=== PATIENT | male | born 1940 | race Caucasian/White ===

== ENCOUNTER 2021-07-07 20:53 | Emergency (ER) | payer MEDICARE, OTHER, SELFPAY ==
[2021-07-07 20:55] VITALS: BP 175/93; TEMP 36.7; O2SAT 97; BMI 29.3
--- NOTE | 2021-07-07 22:12 | RAD_ITS ---
HISTORY: chest pain EXAMINATION/TECHNIQUE: XR Chest 1 View AP view COMPARISON: None FINDINGS: LINES/DEVICES: Sternotomy wires and prosthetic aortic valve. LUNGS: No overt pulmonary edema. Slightly hyperexpanded lungs. Obliquely oriented linear opacity within right midlung. No sizable pleural effusion. No pneumothorax detected. MEDIASTINUM AND CARDIOVASCULAR STRUCTURES: Slightly prominent heart shadow. Status post CABG and aortic valvuloplasty. Atherosclerotic calcifications along the aorta. BONES AND SOFT TISSUES: Skeletal degenerative changes. RAD/Chest 1 View (Portable) IMPRESSION: Mild COPD and mild cardiomegaly with right midlung linear scarring versus atelectasis. at 2342 Reported and signed by: Rafita Meadows MD Electronically Signed: Rafita Meadows MD at 23:41 EST Tel , Service support ,
--- NOTE | 2021-07-07 22:12 | RAD_ITS ---
HISTORY: atraumatic left hip pain EXAMINATION/TECHNIQUE: XR Hip Unilateral with Pelvis when performed; 2-3 Views: AP pelvis with AP and lateral views left hip COMPARISON: None FINDINGS: PELVIC BONES: No displaced fracture, destructive or sclerotic lesions. Note that overlapping bowel shadows may however obscure fine detail. Sacroiliac joints are unremarkable. No widening of the pubic symphisis. Degenerative changes involving imaged lumbar spine. HIPS: Symmetric and adequately aligned bilateral hips with no acute fracture or dislocation. Bilateral hip joint spaces are symmetric and preserved. SOFT TISSUES: Lower abdominal and pelvic hernia repair mesh clips present. Surgical clips within left lower pelvis and left thigh. Vascular calcifications noted. RAD/HIP, UNI W/ Pelvis 2-3 Views IMPRESSION: Pelvis and hips with no acute osseous abnormality. at 2345 Reported and signed by: Rafita Meadows MD Electronically Signed: Rafita Meadows MD at 23:44 EST Tel , Service support ,
--- NOTE | 2021-07-07 22:12 | EKG12_ITS ---
Test Reason : DYSRHYTHMIA Blood Pressure : / mmHG Vent. Rate : 063 BPM Atrial Rate : 034 BPM P-R Int : 000 ms QRS Dur : 094 ms QT Int : 434 ms P-R-T Axes : 000 063 -34 degrees QTc Int : 444 ms Atrial fibrillation Inferior infarct , age undetermined Abnormal ECG Confirmed by LASHAY NORRIS, TREVIN ([id number]), editor index SRAVANI JOHNSON ([id number]) on 07/09/2021 10:17:14 AM Referred By: MARK Confirmed By:TREVIN METZ MD
--- NOTE | 2021-07-07 22:13 | EDS_ITS ---
HPI History of Present Illness Chief Complaint: Lower Extremity Injury Detail of Chief Complaint: Atraumatic left hip pain for months. Bilateral lower extremity swelling fo Informant: patient and friend Occured/Mechanism Mechanism/Context: No injury Onset/Context/Timing Onset: Month(s) Context: Gradual Onset Timing: Continuous Quality of Pain: Sharp Current Severity: Mild Maximum Severity: Mild Associated Symptoms Associated Symptoms: Negative for Parasthesia, Weakness and Loss of Funtion Narrative Narrative: 72-year-old male lives at [facility]. Past medical history of CABG and CAD and diabetes. Denies any history of CHF or kidney disease. Patient has been dealing with hip pain for 6 months. He was seen by his primary care physician for that and no x-rays were ordered at that time. The pain is progressively worsened over the last several weeks. He is also developed bilateral lower extremity edema. Currently he is on Coumadin. They were going to get him into physical therapy but has not been scheduled or set up yet. He denies any falls or trauma. He denies chest pain or shortness of breath. Prior similar symptoms: No Recent Illness/Hospitalization: No PFSH PFSH Home Medications allopurinol 300 mg PO DAILY 07/07/21 [History Last Taken Unknown] furosemide [Lasix] 20 mg PO DAILY 07/07/21 [History Last Taken Unknown] lisinopril 40 mg PO DAILY 07/07/21 [History Last Taken Unknown] metoprolol succinate 25 mg PO DAILY 07/07/21 [History Last Taken Unknown] omega-3 fatty acids [Fish Oil] 1,000 mg PO DAILY 07/07/21 [History Last Taken Unknown] warfarin [Coumadin] 2.5 mg PO DAILY 07/07/21 [History Last Taken Unknown] hydrocodone-acetaminophen 1 tab PO Q6H PRN 5 Days #10 tab 07/08/21 [Rx Last Taken Unknown] Allergy/AdvReac Type Severity Reaction Status Date / Time No Known Allergies Allergy Verified 07/07/21 20:58 Social History Smoking Status: Never smoker ROS ROS ED ROS Narrative Left hip pain. Bilateral lower extremity swelling. Review of Systems ROS Unobtainable: Denies due to encephalopathy Constitutional Constitutional ED: Denies fever(s) Eyes Eyes: Denies change in vision ENT ENT ED: Denies ear pain Cardiovascular Cardiovascular: Denies chest pain or palpitations Respiratory/Chest Respiratory/Chest: Denies cough or dyspnea Gastrointestinal Gastrointestinal: Denies abdominal pain, diarrhea, nausea or vomiting Genitourinary Genitourinary ED: Denies dysuria Musculoskeletal Musculoskeletal: Denies myalgias Integumentary Denies rash Neurologic Neurologic: Denies headache(s) Psychiatric Psychiatric: Denies depression Endocrine Endocrinology: Denies polyuria Hematologic/Lymphatic Hematologic/Lymphatic: Denies easy bruising Allergic/Immunologic Allergic/Immunologic ED: Denies urticaria EXAM Physical Exam Narrative Exam Narrative: 80-year-old male no acute distress vital signs stable he is afebrile he does not look septic or toxic. His pulse ox is 97% on room air. H EENT exam unremarkable. Neck nontender no lymphadenopathy. Lungs clear to auscultation bilaterally. Heart rate about 60. No murmur. Sounds are regular.. No murmur appreciated. Abdomen soft, nontender, nondistended normal bowel sounds no peritoneal signs. He has tenderness to his left hip to palpation. There is no redness or warmth. There is no lumbar spine tenderness or SI tenderness. He is able to flex extend the left hip. Both lower extremities are 1-2+ pitting edema. Equal symmetrical. Calves are nontender. Dorsi plantarflexion intact. He is able to flex extend his hip and knee. Neurologically is awake and alert with no focal motor deficits. Const Vital Signs: 07/07/21 20:55 07/07/21 23:18 07/07/21 23:20 Temperature 98.1 F Temperature Source Temporal Pulse Rate 74 Respiratory Rate 16 Blood Pressure 175/93 H Blood Pressure Mean 120 Pulse Ox 97 95 95 Oxygen Delivery Method Room Air Room Air Room Air Positive well nourished and well developed; Negative for obese, cachectic, contractures or unkempt General Appearance ED: well developed and NAD; Negative for unkempt, cachectic or contractures Nutritional Appearance: Negative for cachectic or obese HEENT Reports moist mucous membranes normocephalic and atraumatic; Negative for trauma or tenderness Eyes PERRL Neck full ROM and supple Thyroid: Negative for tender Chest Wall inspection of chest normal and palpation of chest normal Resp normal respiratory effort, no retractions and clear to auscultation bilaterally Auscultation: Negative for rales, rhonchi or wheezes Cardio regular rate, S1 normal heart sound, S2 normal heart sound and no murmurs; Negative for regular rhythm Cardio Narrative: A. fib. GI non-tender, non-distended and no masses Auscultation: normoactive bowel sounds Palpation: soft; Negative for tender, guarding or rebound tenderness present Back/Spine no CVA tenderness Back/Spine Narrative: No SI tenderness. General Back: Negative for CVA tenderness Cervical Spine: Negative for cervical spine tenderness Thoracic Spine / Upper Back: Negative for thoracic spinal tenderness Lumbar Spine / Lower Back: Negative for lumbar spinal tenderness Extremity Negative for normal to inspection Extremity Narrative: Tenderness left hip. No redness. No deformity. No warmth. Bilateral lower extremity pitting edema equal symmetrical. Neuro oriented x3 and moves all extremities Sensorium / Orientation: alert, oriented to person, oriented to place and oriented to time; Negative for orientation impaired, confused, lethargic or stuporous Motor Exam: strength 5/5 throughout Psych mental status grossly normal Appearance: Negative for unkempt Mood & Affect: Negative for anxious Skin no wounds Lesions: no lesions Rashes: no rashes Trauma: Negative for abrasion, laceration or puncture MDM MDM MDM Narrative Medical decision making narrative: 72-year-old male assisted living with acute on chronic left hip pain and new lower extremity edema. He will undergo cardiac work-up with x-rays of the hip. He is on Coumadin we will check an INR. Repeat exam patient is doing well at 12:39 AM. I went over all test results with he and personnel from the extended care facility. He will be discharged to home and follow-up with his primary care physician. He will be written for [employer] [employer] for pain. Lab Data Attestation: I reviewed the patient's lab results. Lab results narrative: CBC shows a normal white count of 6.9. Hemoglobin 12.2. Platelet count of 117,000. Patient is on Coumadin his INR is 2.2. BNP is 374. Chemistries unremarkable gap of six BUN 21 creatinine 1.3. Glucose 200. Troponin normal at 18. Labs: Laboratory Results - last 24 hr 07/07/21 07/07/21 07/07/21 22:55 22:55 22:55 WBC 6.9 RBC 3.82 L Hgb 12.2 L Hct 36.9 L MCV 96.6 H MCH 31.9 MCHC 33.1 RDW Std Deviation 48.5 H RDW Coeff of Zaheer 13.6 Plt Count 117 L MPV 10.7 Immature Gran % (Auto) 0.300 Neut % (Auto) 62.9 Lymph % (Auto) 26.3 Bureau % (Auto) 7.8 Eos % (Auto) 2.0 Baso % (Auto) 0.7 Absolute Neuts (auto) 4.4 Absolute Lymphs (auto) 1.82 Nucleated RBC % 0 PT 23.5 H INR 2.2 Sodium 144 Potassium 3.8 Chloride 113 H Carbon Dioxide 25.0 Anion Gap 6 BUN 21 H Creatinine 1.39 H Estim Creat Clear Calc 50.92 Est GFR (MDRD) Af Amer 63 Est GFR (MDRD) Non-Af 52 L BUN/Creatinine Ratio 15.1 Glucose 200 H Calcium 8.5 Troponin I High Sens 18 B-Natriuretic Peptide 07/07/21 22:55 WBC RBC Hgb Hct MCV MCH MCHC RDW Std Deviation RDW Coeff of Zaheer Plt Count MPV Immature Gran % (Auto) Neut % (Auto) Lymph % (Auto) Bureau % (Auto) Eos % (Auto) Baso % (Auto) Absolute Neuts (auto) Absolute Lymphs (auto) Nucleated RBC % PT INR Sodium Potassium Chloride Carbon Dioxide Anion Gap BUN Creatinine Estim Creat Clear Calc Est GFR (MDRD) Af Amer Est GFR (MDRD) Non-Af BUN/Creatinine Ratio Glucose Calcium Troponin I High Sens B-Natriuretic Peptide 374.0 H Radiography Diagnostic Testing: Clinical Impression(s) from Imaging Studies Chest X-Ray 07/07/21 22:12 IMPRESSION: Mild COPD and mild cardiomegaly with right midlung linear scarring versus atelectasis. at 2345 Reported and signed by: Rafita Meadows MD Electronically Signed: Rafita Meadows MD at 23:41 EST Tel , Service support , Hip/Pelvis X-Ray 07/07/21 22:12 IMPRESSION: Pelvis and hips with no acute osseous abnormality. at 2345 Reported and signed by: Rafita Meadows MD Electronically Signed: Rafita Meadows MD at 23:44 EST Tel , Service support , Left hip x-ray and pelvis shows no acute abnormality. No fracture or dislocation no significant degenerative arthritis. Chronic changes no acute process. 3 views interpreted by myself. Portable chest x-ray interpreted both by myself and servicer coin machines showed chronic changes no acute process. Cardiomegaly. And possible chronic changes consistent with COPD. No acute infiltrate. No congestive heart failure nor any effusions. Rhythm Strip Rhythm Strip: A-fib Rate: 63 Ectopy: None EKG Initial EKG: Attestation: I personally reviewed and interpreted this EKG as follows: Interpretation: No Acute Injury Pattern, Atrial Fibrillation and Atrial Fl utter Comments: Atrial fib/flutter rate of 63 no acute signs of MT or ischemia. Prior EKG tracings: not available for review Discharge Plan Triage Chief Complaint: Lower Extremity Injury ED Provider: Moris Gross Dx/Rx/DC Orders Clinical Impression: Acute hip pain, Peripheral edema Instructions: ED Lymphedema Prescriptions: New hydrocodone-acetaminophen 5-325 mg tablet 1 tab PO Q6H PRN (Reason: pain) 5 Days Qty: 10 RF: 0 No Action warfarin [Coumadin] 2.5 mg Tablet 2.5 mg PO DAILY RF: 0 furosemide [Lasix] 20 mg Tablet 20 mg PO DAILY RF: 0 metoprolol succinate 25 mg Tablet Extended Release 24 Hr 25 mg PO DAILY RF: 0 allopurinol 300 mg Tablet 300 mg PO DAILY RF: 0 lisinopril 40 mg Tablet 40 mg PO DAILY RF: 0 Fish Oil Capsule 1,000 mg PO DAILY RF: 0 Primary Care Provider: Care Physician,No Primary Referrals: Care Physician,No Primary [Primary Care Provider] - Activity Restrictions/Additional Instructions: Your hip x-ray and labs look good. Follow-up with your doctor. Return if feeling worse. Limited [place] for hip pain. Make sure you are drinking plenty of fluids and taking plenty of fiber so it does not cause her constipation. Watch does not make you nauseated or fall. Elevate your legs to decrease swelling. Discussed with your primary care physician possible compression stocking or adjusting her medications Alvera to the swelling. Disposition Disposition: Home, Self Care
[2021-07-07 23:14] LABS: Absolute Lymphocyte Count 1.82 X10^3/uL (0.83-4.51); Absolute Neutrophil Count 4.4 X10^3/uL (2.0-7.7); Basophil# 0.05 X10^3/uL; Basophil% 0.7 % (0-1); Eosinophil# 0.14 X10^3/uL; Hematocrit 36.9 % (40-54); Hemoglobin 12.2 g/dL (13.0-16.5); Lymphocyte # 1.82 X10^3/ul (0.83-4.51); Lymphocyte % 26.3 % (19-41); Mean Corp Hgb Conc 33.1 g/dL (32-36); Mean Corpuscular Hgb 31.9 pg (27.0-32.0); Mean Corpuscular Volume 96.6 fL (80-94); Mean Platelet Vol. 10.7 fl (6.2-12.0); Monocyte# 0.54 X10^3/uL; Monocyte% 7.8 % (0-10); NRBC Flagged by Analyzer 0 % (0-5); Neutrophil # 4.35 X10^3/uL (2.7-7.7); Neutrophil % 62.9 % (47-70); Platelet Count 117 K/mm3 (150-450); RBC Distribution Width CV 13.6 % (11.6-14.6); RBC Distribution Width SD 48.5 fl (35.1-43.9); Red Blood Count 3.82 M/mm3 (4.6-6.2); White Blood Count 6.9 K/mm3 (4.4-11.0)
[2021-07-07 23:18] VITALS: O2SAT 95
[2021-07-07 23:20] VITALS: PULSE 74; RESP 16; O2SAT 95
[2021-07-07 23:26] LABS: International Normalized Ratio 2.2; Prothrombin Time (Protime)PT. 23.5 SECONDS (11.7-14.9)
[2021-07-08 00:21] LABS: Anion Gap 6 (5-15); BUN 21 mg/dL (7-18); BUN/Creat Ratio 15.1 RATIO (10-20); Calcium,Total 8.5 mg/dL (8.5-10.1); Chloride 113 mmol/L (98-107); Creatinine, Serum 1.39 mg/dL (0.70-1.30); EST Glomerular Filtration Rate 52 mL/min (>60); Est Glom Filt Rate - Afr Amer 63 mL/min (>60); Estimated Creatinine Clearance 50.92 ml/min; Glucose 200 mg/dL (74-106); Potassium 3.8 mmol/L (3.5-5.1); Sodium Level 144 mmol/L (136-145); Troponin-I HS 18 pg/mL (3.0-78.0)
[2021-07-08 00:47] VITALS: BP 150/84; PULSE 75; RESP 23; O2SAT 95
--- NOTE | 2021-07-08 00:51 | NURSING ---
called [place] to let know 0145 [facility] for ambulance to bring patient back. Left voicemail with eta 0145.
== END 2021-07-08 01:38 | disposition home or self-care (01) ==
PROVIDERS: Emergency Provider Emergency Medicine
DX: M25.552 Pain in left hip (principal); R60.0 Localized edema; I25.10 Atherosclerotic heart disease of native coronary artery without angina pectoris; Z79.01 Long term (current) use of anticoagulants; Z79.899 Other long term (current) drug therapy; Z95.1 Presence of aortocoronary bypass graft
CPT/HCPCS: 71045; 73502; 80048; 83880; 84484; 85025; 85610; 93005; 99285

== ENCOUNTER 2021-08-10 09:45 | Outpatient (CLI) | payer MEDICARE, OTHER, SELFPAY ==
--- NOTE | 2021-08-10 10:00 | ART_ITS ---
Reason For Study: Claudication Procedure A bilateral lower extremity continuous wave Doppler with analog waveform analysis,segmental pressures,and ankle brachial indexes with exercise. Left Segmental Pressures Left brachial= 163mmHg. Left posterior tibial artery = 200mmHg. Left dorsalis pedis artery = 196mmHg. Left digit = 140 mmHg. The left dorsalis pedis waveforms are triphasic. The left posterior tibial artery waveforms are triphasic. Right Segmental Pressures Right brachial= 162mmHg. Right posterior tibial artery = >254mmHg. Right dorsalis pedis artery = 227mmHg. Right digit = 168 mmHg. The right dorsalis pedis waveforms are triphasic. The right posterior tibial artery waveforms are triphasic. Indices The right ankle brachial index by the dorsalis pedis is 1.39. The right ankle brachial index by the posterior tibial artery is NC. The right digital-brachial index is 1.03. The right post exercise ankle brachial index is NC. The left ankle brachial index by the dorsalis pedis is 1.20. The left ankle brachial index by the posterior tibial artery is 1.23. The left digital-brachial index is 0.86. The left post exercise ankle brachial index is NC. VL/Lower Ext Art Exam w/ Exercise Interpretation Summary Triphasic Doppler waveforms are noted at ankle level bilaterally. Pulse-volume recordings appear satisfactory at all levels bilaterally. Resting ankle-brachial indices are norm al bilaterally. Digital-brachial indices are normal bilaterally. The patient was ambulated at a consistent pace as tolerated for 3 minutes, following which ankle pressures augmented bilaterally, a normal physiological response. There is no evidence of significant arterial occlusive disease in the lower ext remities bilaterally. Ordering Physician: Justen Sarabia Referring Physician: Justen Sarabia Performed By: Clotilde Van RVT
== END 2021-08-10 23:59 | disposition short-term general hospital (02) ==
LOC: CVS 09:49
PROVIDERS: PCP Family Medicine; Referring Provider Family Medicine; Visit Provider Family Medicine
DX: I73.9 Peripheral vascular disease, unspecified (principal)
CPT/HCPCS: 93924

== ENCOUNTER 2022-01-24 12:16 | Emergency (ER) | payer MEDICARE, OTHER, SELFPAY ==
[2022-01-24 12:19] VITALS: BP 172/93; PULSE 91; RESP 13; TEMP 36.4; O2SAT 96; BMI 28.0
--- NOTE | 2022-01-24 12:41 | EKG12_ITS ---
Test Reason : DIZZINESS Blood Pressure : / mmHG Vent. Rate : 085 BPM Atrial Rate : 241 BPM P-R Int : 000 ms QRS Dur : 106 ms QT Int : 390 ms P-R-T Axes : 000 042 -50 degrees QTc Int : 464 ms Atrial fibrillation with premature ventricular or aberrantly conducted complexes Inferior infarct , age undetermined, cannot be excluded Abnormal ECG Confirmed by MEAGAN NORRIS, SANDRINE ([id number]), editor managing director SRAVANI JOHNSON ([id number]) on 01/25/2022 11:21:23 AM Referred By: JANETTE Confirmed By:SANDRINE RHODES MD
--- NOTE | 2022-01-24 12:41 | RAD_ITS ---
STUDY: X-RAY CHEST REASON FOR EXAM: Male, 81 years old. near syncope TECHNIQUE: 1 view COMPARISON: None. FINDINGS: Cardiomediastinal silhouette is unremarkable. Aortic valve prosthesis is in place. Costophrenic angles are sharp. Lungs are clear. The trachea is midline. There is no pneumothorax. There has been prior median sternotomy and CABG. RAD/Chest 1 View (Portable) IMPRESSION: No acute cardiopulmonary process. Electronically Signed: Karlos Mobley MD at 13:53 EDT ,
--- NOTE | 2022-01-24 12:42 | EDS_ITS ---
HPI HPI - Fall History of Present Illness Chief Complaint: Dizziness Narrative Narrative: 81-year-old male presenting for evaluation of lightheadedness. He had an episode while he was on his way to an appointment today. He states he was by the elevator and started to feel lightheaded. He felt as if he was going to fall down and he braced himself. He states he did fall into some furniture but did not hit his head or lose consciousness. He states that he was initially evaluated on the scene and his blood sugar was in the 239 range. Patient is on prednisone currently and believes he is on this for his hip. He states that his doctor did not want to put him on this but did anyway. He had concerns for his blood sugar going up because he is a diabetic. Patient is on Coumadin for history of atrial fibrillation. He denies any black or bloody stools. He denies any chest pain, palpitations, shortness of breath. He denies visual complaints. No vertiginous dizziness. PFSH PFSH Home Medications allopurinol 300 mg tablet 300 mg PO DAILY 07/07/21 [History Last Taken Unknown] furosemide 20 mg tablet (Lasix) 20 mg PO DAILY 07/07/21 [History Last Taken Unknown] lisinopril 40 mg tablet 40 mg PO DAILY 07/07/21 [History Last Taken Unknown] metoprolol succinate 25 mg tablet,extended release 24 hr 25 mg PO DAILY 07/07/21 [History Last Taken Unknown] omega-3 fatty acids 1,000 mg PO DAILY 07/07/21 [History Last Taken Unknown] warfarin 2.5 mg tablet 2.5 mg PO DAILY 07/07/21 [History Last Taken Unknown] hydrocodone-acetaminophen 5-325mg 5mg-325mg 1 tab PO Q6H PRN pain 5 days #10 tabs 07/08/21 [Rx Last Taken Unknown] Allergy/AdvReac Type Severity Reaction Status Date / Time No Known Allergies Allergy Verified 01/24/22 12:22 Social History Smoking Status: Never smoker ROS ROS ED Constitutional Constitutional ED: Denies chills or fever(s) Eyes Eyes: Denies change in vision or diplopia ENT ENT ED: Denies rhinorrhea or sore throat Cardiovascular Cardiovascular: Denies chest pain, palpitations or racing heartbeat Respiratory/Chest Respiratory/Chest: Denies cough, dyspnea or dyspnea on exertion Gastrointestinal Gastrointestinal: Denies abdominal pain or constipation Genitourinary Genitourinary ED: Denies dysuria or hematuria Musculoskeletal Musculoskeletal: Denies arthralgias or back pain Integumentary Denies abscess Neurologic Neurologic: Denies headache(s) or paresthesias Psychiatric Psychiatric: Denies anxiety or depression EXAM Physical Exam Const Vital Signs: 01/24/22 12:19 01/24/22 12:24 01/24/22 13:10 Temperature 97.5 F L Temperature Source Temporal Pulse Rate 91 Pulse Rate [Lying] 89 Pulse Rate [Sitting (for 1 minute prior to obtaining)] 91 Pulse Rate [Standing (for 1 minute prior to obtaining)] 109 H Respiratory Rate 13 Respiratory Effort Normal Respiratory Pattern Normal Blood Pressure 172/93 H Blood Pressure [Lying] 143/82 H Blood Pressure [Sitting (for 1 minute prior to obtaining)] 174/84 H Blood Pressure [Standing (for 1 minute prior to obtaining)] 145/92 H Blood Pressure Mean 119 Blood Pressure Mean [Lying] 102 Blood Pressure Mean [Sitting (for 1 minute prior to obtaining)] 114 Blood Pressure Mean [Standing (for 1 minute prior to obtaining)] 109 Pulse Ox 96 Oxygen Delivery Method Room Air 01/24/22 14:00 01/24/22 15:26 Temperature Temperature Source Pulse Rate 72 65 Pulse Rate [Lying] Pulse Rate [Sitting (for 1 minute prior to obtaining)] Pulse Rate [Standing (for 1 minute prior to obtaining)] Respiratory Rate 15 Respiratory Effort Respiratory Pattern Blood Pressure 166/81 H 166/81 H Blood Pressure [Lying] Blood Pressure [Sitting (for 1 minute prior to obtaining)] Blood Pressure [Standing (for 1 minute prior to obtaining)] Blood Pressure Mean 109 Blood Pressure Mean [Lying] Blood Pressure Mean [Sitting (for 1 minute prior to obtaining)] Blood Pressure Mean [Standing (for 1 minute prior to obtaining)] Pulse Ox 98 Oxygen Delivery Method Room Air Positive well nourished General Appearance ED: NAD HEENT Reports normocephalic atraumatic Eyes PERRL and EOMs intact bilaterally General Eye ED: Negative for pale conjunctiva or scleral icterus Chest Wall inspection of chest normal Resp normal respiratory effort, no retractions and clear to auscultation bilaterally Auscultation: Negative for rales, rhonchi or wheezes Cardio regular rate Rhythm: abnormal rhythm irregularly irregular GI non-tender Neuro oriented x3, CN's II-XII intact bilaterally, moves all extremities, no focal motor deficits and no sensory deficits noted Psych mental status grossly normal and thought process normal MDM MDM MDM Narrative Medical decision making narrative: Patient presenting with lightheadedness which is now resolved. He states he had a mechanical fall but did not hit his head or lose consciousness. Orthostatic vitals are negative. Negative Henderson-Hallpike on exam. CBC and BMP are at baseline. LFTs normal. High-sensitivity prone is 24. EKG is A. fib with a ventricular rate of 85 bpm without sign of ischemic change. Urinalysis is negative. Chest x-ray on my interpretation shows no acute cardiopulmonary process and the radiologist agree. Patient ambulated in the [place] and feels well. Scar[facility] Noland follow-up regarding patient and is able to arrange transport if he feels well enough to go back to independent living and he does. Transport was provided by the facility. Patient discharged stable condition. Impression: 1. Lightheadedness 2. Near syncope Lab Data Attestation: I reviewed the patient's lab results. Labs: Laboratory Results - last 24 hr 01/24/22 01/24/22 01/24/22 12:24 12:24 12:24 WBC 8.8 RBC 4.21 L Hgb 13.4 Hct 40.1 MCV 95.2 H MCH 31.8 MCHC 33.4 RDW Std Deviation 46.9 H RDW Coeff of Zaheer 13.7 Plt Count 123 L MPV 10.9 Immature Gran % (Auto) 0.600 Neut % (Auto) 60.7 Lymph % (Auto) 30.5 [place] % (Auto) 7.4 Eos % (Auto) 0.3 Baso % (Auto) 0.5 Absolute Neuts (auto) 5.4 Absolute Lymphs (auto) 2.70 Nucleated RBC % 0 PT 25.7 H INR 2.4 Sodium 140 Potassium 3.7 Chloride 107 Carbon Dioxide 25.0 Anion Gap 8 BUN 23 H Creatinine 1.52 H Estim Creat Clear Calc 45.82 Est GFR (MDRD) Af Amer 57 L Est GFR (MDRD) Non-Af 47 L BUN/Creatinine Ratio 15.1 Glucose 264 H Calcium 8.9 Total Bilirubin 0.70 AST 11 L ALT 15 L Alkaline Phosphatase 217 H Troponin I High Sens 24 Total Protein 6.8 Albumin 3.2 Globulin 3.6 Albumin/Globulin Ratio 0.9 Urine Color Urine Clarity Urine pH Ur Specific [place] Urine Protein Urine Glucose (UA) Urine Ketones Urine Occult Blood Urine Nitrite Urine Bilirubin Urine Urobilinogen Ur Leukocyte Esterase Urine RBC Urine WBC Ur Squamous Epith Cells Urine Bacteria Urine Mucus 01/24/22 13:10 WBC RBC Hgb Hct MCV MCH MCHC RDW Std Deviation RDW Coeff of Zaheer Plt Count MPV Immature Gran % (Auto) Neut % (Auto) Lymph % (Auto) [place] % (Auto) Eos % (Auto) Baso % (Auto) Absolute Neuts (auto) Absolute Lymphs (auto) Nucleated RBC % PT INR Sodium Potassium Chloride Carbon Dioxide Anion Gap BUN Creatinine Estim Creat Clear Calc Est GFR (MDRD) Af Amer Est GFR (MDRD) Non-Af BUN/Creatinine Ratio Glucose Calcium Total Bilirubin AST ALT Alkaline Phosphatase Troponin I High Sens Total Protein Albumin Globulin Albumin/Globulin Ratio Urine Color Yellow Urine Clarity Clear Urine pH 6.0 Ur Specific [place] 1.015 Urine Protein 15 H Urine Glucose (UA) 1000 H Urine Ketones Negative Urine Occult Blood 150 H Urine Nitrite Negative Urine Bilirubin Negative Urine Urobilinogen Normal Ur Leukocyte Esterase 100 H Urine RBC 5-10 SEEN Urine WBC 0-5 SEEN Ur Squamous Epith Cells 0-5 SEEN Urine Bacteria 0 SEEN Urine Mucus 0 SEEN Radiography Diagnostic Testing: Clinical Impression(s) from Imaging Studies Chest X-Ray 01/24/22 12:41 IMPRESSION: No acute cardiopulmonary process. Electronically Signed: Karlos Mobley MD at 13:53 EDT , Discharge Plan Triage Chief Complaint: Dizziness Other Complaint: Fall ED Provider: Valente Lopez Dx/Rx/DC Orders Instructions: ED Dizziness, Uncertain Cause Prescriptions: No Action warfarin [Coumadin] 2.5 mg Tablet 2.5 mg PO DAILY Rx Instructions: 2.5 M, W, F and 5 Flynn, T, TR, Sa furosemide [Lasix] 20 mg Tablet 20 mg PO DAILY metoprolol succinate 25 mg Tablet Extended Release 24 Hr 25 mg PO DAILY allopurinol 300 mg Tablet 300 mg PO DAILY lisinopril 40 mg Tablet 40 mg PO DAILY Fish Oil Capsule 1,000 mg PO DAILY hydrocodone-acetaminophen 5-325 mg tablet 1 tab PO Q6H PRN (Reason: pain) 5 Days Qty: 10 0RF Primary Care Provider: Justen Sarabia Referrals: Justen Sarabia MD [Primary Care Provider] - Disposition Disposition: Home, Self Care Discharge Date/Time: 01/24/22 15:45
[2022-01-24 12:53] LABS: Absolute Neutrophil Count 5.4 X10^3/uL (2.0-7.7); Basophil# 0.04 X10^3/uL; Basophil% 0.5 % (0-1); Eosinophil# 0.03 X10^3/uL; Eosinophils% 0.3 % (0-5); Hematocrit 40.1 % (40-54); Hemoglobin 13.4 g/dL (13.0-16.5); Lymphocyte % 30.5 % (19-41); Mean Corp Hgb Conc 33.4 g/dL (32-36); Mean Corpuscular Hgb 31.8 pg (27.0-32.0); Mean Corpuscular Volume 95.2 fL (80-94); Mean Platelet Vol. 10.9 fl (6.2-12.0); Monocyte# 0.65 X10^3/uL; Monocyte% 7.4 % (0-10); NRBC Flagged by Analyzer 0 % (0-5); Neutrophil # 5.37 X10^3/uL (2.7-7.7); Neutrophil % 60.7 % (47-70); Platelet Count 123 K/mm3 (150-450); RBC Distribution Width CV 13.7 % (11.6-14.6); RBC Distribution Width SD 46.9 fl (35.1-43.9); Red Blood Count 4.21 M/mm3 (4.6-6.2); White Blood Count 8.8 K/mm3 (4.4-11.0)
[2022-01-24 13:07] LABS: ALB/GLOB Ratio 0.9 RATIO (0.9-2.4); AST(SGOT) 11 U/L (15-37); Alanine Aminotransfer ALT/SGPT 15 U/L (16-61); Albumin, Serum 3.2 g/dL (3.2-5.0); Alkaline Phosphatase 217 U/L (45-117); Anion Gap 8 (5-15); BUN 23 mg/dL (7-18); BUN/Creat Ratio 15.1 RATIO (10-20); Calcium,Total 8.9 mg/dL (8.5-10.1); Chloride 107 mmol/L (98-107); Creatinine, Serum 1.52 mg/dL (0.70-1.30); EST Glomerular Filtration Rate 47 mL/min (>60); Est Glom Filt Rate - Afr Amer 57 mL/min (>60); Estimated Creatinine Clearance 45.82 ml/min; Globulin 3.6 g/dL (2.2-4.2); Glucose 264 mg/dL (74-106); Potassium 3.7 mmol/L (3.5-5.1); Protein, Total 6.8 g/dL (6.4-8.2); Sodium Level 140 mmol/L (136-145); Troponin-I HS 24 pg/mL (3.0-78.0)
[2022-01-24 13:10] VITALS: BP 143/82; BP 145/92; BP 174/84; PULSE 109; PULSE 89; PULSE 91
[2022-01-24 13:18] LABS: Bacteria 0 SEEN /hpf (None Seen); Mucous, Urine 0 SEEN /hpf (<or=2+)
[2022-01-24 13:19] LABS: Color, Urine Yellow (Yellow); Glucose, Dipstick 1000 mg/dl (Normal); Ketone-Dipstick Negative (Negative); Leukocyte Esterase-Dipstick 100 /ul (Negative); Nitrite-Dipstick Negative (Negative); Occult Blood-Urine 150 /ul (Negative); Protein-Dipstick 15 mg/dl (Negative); Specific Gravity, Urine 1.015 (1.002-1.030); Urine Bilirubin Dipstick Negative (Negative); Urine Clarity Clear (Clear); Urine Urobilinogen Normal (Normal)
[2022-01-24 13:23] LABS: International Normalized Ratio 2.4; Prothrombin Time (Protime)PT. 25.7 SECONDS (11.7-14.9)
[2022-01-24 13:28] LABS: Red Blood Cells-Urine 5-10 SEEN /hpf (0-5)
[2022-01-24 13:29] LABS: Squamous Epithelial Cells - UA 0-5 SEEN /hpf (0-5); White Blood Cells 0-5 SEEN /hpf (0-5)
[2022-01-24 14:00] VITALS: BP 166/81; PULSE 72; RESP 15; O2SAT 98
[2022-01-24 15:26] VITALS: BP 166/81; PULSE 65
== END 2022-01-24 15:45 | disposition home or self-care (01) ==
PROVIDERS: Emergency Provider Student in an Organized Health Care Education/Training Program; PCP Family Medicine; Visit Provider Student in an Organized Health Care Education/Training Program
DX: R42 Dizziness and giddiness (principal); E11.65 Type 2 diabetes mellitus with hyperglycemia; I48.91 Unspecified atrial fibrillation; R55 Syncope and collapse; Z79.01 Long term (current) use of anticoagulants; Z79.899 Other long term (current) drug therapy
CPT/HCPCS: 71045; 80053; 81001; 84484; 85025; 85610; 93005; 99285

== ENCOUNTER → 2022-03-15 | Outpatient (CLI) | payer MEDICARE, OTHER, SELFPAY ==
--- NOTE | 2022-03-15 14:35 | RAD_ITS ---
HISTORY: M96.1. TECHNIQUE: XR Spine Lumbar 2 or 3 Views. COMPARISON: None. FINDINGS: VERTEBRAE: Generalized osteopenia. Bridging osteophytes noted. No acute fracture identified. Decompressive laminectomies of L4 and L5. ALIGNMENT: No significant anterior or posterior subluxation. INTERVERTEBRAL DISCS: Advanced degenerative changes with intervertebral disc space narrowing and endplate change at multiple levels. SOFT TISSUES: Left upper quadrant consultation, possible renal calculus. Postoperative changes of the right upper quadrant and pelvis. RAD/Lumbar Spine 2 or 3 Views IMPRESSION: No acute fracture or dislocation identified in the lumbar spine. Multilevel degenerative change. Electronically Signed: Anisa Henry MD at 16:32 EDT ,
--- NOTE | 2022-03-15 14:35 | RAD_ITS ---
HISTORY: Bilateral hip pain. TECHNIQUE: XR Hips Bilateral with Pelvis when performed; Min 5 Views. COMPARISON: 07/07/2021. FINDINGS: OSSEOUS STRUCTURES: No acute displaced fracture identified. Note that overlapping bowel shadows may obscure osseous detail. Slight osteopenia. JOINT SPACES: No dislocation. Mild degenerative changes of both hips. SOFT TISSUES: Postoperative change with mesh and surgical clips. RAD/Hips B/L min 2 views w/ Pelvis IMPRESSION: No acute displaced fracture or dislocation identified in the bilateral hips. Electronically Signed: Anisa Henry MD at 16:35 EDT ,
== END | disposition home or self-care (01) ==
LOC: RAD 14:30
PROVIDERS: PCP Family Medicine; Referring Provider Anesthesiology Pain Medicine; Visit Provider Anesthesiology Pain Medicine
DX: M25.551 Pain in right hip (principal); M25.552 Pain in left hip
CPT/HCPCS: 72100; 73521

== ENCOUNTER 2022-07-13 11:36 | Emergency (ER) | payer MEDICARE, OTHER, SELFPAY ==
[2022-07-13 11:36] VITALS: BP 196/101; PULSE 118; RESP 16; TEMP 36.5; O2SAT 98; BMI 25.7
--- NOTE | 2022-07-13 12:17 | EDS_ITS ---
HPI History of Present Illness Chief Complaint: Back Detail of Chief Complaint: Back pain for over 1 year Informant: patient Narrative Narrative: Patient presents the emergency department complaint of back pain that has had for over a year. Patient states he was diagnosed with sciatica. He has had x- rays of his lumbar spine and also of his left hip which showed degenerative changes but otherwise nothing significant. Patient has intermittent exacerbations of his pain but states has had the pain continuously for over a year. He is not had recent fall or injury. Patient states that the pain in his left low back radiates to the left hip and currently down to the knee on the left. He denies weakness in the extremity. He denies loss of bowel or bladder function other than sometimes he can have a hard time getting out of bed which delays his transit to the bathroom and sometimes he will soil himself. Patient denies fever or recent illness. Normally he ambulates on his own around his apartment as he is at half-way however for longer walks he uses a walker. Patient is scheduled to have an MRI of his back July 19 which is in 6 days. Patient has taken Tylenol for his pain which does seem to help somewhat. Jayda stephenson has been on prednisone in the past for this pain and hydrocodone. Prior similar symptoms: [facility] Medical History (Updated 07/13/22 @ 12:22 by Shandra Workman) Sciatica Home Medications allopurinol 300 mg tablet 300 mg PO DAILY 07/07/21 [History Last Taken Unknown] furosemide 20 mg tablet (Lasix) 20 mg PO DAILY 07/07/21 [History Last Taken Unknown] lisinopril 40 mg tablet 40 mg PO DAILY 07/07/21 [History Last Taken Unknown] metoprolol succinate 25 mg tablet,extended release 24 hr 25 mg PO DAILY 07/07/21 [History Last Taken Unknown] omega-3 fatty acids 1,000 mg PO DAILY 07/07/21 [History Last Taken Unknown] warfarin 2.5 mg tablet 2.5 mg PO DAILY 07/07/21 [History Last Taken Unknown] hydrocodone-acetaminophen 5-325mg 5mg-325mg 1 tab PO Q6H PRN pain 5 days #10 tabs 07/08/21 [Rx Last Taken Unknown] hydrocodone-acetaminophen 5-325mg 5mg-325mg 1 tab PO Q4H PRN PRN Pain 2 days #15 TABLETS 07/13/22 [Rx Last Taken Unknown] methylprednisolone 4 mg tablets in a dose pack (Methylpred DP) 4 mg PO DAILY #21 tabs 07/13/22 [Rx Last Taken Unknown] Allergy/AdvReac Type Severity Reaction Status Date / Time No Known Allergies Allergy Verified 07/13/22 11:38 Social History Smoking Status: Never smoker ROS ROS ED Review of Systems ROS Unobtainable: other Constitutional Constitutional ED: Reports lethargy; Denies chills, fever(s), sweats or weight loss Eyes Eyes: Denies blurry vision, change in vision or diplopia ENT ENT ED: Denies rhinorrhea or sore throat Cardiovascular Cardiovascular: Denies chest pain, orthopnea or racing heartbeat Respiratory/Chest Respiratory/Chest: Denies cough, dyspnea, dyspnea on exertion, orthopnea or sputum Gastrointestinal Gastrointestinal: Denies abdominal pain, diarrhea, nausea or vomiting Genitourinary Genitourinary ED: Denies dysuria, hematuria or urinary frequency Musculoskeletal Musculoskeletal: Reports back pain; Denies arthralgias, myalgias or neck pain Integumentary Denies abscess, Abrasions or rash Neurologic Neurologic: Denies headache(s) or weakness Psychiatric Psychiatric: Denies anxiety, depression or suicidal thoughts Endocrine Endocrinology: Denies polydipsia, polyphagia or polyuria Hematologic/Lymphatic Hematologic/Lymphatic: Denies easy bleeding, easy bruising or lymphadenopathy Allergic/Immunologic Allergic/Immunologic ED: Denies mouth swelling, tongue swelling or urticaria EXAM Physical Exam Const Vital Signs: 07/13/22 11:36 Temperature 97.7 F L Temperature Source Temporal Pulse Rate 118 H Respiratory Rate 16 Blood Pressure 196/101 H Blood Pressure Mean 132 Pulse Ox 98 Oxygen Delivery Method Room Air Positive well nourished and well developed General Appearance ED: well developed and NAD HEENT Reports TM's clear and moist mucous membranes normocephalic and atraumatic; Negative for trauma or tenderness Tympanic Membrane ED: Yes TM's clear Eyes PERRL and EOMs intact bilaterally General Eye ED: Negative for pale conjunctiva or scleral icterus Neck no lymphadenopathy, supple and no JVD General: Negative for tenderness Chest Wall inspection of chest normal and palpation of chest normal Chest: Negative for tenderness Resp normal respiratory effort and clear to auscultation bilaterally Effort and Inspection: Negative for respiratory distress or pain with movement Auscultation: Negative for rhonchi, wheezes or diminished lung sounds Cardio regular rate, regular rhythm, S1 normal heart sound, S2 normal heart sound and no murmurs Peripheral Pulses: pulses 2+ throughout GI normal to inspection, nondistended, normoactive bowel sounds, soft to palpation, non-tender, non-distended and no masses Back/Spine no thoracic nor lumbar tenderness Back/Spine Narrative: Patient has diffuse tenderness over lumbar spine and lumbar paraspinals on the left. He has negative straight leg raises. Deep tendon reflexes are plus 2 out of 4 bilaterally at the patella and Achilles. Patient has normal L5 extension bilaterally. Patient has normal sensation to light touch. Extremity normal to inspection General Extremety ED: Negative for edema General Extremity: Negative for edema Neuro oriented x3, CN's II-XII intact bilaterally, no sensory deficits noted and gait normal Sensorium / Orientation: awake, alert, oriented to person, oriented to place and oriented to time Motor Exam: strength 5/5 throughout and strength abnormal Psych mental status grossly normal Skin no rashes or lesions noted and no wounds MDM MDM MDM Narrative Medical decision making narrative: Patient presents with chronic back pain for over a year. There are no red flag symptoms of cauda equina. He is scheduled to have an MRI and advised to keep th at appointment. He is given a prescription for Medrol Dosepak and hydrocodone for pain. Patient advised to follow-up with his primary care physician within next 5 to 7 days. Patient to return if worsening pain, weakness in extremities, change in bowel or bladder function, or condition should worsen anyway. Discharge Plan Triage Chief Complaint: Back ED Provider: Fredy Rice Dx/Rx/DC Orders Clinical Impression: Back pain, Sciatica Instructions: ED Back Pain (Acute or Chronic), ED Sciatica Prescriptions: New hydrocodone-acetaminophen [hydrocodone-acetaminophen] 5-325 mg tablet 1 tab PO Q4H PRN PRN (Reason: Pain) 2 Days Qty: 15 0RF methylprednisolone [Methylpred DP] 4 mg tablets,dose pack 4 mg PO DAILY Qty: 21 0RF No Action warfarin [Coumadin] 2.5 mg Tablet 2.5 mg PO DAILY Rx Instructions: 2.5 M, W, F and 5 Flynn, T, TR, Sa furosemide [Lasix] 20 mg Tablet 20 mg PO DAILY metoprolol succinate 25 mg Tablet Extended Release 24 Hr 25 mg PO DAILY allopurinol 300 mg Tablet 300 mg PO DAILY lisinopril 40 mg Tablet 40 mg PO DAILY Fish Oil Capsule 1,000 mg PO DAILY hydrocodone-acetaminophen 5-325 mg tablet 1 tab PO Q6H PRN (Reason: pain) 5 Days Qty: 10 0RF Primary Care Provider: Justen Sarabia Referrals: Justen Sarabia MD [Primary Care Provider] - 5-7 Days Disposition Disposition: Home, Self Care
[2022-07-13] MEDS: HYDROcodone Bitartrate/Apap 5/325 Tablet PO (12:23)
== END 2022-07-13 13:31 | disposition home or self-care (01) ==
PROVIDERS: Emergency Provider Emergency Medicine; PCP Family Medicine; Visit Provider Emergency Medicine
DX: M54.42 Lumbago with sciatica, left side (principal); G89.29 Other chronic pain; Z79.01 Long term (current) use of anticoagulants; Z79.899 Other long term (current) drug therapy
CPT/HCPCS: 99283

== ENCOUNTER → 2022-07-19 | Outpatient (CLI) | payer MEDICARE, OTHER, SELFPAY ==
--- NOTE | 2022-07-19 12:18 | MRI_ITS ---
STUDY: MRI LUMBAR SPINE WITH AND WITHOUT CONTRAST REASON FOR EXAM: Male, 81 years old. SPINAL STENOSIS, LEFT RADICULOPATHY TECHNIQUE: Standardized fat and water weighted pulse sequences were obtained in the sagittal and axial planes. IV YES 19ml Clariscan was administered for the contrast portion of the examination. COMPARISON: Lumbar spine radiographs 03/15/2022. FINDINGS: T11-T12: (Sagittal only). Normal endplates. Normal disc height, hydration and morphology. Normal central canal and bilateral intervertebral neural foramina. T12-L1: Broad Schmorl''s node in the central T12 inferior endplate with mild reactive edema of the underlying marrow. Normal L1 superior endplate. Increased central disc space height. Normal facet joints. Normal central canal and bilateral lateral recesses. Normal bilateral intervertebral neural foramina. Normal lumbar lordosis. There is no substantial scoliosis. Normal conus medullaris that terminates at the lower L1 vertebral body level. L1-2: Mild Modic type II degenerative vertebral marrow fat infiltration underneath the vertebral endplates. Moderate right-sided disc space height narrowing. Mild left degenerative facet arthropathy. Normal right facet joint. Normal central canal and bilateral lateral recesses. Normal bilateral intervertebral neural foramina. L2-3: Modic type II degenerative vertebral marrow fat infiltration is underneath the right intervertebral endplates. Moderate disc space height narrowing. Mild degenerative retrolisthesis of L2 on L3. Mild to moderate left degenerative facet arthropathy. Mild right degenerative facet arthropathy. Mild central canal stenosis with an AP canal diameter of 9 mm. Normal bilateral lateral recesses. Mild stenosis of the bilateral intervertebral neural foramina. L3-4: Modic type II degenerative vertebral marrow fat infiltration underneath the left half of the vertebral endplates. Pronounced left-sided disc space height narrowing with partial ankylosis on the left side of the vertebral bodies. Minimal degenerative retrolisthesis of L3 on L4. Mild bilateral degenerative facet arthropathy. Normal central canal and bilateral lateral recesses. Mild stenosis of the bilateral intervertebral neural foramina. L4-5: Modic type II degenerative vertebral marrow fat infiltration underneath the vertebral endplates. Pronounced disc space height narrowing. Minimal degenerative retrolisthesis of L4 on L5. Mild asymmetric degenerative facet arthropathy. Normal central canal and bilateral lateral recesses. Mild stenosis of the bilateral intervertebral neural foramina. L5-S1: Moderate type II degenerative vertebral marrow fat infiltration underneath the vertebral endplates. Pronounced disc space height narrowing. Partial ankylosis of the vertebral bodies. Mild bilateral degenerative facet arthropathy. Normal central canal and bilateral lateral recesses. Mild stenosis of the bilateral intervertebral neural foramina. Normal visualized sacral ala. Normal visualized paraspinous soft tissue structures. Following IV contrast administration, there is mild contrast enhancement of the central Schmorl''s node of the T12 inferior endplate. There is minimal contrast enhancement of the vertebral endplates at L2-L3 disc space level. There is minimal contrast enhancement of the L4 inferior endplate. There is minimal contrast enhancement of the behind the laminectomy site at the L4-L5 disc space level due to postoperative fibrosis. MRI/Spine Lumbar W/WO Contrast IMPRESSION: 1. No MRI evidence of lumbar extruded disc fragment. 2. Mild central canal stenosis at L2-L3 disc space level with an AP canal diameter of 9 mm and minimal degenerative retrolisthesis of L2 on L3. 3. 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 4. Mild stenosis of the bilateral intervertebral neural foramina at L2-L3, L3-L4, L4-L5 and L5-S1 disc space levels. Electronically Signed: Jeremiah Maki MD at 14:28 EST ,
[2022-07-19 13:10] LABS: CREATININE FINGERSTICK < 0.9 mg/dL (0.70-1.30); EGFR FINGERSTICK > 60.0000 mL/min (>60)
== END | disposition home or self-care (01) ==
LOC: MRI 12:16
PROVIDERS: PCP Family Medicine; Referring Provider Family Medicine; Visit Provider Family Medicine
DX: M48.062 Spinal stenosis, lumbar region with neurogenic claudication (principal); M54.16 Radiculopathy, lumbar region
CPT/HCPCS: 72158; A9575

== ENCOUNTER 2023-05-23 07:30 | Emergency (ER) | payer MEDICARE, OTHER, SELFPAY ==
[2023-05-23 07:31] VITALS: BP 181/99; PULSE 99; RESP 18; TEMP 36.6; O2SAT 95; BMI 24.0
[2023-05-23] MEDS: HYDROcodone Bitartrate/Apap 5/325 Tablet PO (07:43)
--- NOTE | 2023-05-23 08:06 | EDS_ITS ---
HPI History of Present Illness Chief Complaint: Back Detail of Chief Complaint: Right lower back pain Informant: patient Onset/Context/Timing Onset: - (Approximately 2 decades) Context: Gradual Onset Timing: Continuous and Waxes and wanes Quality: Dull Location: Lumbar (Right lower back paralumbar region) Current Severity: Mild Maximum Severity: Moderate Worsened by: improves with Movement and Bending Relieved by: Nothing (States he has been living with pain for 20 years.) Associated Symptoms Associated Symptoms: - (Denies saddle paresthesia or anesthesia. He denies foot drop. He denies buckling of his knees going up or down steps.); Negative for Numbness, Tingling, Radiation to Right Leg, Radiation to Left Leg, Fever, Abdominal Pain, Dysuria, Unable to Ambulate, Unable to Transfer, Urinary Retention, Urinary Incontinence, Constipation or Fecal Incontinence Narrative Narrative: An elderly gentleman with history of spinal stenosis. Patient does not believe he had imaging recently. Review of prior records indicates he did have an MRI of his lumbar region on July 19, 2022. The MRI revealed no evidence of lumbar disc fragment protrusion. There was mild central canal stenosis at L2-L3 with a AP canal diameter of 9 mm and minimal degenerative retrolisthesis of L2 on L3. There was a partial ankylosis of L3-L4 vertebrae bodies and L5-S1 vertebrae bodies. There also was noted to be mild stenosis of right and left intervertebral neural foramen at L2-L3, L3-L4, L4-L5 and L5-S1 disc space. Patient denies fever, chills night sweats. Patient denies dysuria, frequency, urgency or hematuria. Patient denies radicular pain. Further detail under assess did some times Prior similar symptoms: Yes Recent Illness/Hospitalization: Yes [facility] Medical History (Updated 05/23/23 @ 10:[address] Eliezer Beck MD) Sciatica Home Medications allopurinol 300 mg tablet 300 mg PO DAILY 07/07/21 [History Last Taken Unknown] furosemide 20 mg tablet (Lasix) 20 mg PO DAILY 07/07/21 [History Last Taken Unknown] lisinopril 40 mg tablet 40 mg PO DAILY 07/07/21 [History Last Taken Unknown] metoprolol succinate 25 mg tablet,extended release 24 hr 25 mg PO DAILY 07/07/21 [History Last Taken Unknown] omega-3 fatty acids 1,000 mg PO DAILY 07/07/21 [History Last Taken Unknown] warfarin 2.5 mg tablet 2.5 mg PO DAILY 07/07/21 [History Last Taken Unknown] hydrocodone-acetaminophen 5-325mg 5mg-325mg 1 tab PO Q6H PRN pain 5 days #10 tabs 07/08/21 [Rx Last Taken Unknown] hydrocodone-acetaminophen 5-325mg 5mg-325mg 1 tab PO Q4H PRN PRN Pain 2 days #15 TABLETS 07/13/22 [Rx Last Taken Unknown] methylprednisolone 4 mg tablets in a dose pack (Methylpred DP) 4 mg PO DAILY #21 tabs 07/13/22 [Rx Last Taken Unknown] hydrocodone-acetaminophen 5-325mg 5mg-325mg 1 tab PO Q6H PRN PRN Pain 4 days #15 TABLETS 05/23/23 [Rx Last Taken Unknown] Allergy/AdvReac Type Severity Reaction Status Date / Time No Known Allergies Allergy Verified 05/23/23 07:34 Social History (Updated 05/23/23 @ 08:[address] Eliezer Beck MD) household members: none housing: other details: Dependent Smoking Status: Never smoker ROS ROS ED Constitutional Constitutional ED: Denies chills, fever(s), subjective, sweats or weight loss Eyes Eyes: Denies blurry vision, change in vision or diplopia Cardiovascular Cardiovascular: Denies chest pain or palpitations Respiratory/Chest Respiratory/Chest: Denies dyspnea or dyspnea on exertion Gastrointestinal Gastrointestinal: Denies abdominal pain or constipation Genitourinary Genitourinary ED: Denies dysuria, hematuria or urinary frequency Musculoskeletal Musculoskeletal: Reports back pain; Denies arthralgias or myalgias Integumentary Denies rash Neurologic Neurologic: Denies paresthesias or weakness Psychiatric Psychiatric: Denies anxiety or depression Hematologic/Lymphatic Hematologic/Lymphatic: Denies easy bleeding or easy bruising EXAM Physical Exam Const Vital Signs: 05/23/23 07:31 Temperature 97.9 F Temperature Source Temporal Pulse Rate 99 Respiratory Rate 18 Blood Pressure 181/99 H Blood Pressure Mean 126 Pulse Ox 95 Oxygen Delivery Method Room Air Positive well nourished and well developed General Appearance ED: well developed, NAD and pallor HEENT Reports moist mucous membranes HEENT Narrative: Dentition is poor. Ears normal. Nares patent. Posterior pharynx is normal. Eyes PERRL and EOMs intact bilaterally General Eye ED: Negative for pale conjunctiva or scleral icterus Neck no lymphadenopathy, supple and no JVD Resp normal respiratory effort and clear to auscultation bilaterally Cardio regular rate, regular rhythm, S1 normal heart sound, S2 normal heart sound and no murmurs Back/Spine normal to inspection Back/Spine Narrative: Minimal pain right lower back. No midline tenderness. Patella and ankle reflex are 2+. EHL is intact. 5 5 strength plantar and dorsiflexion of the foot. PT pulse palpable bilateral 1+. Patient has triphasic flow DP bilateral. There is stigmata of peripheral arterial disease with lack of hair on his toes and thickened toenails. Femoral pulses 2+. He has normal sensation over L3, L4, L5 and S1 dermatome. Lumbar Spine / Lower Back: ROM limited and straight leg raise negative bilaterally Extremity no clubbing, cyanosis or edema Extremity Narrative: Stigmata of PAD lower extremities Neuro oriented x3 and no sensory deficits noted Sensorium / Orientation: alert Deep Tendon Reflexes: Rt Patellar (L4): 2+, Lt Patellar (L4): 2+, Rt Ankle (S1): 2+ and Lt Ankle (S1): 2+ Deep Tendon Reflexes Back: Rt Patellar (L4): 2+, Lt Patellar (L4): 2+, Rt Ankle (S1): 2+ and Lt Ankle (S1): 2+ Plantar Reflex: Downgoing: bilateral (No clonus at the ankles) Psych mental status grossly normal Skin no rashes or lesions noted and no wounds General Skin Exam: pallor; Negative for jaundice MDM MDM MDM Narrative Medical decision making narrative: He is presently rating his pain a 2 which is markedly less than what he told the nurse, 7. Patient is not in obvious discomfort. He was treated with oral opiate analgesics which has been prescribed in the past. Blood work was obtained assess for white count and shift. ESR is inflammatory. Centimeters to assess calcium, alkaline phosphatase and renal function to determine if meds need to be adjusted. History & Record Review Additional record(s) reviewed:: Prior outpatient record and Prior labs Lab Data Attestation: I reviewed the patient's lab results. Lab results narrative: Patient has macrocytic anemia noted. ESR is normal at 10. Comprehensive metabolic panel is marked for chloride of 111. BUN and creatinine are 21 and 1.46 with a ratio of 14 and 1. Estimated GFR is 9. Albumin was normal. Calcium was normal. Labs: Laboratory Results - last 24 hr 05/23/23 07:50 WBC 6.9 RBC 3.43 L Hgb 11.2 L Hct 34.5 L MCV 100.6 H MCH 32.7 H MCHC 32.5 RDW Std Deviation 51.6 H RDW Coeff of Zaheer 14.0 Plt Count 141 L MPV 10.8 Immature Gran % (Auto) 0.300 Neut % (Auto) 65.8 Lymph % (Auto) 23.2 Hendry % (Auto) 6.5 Eos % (Auto) 3.5 Baso % (Auto) 0.7 Absolute Neuts (auto) 4.6 Absolute Lymphs (auto) 1.61 Nucleated RBC % 0 ESR 10 Sodium 142 Potassium 4.2 Chloride 111 H Carbon Dioxide 28.0 Anion Gap 3 L BUN 21 H Creatinine 1.46 H Estim Creat Clear Calc 46.92 Est GFR (MDRD) Af Amer 60 Est GFR (MDRD) Non-Af 49 L BUN/Creatinine Ratio 14.4 Glucose 148 H Calcium 8.9 Total Bilirubin 0.50 AST 17 ALT 16 Alkaline Phosphatase 217 H Total Protein 6.8 Albumin 3.4 Globulin 3.4 Albumin/Globulin Ratio 1.0 Treatment and Re-Evaluation Narrative: Patient was reassessed at 0955. Patient's pain is manageable. Plan is to discharge to home on open analgesic. NSAIDs are contraindicated since he is on Coumadin and has chronic kidney disease. Discharge Plan Triage Chief Complaint: Back ED Provider: Eliezer Beck Dx/Rx/DC Orders Clinical Impression: Spinal stenosis of lumbar region at multiple levels, Chronic kidney disease (CKD) stage G3a/A1, moderately decreased glomerular filtration rate (GFR) between 45-59 mL/min/1.73 square meter and albuminuria creatinine ratio less than 30 mg/g, Anticoagulant long-term use Instructions: ED Back Pain (Acute or Chronic) Prescriptions: New hydrocodone-acetaminophen [hydrocodone-acetaminophen] 5-325 mg tablet 1 tab PO Q6H PRN PRN (Reason: Pain) 4 Days Qty: 15 0RF No Action warfarin [Coumadin] 2.5 mg Tablet 2.5 mg PO DAILY Rx Instructions: 2.5 M, W, F and 5 Flynn, T, TR, Sa furosemide [Lasix] 20 mg Tablet 20 mg PO DAILY metoprolol succinate 25 mg Tablet Extended Release 24 Hr 25 mg PO DAILY allopurinol 300 mg Tablet 300 mg PO DAILY lisinopril 40 mg Tablet 40 mg PO DAILY Fish Oil Capsule 1,000 mg PO DAILY hydrocodone-acetaminophen 5-325 mg tablet 1 tab PO Q6H PRN (Reason: pain) 5 Days Qty: 10 0RF hydrocodone-acetaminophen [hydrocodone-acetaminophen] 5-325 mg tablet 1 tab PO Q4H PRN PRN (Reason: Pain) 2 Days Qty: 15 0RF methylprednisolone [Methylpred DP] 4 mg tablets,dose pack 4 mg PO DAILY Qty: 21 0RF Primary Care Provider: Justen Sarabia Referrals: Justen Sarabia MD [Primary Care Provider] - 3-5 Days if not improving Disposition Disposition: Home, Self Care
[2023-05-23 08:14] LABS: AST(SGOT) 17 U/L (15-37); Alanine Aminotransfer ALT/SGPT 16 U/L (16-61); Albumin, Serum 3.4 g/dL (3.2-5.0); Alkaline Phosphatase 217 U/L (45-117); Anion Gap 3 (5-15); BUN 21 mg/dL (7-18); BUN/Creat Ratio 14.4 RATIO (10-20); Calcium,Total 8.9 mg/dL (8.5-10.1); Chloride 111 mmol/L (98-107); Creatinine, Serum 1.46 mg/dL (0.70-1.30); EST Glomerular Filtration Rate 49 mL/min (>60); Est Glom Filt Rate - Afr Amer 60 mL/min (>60); Estimated Creatinine Clearance 46.92 ml/min; Globulin 3.4 g/dL (2.2-4.2); Glucose 148 mg/dL (74-106); Potassium 4.2 mmol/L (3.5-5.1); Protein, Total 6.8 g/dL (6.4-8.2); Sodium Level 142 mmol/L (136-145)
[2023-05-23 08:20] LABS: Erythrocyte Sedimentation Rate 10 mm/hr (0-20)
[2023-05-23 08:22] LABS: Absolute Lymphocyte Count 1.61 X10^3/uL (0.83-4.51); Absolute Neutrophil Count 4.6 X10^3/uL (2.0-7.7); Basophil# 0.05 X10^3/uL; Basophil% 0.7 % (0-1); Eosinophil# 0.24 X10^3/uL; Eosinophils% 3.5 % (0-5); Hematocrit 34.5 % (40-54); Hemoglobin 11.2 g/dL (13.0-16.5); Lymphocyte # 1.61 X10^3/ul (0.83-4.51); Lymphocyte % 23.2 % (19-41); Mean Corp Hgb Conc 32.5 g/dL (32-36); Mean Corpuscular Hgb 32.7 pg (27.0-32.0); Mean Corpuscular Volume 100.6 fL (80-94); Mean Platelet Vol. 10.8 fl (6.2-12.0); Monocyte# 0.45 X10^3/uL; Monocyte% 6.5 % (0-10); NRBC Flagged by Analyzer 0 % (0-5); Neutrophil # 4.56 X10^3/uL (2.7-7.7); Neutrophil % 65.8 % (47-70); Platelet Count 141 K/mm3 (150-450); RBC Distribution Width SD 51.6 fl (35.1-43.9); Red Blood Count 3.43 M/mm3 (4.6-6.2); White Blood Count 6.9 K/mm3 (4.4-11.0)
== END 2023-05-23 11:13 | disposition home or self-care (01) ==
PROVIDERS: Emergency Provider Emergency Medicine; PCP Family Medicine; Visit Provider Emergency Medicine
DX: M48.061 Spinal stenosis, lumbar region without neurogenic claudication (principal); N18.31 Chronic kidney disease, stage 3a; Z79.01 Long term (current) use of anticoagulants
CPT/HCPCS: 80053; 85025; 85652; 99284; A4216

== ENCOUNTER → 2023-09-16 | Outpatient (CLI) | payer MEDICARE, OTHER, SELFPAY ==
--- NOTE | 2023-09-16 14:43 | CT_ITS ---
STUDY: CT BRAIN WITHOUT CONTRAST REASON FOR EXAM: Male, 82 years old. Cognitive impairment. RADIATION DOSAGE (If Supplied By Facility): CTDIvol = ( 47.06 ) mGy, DLP = ( 907.97 ) mGycm TECHNIQUE: Transaxial CT imaging of the brain was performed without administration of intravenous contrast material. Individualized dose optimization techniques were used for this CT. COMPARISON: No relevant priors. FINDINGS: Normal soft tissue structures. Normal calvarium. There is moderate cerebral atrophy with widening of the extra-axial spaces and ventricular dilatation. There are areas of decreased attenuation within the white matter tracts of the supratentorial brain, consistent with microvascular disease changes. Normal basal ganglia and thalami. Normal brainstem. Normal cerebellum. There is no intracranial hemorrhage. There are no findings of an acute ischemic infarction. Atherosclerotic calcification of the vertebral arteries and cavernous portions of the internal carotid arteries bilaterally. Mucosal thickening along the inferior aspect of the right maxillary sinus. CT/Brain/Head without Contrast IMPRESSION: Chronic involutional changes of the brain. Electronically Signed: Davin Felix MD at 15:27 EST ,
== END | disposition home or self-care (01) ==
PROVIDERS: PCP Family Medicine; Referring Provider Family Medicine; Visit Provider Family Medicine
DX: G31.84 Mild cognitive impairment of uncertain or unknown etiology (principal); I48.91 Unspecified atrial fibrillation
CPT/HCPCS: 70450

== ENCOUNTER 2023-11-10 21:23 | Inpatient (IN) | payer MEDICARE, OTHER, SELFPAY ==
[2023-11-10 21:24] VITALS: BP 157/101; PULSE 60; RESP 18; TEMP 36.6; O2SAT 96; BMI 25.4
--- NOTE | 2023-11-10 22:05 | EKG12_ITS ---
Test Reason : FALL Blood Pressure : / mmHG Vent. Rate : 076 BPM Atrial Rate : 000 BPM P-R Int : 000 ms QRS Dur : 102 ms QT Int : 406 ms P-R-T Axes : 000 051 -50 degrees QTc Int : 456 ms Atrial fibrillation with premature ventricular or aberrantly conducted complexes Abnormal ECG Confirmed by Benny Beckwith ([id number]), scientific publications editor SRAVANI JOHNSON ([id number]) on 11/12/2023 5:45:52 AM Referred By: Confirmed By:Benny Beckwith
--- NOTE | 2023-11-10 22:05 | CT_ITS ---
INDICATION: head injury, status post fall, on blood thinners EXAMINATION: CT Head or Brain W/O Contrast Injection TECHNIQUE: Multiple axial images were obtained of the head without intravenous contrast. A radiation dose optimization technique was used for this scan. IV Contrast dosage and agent: None. COMPARISON: Head CT from 09/16/2023 FINDINGS: BRAIN PARENCHYMA: No intra- or extra-axial hemorrhage. Small infarct within posterior, inferior right occipital lobe now evident. No intracranial mass effect or midline shift. Chronic bilateral cerebral white matter lucencies again noted. Chronic cerebral involutional changes. CSF SPACES: Prominent cerebral sulci and extraaxial spaces secondary to involutional changes. No hydrocephalus. Basal cisterns are patent. Intracranial atherosclerotic calcifications. CALVARIUM, SKULL BASE, PARANASAL SINUSES AND MASTOID AIR CELLS: Calvarium is intact. No acute findings within paranasal sinuses. Mastoid air cells are well-pneumatized. ORBITS: Postop cataract surgery bilaterally. CT/Brain/Head without Contrast IMPRESSION: 1. No intracranial injury. 2. 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 Correlate clinically and consider evaluation with MRI. 3. Brain atrophy and chronic small vessel ischemic changes. Electronically Signed: Rafita Meadows MD at 23:31 EDT ,
--- NOTE | 2023-11-10 22:05 | CT_ITS ---
INDICATION: neck injury EXAMINATION: CT Spine Cervical W/O Contrast Injection TECHNIQUE: Helically acquired images were obtained of the cervical spine. 2D reformatted images were reviewed. A radiation dose optimization technique was used for this scan. IV Contrast dosage and agent: None. COMPARISON: None. FINDINGS: VERTEBRAE: No fracture or traumatic subluxation. Preserved vertebral body heights. Adequate alignment. DISCS and SPINAL CANAL: Multilevel degenerative disc space narrowing, endplate spurring and facet arthropathy. There is secondary multilevel mild to moderate spinal canal stenosis with bilateral neural foraminal stenosis of varying severity. NECK SOFT TISSUES: No prevertebral soft tissue swelling. Scattered atherosclerotic calcifications with small amount of intravenous gas likely secondary recent venous cannulation. LUNG APICES: No acute findings. CT/Spine Cervical without Contras IMPRESSION: Degenerative changes but no evidence of acute cervical spinal injury. Electronically Signed: Rafita Meadows MD at 23:34 EDT ,
--- NOTE | 2023-11-10 22:07 | CT_ITS ---
INDICATION: Status post fall, on blood thinners EXAMINATION: CT CHEST, ABDOMEN AND PELVIS WITHOUT CONTRAST TECHNIQUE: Helically acquired images were obtained of the chest, abdomen, and pelvis without IV contrast. 2-D reconstructions reviewed. A radiation dose optimization technique was used for this scan. IV Contrast dosage and agent: None Oral contrast: None. COMPARISON: No relevant comparison CT imaging received. FINDINGS: ----Chest: LUNGS, PLEURA AND LARGE AIRWAYS: No pulmonary edema, mass, consolidation or suspicious opacity. No significant pleural effusion or thickening. No pneumothorax. THYROID: Unremarkable as visualized. HEART AND PERICARDIUM: Heart size within normal limits. No significant pericardial effusion. Status post CABG and aortic valvuloplasty. VESSELS: Atherosclerotic calcifications with no thoracic aortic aneurysm. MEDIASTINUM AND EZE: No mediastinal or hilar adenopathy. Esophagus is unremarkable. BONES: Skeletal degenerative changes with previous sternotomy. No acute fracture demonstrated. ----Abdomen/Pelvis: LIVER: Lobulated liver contour compatible with cirrhosis. No discrete mass. GALLBLADDER AND BILIARY TREE: Status post cholecystectomy. No significant biliary ductal dilation. PANCREAS: Somewhat atrophic with no discrete lesion. SPLEEN: Normal size with no discrete mass. ADRENAL GLANDS: Unremarkable. KIDNEYS AND URETERS: Kidneys are symmetric size. Mildly dilated left extrarenal pelvis containing dependent calcified stone measuring 9 mm diameter. No ureteral dilatation PERITONEUM: No significant free fluid. No free peritoneal air detected. BOWEL: No evidence of acute appendicitis. No bowel obstruction or significant bowel thickening. No focal inflammatory change. Noninflamed periampullary duodenal diverticulum measures 1.8 cm diameter. LYMPH NODES: No enlarged mesenteric or retroperitoneal lymph nodes. VESSELS: Atherosclerosis with no abdominal aortic aneurysm. URINARY BLADDER: Large 5.4 cm diameter diverticulum projecting from left urinary bladder dome containing multiple small wall calcifications and small intraluminal calcified stones. REPRODUCTIVE ORGANS: No pelvic masses. ABDOMINAL WALL: Anterior pelvic wall hernia repair mesh in place. Small right inguinal fat hernia noted. Very small umbilical hernia contains protruding loop of small bowel. Surgical clips at left groin. BONES: Multilevel degenerative changes along spine with previous lumbar laminectomies. Nondisplaced fracture at L5 with adjacent mild presacral soft tissue swelling. CT/CT Chest, Abd, Pelvis WO Cont IMPRESSION: 1. Nondisplaced fracture inferior sacrum with mild presacral soft tissue swelling. 2. 9 mm stone within mildly dilated left renal pelvis. 3. Large left-sided urinary bladder diverticulum with urolithiasis. 4. No acute intrathoracic abnormality. 5. Cirrhotic liver morphology suggested, correlate clinically. 6. Minimal protrusion of small bowel into small umbilical hernia with no signs of secondary bowel strangulation or obstruction. 7. Other nonurgent findings within body of report. Electronically Signed: Rafita Meadows MD at 0:04 EDT ,
[2023-11-10] MEDS: 0.9% Normal Saline (1000mL) 1,000 ML 999 ML IV (22:45)
[2023-11-10 22:56] LABS: Absolute Lymphocyte Count 1.74 X10^3/uL (0.83-4.51); Absolute Neutrophil Count 6.4 X10^3/uL (2.0-7.7); Basophil# 0.03 X10^3/uL; Basophil% 0.3 % (0-1); Eosinophil# 0.05 X10^3/uL; Eosinophils% 0.6 % (0-5); Hematocrit 31.5 % (40-54); Hemoglobin 10.5 g/dL (13.0-16.5); Lymphocyte # 1.74 X10^3/ul (0.83-4.51); Lymphocyte % 19.9 % (19-41); Mean Corp Hgb Conc 33.3 g/dL (32-36); Mean Corpuscular Hgb 32.1 pg (27.0-32.0); Mean Corpuscular Volume 96.3 fL (80-94); Monocyte% 5.7 % (0-10); NRBC Flagged by Analyzer 0 % (0-5); Neutrophil # 6.39 X10^3/uL (2.7-7.7); Neutrophil % 72.9 % (47-70); Platelet Count 122 K/mm3 (150-450); RBC Distribution Width CV 13.8 % (11.6-14.6); RBC Distribution Width SD 49.1 fl (35.1-43.9); Red Blood Count 3.27 M/mm3 (4.6-6.2); White Blood Count 8.8 K/mm3 (4.4-11.0)
[2023-11-10 23:05] LABS: International Normalized Ratio 1.9; Prothrombin Time (Protime)PT. 21.4 SECONDS (11.7-14.9)
--- NOTE | 2023-11-10 23:09 | ED.VIS.FALL ---
HPI HPI - Fall History of Present Illness Chief Complaint: Fall Narrative Narrative: 83-year-old male with history of atrial fibrillation, on Coumadin presenting after a fall which occurred at his independent living facility. Patient states he went down around the time of the Eclipse today which was about 3:00. Patient states that he fell backwards hitting his head and was unable to get up. He states he rolled around to bed and was able to crawl a little. He sustained an abrasion to his right hand. He complains of some neck pain which is mostly left-sided. Does not have severe headache. He is alert and awake and near baseline per his son. Patient states initially had some lower hip pain but not anymore. He is able to lift his legs up off the bed. Patient denies any black or bloody stools. Son states has been otherwise well recently. Apparently his life alert button was not working and after he tried to call him several times he had them checked on and this is when they found him. [facility] Medical History Anemia Atrial fibrillation CAD (coronary artery disease) Chronic back pain CRF (chronic renal failure) DJD (degenerative joint disease) Gout Hyperlipemia Hypoglycemia Mild aortic insufficiency Mild mitral regurgitation Mild vascular dementia Sciatica Thrombocytopenia Home Medications allopurinol 300 mg tablet 300 mg PO DAILY 07/07/21 [History Last Taken Unknown] furosemide 20 mg tablet (Lasix) 20 mg PO DAILY 07/07/21 [History Last Taken Unknown] lisinopril 40 mg tablet 40 mg PO DAILY 07/07/21 [History Last Taken Unknown] omega-3 fatty acids 1,000 mg PO DAILY 07/07/21 [History Last Taken Unknown] warfarin 2.5 mg tablet 2.5 mg PO DAILY 07/07/21 [History Last Taken Unknown] hydrocodone-acetaminophen 5-325mg 5mg-325mg 1 tab PO Q6H PRN PRN Pain 4 days #15 TABLETS 05/23/23 [Rx Last Taken Unknown] acetaminophen 500 mg capsule 500 mg PO Q6H PRN 05/28/23 [History Last Taken Unknown] betamethasone dipropionate 0.05 % topical ointment 1 applic topical DAILY 05/28/23 [History Last Taken Unknown] blood sugar diagnostic (Contour Next Test Strips) 05/28/23 [History Last Taken Unknown] cholecalciferol (vitamin D3) 50 mcg (2,000 unit) capsule 50 mcg PO DAILY 05/28/23 [History Last Taken Unknown] glucosamine HCl 750 mg tablet 750 mg PO DAILY 05/28/23 [History Last Taken Unknown] metformin 500 mg tablet 500 mg PO BID 05/28/23 [History Last Taken Unknown] metoprolol succinate 25 mg tablet,extended release 24 hr 50 mg PO DAILY 05/28/23 [History Last Taken Unknown] sodium chloride 0.65 % nasal spray aerosol (Saline Mist) 1 spray intranasal ONCE 05/28/23 [History Last Taken Unknown] terazosin 5 mg capsule 5 mg PO QHS 05/28/23 [History Last Taken Unknown] Allergy/AdvReac Type Severity Reaction Status Date / Time No Known Allergies Allergy Verified 11/10/23 21:24 Family History Mother No problems noted. Father Heart disease Myocardial infarction CVA (cerebral vascular accident) Surgical History H/O bilateral cataract extraction Heart valve replaced History of back surgery History of hernia repair History of quadruple bypass History of tonsillectomy History of total left knee replacement Social History household members: none housing: other details: Dependent Smoking Status: Never smoker alcohol intake: never substance use type: does not use what type of physical activity do you participate in: walking ROS ROS ED Constitutional Constitutional ED: Denies chills, fever(s) or sweats Eyes Eyes: Denies blurry vision or change in vision ENT ENT ED: Denies ear pain or sore throat Cardiovascular Cardiovascular: Denies chest pain, palpitations or racing heartbeat Respiratory/Chest Respiratory/Chest: Denies cough, dyspnea or sputum Gastrointestinal Gastrointestinal: Denies abdominal pain, constipation, diarrhea, nausea or vomiting Genitourinary Genitourinary ED: Denies dysuria, hematuria or urinary frequency Musculoskeletal Musculoskeletal: Reports back pain, neck pain and other Details: Bilateral hip pain ; Denies arthralgias or myalgias Integumentary Denies abscess, Abrasions or rash Neurologic Neurologic: Denies headache(s), paresthesias or weakness Psychiatric Psychiatric: Denies anxiety, depression, suicidal ideation or suicidal thoughts Endocrine Endocrinology: Denies polydipsia or polyuria EXAM Physical Exam Const Vital Signs: 11/10/23 21:24 11/10/23 21:24 11/10/23 23:19 Temperature 98 F Temperature Source Oral Pulse Rate 60 75 Respiratory Rate 18 16 Respiratory Effort Normal Non-Labored Respiratory Depth Normal Respiratory Pattern Normal Blood Pressure 157/101 H 169/66 H Blood Pressure Mean 119 100 Pulse Ox 96 96 Oxygen Delivery Method Room Air Room Air 11/11/23 00:25 Temperature 98.5 F Temperature Source Pulse Rate 76 Respiratory Rate 14 Respiratory Effort Respiratory Depth Respiratory Pattern Blood Pressure 170/76 H Blood Pressure Mean 107 Pulse Ox 96 Oxygen Delivery Method Positive well nourished HEENT Reports TM's normal bilaterally HEENT Narrative: Dry mucous membrane atraumatic Eyes PERRL and EOMs intact bilaterally Resp normal respiratory effort and no retractions Auscultation: Negative for rales, rhonchi or wheezes Cardio regular rate and regular rhythm GI non-tender and non-distended Neuro CN's II-XII intact bilaterally, moves all extremities, no focal motor deficits and no sensory deficits noted [place] Coma Scale: document GCS findings Spontaneous Obeys Commands Oriented 15 Sensorium / Orientation: alert Motor Exam: general weakness Psych mental status grossly normal MDM MDM MDM Narrative Medical decision making narrative: 83-year-old male with history of A-fib after mechanical fall. He hit his head and has some neck pain. He also complains of hip pain and back pain which is improved. Otherwise healthy prior to the event. Differential includes dehydration, anemia, electrolyte normalities, closed injury, concussion, intracranial hemorrhage, C-spine fracture, thoracic spinal injury, lumbar spine injury, anemia, GI bleed, ACS, dysrhythmia, Coumadin coagulopathy, rhabdomyolysis. CBC was obtained to assess white blood cell count, hemoglobin, platelets. BMP to assess renal function, lactate, glucose, anion gap. INR to assess for coagulopathy. High-sensitivity troponin EKG to assess for ischemia/dysrhythmia. EKG obtained shows A-fib with normal ventricular response at 76 bpm without sign of ischemic change or ectopy. Patient has superficial abrasion to the right hand which does not require sutures or imaging. CPK is pending for evaluation of rhabdomyolysis. Patient was given a liter of IV fluids. CT brain and cervical spine will be obtained as well as chest abdomen pelvis due to patient's history of back pain and traumatic fall. CBC shows normal white blood cell count 8.8. Hemoglobin 10.5. Platelets low at 122. INR slightly subtherapeutic at 1.9. Creatinine elevated today at 2.25 with baseline he was given IV fluids. GFR down to 30. Glucose 153. High-sensitivity troponin 21. CPK 119. CT of the brain without contrast shows right occipital infarct age-indeterminate new since prior exam. Patient's son states he has had a difficulty ambulating due to his rollator at baseline. CT of the chest abdomen pelvis without contrast shows a nondisplaced fracture of the inferior sacrum, as well as 9 mm stone in the left renal pelvis of undetermined significance as the patient does not complain of any flank pain. There is also a hernia noted without strangulation or incarceration. CT of the cervical spine is negative. Discussed the case at length with the son and Patel admit him for hydration. After speaking with the hospitalist will also get an MRI of the brain for his angina permanent infarct. This does not sound acute. There is no evidence of bleeding on CT. He does not have any focal neurologic deficits. Impression: 1. Fall 2. Closed head injury 3. 9 mm left renal calculi 4. Acute kidney injury 5. Right hand abrasion 6. Sacral fracture 7. Age-indeterminate occipital infarct Lab Data Attestation: I reviewed the patient's lab results. Labs: Laboratory Results - last 24 hr 11/10/23 22:39 WBC 8.8 RBC 3.27 L Hgb 10.5 L Hct 31.5 L MCV 96.3 H MCH 32.1 H MCHC 33.3 RDW Std Deviation 49.1 H RDW Coeff of Zaheer 13.8 Plt Count 122 L MPV 10.0 Immature Gran % (Auto) 0.600 Neut % (Auto) 72.9 H Lymph % (Auto) 19.9 [place] % (Auto) 5.7 Eos % (Auto) 0.6 Baso % (Auto) 0.3 Absolute Neuts (auto) 6.4 Absolute Lymphs (auto) 1.74 Nucleated RBC % 0 PT 21.4 H INR 1.9 Sodium 138 Potassium 4.6 Chloride 108 H Carbon Dioxide 22.0 Anion Gap 8 BUN 40 H Creatinine 2.25 H Estim Creat Clear Calc 29.94 Est GFR (MDRD) Af Amer 36 L Est GFR (MDRD) Non-Af 30 L BUN/Creatinine Ratio 17.8 Glucose 153 H Calcium 9.2 Total Creatine Kinase 119 Troponin I High Sens 21 Radiography Diagnostic Testing: Clinical Impression(s) from Imaging Studies Brain CT 11/10/23 22:05 IMPRESSION: 1. No intracranial injury. 2. 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 Correlate clinically and consider evaluation with MRI. 3. Brain atrophy and chronic small vessel ischemic changes. Electronically Signed: Rafita Meadows MD at 23:31 EDT , Cervical Spine CT 11/10/23 22:05 IMPRESSION: Degenerative changes but no evidence of acute cervical spinal injury. Electronically Signed: Rafita Meadows MD at 23:34 EDT , Chest/Abdomen/Pelvis CT 11/10/23 22:07 IMPRESSION: 1. Nondisplaced fracture inferior sacrum with mild presacral soft tissue swelling. 2. 9 mm stone within mildly dilated left renal pelvis. 3. Large left-sided urinary bladder diverticulum with urolithiasis. 4. No acute intrathoracic abnormality. 5. Cirrhotic liver morphology suggested, correlate clinically. 6. Minimal protrusion of small bowel into small umbilical hernia with no signs of secondary bowel strangulation or obstruction. 7. Other nonurgent findings within body of report. Electronically Signed: Rafita Meadows MD at 0:04 EDT , Discharge Plan Triage Chief Complaint: Fall ED Provider: Valente Lopez Dx/Rx/DC Orders Prescriptions: No Action acetaminophen 500 mg capsule 500 mg PO Q6H PRN betamethasone dipropionate 0.05 % ointment 1 applic topical DAILY (DME) Contour Next Test Strips Strip See Rx Instructions .Route Rx Instructions: As directed glucosamine HCl 750 mg tablet 750 mg PO DAILY Rx Instructions: administer with a meal metformin 500 mg tablet 500 mg PO BID Saline Mist 0.65 % aerosol,spray 1 spray intranasal ONCE terazosin 5 mg capsule 5 mg PO QHS cholecalciferol (vitamin D3) 50 mcg (2,000 unit) capsule 50 mcg PO DAILY warfarin [Coumadin] 2.5 mg Tablet 2.5 mg PO DAILY Rx Instructions: 2.5 M, W, F and 5 Flynn, T, TR, Sa furosemide [Lasix] 20 mg Tablet 20 mg PO DAILY allopurinol 300 mg Tablet 300 mg PO DAILY lisinopril 40 mg Tablet 40 mg PO DAILY Fish Oil Capsule 1,000 mg PO DAILY metoprolol succinate 25 mg tablet extended release 24 hr 50 mg PO DAILY hydrocodone-acetaminophen [hydrocodone-acetaminophen] 5-325 mg tablet 1 tab PO Q6H PRN PRN (Reason: Pain) 4 Days Qty: 15 0RF Primary Care Provider: Justen Sarabia Referrals: Justen Sarabia MD [Primary Care Provider] -
[2023-11-10 23:17] LABS: Anion Gap 8 (5-15); BUN 40 mg/dL (7-18); BUN/Creat Ratio 17.8 RATIO (10-20); CPK Total, Creatine Kinase 119 U/L (39-308); Calcium,Total 9.2 mg/dL (8.5-10.1); Chloride 108 mmol/L (98-107); Creatinine, Serum 2.25 mg/dL (0.70-1.30); EST Glomerular Filtration Rate 30 mL/min (>60); Est Glom Filt Rate - Afr Amer 36 mL/min (>60); Estimated Creatinine Clearance 29.94 ml/min; Glucose 153 mg/dL (74-106); Potassium 4.6 mmol/L (3.5-5.1); Sodium Level 138 mmol/L (136-145); Troponin-I HS 21 pg/mL (3.0-78.0)
[2023-11-10 23:19] VITALS: BP 169/66; PULSE 75; RESP 16; O2SAT 96
[2023-11-11] VITALS (9 sets, daily range): BP systolic 147–171; BP diastolic 70–84; PULSE 71–87; RESP 12–18; TEMP 36.6–37.1; O2SAT 94–97; BMI 23.0
--- NOTE | 2023-11-11 00:12 | PCM.HP.STD ---
[facility] - General General Date of Admission: 11/11/23 Date of Service: 11/11/23 Chief Complaint: Fall with back pain. HPI Narrative ADAL MANCERA, is a 83 M with a past medical history of essential hypertension, diabetes mellitus type 2; of unknown control on metformin, coronary artery disease; status post CABG x 4, chronic atrial fibrillation; on Coumadin, history of CVA; with mild vascular dementia, history of TAVR, history of mitral regurgitation, chronic thrombocytopenia, chronic kidney disease; stage III, chronic anemia, BPH, gout and osteoarthritis; with sciatica, chronic back pain and previous back surgery who presents to [facility] ER complaining of fall with back pain. Mr. Mancera reports his symptoms began approximately 3 PM yesterday during the eclipse when he fell at his independent living facility. He further explained that he fell backward hitting his head and then being unable to get up with an of abrasion to his right hand and subsequent left-sided neck pain. The patient is concerned that no one was able to find him more quickly because his 'Life Alert' button was not working and due to the fact that he called out several times with no one immediately coming to check on him. The patient was accompanied to the ER by his son who stated he was alert and awake and near his baseline level of mental function. He denies associated fever, chills, nausea, vomiting, diarrhea or constipation. In the ER he was noted to have CT evidence of a nondisplaced fracture of the inferior sacrum with mild presacral soft tissue swelling along with an incidentally noted 9 mm stone within the mildly dilated Left renal pelvis in addition to cirrhotic liver morphology complicated by laboratory evidence of suspected OPLY with elevated serum creatinine of 2.25 mg/dL present on admission (up from baseline of 1.46 mg/dL on last admission) compounded by CT head positive for right occipital lobe CVA that is likely old - but with MRI recommended and he was then admitted to the general medical floor with telemetric monitoring for stay that is expected to be greater than 48 hours. [facility] Medical History Anemia Atrial fibrillation CAD (coronary artery disease) Chronic back pain Chronic pain CRF (chronic renal failure) DJD (degenerative joint disease) Gout Hyperlipemia Hypertension Hypoglycemia Mild aortic insufficiency Mild mitral regurgitation Mild vascular dementia Sciatica Stroke/cerebrovascular accident Thrombocytopenia Home Medications allopurinol 300 mg tablet 300 mg PO DAILY 07/07/21 [History Last Taken Unknown] furosemide 20 mg tablet (Lasix) 20 mg PO DAILY 07/07/21 [History Last Taken Unknown] lisinopril 40 mg tablet 40 mg PO DAILY 07/07/21 [History Last Taken Unknown] omega-3 fatty acids 1,000 mg PO DAILY 07/07/21 [History Last Taken Unknown] warfarin 2.5 mg tablet 2.5 mg PO DAILY 07/07/21 [History Last Taken Unknown] hydrocodone-acetaminophen 5-325mg 5mg-325mg 1 tab PO Q6H PRN PRN Pain 4 days #15 TABLETS 05/23/23 [Rx Last Taken Unknown] acetaminophen 500 mg capsule 500 mg PO Q6H PRN 05/28/23 [History Last Taken Unknown] betamethasone dipropionate 0.05 % topical ointment 1 applic topical DAILY 05/28/23 [History Last Taken Unknown] blood sugar diagnostic (Contour Next Test Strips) 05/28/23 [History Last Taken Unknown] cholecalciferol (vitamin D3) 50 mcg (2,000 unit) capsule 50 mcg PO DAILY 05/28/23 [History Last Taken Unknown] glucosamine HCl 750 mg tablet 750 mg PO DAILY 05/28/23 [History Last Taken Unknown] metformin 500 mg tablet 500 mg PO BID 05/28/23 [History Last Taken Unknown] metoprolol succinate 25 mg tablet,extended release 24 hr 50 mg PO DAILY 05/28/23 [History Last Taken Unknown] sodium chloride 0.65 % nasal spray aerosol (Saline Mist) 1 spray intranasal ONCE 05/28/23 [History Last Taken Unknown] terazosin 5 mg capsule 5 mg PO QHS 05/28/23 [History Last Taken Unknown] Allergy/AdvReac Type Severity Reaction Status Date / Time No Known Allergies Allergy Verified 11/10/23 21:24 Family History Mother No problems noted. Father Heart disease Myocardial infarction CVA (cerebral vascular accident) Surgical History H/O bilateral cataract extraction Heart valve replaced History of back surgery History of hernia repair History of quadruple bypass History of tonsillectomy History of total left knee replacement Social History household members: none housing: other details: Dependent Smoking Status: Never smoker alcohol intake: never substance use type: does not use what type of physical activity do you participate in: walking ROS ROS Narrative Review of systems: General: Patient denies fevers or chills. HENT: Denies headache, denies stuffy nose, denies sore throat EYES: Denies changes in vision or discharge from eyes. Resp: Denies cough, denies shortness of breath Cardiac: Denies chest pain or palpitations. GI: Denies abdominal pain, denies changes in bowel, denies nausea or vomiting. : Denies changes in urination Extremity: Denies swelling Musculoskeletal: Patient admits to back pain, left-sided neck pain and transient bilateral hip pain as per HPI. Neuro: Patient denies headache, paresthesias or focal neurologic deficits. Heme: Denies any bleeding or bruising Skin: Denies rashes Psychiatric: No complaints voiced related to uncontrolled depression or anxiety. Endocrine: No polyuria, polydipsia or polyphagia. The rest of the 14 point ROS was negative except for positives in HPI. Vital Signs Vital Signs Vital Signs: 11/10/23 21:24 11/10/23 21:24 11/10/23 23:19 Temperature 98 F Temperature Source Oral Pulse Rate 60 75 Respiratory Rate 18 16 Respiratory Effort Normal Non-Labored Respiratory Depth Normal Respiratory Pattern Normal Blood Pressure 157/101 H 169/66 H Blood Pressure Mean 119 100 Pulse Ox 96 96 Oxygen Delivery Method Room Air Room Air Weight Weight: 198 lb 6.656 oz Body Mass Index (BMI) 25.4 Physical Exam Const alert, oriented x3, no apparent distress and average body habitus General Appearance: cooperative HEENT normocephalic, head/scalp atraumatic and hearing grossly normal bilaterally HEENT Narrative: Mucous membranes dry. Eyes PERRL and EOMs intact bilaterally Neck no lymphadenopathy and supple Resp normal respiratory effort, no retractions, no use of accessory muscles and clear to auscultation bilaterally Cardio regular rate and regular rhythm GI normal to inspection, nondistended, normoactive bowel sounds, soft to palpation, non-tender and non-distended Extremity normal to inspection Skin Skin Narrative: Patient has no evidence of rash or jaundice. Neuro oriented x3, CN's II-XII intact bilaterally, moves all extremities and no focal motor deficits Sensorium / Orientation: awake, alert, oriented to person, oriented to place and oriented to time Speech: speech normal Psych affect normal Results Medical Records Data Attestation: I reviewed the patient's medical records Lab / Micro Data Attestation: I reviewed the patient's lab results. 11/10/23 22:39 11/10/23 22:39 Labs: Laboratory Results - last 24 hr 11/10/23 22:39: WBC 8.8, RBC 3.27 L, Hgb 10.5 L, Hct 31.5 L, MCV 96.3 H, MCH 32.1 H, MCHC 33.3, RDW Std Deviation 49.1 H, RDW Coeff of Zaheer 13.8, Plt Count 122 L, MPV 10.0, Immature Gran % (Auto) 0.600, Neut % (Auto) 72.9 H, Lymph % (Auto) 19.9, [place] % (Auto) 5.7, Eos % (Auto) 0.6, Baso % (Auto) 0.3, Absolute Neuts (auto) 6.4, Absolute Lymphs (auto) 1.74, Nucleated RBC % 0, PT 21.4 H, INR 1.9, Sodium 138, Potassium 4.6, Chloride 108 H, Carbon Dioxide 22.0, Anion Gap 8, BUN 40 H, Creatinine 2.25 H, Estim Creat Clear Calc 29.94, Est GFR (MDRD) Af Amer 36 L, Est GFR (MDRD) Non-Af 30 L, BUN/Creatinine Ratio 17.8, Glucose 153 H, Calcium 9.2, Total Creatine Kinase 119, Troponin I High Sens 21 Imaging Radiology Impression Brain CT 11/10/23 22:05 IMPRESSION: 1. No intracranial injury. 2. 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 Correlate clinically and consider evaluation with MRI. 3. Brain atrophy and chronic small vessel ischemic changes. Electronically Signed: Rafita Meadows MD at 23:31 EDT , Cervical Spine CT 11/10/23 22:05 IMPRESSION: Degenerative changes but no evidence of acute cervical spinal injury. Electronically Signed: Rafita Meadows MD at 23:34 EDT , Chest/Abdomen/Pelvis CT 11/10/23 22:07 IMPRESSION: 1. Nondisplaced fracture inferior sacrum with mild presacral soft tissue swelling. 2. 9 mm stone within mildly dilated left renal pelvis. 3. Large left-sided urinary bladder diverticulum with urolithiasis. 4. No acute intrathoracic abnormality. 5. Cirrhotic liver morphology suggested, correlate clinically. 6. Minimal protrusion of small bowel into small umbilical hernia with no signs of secondary bowel strangulation or obstruction. 7. Other nonurgent findings within body of report. Electronically Signed: Rafita Meadows MD at 0:04 EDT , Assessment & Plan Assessment/Plan (1) Sacral fracture: QUALIFIERS: Encounter type: initial encounter Zone of sacrum fracture: unspecified portion of sacrum Fracture type: closed Qualified Code(s): S32.10XA - Unspecified fracture of sacrum, initial encounter for closed fracture (2) POLY (acute kidney injury): (3) Renal calculus, left: (4) Adverse drug reaction: QUALIFIERS: Encounter type: initial encounter Qualified Code(s): T50.905A - Adverse effect of unspecified drugs, medicaments and biological substances, initial encounter (5) Abnormal CT of the head: PLAN: Plan 1. Nondisplaced fracture of the inferior sacrum with mild presacral soft tissue swelling after mechanical fall and subsequent prolonged downtime in the setting of known osteoarthritis; with sciatica, chronic back pain and previous back surgery - Admit to general medical floor telemetric monitoring. Give Tylenol as needed mild to moderate (level 1-5/10) pain or fever. Continue Hydrocodone as needed for severe (level 6-10 out of 10) pain. Check CK level to evaluate for possible rhabdomyolysis. Finally, we will consult PT/OT and case management to see this patient on rounds in the a.m. for further recommendations with help appreciated in advance. 2. Suspected POLY; in the setting of stage III chronic kidney disease with elevated serum creatinine of 2.25 mg/dL present on admission and a BUN of 40 mg/dL present on admission (up from baseline of 1.46 mg/dL and BUN of 21 mg/dL on last admission) with an incidentally noted ~9 mm stone within the mildly dilated Left renal pelvis complicating #1 - Give normal saline IV fluid and recheck BMP in the a.m. to ensure improvement. Avoid potentially nephrotoxic agents. Finally, we will consult urologist on-call to see this patient on rounds in the a.m. for further recommendations with help appreciated in advance. 3. Adverse Drug Reaction to Lasix and Lisinopril likely causing #2 - Hold AYESHA, loop diuretic and other potentially nephrotoxic agents. 4. CT head positive for Right occipital lobe CVA that is likely old in the setting of known previous CVA; with mild vascular dementia - Check MRI of the brain as per radiologist's recommendations. Doubt acute CVA or other acute pathologic issue. 5. Cirrhotic liver morphology incidentally noted on CT - Noted. 6. Essential hypertension - Hold scheduled antihypertensives in light of #2. 7. Diabetes mellitus type 2; of unknown control on metformin - ADA diet. FSBS q. AC/HS plus sliding scale insulin. Check hemoglobin A1c to objectively evaluate quality of diabetic control. 8. Coronary artery disease; status post CABG x 4 - Noted. 9. Chronic atrial fibrillation; on Coumadin - Stable with INR 1.9 present on admission. Continue Coumadin and check PT/INR daily. 10. History of TAVR - Noted. 11. History of mitral regurgitation - Noted. 12. Chronic thrombocytopenia - Stable platelet count 122 present on admission. 13. BPH - Stable. 14. Gout - Noted. 15. DVT prophylaxis - SCD's only with chronic thrombocytopenia of 122 present on admission. Total time: Approximately 55 minutes. Charges/Coding Visit Charges Inpatient E&M: 33149 Init Hosp L2
--- NOTE | 2023-11-11 01:07 | MRI_ITS ---
We are attempting to reach an attending provider to discuss findings. An addendum with communication details will be sent when the communication is complete. EXAM: MR HEAD WITHOUT INTRAVENOUS CONTRAST CLINICAL INDICATION: CT positive for CVA. Evaluate for possible CVA. TECHNIQUE: Multiplanar and multisequence MR images of the brain were obtained without intravenous contrast. COMPARISON: CT brain 11/10/2023 FINDINGS: BRAIN AND EXTRA-AXIAL SPACES: Restricted diffusion within the right occipital lobe indicative of acute ischemic change. Increased T2 signal intensity within the cerebral white matter suggestive of chronic microvascular change. Prominence of the cortical sulci and ventricles related to volume loss change. No intra- or extra-axial hemorrhage. No intracranial mass or mass effect. Posterior fossa structures are unremarkable. Basal cisterns are patent. SELLA: Normal. Normal sella turcica, pituitary gland, infundibular stalk, optic chiasm and hypothalamus. AUDITORY SYSTEM: Normal. The internal auditory canals are patent. BONES/JOINTS: Intact calvarium. SINUSES: Unremarkable as visualized. Clear. MASTOID AIR CELLS: Unremarkable as visualized. Clear. ORBITS: Unremarkable as visualized. Both globes, extraocular muscles, optic nerves and retrobulbar fat appear unremarkable. VASCULATURE: Unremarkable as visualized. Normal flow voids in the major intracranial circulation. MRI/Brain without Contrast IMPRESSION: Acute ischemic changes of the right occipital lobe. Electronically Signed: Dinesh Manriquez MD at 10:12 EDT ,
[2023-11-11] MEDS: HYDROcodone Bitartrate/Apap 5/325 Tablet PO ×2 (02:50→16:04)
[2023-11-11] MEDS: 0.9% Normal Saline (1000mL) 1,000 ML 70 ML IV ×2 (02:54→12:30)
--- NOTE | 2023-11-11 03:37 | NURSING ---
Son-in-law to bring in med list.
[2023-11-11 06:54] LABS: Bedside Glucose 136 mg/dL (74-106)
[2023-11-11 07:12] LABS: Bacteria 0 SEEN /hpf (None Seen); Mucous, Urine 0 SEEN /hpf (<or=2+)
[2023-11-11 07:14] LABS: Absolute Lymphocyte Count 1.57 X10^3/uL (0.83-4.51); Absolute Neutrophil Count 4.6 X10^3/uL (2.0-7.7); Basophil# 0.03 X10^3/uL; Basophil% 0.4 % (0-1); Eosinophil# 0.08 X10^3/uL; Eosinophils% 1.2 % (0-5); Hemoglobin 9.2 g/dL (13.0-16.5); Lymphocyte # 1.57 X10^3/ul (0.83-4.51); Lymphocyte % 22.7 % (19-41); Mean Corp Hgb Conc 34.1 g/dL (32-36); Mean Corpuscular Volume 96.8 fL (80-94); Mean Platelet Vol. 10.2 fl (6.2-12.0); Monocyte# 0.64 X10^3/uL; Monocyte% 9.2 % (0-10); NRBC Flagged by Analyzer 0 % (0-5); Neutrophil # 4.57 X10^3/uL (2.7-7.7); Neutrophil % 66.1 % (47-70); Platelet Count 103 K/mm3 (150-450); RBC Distribution Width CV 13.7 % (11.6-14.6); Red Blood Count 2.79 M/mm3 (4.6-6.2); White Blood Count 6.9 K/mm3 (4.4-11.0)
--- NOTE | 2023-11-11 07:16 | PCM.CONS.U ---
Assessment & Plan Assessment/Plan (1) Renal calculus, left: PLAN: elderly male who is in assisted the facility or detention presented to the hospital after suffering a fall on workup an incidental finding of a left renal calculus was found. No immediate intervention is necessary this, the stone is not cause any obstruction he can follow-up as an outpatient or we could continue which is observation of his nonobstructive stone HPI Consult Data Date of Consult: 11/11/23 HPI Narrative Reason for Consultation: left kidney stone nonobstructive HPI Narrative: ADAL STOKES, is a 83 M who presents tto the hospital he suffered a fall [facility] assisted living facility and during workup with CT scan was done at demonstrated a nonobstructive stone in the left renal pelvis. Currently the stone is not cause any blockage or obstruction in the left kidney so I'm to recommend outpatiient follow-up no immediate intervention is necessary for the stones is not causing obstruction or blockage. Call with questions [facility] Medical History Anemia Atrial fibrillation CAD (coronary artery disease) Chronic back pain Chronic pain CRF (chronic renal failure) DJD (degenerative joint disease) Gout Hyperlipemia Hypertension Hypoglycemia Mild aortic insufficiency Mild mitral regurgitation Mild vascular dementia Sciatica Stroke/cerebrovascular accident Thrombocytopenia Home Medications allopurinol 300 mg tablet 300 mg PO DAILY 07/07/21 [History Last Taken Unknown] furosemide 20 mg tablet (Lasix) 20 mg PO DAILY 07/07/21 [History Last Taken Unknown] lisinopril 40 mg tablet 40 mg PO DAILY 07/07/21 [History Last Taken Unknown] omega-3 fatty acids 1,000 mg PO DAILY 07/07/21 [History Last Taken Unknown] warfarin 2.5 mg tablet 2.5 mg PO DAILY 07/07/21 [History Last Taken Unknown] hydrocodone-acetaminophen 5-325mg 5mg-325mg 1 tab PO Q6H PRN PRN Pain 4 days #15 TABLETS 05/23/23 [Rx Last Taken Unknown] acetaminophen 500 mg capsule 500 mg PO Q6H PRN 05/28/23 [History Last Taken Unknown] betamethasone dipropionate 0.05 % topical ointment 1 applic topical DAILY 05/28/23 [History Last Taken Unknown] blood sugar diagnostic (Contour Next Test Strips) 05/28/23 [History Last Taken Unknown] cholecalciferol (vitamin D3) 50 mcg (2,000 unit) capsule 50 mcg PO DAILY 05/28/23 [History Last Taken Unknown] glucosamine HCl 750 mg tablet 750 mg PO DAILY 05/28/23 [History Last Taken Unknown] metformin 500 mg tablet 500 mg PO BID 05/28/23 [History Last Taken Unknown] metoprolol succinate 25 mg tablet,extended release 24 hr 50 mg PO DAILY 05/28/23 [History Last Taken Unknown] sodium chloride 0.65 % nasal spray aerosol (Saline Mist) 1 spray intranasal ONCE 05/28/23 [History Last Taken Unknown] terazosin 5 mg capsule 5 mg PO QHS 05/28/23 [History Last Taken Unknown] Allergy/AdvReac Type Severity Reaction Status Date / Time No Known Allergies Allergy Verified 11/10/23 21:24 Family History Mother No problems noted. Father Heart disease Myocardial infarction CVA (cerebral vascular accident) Surgical History H/O bilateral cataract extraction Heart valve replaced History of back surgery History of hernia repair History of quadruple bypass History of tonsillectomy History of total left knee replacement Social History household members: none housing: other details: Dependent Smoking Status: Never smoker alcohol intake: never substance use type: does not use what type of physical activity do you participate in: walking ROS ROS Narrative unable to obtain Physical Exam Const Orientation / Consciousness: confused HEENT normocephalic and head/scalp atraumatic Eyes PERRL and EOMs intact bilaterally Neck supple, no JVD and no carotid bruits Resp normal respiratory effort, normal air movement and clear to auscultation bilaterally Cardio regular rate and no murmurs GI normal to inspection, nondistended, normoactive bowel sounds and soft to palpation Extremity normal capillary refill General Extremity: no tenderness to palpation of joints or extremities; Negative for edema Skin no rashes or lesions noted and no wounds General Skin Exam: no breakdown Neuro CN's II-XII intact bilaterally Psych affect normal Appearance: appropriate Lab / Micro Data 11/11/23 06:15 04/08/24 22:39 Labs: Laboratory Results - last 24 hr 11/10/23 22:39: WBC 8.8, RBC 3.27 L, Hgb 10.5 L, Hct 31.5 L, MCV 96.3 H, MCH 32.1 H, MCHC 33.3, RDW Std Deviation 49.1 H, RDW Coeff of Zaheer 13.8, Plt Count 122 L, MPV 10.0, Immature Gran % (Auto) 0.600, Neut % (Auto) 72.9 H, Lymph % (Auto) 19.9, [place] % (Auto) 5.7, Eos % (Auto) 0.6, Baso % (Auto) 0.3, Absolute Neuts (auto) 6.4, Absolute Lymphs (auto) 1.74, Nucleated RBC % 0, PT 21.4 H, INR 1.9, Sodium 138, Potassium 4.6, Chloride 108 H, Carbon Dioxide 22.0, Anion Gap 8, BUN 40 H, Creatinine 2.25 H, Estim Creat Clear Calc 29.94, Est GFR (MDRD) Af Amer 36 L, Est GFR (MDRD) Non-Af 30 L, BUN/Creatinine Ratio 17.8, Glucose 153 H, Calcium 9.2, Total Creatine Kinase 119, Troponin I High Sens 21 11/11/23 06:15: WBC 6.9, RBC 2.79 L, Hgb 9.2 L, Hct 27.0 L, MCV 96.8 H, MCH 33.0 H, MCHC 34.1, RDW Std Deviation 49.0 H, RDW Coeff of Zaheer 13.7, Plt Count 103 L, MPV 10.2, Immature Gran % (Auto) 0.400, Neut % (Auto) 66.1, Lymph % (Auto) 22.7, [place] % (Auto) 9.2, Eos % (Auto) 1.2, Baso % (Auto) 0.4, Absolute Neuts (auto) 4.6, Absolute Lymphs (auto) 1.57, Nucleated RBC % 0 11/11/23 06:24: POC Glucose 136 H Imaging Radiology Impression Brain CT 11/10/23 22:05 IMPRESSION: 1. No intracranial injury. 2. 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 Correlate clinically and consider evaluation with MRI. 3. Brain atrophy and chronic small vessel ischemic changes. Electronically Signed: Rafita Meadows MD at 23:31 EDT , Cervical Spine CT 11/10/23 22:05 IMPRESSION: Degenerative changes but no evidence of acute cervical spinal injury. Electronically Signed: Rafita Meadows MD at 23:34 EDT , Chest/Abdomen/Pelvis CT 11/10/23 22:07 IMPRESSION: 1. Nondisplaced fracture inferior sacrum with mild presacral soft tissue swelling. 2. 9 mm stone within mildly dilated left renal pelvis. 3. Large left-sided urinary bladder diverticulum with urolithiasis. 4. No acute intrathoracic abnormality. 5. Cirrhotic liver morphology suggested, correlate clinically. 6. Minimal protrusion of small bowel into small umbilical hernia with no signs of secondary bowel strangulation or obstruction. 7. Other nonurgent findings within body of report. Electronically Signed: Rafita Meadows MD at 0:04 EDT ,
[2023-11-11 07:17] LABS: Color, Urine Yellow (Yellow); Glucose, Dipstick Normal (Normal); Ketone-Dipstick Negative (Negative); Leukocyte Esterase-Dipstick 25 /ul (Negative); Nitrite-Dipstick Negative (Negative); Occult Blood-Urine 10 /ul (Negative); Protein-Dipstick 30 mg/dl (Negative); Urine Bilirubin Dipstick Negative (Negative); Urine Clarity Clear (Clear); Urine Urobilinogen Normal (Normal)
[2023-11-11 07:27] LABS: Red Blood Cells-Urine 0-5 SEEN /hpf (0-5); Squamous Epithelial Cells - UA 0-5 SEEN /hpf (0-5); White Blood Cells 0-5 SEEN /hpf (0-5)
[2023-11-11 07:29] LABS: Prothrombin Time (Protime)PT. 22.6 SECONDS (11.7-14.9)
--- NOTE | 2023-11-11 10:41 | ECHOD_ITS ---
Reason For Study: TIA/CVA Procedure This was a 2D Doppler, Color Flow transthoracic echocardiogram. Exam performed portable in patient room. Left Ventricle Normal LV size. The estimated ejection fraction is 70 %. Unable to assess diastolic dysfunction. No regional wall motion abnormalities noted. Right Ventricle Normal RV size. Normal systolic function. Atria The left atrium is moderately enlarged. The right atrium is moderately enlarged. No doppler evidence for ASD. Bubble contrast study negative for right to left interatrial shunt. Mitral Valve There is severe mitral annular calcification. There is no mitral valve stenosis. Trivial mitral valve insufficiency. Tricuspid Valve There is no tricuspid stenosis. Trivial eccentric tricuspid valve insufficiency. Unable to estimate RV systolic pressure due to insufficient tricuspid regurgitant envelope. Aortic Valve There is no aortic stenosis. Mild (1+) aortic valve insufficiency. Bioprosthetic aortic valve functioning normally. Pulmonic Valve There is no pulmonic valvular stenosis. Trivial pulmonic valve insufficiency. Great Vessels Mildly dilated aortic root. Pericardium/Pleural No pericardial effusion. Medication Performed a rapid injection of agitated mix of 9 cc saline and 1cc air to assess for atrial septal defect. MMode/2D Measurements & Calculations LVIDd: 4.9 cm IVSd: 1.4 cm LVOT diam: 2.0 cm LVIDs: 3.0 cm LVPWd: 1.2 cm RVDd: 4.7 cm FS: 38.7 % LVOT area: 3.2 cm2 Ao root diam: 4.1 cm LAV(MOD-bp): 132.8 ml LVAd ap4: 30.3 cm2 LAV(MOD-bp) Indexed: 64.0 ml/m2 LVLd ap4: 8.3 cm LAV(MOD-sp2): 155.9 ml EDV(MOD-sp4): 96.3 ml LAV(MOD-sp4): 99.8 ml EDV(sp4-el): 94.3 ml LVAs ap4: 14.8 cm2 LVLs ap4: 6.9 cm ESV(MOD-sp4): 28.7 ml ESV(sp4-el): 27.2 ml EF(MOD-sp4): 70.2 % EF(sp4-el): 71.2 % LVAd ap2: 32.3 cm2 SV(MOD-sp4): 67.6 ml SV(MOD-sp2): 78.8 ml LVLd ap2: 8.2 cm EDV(MOD-sp2): 108.3 ml EDV(sp2-el): 107.6 ml LVAs ap2: 15.0 cm2 LVLs ap2: 6.8 cm ESV(MOD-sp2): 29.6 ml ESV(sp2-el): 28.0 ml EF(MOD-sp2): 72.7 % SV(sp4-el): 67.1 ml LA dimension(2D): 5.1 cm LA A4 area: 29.0 cm2 RA A4 area: 20.6 cm2 TAPSE: 1.0 cm Time Measurements MV dec time: 0.16 sec Doppler Measurements & Calculations MV E max chris: 136.6 cm/sec Lat Peak E' Chris: 11.8 cm/sec Med Peak E' Chris: 7.5 cm/sec E/E' lat: 11.6 E/E' med: 18.2 Ao V2 max: 221.3 cm/sec AI max chris: 428.7 cm/sec LV V1 max: 121.7 cm/sec Ao max P.6 mmHg AI max P.5 mmHg LV V1 max P.0 mmHg Ao V2 mean: 153.6 cm/sec LV V1 mean P.6 mmHg Ao mean P.8 mmHg AI dec slope: 198.7 cm/sec2 LV V1 mean: 89.5 cm/sec Ao V2 VTI: 41.7 cm AI P1/2t: 631.8 msec LV V1 VTI: 24.3 cm AV (velocity ratio): 0.58 JEB(I,D): 1.9 cm2 JEB(V,D): 1.8 cm2 SV(LVOT): 77.5 ml PA V2 max: 99.3 cm/sec PA max PG (full): 0.76 mmHg ECHO/Echo Complete Interpretation Summary The estimated ejection fraction is 70 %. Unable to assess diastolic dysfunction. The left atrium is moderately enlarged. The right atrium is moderately enlarged. Trivial mitral valve insufficiency. Mild (1+) aortic valve insufficiency. Mildly dilated aortic root. Ordering Physician: Rafita Garcia Performed By: Elena Pedersen RDCS and Student
[2023-11-11] MEDS: Cholecalciferol (VIT D3) 25 MCG TABLET (1,000 UNITS) 50 MCG PO (10:47)
[2023-11-11] MEDS: Allopurinol 300 MG Tablet PO (10:47)
[2023-11-11] MEDS: Metoprolol(XL)Succ 25 MG Tablet PO (10:47)
[2023-11-11] MEDS: Triamcinolone 0.5% Cream 1 APPLIC TOPICAL (10:50)
--- NOTE | 2023-11-11 11:56 | CASEMGMT ---
TEJINDER PATEL Assessment Face to Face with patient for initial transition planning/care coordination assessment. TEJINDER PATEL introduced self and role at [facility], pt voices understanding. Pt is A&Ox4 and is resting comfortably in bed and is calm. Pt DALTON at bedside. Care providers, pharmacy, and demographics verified. Admitting dx: Sacral Fx after Fall PCP: Justen Hamlin Specialists: [facility] in [place], [place]. Pt states that he sees an eye doctor but cannot recall the name Preferred Pharmacy: [facility] Insurance: [facility] A/B, AARP Prescription Benefit: Yes LNOK: Carmella Stoddard (Daughter who is a nurse), Alfonzo Mancera (Son) Living Arrangements: Pt lives alone at the independent aspect of [facility]. Pt lives on the second floor and uses an elevator to get to his room. ADLs/IADLs: Normally ind Transportation: Self, son, Daughter DME: Working [employer] with enough supplies. Walk in shower with GB and seat. Raised toilet seat. Rollator. HHC/SNF: Denies ever being to the skilled side of a NH. States [facility] HHC history Plan: TBD. Pt had a stroke alert called and the MRI report states Acute ischemic changes of the right occipital lobe. Pt transferred to PCU from [facility]. Therapy evals are pending. Pt states that he will eventually need to go to the skilled side of [facility] but is unsure when he will need to do that. This TEJINDER PATEL reassured the pt that we will see how the pt progresses in the hospital and follow therapy recommendations to see what the pt will qualify for. Pt states agreeance to this plan. AMANDA and LUPE to follow for Safe DC from [facility]. Dajuan Choudhury RN, CM
[2023-11-11 12:53] LABS: Bedside Glucose 110 mg/dL (74-106)
[2023-11-11 13:36] LABS: AST(SGOT) 16 U/L (15-37); Alanine Aminotransfer ALT/SGPT 15 U/L (16-61); Alkaline Phosphatase 150 U/L (45-117); Anion Gap 7 (5-15); BUN 36 mg/dL (7-18); BUN/Creat Ratio 18.7 RATIO (10-20); Calcium,Total 8.4 mg/dL (8.5-10.1); Chloride 112 mmol/L (98-107); Creatinine, Serum 1.93 mg/dL (0.70-1.30); EST Glomerular Filtration Rate 36 mL/min (>60); Est Glom Filt Rate - Afr Amer 43 mL/min (>60); Estimated Creatinine Clearance 34.56 ml/min; Globulin 2.9 g/dL (2.2-4.2); Glucose 145 mg/dL (74-106); Magnesium 1.8 mg/dL (1.6-2.6); Phosphorus 2.8 mg/dL (2.5-4.9); Potassium 4.4 mmol/L (3.5-5.1); Protein, Total 5.9 g/dL (6.4-8.2); Sodium Level 139 mmol/L (136-145); Thyroid Stim Hormone (TSH) 1.57 uIU/mL (0.358-3.74)
--- NOTE | 2023-11-11 16:01 | CON.PCM.NE_ITS ---
Assessment and Plan: Neuro Assessment/Plan ADAL STOKES is a 83 M with a past medical history of HTN, DM, AFIb on Coumadin presented after a fall, CT head showed right occipital Hypodensity and MRI showed acute ischemic stroke, Diagnosis: acute right occipital stroke Plan: Permissive HTN SBP<220 DBP<120 Vessels images MRA head and neck or CTA head and neck TTE Stroke etiology likely cardioembolic in the setting sub therapeutic INR, could consider switching to Eliquis. high intensity statin PT/OT Speech therapy follow up with neurology clinic HPI Consult Data Date of Consult: 11/11/23 HPI Narrative HPI Narrative: ADAL STOKES, is a 83 M with a past medical history of essential hypertension, diabetes mellitus type 2; , coronary artery disease; status post CABG x 4, chronic atrial fibrillation; on Coumadin, history of CVA; with mild vascular dementia, history of TAVR, chronic kidney disease; stage III, who presents to [facility] ER after a fall. as per family he was walking in his assisted living when he fell backward. he had no LOC. images showed sacrum Fx and right occipital Stroke. [facility] Medical History Anemia Atrial fibrillation CAD (coronary artery disease) Chronic back pain Chronic pain CRF (chronic renal failure) DJD (degenerative joint disease) Gout Hyperlipemia Hypertension Hypoglycemia Mild aortic insufficiency Mild mitral regurgitation Mild vascular dementia Sciatica Stroke/cerebrovascular accident Thrombocytopenia Home Medications allopurinol 300 mg tablet 300 mg PO DAILY gout 07/07/21 [History Last Taken 11/10/23] furosemide 20 mg tablet (Lasix) 20 mg PO DAILY diuretic 07/07/21 [History Last Taken 11/10/23] lisinopril 40 mg tablet 40 mg PO DAILY BP 07/07/21 [History Last Taken 11/09/23] omega-3 fatty acids 1,000 mg PO DAILY 07/07/21 [History Last Taken Unknown] warfarin 2.5 mg tablet 2.5 mg PO DAILY blood thinner 07/07/21 [History Last Taken Unknown] hydrocodone-acetaminophen 5-325mg 5mg-325mg 1 tab PO Q6H PRN PRN Pain 4 days #15 TABLETS 05/23/23 [Rx Last Taken Unknown] acetaminophen 500 mg capsule 500 mg PO Q6H PRN pain 05/28/23 [History Last Taken Unknown] betamethasone dipropionate 0.05 % topical ointment 1 applic topical DAILY [History Last Taken Unknown] blood sugar diagnostic (Contour Next Test Strips) 05/28/23 [History Last Taken Unknown] cholecalciferol (vitamin D3) 50 mcg (2,000 unit) capsule 50 mcg PO DAILY supple ment 05/28/23 [History Last Taken 11/10/23] glucosamine HCl 750 mg tablet 750 mg PO BID joints 05/28/23 [History Last Taken Unknown] metformin 500 mg tablet 500 mg PO BID Diabetes 05/28/23 [History Last Taken Unknown] metoprolol succinate 25 mg tablet,extended release 24 hr 100 mg PO DAILY HR 05/28/23 [History Last Taken 11/10/23] sodium chloride 0.65 % nasal spray aerosol (Saline Mist) 1 spray intranasal ONCE 05/28/23 [History Last Taken Unknown] terazosin 5 mg capsule 5 mg PO QHS BPH 05/28/23 [History Last Taken 11/09/23] eplerenone 50 mg tablet 50 mg PO DAILY HTN 11/11/23 [History Last Taken Unknown] Allergy/AdvReac Type Severity Reaction Status Date / Time No Known Allergies Allergy Verified 11/10/23 21:24 Family History Mother No problems noted. Father Heart disease Myocardial infarction CVA (cerebral vascular accident) Surgical History H/O bilateral cataract extraction Heart valve replaced History of back surgery History of hernia repair History of quadruple bypass History of tonsillectomy History of total left knee replacement Social History household members: none housing: other details: Dependent Smoking Status: Never smoker alcohol intake: never substance use type: does not use what type of physical activity do you participate in: walking Vital Signs Vital Signs Vital Signs: 11/10/23 21:24 11/10/23 21:24 11/10/23 23:19 Temperature 98 F Temperature Source Oral Pulse Rate 60 75 Respiratory Rate 18 16 Respiratory Effort Normal Non-Labored Respiratory Depth Normal Respiratory Pattern Normal Blood Pressure 157/101 H 169/66 H Blood Pressure Mean 119 100 Blood Pressure Source Blood Pressure Position Blood Pressure Location Pulse Ox 96 96 Oxygen Delivery Method Room Air Room Air 11/11/23 00:25 11/11/23 01:57 11/11/23 01:56 Temperature 98.5 F 98.2 F Temperature Source Temporal Pulse Rate 76 71 Respiratory Rate 14 18 16 Respiratory Effort Respiratory Depth Respiratory Pattern Blood Pressure 170/76 H 158/70 H Blood Pressure Mean 107 99 Blood Pressure Source Monitor Blood Pressure Position Semi-Fowlers Blood Pressure Location Left Arm Pulse Ox 96 95 Oxygen Delivery Method Room Air Room Air 11/11/23 01:57 11/11/23 07:31 11/11/23 10:47 Temperature 98.7 F Temperature Source Temporal Pulse Rate 82 82 Respiratory Rate 16 Respiratory Effort Respiratory Depth Respiratory Pattern Blood Pressure 147/77 H 147/77 H Blood Pressure Mean 100 Blood Pressure Source Monitor Blood Pressure Position Semi-Fowlers Blood Pressure Location Left Arm Pulse Ox 95 95 Oxygen Delivery Method Room Air 11/11/23 06:55 11/11/23 11:35 11/11/23 12:15 Temperature 98.1 F Temperature Source Oral Pulse Rate 71 Respiratory Rate 16 Respiratory Effort Normal Non-Labored Respiratory Depth Normal Respiratory Pattern Normal Blood Pressure 150/84 H Blood Pressure Mean 106 Blood Pressure Source Monitor Blood Pressure Position Semi-Fowlers Blood Pressure Location Right Arm Pulse Ox 94 Oxygen Delivery Method Room Air Room Air Room Air 11/11/23 15:08 11/11/23 15:35 Temperature 98.1 F Temperature Source Oral Pulse Rate 87 Respiratory Rate 16 Respiratory Effort Normal Non-Labored Respiratory Depth Normal Respiratory Pattern Normal Blood Pressure 170/83 H Blood Pressure Mean 112 Blood Pressure Source Monitor Blood Pressure Position Semi-Fowlers Blood Pressure Location Right Arm Pulse Ox 97 Oxygen Delivery Method Room Air Room Air Weight Weight: 81.4 kg Body Mass Index (BMI) 23.0 EEG Results Procedure Details EEG Procedure Details: ADAL STOKES is a 83 year old M with a past medical history of , who presents for evaluation of Electroencephalogram on DATE at TIME NIHSS NIHSS Nursing Documentation NIHSS Nursing Documentation: NIHSS: Ischemic Stroke/TIA Start: 11/11/23 11:34 Text: For PCU Patients: NIH and Neuro Check every 4 Status: Active hours, PRN and with change in RN caregiver. Freq: [id number] Protocol: Activity Type Activity Date Activity User E-sign Co-sign Detail Recorded Client Recorded Date Recorded By Document 11/11/23 15:35 SS Desktop 11/11/23 15:51 SS 11/11/23 15:35 NIH Stroke Scale [NIHSS] A score of 0 is normal or asymptomatic . Total possible score is 42. Inpatient: RN or Physician to activate a stroke alert for onset of new stroke symptoms or with NIHSS increase >/= 3 points. Following change in neurological status, NIHSS will be performed per physician order or more frequently PRN. -1a. Level of Consciousness Alert; keenly responsive -1b. LOC Questions Answers BOTH questions correctly. -1c. LOC Commands Performs both tasks correctly . -2. Best Gaze Normal -3. Visual Partial hemianopia -4. Facial Palsy Normal symmetrical movements -5a. Left Arm No drift; arm holds 90 (or 45 ) degrees for full 10 seconds -5b. Right Arm No drift; arm holds 90 (or 45 ) degrees for full 10 seconds -6a. Left Leg No drift; leg holds 30-degree position for full 5 seconds -6b. Right Leg No drift; leg holds 30-degree position for full 5 seconds -7. Limb Ataxia Absent -8. Sensory Normal; no sensory loss -9. Best Language No aphasia; normal -10. Dysarthria Mild-to- moderate dysarthria; -Total 2 Query Text:A score of 0 is normal or asymptomatic. Total possible score is 42 . ED: Notify Physician for NIHSS increase by > / = 3 points. Inpatient: RN or Physician to activate a stroke alert for NIHSS increase of > / = 3 points. Coma Scale [Assess] -Eye Opening Spontaneous -Motor Obeys Commands -Verbal Oriented [Total] -Coma Scale Total 15 Physical Exam Neuro Neuro Narrative: awake alert in bed does not seem to be in acute distress slurred speech, able to name repeat and follow commands face symmetric left filed cut move upper ext antigravity pain limited exam in the lower ext Lab / Micro Data 11/11/23 06:15 11/11/23 06:15 Labs: Laboratory Results - last 24 hr 11/10/23 22:39: WBC 8.8, RBC 3.27 L, Hgb 10.5 L, Hct 31.5 L, MCV 96.3 H, MCH 32.1 H, MCHC 33.3, RDW Std Deviation 49.1 H, RDW Coeff of Zaheer 13.8, Plt Count 122 L, MPV 10.0, Immature Gran % (Auto) 0.600, Neut % (Auto) 72.9 H, Lymph % (Auto) 19.9, Catron % (Auto) 5.7, Eos % (Auto) 0.6, Baso % (Auto) 0.3, Absolute Neuts (auto) 6.4, Absolute Lymphs (auto) 1.74, Nucleated RBC % 0, PT 21.4 H, INR 1.9, Sodium 138, Potassium 4.6, Chloride 108 H, Carbon Dioxide 22.0, Anion Gap 8, BUN 40 H, Creatinine 2.25 H, Estim Creat Clear Calc 29.94, Est GFR (MDRD) Af Amer 36 L, Est GFR (MDRD) Non-Af 30 L, BUN/Creatinine Ratio 17.8, Glucose 153 H, Calcium 9.2, Total Creatine Kinase 119, Troponin I High Sens 11/11/23 06:15: WBC 6.9, RBC 2.79 L, Hgb 9.2 L, Hct 27.0 L, MCV 96.8 H, MCH 33.0 H, MCHC 34.1, RDW Std Deviation 49.0 H, RDW Coeff of Zaheer 13.7, Plt Count 103 L, MPV 10.2, Immature Gran % (Auto) 0.400, Neut % (Auto) 66.1, Lymph % (Auto) 22.7, Catron % (Auto) 9.2, Eos % (Auto) 1.2, Baso % (Auto) 0.4, Absolute Neuts (auto) 4.6, Absolute Lymphs (auto) 1.57, Nucleated RBC % 0, PT 22.6 H, INR 2.0, Sodium 139, Potassium 4.4, Chloride 112 H, Carbon Dioxide 20.0 L, Anion Gap 7, BUN 36 H , Creatinine 1.93 H, Estim Creat Clear Calc 34.56, Est GFR (MDRD) Af Amer 43 L, Est GFR (MDRD) Non-Af 36 L, BUN/Creatinine Ratio 18.7, Glucose 145 H, Calcium 8.4 L, Phosphorus 2.8, Magnesium 1.8, Total Bilirubin 0.70, AST 16, ALT 15 L, Alkaline Phosphatase 150 H, Total Protein 5.9 L, Albumin 3.0 L, Globulin 2.9, Albumin/Globulin Ratio 1.0, TSH 1.57 11/11/23 06:24: POC Glucose 136 H 11/11/23 06:35: Urine Color Yellow, Urine Clarity Clear, Urine pH 5.0, Ur Specific [place] 1.020, Urine Protein 30 H, Urine Glucose (UA) Normal, Urine Ketones Negative, Urine Occult Blood 10 H, Urine Nitrite Negative, Urine Bilirubin Negative, Urine Urobilinogen Normal, Ur Leukocyte Esterase 25 H, Urine RBC 0-5 SEEN, Urine WBC 0-5 SEEN, Ur Squamous Epith Cells 0-5 SEEN, Urine Bacteria 0 SEEN, Urine Mucus 0 SEEN 11/11/23 12:24: POC Glucose 110 H Imaging Radiology Impression Brain CT 11/10/23 22:05 IMPRESSION: 1. No intracranial injury. 2. 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 Correlate clinically and consider evaluation with MRI. 3. Brain atrophy and chronic small vessel ischemic changes. Electronically Signed: Rafita Meadows MD at 23:31 EDT , Cervical Spine CT 11/10/23 22:05 IMPRESSION: Degenerative changes but no evidence of acute cervical spinal injury. Electronically Signed: Rafita Meadows MD at 23:34 EDT , Chest/Abdomen/Pelvis CT 11/10/23 22:07 IMPRESSION: 1. Nondisplaced fracture inferior sacrum with mild presacral soft tissue swelling. 2. 9 mm stone within mildly dilated left renal pelvis. 3. Large left-sided urinary bladder diverticulum with urolithiasis. 4. No acute intrathoracic abnormality. 5. Cirrhotic liver morphology suggested, correlate clinically. 6. Minimal protrusion of small bowel into small umbilical hernia with no signs of secondary bowel strangulation or obstruction. 7. Other nonurgent findings within body of report. Electronically Signed: Rafita Meadows MD at 0:04 EDT , Brain MRI 11/11/23 01:07 IMPRESSION: Acute ischemic changes of the right occipital lobe. Electronically Signed: Dinesh Manriquez MD at 10:12 EDT , ADDENDUM: 11/11/23 1028 IMPRESSION: Acute ischemic changes of the right occipital lobe. N.B. : The above Results were Read Back by Dinesh Manriquez MD to Jenelle Taylor RN, and understanding confirmed on 11/11/2023 10:21:28 (ET). Electronically Signed: Dinesh Manriquez MD at 10:12 EDT , ADDENDUM: 11/11/23 1033 IMPRESSION: Acute ischemic changes of the right occipital lobe. N.B. : The above Results were Read Back by Dinesh Manriquez MD to Jenelle Taylor RN, and understanding confirmed on 11/11/2023 10:27:01 (ET). Electronically Signed: Dinesh Manriquez MD at 10:12 EDT , Active Medications Active Medications Active Medications: Current Medications Generic Name Dose Route Start Last Admin Trade Name Freq PRN Reason Stop Dose Admin Acetaminophen 500 mg 11/11/23 01:55 Acetaminophen 500 Mg Tablet PO Q6H PRN PRN Pain 1-5/10 or Fever Hydrocodone Bitart/Acetaminophen 1 tablet 11/11/23 01:55 11/11/23 02:50 Hydrocodone Bitartrate/Apap 5/325 Tablet PO 1 tablet Q6H PRN PRN Administration Pain Score 6-10 Albuterol Sulfate 2.5 mg 11/11/23 01:55 Albuterol 2.5 Mg/3 Ml Vial.Neb. INHALATION Q2H PRN PRN SOB &/OR WHEEZING Allopurinol 300 mg 11/11/23 10:00 11/11/23 10:47 Allopurinol 300 Mg Tablet PO 300 mg DAILY LAMBERT Administration Aspirin 81 mg 11/12/23 08:00 Aspirin 81 Mg Tab.Chew PO BREAKFAST [facility] Atorvastatin Calcium 80 mg 11/11/23 22:00 Atorvastatin Calcium 80 Mg Tablet PO QHS LAMBERT Cholecalciferol 50 mcg 11/11/23 10:00 11/11/23 10:47 Cholecalciferol (Vit D3) 25 Mcg Tablet (1,000 Units) PO 50 mcg DAILY LAMBERT Administration Dextrose 0 gm 11/11/23 01:55 Dextrose 50%-Water 25 Gm/50 Ml Disp.Syrin IV X1 PRN HYPOGLYCEMIA Protocol Doxazosin Mesylate 4 mg 11/11/23 22:00 Doxazosin 4 Mg Tablet PO QHS LAMBERT Glucagon 1 mg 11/11/23 01:55 Glucagon 1 Mg/Ml Syringe IM X1 PRN HYPOGLYCEMIA Sodium Chloride 1,000 mls @ 70 mls/hr 11/11/23 01:55 11/11/23 12:30 IV 70 mls/hr .[id number] LAMBERT Administration Sodium Chloride 250 mls @ 15 mls/hr 11/11/23 01:57 IV .[id number] PRN Additional IVPB Infusion Insulin Human Lispro 0 unit 11/11/23 07:00 11/11/23 12:29 Insulin Lispro 100 Unit/Ml Insuln.Pen SC Not Given ACHS [facility] Protocol Melatonin 3 mg 11/11/23 01:55 Melatonin 3 Mg Tablet PO QHS PRN PRN INSOMNIA Metoprolol Succinate 25 mg 11/11/23 10:00 11/11/23 10:47 Metoprolol(Xl)Succ 25 Mg Tablet PO 25 mg DAILY LAMBERT Administration Protocol Ondansetron HCl 4 mg 11/11/23 01:55 Ondansetron 4 Mg/2 Ml Vial IV Q8H PRN PRN NAUSEA/VOMITING Sodium Chloride 10 - 40 ml 11/11/23 01:57 0.9% Saline Lock 10 Ml Syringe IV UD PRN SALINE FLUSH Triamcinolone Acetonide 1 applic 11/11/23 10:00 11/11/23 10:50 Triamcinolone 0.5% Cream TOPICAL 1 applic DAILY LAMBERT Administration Warfarin Sodium 2.5 mg 11/12/23 17:00 Warfarin 2.5 Mg Tablet PO [email or web address] [facility] Warfarin Sodium 5 mg 11/11/23 17:00 Warfarin 5 Mg Tablet PO [email or web address] [facility]
--- NOTE | 2023-11-11 16:08 | PCM.HOSP.N ---
Hospitalist Note Patient was seen and examined today, I had an extensive conversation with his son-in-law who was in the room at the time of my examination. Patient's MRI today showed acute ischemic changes of the right occipital lobe, patient was transferred from the third floor down to PCU for ongoing care. I have written for an neurology to consult on the patient, PT, OT, and speech therapy will see the patient. Patient will remain on aspirin 81 mg daily as well as Lipitor 80 mg daily. Echocardiogram will be obtained.
[2023-11-11 16:45] LABS: Bedside Glucose 273 mg/dL (74-106)
[2023-11-11 17:38] LABS: Hemoglobin A1c 6.2 % (3.8-5.6)
[2023-11-11] MEDS: Atorvastatin Calcium 80 MG Tablet PO (21:55)
[2023-11-11] MEDS: Doxazosin 4 MG Tablet PO (22:03)
[2023-11-11] MEDS: 0.9% Saline Lock 10 ML Syringe IV (22:04)
[2023-11-11 23:08] LABS: Bedside Glucose 119 mg/dL (74-106)
[2023-11-12] VITALS (9 sets, daily range): BP systolic 139–185; BP diastolic 76–89; PULSE 71–89; RESP 16–18; TEMP 36.5–36.9; O2SAT 95–98; BMI 23.0; BMI 23.1
[2023-11-12] MEDS: 0.9% Normal Saline (1000mL) 1,000 ML 70 ML IV (03:05)
[2023-11-12 06:28] LABS: Bedside Glucose 115 mg/dL (74-106)
[2023-11-12 06:49] LABS: Bedside Glucose 124 mg/dL (74-106)
[2023-11-12 08:01] LABS: Cholesterol 101 mg/dL (200); High Density Lipoprotein 57 mg/dL; Triglycerides 67 mg/dL; Very Low Density Lipoprotein 13 mg/dL (5-40)
[2023-11-12] MEDS: Aspirin 81 MG TAB.CHEW PO (10:34)
[2023-11-12] MEDS: Metoprolol(XL)Succ 25 MG Tablet PO (10:34)
--- NOTE | 2023-11-12 11:07 | CASEMGMT ---
SW spoke with patient and his son. Introduced self and role at [facility]. SW asked patient about his discharge plan. Patient said he thinks he will be fine for home. SW told patient we can see how he does with therapy today and see what they recommend. Patient and son were agreeable. Janae QUEVEDO
[2023-11-12] MEDS: Cholecalciferol (VIT D3) 25 MCG TABLET (1,000 UNITS) 50 MCG PO (11:15)
[2023-11-12] MEDS: Allopurinol 300 MG Tablet PO (11:15)
[2023-11-12 11:52] LABS: Bedside Glucose 216 mg/dL (74-106)
--- NOTE | 2023-11-12 13:20 | CASEMGMT ---
SW completed a PHQ 9 with patient as he had s Stroke. Patient scored a 0 which indicates no depression. Patient declined any need for counseling resources. Janae QUEVEDO
--- NOTE | 2023-11-12 13:22 | CM.UR ---
SW spoke with patient about discharge plan as he had therapy today. Patient is agreeable to going to [facility] for short term rehab. SW offered to give patient a list of local nursing homes, however patient declined stating he lives at [facility] so that is where he would like to go. LUPE asked [facility]PE [facility] to send a referral to [facility]. Janea Wang MSW EMY
--- NOTE | 2023-11-12 13:44 | CASEMGMT ---
Addendum entered by Shahnaz Alvarez 11/12/23 15:08: [facility] replied and stated they are working on opening a bed for pt. Shahnaz GUERRERO Original Note: Social Work SW sent referral to [facility] through [facility] and inquired if they would be able to accept at [place] with tent date 11/14/23. Pt lived in [place] previously. Shahnaz GUERRERO
--- NOTE | 2023-11-12 15:16 | PN.HOSP_ITS ---
Reason for Visit Reason for Visit: Diagnoses Acute kidney failure, unspecified (11/11/23) Calculus of kidney (11/11/23) Abnormal findings on diagnostic imaging of skull and head, not elsewhere classified (11/11/23) Unspecified fracture of sacrum, initial encounter for closed fracture (11/11/23) Adverse effect of unspecified drugs, medicaments and biological substances, initial encounter (11/11/23) Subjective Subjective Patient was seen and examined today, he has no complaints of any chest pain. I talked briefly with teleneurology about his care, they recommended changing him from warfarin to Eliquis in 1 week, patient has been off warfarin for now due to the stroke. Patient's echocardiogram showed a normal EF without evidence of ASD. Objective Data Objective Data Vital Signs: Vital Signs Temp Pulse Resp BP Pulse Ox O2 Del Method 97.9 F 89 16 143/81 H 97 Room Air 11/12/23 10:00 11/12/23 10:34 11/12/23 10:00 11/12/23 10:34 11/12/23 11:31 11/12/23 10:20 Oxygen Delivery Method Room Air Weight: 81.6 kg Body Mass Index (BMI) 23.1 Intake & Output: Intake and Output for Last 24 Hours 11/10/23 11/11/23 11/12/23 23:59 23:59 23:59 Intake Total 1000 / 1000 1158.67 / 1158.67 1000 / 1000 Output Total 275 / 575 600 / 600 Balance 1000 / 1000 883.67 / 583.67 400 / 400 Lab / Micro Data 11/11/23 06:15 11/11/23 06:15 Labs: Laboratory Results - last 24 hr 11/11/23 06:15: Hemoglobin A1c 6.2 H 11/11/23 10:54: Hemoglobin A1c 6.0 H 11/11/23 16:00: POC Glucose 273 H 11/11/23 21:54: POC Glucose 119 H 11/12/23 02:35: POC Glucose 115 H 11/12/23 06:24: POC Glucose 124 H 11/12/23 06:40: Triglycerides 67, Cholesterol 101, LDL Cholesterol 31, VLDL Cholesterol 13, HDL Cholesterol 57 11/12/23 11:14: POC Glucose 216 H Radiography Diagnostic Testing: Radiology Impression Echocardiogram 11/11/23 10:41 Interpretation Summary The estimated ejection fraction is 70 %. Unable to assess diastolic dysfunction. The left atrium is moderately enlarged. The right atrium is moderately enlarged. Trivial mitral valve insufficiency. Mild (1+) aortic valve insufficiency. Mildly dilated aortic root. Ordering Physician: Rafita Garcia Performed By: Elena Pedersen RDCS and Student Physical Exam Const alert, oriented x3, no apparent distress, average body habitus and healthy appearing General Appearance: cooperative, well kempt and well developed Orientation / Consciousness: awake, oriented to person, oriented to place and oriented to time HEENT normocephalic, head/scalp atraumatic and moist oral mucous membranes Eyes PERRL, EOMs intact bilaterally and conjunctivae normal Neck supple, no JVD, thyroid normal and no carotid bruits General: trachea midline Resp normal respiratory effort, no retractions, no use of accessory muscles and clear to auscultation bilaterally Auscultation: Negative for rales, rhonchi or wheezes Cardio S1 normal heart sound, S2 normal heart sound, no murmurs, no rub and no gallops Cardio Narrative: Heart rate and rhythm is irregular GI normal to inspection, nondistended, normoactive bowel sounds, soft to palpation, non-tender and non-distended Extremity no clubbing, cyanosis or edema Skin no rashes or lesions noted General Skin Exam: no breakdown Neuro oriented x3, CN's II-XII intact bilaterally, moves all extremities, no focal motor deficits and no sensory deficits noted Sensorium / Orientation: awake, alert, oriented to person, oriented to place and oriented to time Speech: speech normal Psych affect normal Assessment & Plan Assessment/Plan (1) Sacral fracture: QUALIFIERS: Encounter type: initial encounter Zone of sacrum fracture: unspecified portion of sacrum Fracture type: closed Qualified Code(s): S32.10XA - Unspecified fracture of sacrum, initial encounter for closed fracture PLAN: Plan 1. Acute ischemic stroke right occipital lobe, probably embolic in nature- patient will continue to see PT OT, plans are for the patient to go to an extended care facility for short-term rehab services. Patient is okay with this, I discussed this with the patient's son-in-law who was in the room at the time my exam, patient will remain on a statin and aspirin, teleneurology requested a CT of the head before the patient goes to an extended care facility to make sure there is no evidence of hemorrhage. #2 sacral fracture-supportive care, analgesics as needed #3 chronic atrial fibrillation-patient's warfarin has been stopped for now due to his stroke, he will start Eliquis 2.5 mg twice daily starting in 1 week, I checked the mart of this medication and its around $42 at his pharmacy. #4 type 2 diabetes-patient's blood sugars will be monitored, sliding scale insulin will be given as indicated #5 coronary artery disease-this is stable at this time, patient will remain on his present medications #6 chronic kidney disease stage IIIb-complicates care, management, recovery, and prognosis, I will recheck his BMP tomorrow Total clinical time spent by myself addressing the patient's medical issues, reviewing all of his data, and collaborating with patient's care team: 35 min utes Charges/Coding Visit Charges Inpatient E&M: 28089 Subs Hosp L2
--- NOTE | 2023-11-12 15:31 | MRI_ITS ---
ACR Level 3 findings have been noted. An addendum which confirms receipt of the report will follow. EXAM: MR ANGIOGRAPHY HEAD WITHOUT INTRAVENOUS CONTRAST CLINICAL INDICATION: Occipital stroke TECHNIQUE: Routine hughes of [place]/brain 3D time of flight MR angiogram protocol was performed without intravenous contrast. COMPARISON: MRI brain, 11/11/2023 FINDINGS: RIGHT INTERNAL CAROTID ARTERY: No significant findings. No significant stenosis at the intracranial/visualized segments. No aneurysm. RIGHT ANTERIOR CEREBRAL ARTERY: Nondominant patent A1 segment of the right anterior cerebral artery. No occlusion or significant stenosis. Anterior communicating artery is present. No aneurysm. RIGHT MIDDLE CEREBRAL ARTERY: No significant abnormality. No occlusion or significant stenosis. No aneurysm. RIGHT POSTERIOR CEREBRAL ARTERY: Focal near occlusion of the right posterior cerebral artery, P2 segment. No aneurysm. RIGHT VERTEBRAL ARTERY: Incompletely visualized nondominant right vertebral artery. No significant stenosis at the intradural/visualized segments. No aneurysm. LEFT INTERNAL CAROTID ARTERY: No significant findings. No significant stenosis at the intracranial/visualized segments. No aneurysm. LEFT ANTERIOR CEREBRAL ARTERY: No significant abnormality. No occlusion or significant stenosis. Anterior communicating artery is present. No aneurysm. LEFT MIDDLE CEREBRAL ARTERY: No significant abnormality. No occlusion or significant stenosis. No aneurysm. LEFT POSTERIOR CEREBRAL ARTERY: Mild to moderate multifocal stenoses of the P2 and P3 segments of the left posterior cerebral artery. No occlusion or significant stenosis. No aneurysm. LEFT VERTEBRAL ARTERY: Normal as visualized. No significant stenosis at the intradural/visualized segments. No aneurysm. BASILAR ARTERY: No significant abnormality. No significant stenosis. No aneurysm. OTHER VASCULATURE: No vascular malformation. MRI/MRA Head ONLY without Contrast IMPRESSION: 1. Focal near occlusion of the right posterior cerebral artery, P2 segment. This correlates with the right posterior cerebral artery distribution infarct. 2. Mild to moderate multifocal stenoses of the P2 and P3 segments of the left posterior cerebral artery. 3. No significant arterial pathology in the anterior circulation. Electronically Signed: Manuel Rees DO at 21:35 EDT ,
--- NOTE | 2023-11-12 15:31 | MRI_ITS ---
EXAM: MR ANGIOGRAPHY NECK WITHOUT AND WITH INTRAVENOUS CONTRAST CLINICAL INDICATION: occipital stroke TECHNIQUE: Routine carotid MR angiogram protocol was performed without and with intravenous contrast. 3D reconstructions were reviewed. NASCET criteria using the distal ICAs for comparison were used for evaluation of stenoses. CONTRAST: CLARISCAN 17ML IV COMPARISON: MRA head on the same date and MRI brain, 11/11/2023 FINDINGS: RIGHT COMMON CAROTID ARTERY: No significant abnormality. No occlusion or significant stenosis. No dissection. RIGHT INTERNAL CAROTID ARTERY: No significant abnormality. Extracranial segment is patent with no occlusion or significant stenosis. No dissection. RIGHT EXTERNAL CAROTID ARTERY: No significant abnormality. No occlusion. RIGHT VERTEBRAL ARTERY: The nondominant patent right vertebral artery appears to terminate at the right posterior inferior cerebellar artery, a normal variant. No occlusion or significant stenosis. No dissection. LEFT COMMON CAROTID ARTERY: No significant abnormality. No occlusion or significant stenosis. No dissection. LEFT INTERNAL CAROTID ARTERY: No significant abnormality. Extracranial segment is patent with no occlusion or significant stenosis. No dissection. LEFT EXTERNAL CAROTID ARTERY: No significant abnormality. No occlusion. LEFT VERTEBRAL ARTERY: No significant abnormality. No occlusion or significant stenosis. No dissection. CAROTID STENOSIS REFERENCE USING NASCET CRITERIA: % ICA stenosis = (1 - narrowest ICA diameter/diameter of distal cervical ICA) x 100. Mild - <50% stenosis. Moderate - 50-69% stenosis. Severe - 70-94% stenosis. Near occlusion - 95-99% stenosis. Occluded - 100% stenosis. MRI/MRA Neck WITH and W/O Contrast IMPRESSION: No acute findings in the arteries of the neck. Electronically Signed: Manuel Rees DO at 21:45 EDT ,
--- NOTE | 2023-11-12 16:50 | EKG12_ITS ---
Test Reason : Blood Pressure : / mmHG Vent. Rate : 071 BPM Atrial Rate : 000 BPM P-R Int : 000 ms QRS Dur : 104 ms QT Int : 410 ms P-R-T Axes : 000 058 -42 degrees QTc Int : 445 ms Atrial fibrillation with premature ventricular or aberrantly conducted complexes Cannot rule out Inferior infarct (cited on or before 12-NOV-2023) Abnormal ECG Confirmed by Benny Beckwith ([id number]), video effects editor MAURILIO YOO ([id number]) on 11/13/2023 8:29:54 AM Referred By: Confirmed By:Benny Beckwith
[2023-11-12 16:55] LABS: Bedside Glucose 207 mg/dL (74-106)
[2023-11-12] MEDS: 0.9% Saline Lock 10 ML Syringe IV (21:45)
[2023-11-12] MEDS: Acetaminophen 500 MG Tablet PO (21:46)
[2023-11-12] MEDS: Doxazosin 4 MG Tablet PO (21:47)
[2023-11-12] MEDS: Atorvastatin Calcium 80 MG Tablet PO (21:47)
[2023-11-12 22:11] LABS: Bedside Glucose 141 mg/dL (74-106)
[2023-11-13] VITALS (8 sets, daily range): BP systolic 149–155; BP diastolic 55–89; PULSE 64–81; RESP 16; TEMP 36.4–36.7; O2SAT 93–98; BMI 22.8
[2023-11-13] MEDS: Acetaminophen 500 MG Tablet PO ×2 (06:15→15:17)
[2023-11-13 06:53] LABS: Bedside Glucose 111 mg/dL (74-106)
[2023-11-13 07:55] LABS: International Normalized Ratio 1.6; Prothrombin Time (Protime)PT. 18.5 SECONDS (11.7-14.9)
[2023-11-13 08:19] LABS: Anion Gap 5 (5-15); BUN 30 mg/dL (7-18); BUN/Creat Ratio 22.9 RATIO (10-20); Calcium,Total 8.7 mg/dL (8.5-10.1); Chloride 112 mmol/L (98-107); Creatinine, Serum 1.31 mg/dL (0.70-1.30); EST Glomerular Filtration Rate 56 mL/min (>60); Est Glom Filt Rate - Afr Amer 68 mL/min (>60); Estimated Creatinine Clearance 50.67 ml/min; Glucose 112 mg/dL (74-106); Potassium 4.1 mmol/L (3.5-5.1); Sodium Level 139 mmol/L (136-145)
[2023-11-13] MEDS: Metoprolol(XL)Succ 25 MG Tablet PO (08:47)
[2023-11-13] MEDS: Aspirin 81 MG TAB.CHEW PO (08:47)
[2023-11-13] MEDS: Cholecalciferol (VIT D3) 25 MCG TABLET (1,000 UNITS) 50 MCG PO (08:48)
[2023-11-13] MEDS: Allopurinol 300 MG Tablet PO (08:48)
--- NOTE | 2023-11-13 10:21 | CASEMGMT ---
LUPE spoke with patient's daughter Carmella per her request. LUPE answered Carmella's questions about [facility] half-way. Carmella thanked LUPE for talking with her. Plan: d/c to [facility] under skilled level of care. Janae QUEVEDO
[2023-11-13 12:03] LABS: Bedside Glucose 266 mg/dL (74-106)
[2023-11-13 17:14] LABS: Bedside Glucose 181 mg/dL (74-106)
--- NOTE | 2023-11-13 18:15 | PN.HOSP_ITS ---
Reason for Visit Reason for Visit: Diagnoses Acute kidney failure, unspecified (11/11/23) Calculus of kidney (11/11/23) Abnormal findings on diagnostic imaging of skull and head, not elsewhere classified (11/11/23) Unspecified fracture of sacrum, initial encounter for closed fracture (11/11/23) Adverse effect of unspecified drugs, medicaments and biological substances, initial encounter (11/11/23) Subjective Subjective Patient was seen and examined today, he had some episodes of wide-complex rhythm that appeared to be a right bundle branch block pattern, patient was asymptomatic Objective Data Objective Data Vital Signs: Vital Signs Temp Pulse Resp BP Pulse Ox O2 Del Method 98.0 F 81 16 149/66 H 98 Room Air 11/13/23 15:21 11/13/23 15:21 11/13/23 15:21 11/13/23 15:21 11/13/23 15:26 11/13/23 15:26 Oxygen Delivery Method Room Air Weight: 81 kg Body Mass Index (BMI) 22.8 Intake & Output: Intake and Output for Last 24 Hours 11/11/23 11/12/23 11/13/23 23:59 23:59 23:59 Intake Total 1158.67 / 1158.67 2983.67 / 2983.67 480 / 480 Output Total 275 / 575 950 / 950 Balance 883.67 / 583.67 2033.67 / 2033.67 480 / 480 Lab / Micro Data 11/11/23 06:15 11/13/23 06:30 Labs: Laboratory Results - last 24 hr 11/12/23 21:49: POC Glucose 141 H 11/13/23 06:14: POC Glucose 111 H 11/13/23 06:30: PT 18.5 H, INR 1.6, Sodium 139, Potassium 4.1, Chloride 112 H, Carbon Dioxide 22.0, Anion Gap 5, BUN 30 H, Creatinine 1.31 H, Estim Creat Clear Calc 50.67, Est GFR (MDRD) Af Amer 68, Est GFR (MDRD) Non-Af 56 L, BUN/Creatinine Ratio 22.9 H, Glucose 112 H, Calcium 8.7 11/13/23 11:45: POC Glucose 266 H 11/13/23 16:49: POC Glucose 181 H Radiography Diagnostic Testing: Radiology Impression Head MRA 11/12/23 15:31 IMPRESSION: 1. Focal near occlusion of the right posterior cerebral artery, P2 segment. This correlates with the right posterior cerebral artery distribution infarct. 2. Mild to moderate multifocal stenoses of the P2 and P3 segments of the left posterior cerebral artery. 3. No significant arterial pathology in the anterior circulation. Electronically Signed: Manuel Rees at 21:35 EDT , ADDENDUM: 11/12/232201 IMPRESSION: 1. Focal near occlusion of the right posterior cerebral artery, P2 segment. This correlates with the right posterior cerebral artery distribution infarct. 2. Mild to moderate multifocal stenoses of the P2 and P3 segments of the left posterior cerebral artery. 3. No significant arterial pathology in the anterior circulation. N.B. : Sophie NINA RN, confirmed on 11/12/2023 21:55:51 (ET) that the healthcare facility has received the radiology report. Electronically Signed: Manuel WoodsonDO charles at 21:35 EDT , Neck MRA 11/12/23 15:31 IMPRESSION: No acute findings in the arteries of the neck. Electronically Signed: Manuel RobbinsDO jb at 21:45 EDT , Physical Exam Narrative alert, oriented x3, no apparent distress, average body habitus and healthy appearing General Appearance: cooperative, well kempt and well developed Orientation / Consciousness: awake, oriented to person, oriented to place and oriented to time HEENT normocephalic, head/scalp atraumatic and moist oral mucous membranes Eyes PERRL, EOMs intact bilaterally and conjunctivae normal Neck supple, no JVD, thyroid normal and no carotid bruits General: trachea midline Resp normal respiratory effort, no retractions, no use of accessory muscles and clear to auscultation bilaterally Auscultation: Negative for rales, rhonchi or wheezes Cardio S1 normal heart sound, S2 normal heart sound, no murmurs, no rub and no gallops Cardio Narrative: Heart rate and rhythm is irregular GI normal to inspection, nondistended, normoactive bowel sounds, soft to palpation, non-tender and non-distended Extremity no clubbing, cyanosis or edema Skin no rashes or lesions noted General Skin Exam: no breakdown Neuro oriented x3, CN's II-XII intact bilaterally, moves all extremities, no focal motor deficits and no sensory deficits noted Sensorium / Orientation: awake, alert, oriented to person, oriented to place and oriented to time Speech: speech normal Psych affect normal Assessment & Plan Assessment/Plan (1) Sacral fracture: QUALIFIERS: Encounter type: initial encounter Zone of sacrum fracture: unspecified portion of sacrum Fracture type: closed Qualified Code(s): S32.10XA - Unspecified fracture of sacrum, initial encounter for closed fracture PLAN: Plan 1. Acute ischemic stroke right occipital lobe, probably embolic in nature- patient will continue to see PT OT, plans are for the patient to go to an extended care facility for short-term rehab services. Patient is okay with this, I discussed this with the patient's son-in-law who was in the room at the time my exam, patient will remain on a statin and aspirin, teleneurology requested a CT of the head before the patient goes to an extended care facility to make sure there is no evidence of hemorrhage. An MRA of the head and neck was performed, there was an occlusion or a narrowed cerebral artery on the MRI, patient's neck arteries did not show significant occlusion. I talked briefly with teleneurology about this and they stated there was no real treatment for this, they also stated they did not feel the patient needed to be on a baby aspirin in addition to full anticoagulation. For now I will keep him on baby aspirin, when the full anticoagulation is started it will be dropped off. #2 sacral fracture-supportive care, analgesics as needed #3 chronic atrial fibrillation-patient's warfarin has been stopped for now due to his stroke, he will start Eliquis 2.5 mg twice daily starting in 1 week, I checked the mart of this medication and its around $42 at his pharmacy. #4 type 2 diabetes-patient's blood sugars will be monitored, sliding scale insulin will be given as indicated #5 coronary artery disease-this is stable at this time, patient will remain on his present medications #6 chronic kidney disease stage IIIb-complicates care, management, recovery, and prognosis, I will recheck his BMP tomorrow Total clinical time spent by myself addressing the patient's medical issues, reviewing all of his data, and collaborating with patient's care team: 35 minutes Charges/Coding Visit Charges Inpatient E&M: 86398 Subs Hosp L2
[2023-11-13] MEDS: 0.9% Saline Lock 10 ML Syringe IV (21:52)
[2023-11-13] MEDS: Doxazosin 4 MG Tablet PO (21:55)
[2023-11-13] MEDS: Atorvastatin Calcium 80 MG Tablet PO (21:55)
[2023-11-13 22:16] LABS: Bedside Glucose 144 mg/dL (74-106)
[2023-11-14] VITALS (7 sets, daily range): BP systolic 153–186; BP diastolic 66–85; PULSE 76–79; RESP 16–18; TEMP 36.3–36.7; O2SAT 97–98; BMI 23.3
[2023-11-14] MEDS: Acetaminophen 500 MG Tablet PO ×3 (00:05→16:04)
[2023-11-14 06:30] LABS: Bedside Glucose 140 mg/dL (74-106)
[2023-11-14] MEDS: Metoprolol(XL)Succ 25 MG Tablet PO (07:57)
[2023-11-14] MEDS: Cholecalciferol (VIT D3) 25 MCG TABLET (1,000 UNITS) 50 MCG PO (07:57)
[2023-11-14] MEDS: Allopurinol 300 MG Tablet PO (07:57)
[2023-11-14] MEDS: Aspirin 81 MG TAB.CHEW PO (07:57)
[2023-11-14] MEDS: 0.9% Saline Lock 10 ML Syringe IV (07:58)
--- NOTE | 2023-11-14 09:46 | CT_ITS ---
STUDY: CT BRAIN WITHOUT CONTRAST REASON FOR EXAM: Male, 83 years old. Stroke. History of fall. RADIATION DOSAGE (If Supplied By Facility): CTDIvol = ( 44.99 ) mGy, DLP = ( 829.85 ) mGycm TECHNIQUE: Transaxial CT imaging of the brain was performed without administration of intravenous contrast material. Individualized dose optimization techniques were used for this CT. COMPARISON: Comparison is made with prior study dated November 10, 2023. FINDINGS: Normal soft tissue structures. Normal calvarium. There is moderate cerebral atrophy with widening of the extra-axial spaces and ventricular dilatation. There is evidence of a ischemic change in the posterior inferior aspect of the right occipital lobe. There are areas of decreased attenuation within the white matter tracts of the supratentorial brain, consistent with microvascular disease changes. There are small punctate calcifications of the basal ganglia which are seen in the aging brain as a normal variant. Normal brainstem. There is mild cerebellar atrophy. There is no intracranial hemorrhage. There are no findings of an acute ischemic infarction. Atherosclerotic calcification of the cavernous portions of the internal carotid arteries bilaterally. Normal visualized paranasal sinuses. CT/Brain/Head without Contrast IMPRESSION: Chronic involutional changes of the brain. Focal area of decreased attenuation in the right posterior occipital lobe. Stable examination. Electronically Signed: Davin Felix MD at 10:21 EDT ,
[2023-11-14 11:30] LABS: Bedside Glucose 135 mg/dL (74-106)
--- NOTE | 2023-11-14 15:15 | PCM.TXEXTCAR ---
Diet Diet Order/Speech Therapy: 11/11/23 12:14 Diet: Consistent Carb - Calorie Controlled Dietary Modifications:: Cardiac / Heart Healthy Is pt able to select menu?: Yes Diet Comments: Prior to Dysphagia screen and or at midnight prior to lipid panel lab draw How many daily calories?: 2000 calorie Routine Orders/Code Status Routine Lab Work: CBC (in 4 days), BMP (in 4 days) and - (Fingerstick blood sugars AC nightly, Humalog subcu per sliding scale: 200-250: 5 units, 251-300: 8 units, 301-350: 12 units) Code Status: Full Code Wound(s) RIGHT HAND: Wound Type: Skin Tear RIGHT FA: Wound Type: Skin Tear Therapies Weight Bearing: Full weight bearing Physical Therapy: Eval and Treat Occupational Therapy: Eval and Treat Problem/Diagnosis (1) Sacral fracture: Status: Acute Code(s): S32.10XA - Unspecified fracture of sacrum, initial encounter for closed fracture Plan 1. Acute ischemic stroke right occipital lobe, probably embolic in nature-patient will continue to see PT OT, plans are for the patient to go to an extended care facility for short-term rehab services. Patient is okay with this, I discussed this with the patient's son-in-law who was in the room at the time my exam, patient will remain on a statin and aspirin, teleneurology requested a CT of the head before the patient goes to an extended care facility to make sure there is no evidence of hemorrhage. An MRA of the head and neck was performed, there was an occlusion or a narrowed cerebral artery on the MRI, patient's neck arteries did not show significant occlusion. I talked briefly with teleneurology about this and they stated there was no real treatment for this, they also stated they did not feel the patient needed to be on a baby aspirin in addition to full anticoagulation. For now I will keep him on baby aspirin, when the full anticoagulation is started it will be dropped off. #2 sacral fracture-supportive care, analgesics as needed #3 chronic atrial fibrillation-patient's warfarin has been stopped for now due to his stroke, he will start Eliquis 2.5 mg twice daily starting in 1 week, I checked the mart of this medication and its around $42 at his pharmacy. #4 type 2 diabetes-patient's blood sugars will be monitored, sliding scale insulin will be given as indicated #5 coronary artery disease-this is stable at this time, patient will remain on his present medications #6 chronic kidney disease stage IIIb-complicates care, management, recovery, and prognosis, I will recheck his BMP tomorrow Total clinical time spent by myself addressing the patient's medical issues, reviewing all of his data, and collaborating with patient's care team: 35 minutes Allergies/Procedures Done in Hospital Allergies No Known Allergies Allergy (Verified 11/10/23 21:24) Procedures: 2-D Echocardiogram Type of Care/Length of Stay Estimated LOS: Convalescent Care Less Than 30 days Type of Care Needed: Skilled Rehab Potential: Good Prognosis: Good Additional Orders/Day of Discharge H&P will serve as current which was dated: 11/11/23 Day of Discharge: 11/14/23 Dietary and Speech Recommendations Dietitian Recommendations/Changes: Continue 2000CCD, Cardiac diet to manage medical conditions. Discharge Plan Admission Admit Date/Time: 11/11/23 00:56 Primary Reason for Your Visit: Sacral fracture, acute stroke Attending Provider: Rafita Garcia Primary Care Provider: Justen Sarabia Consulting Providers: Jer Contreras; Octavio Montes De Oca; Stacey De La Torre; Madeleine Cabrales; Chantal Christensen; Marsha Ames; Logan Kwon; Martha Brizuela; Jacob Mei; Saleem Myers; Erika Nguyen; Tim Randhawa; Ann-Marie Johnson; Cyndi Perea; Elizabeth Norris; Aidan Collazo; Case Rios; Dominik Miller; Kiersten Higgins; Myrtle Paredes; Rudy Soares Instructions Additional Instructions / Restrictions: On 11/17/2023, stop the patient's 81 mg aspirin tablet, on that date, start Eliquis 5 mg twice daily and continue it thereafter Discharge Orders/Prescriptions Prescriptions: New hydrocodone-acetaminophen 5-325 mg Tablet 1 tab PO Q6H PRN PRN (Reason: Pain Score 6-10) 3 Days Qty: 10 0RF aspirin 81 mg Tablet,Chewable 81 mg PO BREAKFAST Qty: 0 0RF metoprolol succinate 25 mg Tablet Extended Release 24 Hr 25 mg PO DAILY Qty: 1 0RF atorvastatin 80 mg Tablet 80 mg PO QHS Qty: 0 0RF lisinopril 20 mg tablet 20 mg PO DAILY Qty: 1 0RF Continued acetaminophen 500 mg capsule 500 mg PO Q6H PRN (Reason: pain) betamethasone dipropionate 0.05 % ointment 1 applic topical DAILY glucosamine HCl 750 mg tablet 750 mg PO BID Rx Instructions: administer with a meal metformin 500 mg tablet 500 mg PO BID terazosin 5 mg capsule 5 mg PO QHS cholecalciferol (vitamin D3) 50 mcg (2,000 unit) capsule 50 mcg PO DAILY furosemide [Lasix] 20 mg Tablet 20 mg PO DAILY allopurinol 300 mg Tablet 300 mg PO DAILY eplerenone 50 mg tablet 50 mg PO DAILY Discontinued (DME) Contour Next Test Strips Strip See Rx Instructions .Route Rx Instructions: As directed Saline Mist 0.65 % aerosol,spray 1 spray intranasal ONCE warfarin [Coumadin] 2.5 mg Tablet 2.5 mg PO DAILY Rx Instructions: 2.5 SULLIVAN, M, W, F, Sat and 5 T, TR lisinopril 40 mg Tablet 40 mg PO DAILY Fish Oil Capsule 1,000 mg PO DAILY metoprolol succinate 25 mg tablet extended release 24 hr 100 mg PO DAILY No Action hydrocodone-acetaminophen [hydrocodone-acetaminophen] 5-325 mg tablet 1 tab PO Q6H PRN PRN (Reason: Pain) 4 Days Qty: 15 0RF Referrals / Follow Up: Justen Sarabia MD [Primary Care Provider] - Disposition Disposition (needs filled in before D/C Order can be placed): [facility] Facility (1) Sacral fracture Qualifiers: Encounter type: initial encounter Zone of sacrum fracture: unspecified portion of sacrum Fracture type: closed Qualified Code(s): S32.10XA - Unspecified fracture of sacrum, initial encounter for closed fracture
--- NOTE | 2023-11-14 15:28 | DS.PCM_ITS ---
Providers Date of Admission: 11/11/23 Date of Discharge: 11/14/23 Primary Care Physician: Dr. Justen Sarabia MD Consultations 11/11/23 01:27 Consult: Urology Routine Consulting Provider: Rudy Soares Reason for Consult: ~9mm Left renal stone EMERGENT Consult: No MD Notified: Yes Date Notified: 11/11/23 Time Notified: 07:00 Method of Notification: phone 11/11/23 11:34 Consult: Tele-Neurology Routine Consulting Provider: [facility] Reason for Consult: Acute Ischemic Stroke/TIA EMERGENT Consult: No Notified: Yes Date Notified: 11/11/23 Time Notified: 10:37 Method of Notification: [facility] Service Nursing Unit Staff Notify [facility] of Tele-Neurology Consult: Yes Reason For Visit: SACRAL FRACTURE AFTER FALL WITH PROLONGED Diagnosis Discharge Diagnosis (1) Sacral fracture: Status: Acute Code(s): S32.10XA - Unspecified fracture of sacrum, initial encounter for closed fracture Qualifiers: Encounter type: initial encounter Fracture type: closed Zone of sacrum fracture: unspecified portion of sacrum Qualified Code(s): S32.10XA - Unspecified fracture of sacrum, initial encounter for closed fracture Plan 1. Acute ischemic stroke right occipital lobe, probably embolic in nature- patient will continue to see PT OT, plans are for the patient to go to an extended care facility for short-term rehab services. Patient is okay with this, I discussed this with the patient's son-in-law who was in the room at the time my exam, patient will remain on a statin and aspirin, teleneurology requested a CT of the head before the patient goes to an extended care facility to make sure there is no evidence of hemorrhage. An MRA of the head and neck was performed, there was an occlusion or a narrowed cerebral artery on the MRI, patient's neck arteries did not show significant occlusion. I talked briefly with teleneurology about this and they stated there was no real treatment for this, they also stated they did not feel the patient needed to be on a baby aspirin in addition to full anticoagulation. For now I will keep him on baby aspirin, when the full anticoagulation is started it will be dropped off. #2 sacral fracture-supportive care, analgesics as needed #3 chronic atrial fibrillation-patient's warfarin has been stopped for now due to his stroke, he will start Eliquis 2.5 mg twice daily starting in 1 week, I checked the mart of this medication and its around $42 at his pharmacy. #4 type 2 diabetes-patient's blood sugars will be monitored, sliding scale insulin will be given as indicated #5 coronary artery disease-this is stable at this time, patient will remain on his present medications #6 Acute kidney injury on a backdrop of chronic kidney disease stage IIIb- complicates care, management, recovery, and prognosis, I will recheck his BMP tomorrow Total clinical time spent by myself addressing the patient's medical issues, reviewing all of his data, and collaborating with patient's care team: 35 minutes Medications at Discharge Home Medications allopurinol 300 mg tablet 300 mg PO DAILY gout 07/07/21 furosemide 20 mg tablet (Lasix) 20 mg PO DAILY diuretic 07/07/21 hydrocodone-acetaminophen 5-325mg 5mg-325mg 1 tab PO Q6H PRN PRN Pain 4 days #15 TABLETS 05/23/23 acetaminophen 500 mg capsule 500 mg PO Q6H PRN pain 05/28/23 betamethasone dipropionate 0.05 % topical ointment 1 applic topical DAILY 05/28/23 cholecalciferol (vitamin D3) 50 mcg (2,000 unit) capsule 50 mcg PO DAILY supplement 05/28/23 glucosamine HCl 750 mg tablet 750 mg PO BID joints 05/28/23 metformin 500 mg tablet 500 mg PO BID Diabetes 05/28/23 terazosin 5 mg capsule 5 mg PO QHS BPH 05/28/23 eplerenone 50 mg tablet 50 mg PO DAILY HTN 11/11/23 aspirin 81 mg chewable tablet 81 mg PO BREAKFAST #0 tabs 11/14/23 atorvastatin 80 mg tablet 80 mg PO QHS #0 tabs 11/14/23 hydrocodone-acetaminophen 5-325mg 5mg-325mg 1 tab PO Q6H PRN PRN Pain Score 6-10 3 days #10 tabs 11/14/23 lisinopril 20 mg tablet 20 mg PO DAILY #1 TAB 11/14/23 metoprolol succinate 25 mg tablet,extended release 24 hr 25 mg PO DAILY #1 TAB 11/14/23 Hospital Course Operations None Procedures 2-D Echocardiogram Summary of Care Provided Minutes Spent on Discharge: 31 Hospital Course: This 83-year-old white male was seen in the emergency room at [facility] after sustaining a fall at home at his independent living facility. Patient stated he fell backwards hitting his head and was unable to get up. Workup in the emergency room included imaging studies which showed a sacral fracture, CT of the brain was obtained which showed a right occipital infarct age-indeterminate, creatinine was elevated at 2.25. Patient was admitted to [facility] initially and an MRI was obtained of the brain which showed an acute right occipital infarct, patient was transferred to PCU, he was seen by PT, OT, he had an echocardiogram performed and he was seen in consultation by teleneurology who recommended that the patient be placed on anticoagulants 7 days after his stroke. Patient was felt to benefit from short-term placement in a half-way facility for inpatient rehab services, patient agreed to this. On 11/14/2023, patient was seen and examined:alert, oriented x3, no apparent distress, average body habitus and healthy appearing General Appearance: cooperative, well kempt and well developed Orientation / Consciousness: awake, oriented to person, oriented to place and oriented to time HEENT normocephalic, head/scalp atraumatic and moist oral mucous membranes Eyes PERRL, EOMs intact bilaterally and conjunctivae normal Neck supple, no JVD, thyroid normal and no carotid bruits General: trachea midline Resp normal respiratory effort, no retractions, no use of accessory muscles and clear to auscultation bilaterally Auscultation: Negative for rales, rhonchi or wheezes Cardio S1 normal heart sound, S2 normal heart sound, no murmurs, no rub and no gallops Cardio Narrative: Heart rate and rhythm is irregular GI normal to inspection, nondistended, normoactive bowel sounds, soft to palpation, non-tender and non-distended Extremity no clubbing, cyanosis or edema Skin no rashes or lesions noted General Skin Exam: no breakdown Neuro oriented x3, CN's II-XII intact bilaterally, moves all extremities, no focal motor deficits and no sensory deficits noted Sensorium / Orientation: awake, alert, oriented to person, oriented to place and oriented to time Speech: speech normal Psych affect normal Patient was transferred to half-way facility on 11/14/2023 in stable condition Weight / BMI Weight Weight: 82.7 kg Body Mass Index (BMI) 23.3 ABG / Lab / Microbiology Data 11/11/23 06:15 11/13/23 06:30 Laboratory: Laboratory Results - last 24 hr 11/13/23 16:49: POC Glucose 181 H 11/13/23 21:54: POC Glucose 144 H 11/14/23 06:05: POC Glucose 140 H 11/14/23 11:09: POC Glucose 135 H Radiography Diagnostic Testing: Radiology Impression Brain CT 11/14/23 09:46 IMPRESSION: Chronic involutional changes of the brain. Focal area of decreased attenuation in the right posterior occipital lobe. Stable examination. Electronically Signed: Davin Felix MD at 10:21 EDT , Meaningful Use Info Meaningful Use Diagnoses (Choose all that apply): Ischemic CVA CVA Therapy Assessed for PT,OT and/or ST?: Yes Ischemic Stroke Antithrombotic order at d/c?: Yes Dx of Atrial fib/flutter?: Yes Anticoagulant at discharge?: No Reason anticoagulant not ordered: Medical Contraindication Statins at discharge?: Yes Primary Dx Acute Ischemic CVA?: Yes IV thrombolytic ordered during stay?: No Reason IV thrombolytic not ordered: Medical Contraindication Discharge Plan Admission Admit Date/Time: 11/11/23 00:56 Primary Reason for Your Visit: Sacral fracture, acute stroke Attending Provider: Rafita Garcia Primary Care Provider: Justen Sarabia Consulting Providers: Jer Contreras; Octavio Montes De Oca; Stacey De La Torre; Madeleine Cabrales; Chantal Christensen; Marsha Ames; Logan Kwon; Martha Brizuela; Jacob Balderrama; Saleem Myers; Erika Nguyen; Tim Randhawa; Ann-Marie Johnson; Cyndi Perea; Elizabeth Norris; Aidan Collazo; aCse Rios; Dominik Miller; Kiersten Higgins; Lena,Myrtle; Rudy Soares Instructions Additional Instructions / Restrictions: On 11/17/2023, stop the patient's 81 mg aspirin tablet, on that date, start Eliquis 5 mg twice daily and continue it thereafter Discharge Orders/Prescriptions Prescriptions: New hydrocodone-acetaminophen 5-325 mg Tablet 1 tab PO Q6H PRN PRN (Reason: Pain Score 6-10) 3 Days Qty: 10 0RF aspirin 81 mg Tablet,Chewable 81 mg PO BREAKFAST Qty: 0 0RF metoprolol succinate 25 mg Tablet Extended Release 24 Hr 25 mg PO DAILY Qty: 1 0RF atorvastatin 80 mg Tablet 80 mg PO QHS Qty: 0 0RF lisinopril 20 mg tablet 20 mg PO DAILY Qty: 1 0RF Continued acetaminophen 500 mg capsule 500 mg PO Q6H PRN (Reason: pain) betamethasone dipropionate 0.05 % ointment 1 applic topical DAILY glucosamine HCl 750 mg tablet 750 mg PO BID Rx Instructions: administer with a meal metformin 500 mg tablet 500 mg PO BID terazosin 5 mg capsule 5 mg PO QHS cholecalciferol (vitamin D3) 50 mcg (2,000 unit) capsule 50 mcg PO DAILY furosemide [Lasix] 20 mg Tablet 20 mg PO DAILY allopurinol 300 mg Tablet 300 mg PO DAILY eplerenone 50 mg tablet 50 mg PO DAILY Discontinued (DME) Contour Next Test Strips Strip See Rx Instructions .Route Rx Instructions: As directed Saline Mist 0.65 % aerosol,spray 1 spray intranasal ONCE warfarin [Coumadin] 2.5 mg Tablet 2.5 mg PO DAILY Rx Instructions: 2.5 SULLIVAN, M, W, F, Sat and 5 T, TR lisinopril 40 mg Tablet 40 mg PO DAILY Fish Oil Capsule 1,000 mg PO DAILY metoprolol succinate 25 mg tablet extended release 24 hr 100 mg PO DAILY No Action hydrocodone-acetaminophen [hydrocodone-acetaminophen] 5-325 mg tablet 1 tab PO Q6H PRN PRN (Reason: Pain) 4 Days Qty: 15 0RF Referrals / Follow Up: Justen Sarabia MD [Primary Care Provider] - Disposition Disposition (needs filled in before D/C Order can be placed): Longterm Facility Charges/Coding Visit Charges Inpatient E&M: 46589 Disch Hosp >30min
--- NOTE | 2023-11-14 16:11 | CASEMGMT ---
Patient is ready for discharge to [facility]. [facility] completed a 7000 in [facility]. [facility] sent orders, 7000, and med list to [facility] via [employer]. [facility] also let [facility] know patient's son in law will be bringing patient. Plan: d/c to [facility] under skilled level of care on a convalescent stay. Patient's family transported patient. 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
--- NOTE | 2023-11-14 16:26 | NURSING ---
Report called to [facility] nurse Shaista.
== END 2023-11-14 17:41 | disposition skilled nursing facility (03) | DRG 65 ==
LOC: ED 11-11 00:12 → MS3 11-11 01:10 → PCU 11-14 11:10
PROVIDERS: Admitting Provider Internal Medicine; Emergency Provider Student in an Organized Health Care Education/Training Program; PCP Family Medicine; Visit Provider Internal Medicine
DX: I63.89 Other cerebral infarction (principal); S32.10XA Unspecified fracture of sacrum, initial encounter for closed fracture; I48.20 Chronic atrial fibrillation, unspecified; N17.9 Acute kidney failure, unspecified; E11.22 Type 2 diabetes mellitus with diabetic chronic kidney disease; K74.60 Unspecified cirrhosis of liver; F01.50 Vascular dementia, unspecified severity, without behavioral disturbance, psychotic disturbance, mood disturbance, and anxiety; N18.32 Chronic kidney disease, stage 3b; I12.9 Hypertensive chronic kidney disease with stage 1 through stage 4 chronic kidney disease, or unspecified chronic kidney disease; M10.9 Gout, unspecified; I25.10 Atherosclerotic heart disease of native coronary artery without angina pectoris; W19.XXXA Unspecified fall, initial encounter; T50.1X5A Adverse effect of loop [high-ceiling] diuretics, initial encounter; T46.4X5A Adverse effect of angiotensin-converting-enzyme inhibitors, initial encounter; N20.0 Calculus of kidney; N40.0 Benign prostatic hyperplasia without lower urinary tract symptoms; Z79.84 Long term (current) use of oral hypoglycemic drugs; Z79.899 Other long term (current) drug therapy; Z95.1 Presence of aortocoronary bypass graft; Z86.73 Personal history of transient ischemic attack (TIA), and cerebral infarction without residual deficits
CPT/HCPCS: 36415; 70450; 70544; 70549; 70551; 71250; 72125; 74176; 80048; 80053; 80061; 81001; 82550; 82962; 83036; 83735; 84100; 84443; 84484; 85025; 85610; 92526; 92610; 93005; 93306; 94668; 94762; 97162; 97166; 97530; 97535; 99285; A9575; J7030; A4216

== ENCOUNTER 2024-05-20 00:48 | Inpatient (IN) | payer MEDICARE, OTHER, SELFPAY ==
[2024-05-20] VITALS (10 sets, daily range): BP systolic 138–174; BP diastolic 65–98; PULSE 81–114; RESP 15–18; TEMP 36.4–37; O2SAT 91–99; BMI 25.2; BMI 24.7
--- NOTE | 2024-05-20 01:05 | CT_ITS ---
ACR Level 3 findings have been noted. An addendum which confirms receipt of the report will follow. EXAM: CT ABDOMEN AND PELVIS WITH INTRAVENOUS CONTRAST CLINICAL INDICATION: ?SBO TECHNIQUE: Helically acquired images were obtained of the abdomen and pelvis with intravenous contrast. CTDIvol = ( 16.17 ) mGy, DLP = ( 1039.15 ) mGycm This CT exam was performed using one or more of the following dose reduction techniques: automated exposure control, adjustment of the mA and/or kV according to patient size, and/or use of iterative reconstruction technique. CONTRAST: IV 100mL [id number] COMPARISON: No relevant prior studies available. FINDINGS: LOWER THORAX: Unremarkable. Lung bases are clear. No cardiomegaly. No significant pericardial effusion. ABDOMEN: LIVER: Cirrhotic liver morphology. Main portal veins. GALLBLADDER AND BILE DUCTS: Prior cholecystectomy. No intra- or extrahepatic biliary ductal dilation. PANCREAS: Unremarkable. No focal cystic or solid mass. SPLEEN: Unremarkable. Normal size without focal cystic or solid mass. ADRENALS: Unremarkable. No nodules. KIDNEYS AND URETERS: Left extrarenal pelvis is identified with renal pelvis containing a nonobstructing 1 cm calculus. Normal renal size and position. STOMACH AND BOWEL: Small hiatal hernia suggested. [id number]-[id number] dilatation of multiple small bowel loops involving the right and central abdomen. This is compatible with moderate height. Bowel obstruction potentially related to long segment ileitis in the right lower quadrant manifested as circumferential wall thickening with adjacent stranding. PELVIS: APPENDIX: No evidence of acute appendicitis. BLADDER: Unremarkable. REPRODUCTIVE: Unremarkable as visualized. No mass. ABDOMEN and PELVIS: INTRAPERITONEAL SPACE: Abdomen moderate volume ascites. No free air. BONES/JOINTS: Unremarkable. No suspicious lytic or blastic abnormality. SOFT TISSUES: Evidence of prior right lower quadrant anterior abdominal wall hernia Peripherally calcified low-density circumscribed round process is located at the left pelvis adjacent to the bladder. No discrete abdominal or pelvic wall hernia. VASCULATURE: Unremarkable. Abdominal aorta is non-dilated. LYMPH NODES: Unremarkable. No enlarged lymph nodes. CT/Abdomen/Pelvis W IV Cont ONLY IMPRESSION: 1. Moderate to high-grade small bowel obstruction with transition point in the right lower quadrant where there is evidence of ileitis. No perforation or other complication. 2. Nonobstructing 1 cm calcified left renal pelvis. Electronically Signed: Royce Yates MD at 2:49 EDT ,
[2024-05-20 01:33] LABS: Absolute Lymphocyte Count 1.05 X10^3/uL (0.83-4.51); Absolute Neutrophil Count 9.6 X10^3/uL (2.0-7.7); Basophil# 0.02 X10^3/uL; Basophil% 0.2 % (0-1); Hematocrit 31.8 % (40-54); Hemoglobin 10.6 g/dL (13.0-16.5); Lymphocyte # 1.05 X10^3/ul (0.83-4.51); Lymphocyte % 9.3 % (19-41); Mean Corp Hgb Conc 33.3 g/dL (32-36); Mean Corpuscular Hgb 32.6 pg (27.0-32.0); Mean Corpuscular Volume 97.8 fL (80-94); Mean Platelet Vol. 9.8 fl (6.2-12.0); Monocyte# 0.65 X10^3/uL; Monocyte% 5.7 % (0-10); NRBC Flagged by Analyzer 0 % (0-5); Neutrophil # 9.56 X10^3/uL (2.7-7.7); Neutrophil % 84.3 % (47-70); Platelet Count 120 K/mm3 (150-450); RBC Distribution Width CV 14.3 % (11.6-14.6); RBC Distribution Width SD 50.8 fl (35.1-43.9); Red Blood Count 3.25 M/mm3 (4.6-6.2); White Blood Count 11.3 K/mm3 (4.4-11.0)
[2024-05-20] MEDS: 0.9% Normal Saline (500mL Bag) 500 ML 999 ML IV (01:47)
[2024-05-20 01:51] LABS: AST(SGOT) 22 U/L (15-37); Alanine Aminotransfer ALT/SGPT 29 U/L (16-61); Albumin, Serum 3.5 g/dL (3.2-5.0); Alkaline Phosphatase 247 U/L (45-117); Anion Gap 10 (5-15); BUN 32 mg/dL (7-18); Bilirubin, Direct 0.34 mg/dL (0.00-0.30); Calcium,Total 9.2 mg/dL (8.5-10.1); Chloride 109 mmol/L (98-107); Creatinine, Serum 1.68 mg/dL (0.70-1.30); EST Glomerular Filtration Rate 42 mL/min (>60); Est Glom Filt Rate - Afr Amer 51 mL/min (>60); Estimated Creatinine Clearance 40.09 ml/min; Globulin 3.3 g/dL (2.2-4.2); Glucose 216 mg/dL (74-106); Lipase < 10 U/L (13-75); Potassium 4.5 mmol/L (3.5-5.1); Protein, Total 6.8 g/dL (6.4-8.2); Sodium Level 140 mmol/L (136-145)
--- OUTSIDE RECORDS SUMMARY | 2024-05-20 01:58 | XMS RPT_ITS | CCD ---
Author Organization [facility] Care Team Providers Care Commercial Lines Underwriter Name Role Phone RAMONITA CHRISTENSEN Unavailable Unavailable No, Jody Unavailable Unavailable No, Jody Unavailable Unavailable RAMONITA CHRISTENSEN Unavailable Unavailable No, Jody Unavailable Unavailable NoJody santos Unavailable Unavailable Jody Sarabia Primary Care Provider Jody Sarabia MD Primary Care Provider Jody Sarabia Unavailable Unavailable Unavailable Jody Sarabia MD Primary Care Provider Dr. Jody Sarabia Primary Care Christoph Lozano Attending Unavailab Christoph Chairez Referring Unavailab Dr. Jody Cid Primary Care Christoph Lozano Attending Unavailab Christoph Chairez Referring Unavailab le Unavailable Unavailable Jody Sarabia Primary Care Provider Jody Sarabia MD Primary Care Provider Jody Sarabia MD Primary Care Provider ROSENDA GONZALEZ Attending Unavailable NOJODY SANTOS Primary Care Unavailable ROSENDA GONZALEZ Attending Unavailable JODY SARABIA Primary Care Unavailable NOJODY Referring Unavailable JODY SARABIA Primary Care Unavailable FE QUACH Attending Unavailable Jody Sarabia MD Primary Care Provider [phone] DENNIS RAMIREZ Referring Unavailable DENNIS RAMIREZ Attending Unavailable JODY SARABIA Primary Care Unavailable DENNIS RAMIREZ Attending Unavailable RIGO, DENNIS Referring Unavailable JODY SARABIA Primary Care Unavailable RIGO, DENNIS Attending Unavailable RIGO, DENNIS Referring Unavailable JODY SARABIA Primary Care Unavailable DENNIS RAMIREZ Attending Unavailable RIGO, DENNIS Referring Unavailable JODY SARABIA Primary Care Unavailable DENNIS RAMIREZ Referring Unavailable RIGO, DENNIS Attending Unavailable JODY SARABIA Primary Care Unavailable Allergies Allergy Classification Reported Allergen(s) [facility] Type Date of Onset Reaction(s) Facility amLODIPine (1 source) amLODIPine Drug Allergy Swelling [facility] hydroCHLOROthiazide (1 source) hydroCHLOROthiazide Drug Allergy Other (See Comments) [facility] (13 sources) amLODIPine; Translations: [AMLODIPINE] Drug Allergy Swelling [facility] (7 sources) hydroCHLOROthiazide; Translations: [HYDROCHLOROTHIAZIDE] Drug Allergy Unknown [facility] (6 sources) hydroCHLOROthiazide Drug Allergy [facility] Medications Current Medications Medication Drug Class(es) Dates Sig (Normalized) Sig (Original) acetaminophen 500 mg oral capsule (6 sources) take 3 capsules by mouth every twenty-four hours as needed Acetaminophen 500 MG capsule Take 1,500 mg by mouth Daily as needed. 0 Active Acetaminophen 50 0 MG capsule Take 325 mg by mouth. 0 Active allopurinol 300 mg oral tablet (20 sources) Xanthine Oxidase Inhibitor Start: 01-25-2015 allopurinol (ZYLOPRIM) 300 mg tablet 1 tablet once daily. 0 01/29/2016 Active Comment on above: 1 tablet once daily. once daily. apixaban 2.5 mg oral tablet (2 sources) Factor Xa Inhibitor Start: 01-16-2024 take 1 tablet by mouth twice daily ELIQUIS 2.5 mg tab(s) Take 2.5 mg by mouth two times a day. 0 01/16/2024 Active take 1 tablet by mouth twice misa ly apixaban (Eliquis) 5 MG tablet Take 5 mg by mouth 2 times daily. 0 Active atorvastatin 80 mg oral tablet (1 source) HMG-CoA Reductase Inhibitor Start: 01-19-2024 take 1 tablet by mouth once daily atorvastatin (LIPITOR) 80 mg tablet 1 tablet Orally Once a day for 90 days 0 01/19/2024 Active benoxinate hydrochloride 4 mg/ml / fluorescein sodium 3 mg/ml ophthalmic solution (4 sources) Diagnostic Dye Start: 12-18-2023 End: 12-18-2023 fluorescein-benoxi jamil 0.3-0.4 % 1 Drop (FLURESS) Start: 04-10-2023 End: 04-10-2023 fluorescein-benoxinate 0.25- 0.4 % 1 Drop (FLURESS) Start: 12-05-2022 End: 12-06-2022 fluorescein-benoxinate 0.25- 0.4 % 1 Drop (FLURESS) cholecalciferol 0.05 mg oral capsule (6 sources) Vitamin D Start: 05-29-2022 Cholecalcifero l (Vitamin D) 50 MCG (2000 UT) capsule Every 24 hours. 0 05/29/2022 Active diclofenac sodium 0.01 mg/mg topical gel (6 sources) Nonsteroidal Anti-inflammatory Drug Start: 04-18-2022 Diclofenac Sodium (Voltaren) 1 % gel as needed. 0 04/18/2022 Active Start: 04-18-2022 Diclofenac Sod ium (Voltaren) 1 % gel APPLY 2 GRAMS TO EFFECTED AREA EVERY DAY 0 04/18/2022 Active DOCOSAHEXANOIC ACID/EPA (FISH OIL ORAL) (7 sources) take 1 tablet by mouth once daily DOCOSAHEXANOIC ACID/EPA (FISH OIL ORAL) Take 1 tablet by mouth once daily. 0 Active Comment on above: Take 1 tablet by svetlana th once daily. doxycycline hyclate 100 mg oral tablet (1 source) Tetracycline-class Drug Start: 07-14-20 End: 07-28-20 take 1 tablet by mouth twice daily doxycycline hyclate (VIBRA-TABS) 100 MG tablet Indications: Testicle pain , Varicocele Take 1 tablet by mouth 2 times daily for 14 days 28 tablet 0 07/14/2019 07/28/2019 Active eplerenone 50 mg oral tablet (4 sources) Aldosterone Antagonist Start: 10-24-19 24 End: 10-24-19 25 take 1 tablet by mouth once daily eplerenone (Inspra) 50 MG tablet Take 1 tablet (50 mg) by mouth daily. 30 tablet 3 2023 10/23/2024 Active erythromycin 0.005 mg/mg ophthalmic ointment (4 sources) Macrolide, Macrolide Antimicrobial Start: 05-01-20 18 erythromycin (ROMYCIN) 5 MG/GM ophthalmic ointment INSTILL INTO LEFT EYE 3 TIMES DAILY 0 05/01/2018 Active furosemide 20 mg oral tablet (12 sources) Loop Diuretic Start: 01-31-20 22 furosemide (LASIX) 20 mg tablet Start: 10-20-2020 furosemide (LA SIX) 20 MG tablet 20 mg daily 0 10/20/2020 Active GLUCOSAMINE/CHONDROITIN SULF A (GLUCOSAMINE-CHONDROITIN ORAL) (7 sources) take 1 tablet by mouth once daily GLUCOSAMINE/CHONDROITIN SULF A (GLUCOSAMINE-CHONDROITIN ORAL) Take 1 tablet by mouth once daily. 0 Active Comment on above: Take 1 tablet by svetlana th once daily. ibuprofen 800 mg oral tablet (4 sources) Nonsteroidal Anti-inflammator y Drug Star t: 03-23 20 take 1 tablet by mouth twice daily ibuprofen (ADVIL;MOTRIN) 800 MG tablet Indications: Testicle pain , Varicocele Take 1 tablet by mouth 2 times daily for 10 days 20 tablet 0 08/11/2019 Active Start: 07-14-2019 take 1 tablet by svetlana th every eight hours as needed for pain ibuprofen (ADVIL;MOTRIN) 800 MG tablet Indications: Testicle pain , Varicocele Take 1 tablet by mouth every 8 hours as needed for Pain 15 tablet 0 07/14/2019 Active metFORMIN hydrochloride 500 mg oral tablet (13 sources) Biguanide Start: 03-14-2022 metFORMIN (GLU COPHAGE) 500 mg tablet Start: 03-14-2022 metFORMIN HCl - 500 MG Oral Tablet Quantity: 180 Refills: 0 Ordered: 14-Mar-2022 DO Start : 14-Mar-2022 Active methylPREDNISolone 4 mg oral tablet (1 source) Corticosteroid Start: 02-27-2020 End: 03-04-2020 methylPREDNISolone (MEDROL, AJ,) 4 MG tablet Take by mouth. 1 kit 0 02/27/2020 03/04/2020 Active 24 hr metoprolol succinate 100 mg extended release oral tablet (20 sources) beta-Adrenergic Joe Start: 10-09-2023 take 1 tablet by mouth once daily metoprolol succinate XL (Toprol-XL) 100 MG 24 hr tablet Take 100 mg by mouth daily. 0 10/09/2023 Active Start: 06-17-2018 End: 2023 take 1 tablet by mouth every twenty-four hours Metoprolol Succinate ER 50 MG Oral Tablet Extended Release 24 Hour Quantity: 90 Refills: 0 Ordered: 17-Jun-2018 DO Start : 17-Jun-2018 Active Start: 01-01-2018 take 1 tablet by mouth once da carla metoprolol succinate ER (TOPROL XL) 50 mg 24 hr tablet Take 50 mg by mouth once daily. 0 01/01/2018 Active Comment on above: Take 50 mg by mouth once daily. Extend to 15 weeks STI, get formal visual field 24-2 Full exam Nov I have confirmed and edited as necessary the relevant ophthalmic history, ROS, and the neuro exam findings as obtained by others. I have seen and examined this patient. I have discussed the case and the management of this patient's care with the Resident/Fellow, if applicable. I also have reviewed and agree with the assessment and plan as stated above and agree with all of its relevant components. Dennis Ramirez MD [facility] 12-18-2023 History of Present illness Narrative Referred by Dr. Collado for Branch retinal vein occlusion Here for inj Branch retinal vein occlusion left eye -patient started noticing change in vision for 2 years now (since 2020) -decent response to avastin 2. 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 Posterior chamber intraocular lens (PCIOL) both eyes -stable/observe 4. 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 I have seen and examined this patient. I have discussed the case and the management of this patient's care with the Resident/Fellow, if applicable. I also have reviewed and agree with the assessment and plan as stated above and agree with all of its relevant components. Dennis Ramirez MD documented in this encounter [facility] 12-04-2023 History of Present illness Narrative Images from the original note were not included. [facility] [address] [place] [address] Dept: [phone] Dept Loc: [phone] Visit type: [facility] Family Summary Conference Reason for Visit: Dementia Visit Date: 12/04/2023 Assessment and Plan 1. Small vessel disease, cerebrovascular 2. Mild vascular dementia without behavioral disturbance, psychotic disturbance, mood disturbance, or anxiety (HCC) We reviewed the diagnosis of mild stage Vascular Dementia, course, prognosis and treatment. Discussed possibility of an Alzheimer's Disease component as well (but I don't think this is the prominent issue) Since he just had a stroke, we will see him back in three months for retesting as opposed to six months Do not recommend any dementia at this time due to risk of orthostatic hypotension and risk increased issues with incontinence. Family in agreement Reviewed management of the following behavioral symptoms: not applicable at this time Discussed safety management: increased supervision with medications Reviewed the importance of caregiver stress and support through following means: Alzheimer's Association support and Adult Day Program Reviewed advanced care plan. Code/resuscitation status/DNR. Patient/family recently opted for DNR-CCA while at rehab. Reviewed this again today. DNR-CCA form signed and given to family Educational information and handouts on the above was provided to the caregiver. Follow up in about 3 months (around 03/05/2024). Subjective Claudio Mancera is a 83 y.o. 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 Chart Review: -Intermittent memory issues. Family not sure how much is due to his hearing loss. Speech can be very circular. - in 2018. He seemed lost after her passing as she took care of most of the ADLs. [place] and [place]. -There was a previous vascular dementia diagnosis on the chart. -Suspected that most of cognitive issues related to vascuar dementia. Certainly has slower processing time, increased need for cueing, and decreased problem solving ability. Short term memory less dramatically impacted on test than would be expected for Alzheimer's Disease. He does have several vascular risk factors including diabetes, hypertension, hyperlipidemia. Moderate atrophy on the CT head. -Cannot rule out a developing mild Alzheimer's Disease component as well given the progressive nature of the cognitive issues. Ultimately, treatment is the same -He does have positive orthostatic vital signs and describes some mild orthostatic symptoms. Donepezil may do more harm than good as it could increase risk of orthostasis, incontinence issues, etc -Encouraged hearing aid evaluation Patient update: Here with daughter Carmella and son in law Fe -He had a fall on November 09. He was on the floor for several hours before the family found him. He was hospitalized at [facility] week. He had an occipital stroke. Broke his tailbone. Now in Rehab. He is going to go to an assisted living for three weeks for respite while family on vacation. Then they are going to move patient in with them -He is no longer driving. Plan is to not drive anymore. -needing even more cueing since the stroke. Allergies Allergen Reactions Amlodipine Swelling Other reaction(s): swelling Hydrochlorothiazide Other reaction(s): lightheaded, Other (See Comments) dizziness Current Outpatient Medications Medication Sig Dispense Refill Acetaminophen 500 MG capsule Take 1,500 mg by mouth Daily as needed. allopurinol (Zyloprim) 300 MG tablet Take by mouth daily. apixaban (Eliquis) 5 MG tablet Take 5 mg by mouth 2 times daily. Cholecalciferol (Vitamin D) 50 MCG (1999 UT) capsule Every 24 hours. Diclofenac Sodium (Voltaren) 1 % gel as needed. eplerenone (Inspra) 50 MG tablet Take 1 tablet (50 mg) by mouth daily. 30 tablet 3 furosemide (Lasix) 20 MG tablet Take 20 mg by mouth daily. lisinopril 40 MG tablet Take 40 mg by mouth daily. metFORMIN (Glucophage) 500 MG tablet Take 500 mg by mouth in the morning and 500 mg in the evening. metoprolol succinate XL (Toprol-XL) 100 MG 24 hr tablet Take 100 mg by mouth daily. Misc Natural Products (GLUCOSAMINE CHOND CMP ADVANCED PO) Take 1 tablet by mouth in the morning. NASAL SPRAY SALINE NA omega-3 (Fish Oil) 1000 MG capsule Every 24 hours. terazosin (Hytrin) 5 MG capsule Take 5 mg by mouth Nightly. No current facility-administered medications for this visit. Past Medical History: Diagnosis Date Anticoagulant long-term use Aortic stenosis, severe Arthritis Atrial fibrillation (HCC) Back pain Basal cell carcinoma CAD (coronary artery disease) Diabetes mellitus (HCC) [address] [place] Dizziness DJD (degenerative joint disease) Left Knee Epididymal cyst 09/22/2019 ETD (eustachian tube dysfunction) Gout 2009 Hypertension Incomplete bladder emptying Left inguinal hernia Mild mitral regurgitation Severe aortic insufficiency Sinusitis 2014 Thrombocytopenia (HCC) Vascular dementia (HCC) Social History Tobacco Use Smoking status: Never Smokeless tobacco: Never Substance Use Topics Alcohol use: No Past Surgical History: Procedure Laterality Date AORTIC VALVE REPLACEMENT TAVR ARTERIAL BYPASS SURGERY Quadruple Bypass 2004 BACK SURGERY 2008 CARDIAC CATHETERIZATION 03/08/2016 right and left heart cath CATARACT EXTRACTION 10/2011 HERNIA REPAIR 2013 SKIN CANCER EXCISION 01/2012 TONSILLECTOMY (HISTORICAL) Child TOTAL KNEE ARTHROPLASTY 02/2010 Family History Problem Relation Name Age of Onset Heart disease Father Diabetes Father Stroke Father Family Status Relation Name Status Father Mother Objective Wt Readings from Last 3 Encounters: 12/04/23 178 lb 12.8 oz (81.1 kg) 10/30/23 189 lb (85.7 kg) 10/24/23 189 lb 9.6 oz (86 kg) No physical exam performed Discussion only Data Reviewed and Summarized Problems and recommendations from initial assessment reviewed, Medications reviewed, Recent laboratory tests reviewed, and Recent diagnostic imaging reviewed Labs: Lab Results Component Value Date WBC 5.9 12/08/2020 HGB 12.0 (L) 12/08/2020 MCV 97.0 12/08/2020 Lab Results Component Value Date NA 140 12/08/2020 K 3.7 12/08/2020 CL 110 (H) 12/08/2020 CO2 23 2023 BUN 28 (H) 2023 CREATININE 1.58 (H) 2023 GLUCOSE 118 2023 CALCIUM 9.2 2023 No results found for: TSH No results found for: FOLATE No results found for: [id number] No results found for: RPR Imaging: head CT reviewed Testing: I reviewed the James CognitiveAssessment from the initial assessment with the patient and family. Total score was 18 out of 30. I spent total time of 50 minutes face to face with the patient and/or family discussing the diagnosis and importance of compliance with the treatment plan as well as documenting on the day of the visit. In addition, that total time includes the following: -Reviewing previous notes, -Reviewing labs, -Reviewing previous cognitive tests, -Communicating results to the patient/family/caregiver, -Counseling/educating the patient/family/caregiver, -Documenting clinical information in the patients electronic record, and -Coordination of care for the patient Interval history since last appointment: Any visits to primary care provider? No Any visits to the emergency department/hospital? Yes Any medication changes? Yes- discontinued Warfarin and started Eliquis Any falls? No Family present: patient, daughter Carmella, son in law Quesada Educational Materials reviewed/provided at visit: Memory/Cognitive Ability Alzheimer's Association info/hotline 10 Tips to Keeping Independent Memory Tips (mild) 5Ms Dealing with Dementia 10 Ways to Love Your Brain Vascular Dementia Exercise/Activities Dementia exercise tips Communication/Behaviors Communication - All Stages Communication Tips Redirecting Apathy Home Care/Facility Options Adult Day Center list Diet Healthy Nutrition for Older Adults - [facility] Injury Prevention/Home Safety [facility] Home Safety Checklist Hearing/Vision Hearing Loss and Older Adults Dining Room Helper List Medications Medication Safety/Dispensers Sleep Getting a Good Night's Sleep ([facility]) Personal Care Personal Care Tips documented in this encounter [facility] [employer] 10-30-2023 History of Present illness Narrative Images from the original note were not included. [facility] [address] [facility] [place] [address] Dept: [phone] Dept Loc: [phone] Visit type: [facility] Initial Assessment Visit Date: 10/30/2023 Reason for Visit: Memory Loss Assessment and Plan 1. Cognitive impairment 2. Bilateral hearing loss, unspecified hearing loss type 3. Small vessel disease, cerebrovascular - Mental status change with cognitive deficits in the following areas: short term memory, executive functions, language, and attention which have been slowly progressive over time with subsequent impairment in function. History and exam are concerning for Mild stage Vascular Dementia. Will review results at the Family Summary Conference. -Suspect most of his cognitive issues are related to vascular dementia. Certainly has slower processing time, increased need for cueing, and decreased problem solving ability. Short term memory less dramatically impacted on test than would be expected for Alzheimer's Disease. He does have several vascular risk factors including diabetes, hypertension, hyperlipidemia. Moderate atrophy on the CT head. -Cannot rule out a developing mild Alzheimer's Disease component as well given the progressive nature of the cognitive issues. Ultimately, treatment is the same -He does have positive orthostatic vital signs and describes some mild orthostatic symptoms. Donepezil may do more harm than good as it could increase risk of orthostasis, incontinence issues, etc -Can offer Occupational Therapy driving evaluation at next visit -Strongly encouraged evaluation for hearing aids Follow up in about 5 weeks (around 12/04/2023). Subjective HPI: Claudio Mancera is a 83 y.o. 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 The patient is new to me. Reviewed available PCP records: Cognitive decline over the past 2-3 years. MOCA was 17/30 on most recent assessment (09/05/23). CT negative for bleed, stroke, or mass. It did show atrophy. -Currently living in an [facility]. -He does still drive -Does his own laundry -has some fecal urgency and occasional incontinence when he cannot make it to restroom. Does have urinary incontinence when he stays in bed too long. -previous vascular dementia diagnosis on chart. CT brain: 09-16-23 Normal soft tissue structures. Normal calvarium. There is moderate cerebral atrophy with widening of the extra-axial spaces and ventricular dilatation. There are areas of decreased attenuation within the white matter tracts of the supratentorial brain, consistent with microvascular disease changes. Normal basal ganglia and thalami. Normal brainstem. Normal cerebellum. There is no intracranial hemorrhage. There are no findings of an acute ischemic infarction. Atherosclerotic calcification of the vertebral arteries and cavernous portions of the internal carotid arteries bilaterally. Mucosal thickening along the inferior aspect of the right maxillary sinus. TSH within normal limits in June 2023 Vitamin b12 323 in June 2023 History obtained from caregiver(s): Carmella (daughter), Fe (son in Law) -He can likely do more than he wants to do. When his was alive, she took care of most of the IADLs until she got Alzheimer's Disease and moved into a facility. When she in 2018, he seemed lost and not sure what to do with himself. [place] and is doing better there -His mobility has been decreasing. He has low back issues and this is impacting his gait. Recently switched from a front wheeled walker to a rollator. That is helping out. -memory issues are intermittent. Difficult to know what is due to his hearing loss vs what he truly doesn't remember. -short term memory: sometimes good. Other times will be forgetful. For example, he forgot about a conversation they had about his car insurance. -It speech can be very circular. For example, it may take five minutes to get an answer from him -Daughter took over finances about a year ago. Patient asked her to take care of the finances. -May have some word finding issues. -detention memory is generally OK. Will forget some things from the distant past -Mood: Good. Typically the same -Appetite: Good. No weight loss -Sleep: Seems OK. Sometimes his pain wakes him up. Can nap during the day too. Short term memory loss: Severity (as seen by the provider based on caregiver history): mild, Duration- symptoms started mid-, Timing- slowly progressive, , no difference whether morning or night, , Context- (give details of any yes answers) history of stroke- no, history of head trauma- no, history of seizures- no, history of toxin exposures- no, history of hospitalization or surgery that made memory worse- no History of COVID-19- not sure If yes, were there symptoms of brain fog ? no History of cancer? - Skin cancer (not melanoma) Hearing Loss? - Yes Hearing Aids? - no but he should Associated signs and symptoms- delusions or hallucinations- no delusions, No hallucinations paranoia- no Trouble sleeping? no Symptoms of REM-related sleep disorder- Does he/she appear to act out their dreams while sleeping (punch or flail arms, shout or scream? No History obtained from patient: - I'm doing better . He lives in [place]. -He was having an [place] Son helped him figure out. Daughter now will bring him his newspaper. He was anxious about that whole process. He tried to fix it himself but he just kept getting automated messages when he tried to call the newspaper company -Mood: Was anxious about the newspaper. In a much better mood now that the issue is fixed -Memory: It used to be pretty good . Normally did not have issues with math. Had trouble on the math section of the cognitive test. -His went through dementia. She ended up dying from a stroke -Appetite: Good -Sleep: Pretty good. Goes to bed early. Will wake up in middle of night to use the restroom. Can be hard to fall back asleep sometimes -No hallucinations. -Vision: Has been dealing with eye sight issues for awhile. Goes to eye doctor. Gets injections in his eyes. -blood pressure medication sometimes makes him feel like his head is not right -He knows he has hypertension and afib -Tried hearing aides when his was alive. Picked up too much extra noise. Ended up returning them. Hearing Screen: HHIE-S: Reviewed progress notes completed by [facility])and social work. Allergies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 with the assessment and plan as stated above and agree with all of its relevant components. Dennis Ramirez MD documented in this encounter [facility] 06-19-2023 Note HNO ID: [id number] Author: Dennis Ramirez MD, PhD Service: ? Author Type: Physician Type: Progress Notes Filed: 06/19/2023 12:35 PM Note Text: Referred by Dr. Collado for Branch retinal vein occlusion Here for inj Branch retinal vein occlusion left eye -patient started noticing change in vision for 2 years now (since 2020) -decent response to avastin 2. 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 Posterior chamber intraocular lens (PCIOL) both eyes -stable/observe Plan: S/p avastin 10 weeks ago left eye with no fluid Use speculum next time, big eyelid squeeze Rec avastin left eye Extend to 12 wks for full exam I have confirmed and edited as necessary the relevant ophthalmic history, ROS, and the neuro exam findings as obtained by others. I have seen and examined this patient. I have discussed the case and the management of this patient's care with the Resident/Fellow, if applicable. I also have reviewed and agree with the assessment and plan as stated above and agree with all of its relevant components. Dennis Ramirez MD [facility] 04-10-2023 Instructions Dennis Ramirez MD, PhD - 04/10/2023 11:01 AM EDT Post Injection Patient Information You had eye injection(s) today. These are your after injection instructions. Today: Preservative free artificial tears 1 drop every hour while awake as needed Tomorrow: Preservative free artificial tears 1 drop every 2 hours while awake as needed Care instructions after eye injections: Do not rub or touch your eye other than dabbing lightly with a tissue An yknt-crr-lqbrmad pain reliever (i.e. Tylenol) can be used for mild soreness Use artificial tears/lubricating drops once an hour as needed for comfort (chill the tears in the refrigerator for more comfort). If you are using the tears more than 4 times a day they need to be the preservative free kind Warm or cool compresses are okay It is okay to shower and wash your face. No swimming pools or saunas for 24 hours COMMON symptoms after successful eye injections: Mild to moderate pain or irritation beginning the day of the injection. This should begin to improve the following day. Eyelash in the eye or steven/gritty sensation Tearing Mild floaters or bubbles in your vision - usually resolves after 1-2 days Bloody tears for 1-2 days after treatment Eye Redness Also known as subconjunctival hemorrhage This bruise can cover the entire white part of the eye and may last a few weeks CONCERNING symptoms after eye injections: Severe, constant pain Worsening pain after the first day Decreased vision Severe, constant floaters Curtain or veil in your vision New eye redness that was not there after the injection and covers the whole eye Please call the office immediately for any of the above listed concerning symptoms or with any other questions. 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 Author Type: Physician Type: Progress Notes Filed: 04/10/2023 11:01 AM Note Text: Referred by Dr. Collado for Branch retinal vein occlusion Here for inj Branch retinal vein occlusion left eye -patient started noticing change in vision for 2 years now (since 2020) -decent response to avastin 2. 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 Posterior chamber intraocular lens (PCIOL) both eyes -stable/observe Plan: S/p avastin 9 wks ago with IRF Use speculum next time, big eyelid squeeze Rec avastin left eye Return in 9-10 wks sti Full exam in october I have confirmed and edited as necessary the relevant ophthalmic history, ROS, and the neuro exam findings as obtained by others. I have seen and examined this patient. I have discussed the case and the management of this patient's care with the Resident/Fellow, if applicable. I also have reviewed and agree with the assessment and plan as stated above and agree with all of its relevant components. Dennis Ramirez MD [facility] 04-10-2023 History of Present illness Narrative Referred by Dr. Collado for Branch retinal vein occlusion Here for inj Branch retinal vein occlusion left eye -patient started noticing change in vision for 2 years now (since 2020) -decent response to avastin 2. 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 Posterior chamber intraocular lens (PCIOL) both eyes -stable/observe Plan: S/p avastin 9 wks ago with IRF Use speculum next time, big eyelid squeeze Rec avastin left eye Return in 9-10 wks sti Full exam in october I have confirmed and edited as necessary the relevant ophthalmic history, ROS, and the neuro exam findings as obtained by others. I have seen and examined this patient. I have discussed the case and the management of this patient's care with the Resident/Fellow, if applicable. I also have reviewed and agree with the assessment and plan as stated above and agree with all of its relevant components. Dennis Ramirez MD documented in this encounter [facility] 12-05-2022 Instructions Dennis Ramirez MD, PhD - 12/05/2022 3:55 PM EDT Post Injection Patient Information You had eye injection(s) today. These are your after injection instructions. Today: Preservative free artificial tears 1 drop every hour while awake as needed Tomorrow: Preservative free artificial tears 1 drop every 2 hours while awake as needed Care instructions after eye injections: Do not rub or touch your eye other than dabbing lightly with a tissue An tpeh-vjm-hcyymgd pain reliever (i.e. Tylenol) can be used for mild soreness Use artificial tears/lubricating drops once an hour as needed for comfort (chill the tears in the refrigerator for more comfort). If you are using the tears more than 4 times a day they need to be the preservative free kind Warm or cool compresses are okay It is okay to shower and wash your face. No swimming pools or saunas for 24 hours COMMON symptoms after successful eye injections: Mild to moderate pain or irritation beginning the day of the injection. This should begin to improve the following day. Eyelash in the eye or steven/gritty sensation Tearing Mild floaters or bubbles in your vision - usually resolves after 1-2 days Bloody tears for 1-2 days after treatment Eye Redness Also known as subconjunctival hemorrhage This bruise can cover the entire white part of the eye and may last a few weeks CONCERNING symptoms after eye injections: Severe, constant pain Worsening pain after the first day Decreased vision Severe, constant floaters Curtain or veil in your vision New eye redness that was not there after the injection and covers the whole eye Please call the office immediately for any of the above listed concerning symptoms or with any other questions. 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 Posterior chamber intraocular lens (PCIOL) both eyes -stable/observe Plan: S/p avastin 9 wks ago with less edema Use speculum next time, big eyelid squeeze Rec avastin left eye Return in 9-10 wks STI Full exam Sept I have confirmed and edited as necessary the relevant ophthalmic history, ROS, and the neuro exam findings as obtained by others. I have seen and examined this patient. I have discussed the case and the management of this patient's care with the Resident/Fellow, if applicable. I also have reviewed and agree with the assessment and plan as stated above and agree with all of its relevant components. Dennis Ramirez MD documented in this encounter [facility] 10-03-2022 Instructions Dennis Ramirez MD, PhD - 10/03/2022 2:43 PM EST Post Injection Patient Information You had eye injection(s) today. These are your after injection instructions. Today: Preservative free artificial tears 1 drop every hour while awake as needed Tomorrow: Preservative free artificial tears 1 drop every 2 hours while awake as needed Care instructions after eye injections: Do not rub or touch your eye other than dabbing lightly with a tissue An ftby-klt-cvjejme pain reliever (i.e. Tylenol) can be used for mild soreness Use artificial tears/lubricating drops once an hour as needed for comfort (chill the tears in the refrigerator for more comfort). If you are using the tears more than 4 times a day they need to be the preservative free kind Warm or cool compresses are okay It is okay to shower and wash your face. No swimming pools or saunas for 24 hours COMMON symptoms after successful eye injections: Mild to moderate pain or irritation beginning the day of the injection. This should begin to improve the following day. Eyelash in the eye or steven/gritty sensation Tearing Mild floaters or bubbles in your vision - usually resolves after 1-2 days Bloody tears for 1-2 days after treatment Eye Redness Also known as subconjunctival hemorrhage This bruise can cover the entire white part of the eye and may last a few weeks CONCERNING symptoms after eye injections: Severe, constant pain Worsening pain after the first day Decreased vision Severe, constant floaters Curtain or veil in your vision New eye redness that was not there after the injection and covers the whole eye Please call the office immediately for any of the above listed concerning symptoms or with any other questions. 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 Posterior chamber intraocular lens (PCIOL) both eyes -stable/observe Plan: Rec avastin left eye Return in 7wks STI Full exam Sept I have confirmed and edited as necessary the relevant ophthalmic history, ROS, and the neuro exam findings as obtained by others. I have seen and examined this patient. I have discussed the case and the management of this patient's care with the Resident/Fellow, if applicable. I also have reviewed and agree with the assessment and plan as stated above and agree with all of its relevant components. Dennis Ramirez MD documented in this encounter [facility] 09-27-2022 History of Present illness Narrative 1. Tributary (branch) retinal vein occlusion, left eye, with macular edema Superior/temporal 1/4 of retina, directly off optic nerve and +macula involving with sub-retinal and intraretinal fluid Refer to retina for further evaluation/treatment of CME 2. Type 2 diabetes mellitus with right eye affected by mild nonproliferative retinopathy without macular edema, without long-term current use of insulin (HCC) Risk of diabetic changes and vision loss can be minimized by tight control of blood sugar, blood pressure, and cholesterol levels. Educated patient to continue care with primary care doctor and/or director zone to maintain optimum levels as they are important to avoid ocular complications. 3. Pseudophakia of both eyes 4. PCO (posterior capsular opacification), bilateral Minimal visual involvement-monitor 5. Dry eye syndrome of bilateral lacrimal glands Monitor 6. PVD (posterior vitreous detachment), bilateral Monitor 7. Meibomian gland dysfunction (MGD), bilateral, both upper and lower lids Monitor Follow-up with Dr. Ramirez next available for further evaluation Naomi Collado, OD September 27, 2022 4:13 PM documented in this encounter [facility] 12-08-2020 Hospital Discharge instructions Nikita Lugo, RAFAEL - INVENTORY ASSOCIATE AND DRIVER - 12/08/2020 Use tylenol for pain, follow up with Dr. Sarabia next week, you may need to get an MRI of you Lumbar spine The following attachments cannot be sent through Care Everywhere.Hypertension: General Info (Turkmen)Low Back Pain: Exercises (Turkmen)Back Pain (Turkmen)documented in this encounter [facility] Work Phone: 02-26-2016 History of Past i llness Narrative Problem Noted Date Resolved Date PCO (posterior capsular opacification) 6 04/19/2020 PVD (posterior vitreous detachment) 02/26/2016 04/19/2020 documented as of this encounter (statuses as of 09/27/2022) [facility] History of Past illness Narrative* Problem Noted Date Resolved Date PCO (posterior capsular opacification) 6 04/19/2020 PVD (posterior vitreous detachment) 02/26/2016 04/19/2020 documented as of this encounter (statuses as of 10/03/2022) [facility] History of Past illness Narrative* Problem Noted Date Resolved Date PCO (posterior capsular opacification) 6 04/19/2020 PVD (posterior vitreous detachment) 02/26/2016 04/19/2020 documented as of this encounter (statuses as of 12/06/2022) [facility] History of Past illness Narrative* Problem Noted Date Diagnosed Date Resolved Date PCO (posterior capsular opacification) 02/26/2016 04/19/2020 PVD (posterior vitreous detachment) 02/26/2016 04/19/2020 documented as of this encounter (statuses as of 04/10/2023) [facility] History of Past illness Narrative* Problem Noted Date Diagnosed Date Resolved Date PCO (posterior capsular opacification) 02/26/2016 04/19/2020 PVD (posterior vitreous detachment) 02/26/2016 04/19/2020 documented as of this encounter (statuses as of 09/18/2023) [facility] Acute left-sided low back pain with left-sided sciatica- Primary Lumbar radiculopathy Thoracic or lumbosacral neuritis or radiculitis, unspecified Essential hypertension Unspecified essential hypertension documented in this encounter [facility] Work Phone: Evaluation note* Diagnosis Testicle pain Unspecified disorder of male genital organs Varicocele Scrotal varices documented in this encounter [facility] Work Phone: Evaluation note* Diagnosis Tributary (branch) retinal vein occlusion, left eye, with macular edema- Primary Type 2 diabetes mellitus with right eye affected by mild nonproliferative retinopathy without macular edema, without long-term current use of insulin (HCC) Pseudophakia of both eyes Lens replaced by other means PCO (posterior capsular opacification), bilateral After-cataract, unspecified Dry eye syndrome of bilateral lacrimal glands Tear film insufficiency, unspecified PVD (posterior vitreous detachment), bilateral Meibomian gland dysfunction (MGD), bilateral, both upper and lower lids documented in this encounter [facility] note* Diagnosis Tributary (branch) retinal vein occlusion, left eye, with macular edema- Primary documented in this encounter [facility] note* Diagnosis Tributary (branch) retinal vein occlusion, left eye, with macular edema documented in this encounter [facility] note* Diagnosis Tributary (branch) retinal vein occlusion, left eye, with macular edema documented in this encounter [facility] note* Diagnosis Tributary (branch) retinal vein occlusion, left eye, with macular edema documented in this encounter [facility] note* Diagnosis 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- Primary Essential hypertension Unspecified essential hypertension documented in this encounter [facility] note* Diagnosis Cognitive impairment- Primary Unspecified persistent mental disorders due to conditions classified elsewhere Small vessel disease, cerebrovascular Bilateral hearing loss, unspecified hearing loss type documented in this encounter [facility] note* Diagnosis Cerebral vascular disease- Primary Unspecified cerebrovascular disease Mild vascular dementia without behavioral disturbance, psychotic disturbance, mood disturbance, or anxiety ([facility]) documented in this encounter [facility] note* Diagnosis Type 2 diabetes mellitus with both eyes affected by mild nonproliferative retinopathy and macular edema, without long-term current use of insulin (HCC)- Primary Tributary (branch) retinal vein occlusion, left eye, with macular edema Pseudophakia of both eyes Lens replaced by other means History of CVA (cerebrovascular accident) Transient ischemic attack (TIA), and cerebral infarction without residual deficits documented in this encounter [facility] note* Diagnosis Tributary (branch) retinal vein occlusion, left eye, with macular edema Type 2 diabetes mellitus with both eyes affected by mild nonproliferative retinopathy and macular edema, without long-term current use of insulin (HCC) History of CVA (cerebrovascular accident) Transient ischemic attack (TIA), and cerebral infarction without residual deficits Pseudophakia of both eyes Lens replaced by other means [facility] illness NarrativeThirafiq 80-year-old male is being seen today for recheck of his ears. He over the past number of yearshas had difficulties with excessive cerumen buildup further compromising his hearing. He does have an underlying sensorineural hearing loss which would be helpful amplification if he is motivated to pursue it. He has had no subjective changes to report in that function. He denies vertigo issues although does have some other gait instability issues that are nonvertiginous in nature. He now lives in an assisted living center close to his daughter's home. He denies difficulties with ear drainage or pain. There is been no problems with vertigo. He seems to be doing well with his swallowing and has had no acute voice issues. He has chosen at this point not to amplify his hearing.[id number] Work Phone: History of Present illness NarrativeColleen 81-year-old gentleman is being seen today for 6-month recheck of his ear secondary to a tendency for heavy cerumen buildup at times to further obstruct his hearing. He does have an underlying moderate to severe sensorineural hearing loss in both ears which she has chosen not to amplify up to this point. He is now in an assisted living situation. He has no complaints in regards to interactionwith others in his environment. He does use a cane and/or a walker for support of his balance due to instability issues nonvertiginous. There is been no signs of otorrhea which he did have issues with in the past. No excessive respiratory symptoms have been noted. Swallowing and voice have been stable for him. [id number] Work Phone: History of Present illness NarrativeThis 82-year-old gentleman is being seen today for 6-month recheck of his ear secondary to a tendency for heavy cerumen buildup at times to further obstruct his hearing. He does have an underlying moderate to severe sensorineural hearing loss in both ears which she has chosen not to amplify up to this point. He is now in an assisted living situation. He has no complaints in regards to interactionwith others in his environment. He does use a cane and/or a walker for support of his balance due to instability issues nonvertiginous. There is been no signs of otorrhea which he did have issues with in the past. No excessive respiratory symptoms have been noted. Swallowing and voice have been stable for him. [id number] Work Phone: Summary Purpose Family History No Family History Records FoundUnknown Family Member Name Dates Details Family history of cerebrovas cular accident: Father(V17.1, Z82.3) Status:Active Family history of malignant neoplasm: Sibling(V16.9, Z80.9) Status:Active Family history of diabetes m ellitus: Sibling(V18.0, Z83.3) Status:Active Unknown Family Member Name Dates Details Family history of cerebrovas cular accident: Father(V17.1, Z82.3) Status:Active Family history of malignant neoplasm: Sibling(V16.9, Z80.9) Status:Active Family history of diabetes m ellitus: Sibling(V18.0, Z83.3) Status:Active Unknown Family Member Name Dates Details Family history of cerebrovas cular accident: Father(V17.1, Z82.3) Status:Active Family history of malignant neoplasm: Sibling(V16.9, Z80.9) Status:Active Family history of diabetes m ellitus: Sibling(V18.0, Z83.3) Status:Active Advance Directives No Advanced Directives Records FoundDocuments on File Type Date Recorded 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 Expl 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 Advance Directives and Livin g Will Advance Directives and Livin g Will 11/25/2016 1:08 PM Power of National Sales Director Documents on File Type Date Recorded 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 * Back Pain (Turkmen) * Cervical: Exercises (Turkmen) * Poison Gracie - [place] - and [place] (Turkmen) documented in this encounter Assessments Diagnosis Acute exacerbation of chronic low back pain Neck pain Cervicalgia Rhus dermatitis Contact dermatitis and other eczema due to plants (except food) Diagnosis Atherosclerotic heart disease of nulato coronary artery without angina pectoris Coronary atherosclerosis of nulato coronary artery Chief Complaint 6 month follow up on ears, CIfollow up6 month follow up. Reason for Referral Status Reason Specialty Diagnoses / Procedures Referre d By Contact Referred To Contact Open Radiology Diagnoses Testicle pain Varicocele Procedures US SCROTUM AND TESTICLES Janae Bond PA-C [address] [facility] [address] [place] [address] Medications Administered Section Active Administered Medications - up to 3 most recent administrations Medication Order MAR Action Action Date Dose Rate Site PHENYLephrine 2.5 % 1 Drop (AK-DILATE, JAMES-SYNEPHRINE) 1 Drop, BOTH EYES, DIRECTED, Starting on Fri09/27/22 at 1430, Until 09/28/22 at 0229, Administer for dilation PROTECT FROM LIGHT Given 09/27/2022 2:30 PM EST 1 Drop proparacaine 0.5 % 1 Drop (ALCAINE) 1 Drop, BOTH EYES, DIRECTED, Starting on Fri09/27/22 at 1430, Until 09/28/22 at 0229, Administer for pneumo tonometry, tonopen tonometry, or pachymetry. In the event of a proparacaine shortage, administer tetracaine 0.5% ophthalmic drops 1 drop in the left eye as directed for pneumo tonometry, tonopen tonometry, or pachymetry Given 09/27/2022 2:30 PM EST 1 Drop tropicamide 1 % 1 Drop (MYDRIACYL) 1 Drop, BOTH EYES, DIRECTED, Starting on Fri09/27/22 at 1430, Until 09/28/22 at 0229, Administer for dilation Given 09/27/2022 2:30 PM EST 1 Drop Inactive Administered Medications - up to 3 most recent administrations Medication Order MAR Action Action Date Dose Rate Site bevacizumab intravitreal syringe 2.5 mg/0.1 mL 1.25 mg, ONE TIME INJECTION, 1 dose, Starting on Serena 10/03/22 at 1446, Until Serena 10/03/22 at 1446 Given 10/03/2022 2:46 PM EST 1.25 mg Left Inactive Administered Medications - up to 3 most recent administrations Medication Order MAR Action Action Date Dose Rate Site bevacizumab intravitreal syringe 2.5 mg/0.1 mL 1.25 mg, ONE TIME INJECTION, 1 dose, Starting on Serena 12/05/22 at 1555, Until Serena 12/05/22 at 1555 Given 12/05/2022 3:55 PM EDT 1.25 mg Left Inactive Administered Medications - up to 3 most recent administrations Medication Order MAR Action Action Date Dose Rate Site bevacizumab intravitreal syringe 2.5 mg/0.1 mL 1.25 mg, ONE TIME INJECTION, 1 dose, Starting on Serena 04/10/23 at 1101, Until Serena 04/10/23 at 1101 Given 04/10/2023 11:01 AM EDT 1.25 mg Left Additional Source Comments (unrecognized sect ion and content) No Status Records FoundNo Status Records FoundNo Status Records FoundNo Status Records FoundNo Status Records FoundNo Status Records FoundNo Status Records FoundNo Status Records Found INFORMATION SOURCE (unrecogn ized section and content) DATE CREATED AUTHOR 01/21/2018 [facility] DATE CREATED AUTHOR AUTHOR'S ORGANIZ ATION 01/29/2018 [facility] DATE CREATED AUTHOR AUTHOR'S ORGANIZ ATION 07/18/2021 [facility] DATE CREATED AUTHOR AUTHOR'S ORGANIZ ATION 05/13/2022 [facility] DATE CREATED AUTHOR AUTHOR'S ORGANIZ ATION 05/13/2022 [employer] DATE CREATED AUTHOR AUTHOR'S ORGANIZ ATION 11/12/2023 [facility] DATE CREATED AUTHOR AUTHOR'S ORGANIZ ATION 12/10/2023 [facility] [employer] [facility] DATE CREATED AUTHOR AUTHOR'S ORGANIZ ATION 03/19/2024 [facility] Reason for Visit (unrecogniz ed section and content) Reason Comments Back Pain Rash Reason Comments Hip Pain Back Pain Reason Comments Diabetes Blood sugar: around 120 Blurred Vision Both Eyes Cloudy Vision Both Eyes Left eye worse t pierce right eye Redness/discharge of eye Around both eye s slightly Eye Itching Both Eyes Slightly Reason Comments 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 Diabetes Reason Comments Branch Retinal Vein Occlusion Follow Up Left Eye Reason Comments Branch Retinal Vein Occlusion Follow Up Reason Onset Date Comments Appointment Request 09/22/2023 Reason Onset Date Comments Hypertension 10/03/2023 Reason Comments 1 Year Follow-up Reason Comments Memory Loss Specialty Diagnoses / Procedures Referred By Contac t Referred To Contact Geriatric Medicine Diagnoses Mild cognitive impairment of uncertain or unknown etiology Procedures geriatric assessment Jody Sarabia MD [address] [place] [address] [facility] [address] [facility] [address] [place] [address] Referral ID Status Reason Start Date Expiration Date Visits Re quested Visits Authorized [id number] Closed 09/23/2023 03/21/2024 1 1 Reason Comments Dementia Reason Comments Stroke On day of eclipse Blurred Vision Left Eye 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 Reason Comments 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 Diabetes Source Comments (unrecognize d section and content) In the event this informatio n is protected by the Federal Confidentiality of Alcohol and Drug Abuse Patient Records regulations: The Federal rules restrict any use of the information to criminally investigate or prosecute any alcohol or drug abuse patient.[facility] Center[facility] the event this information is protected by the Federal Confidentiality of Alcohol and Drug Abuse Patient Records regulations: The Federal rules restrict any use of the information to criminally investigate or prosecute any alcohol or drug abuse patient.[facility] Center[facility] the event this information is protected by the Federal Confidentiality of Alcohol and Drug Abuse Patient Records regulations: The Federal rules restrict any use of the information to criminally investigate or prosecute any alcohol or drug abuse patient.[facility] Center[facility] the event this information is protected by the Federal Confidentiality of Alcohol and Drug Abuse Patient Records regulations: The Federal rules restrict any use of the information to criminally investigate or prosecute any alcohol or drug abuse patient.[facility] CenterIn the event this information is protected by the Federal Confidentiality of Alcohol and Drug Abuse Patient Records regulations: The Federal rules restrict any use of the information to criminally investigate or prosecute any alcohol or drug abuse patient.[facility] CenterIn the event this information is protected by the Federal Confidentiality of Alcohol and Drug Abuse Patient Records regulations: The Federal rules restrict any use of the information to criminally investigate or prosecute any alcohol or drug abuse patient.[facility] CenterIn the event this information is protected by the Federal Confidentiality of Alcohol and Drug Abuse Patient Records regulations: The Federal rules restrict any use of the information to criminally investigate or prosecute any alcohol or drug abuse patient.[facility] Care Teams (unrecognized sec tion and content) Commercial Lines Underwriter Relationship Specialty Start Date End Date Jody Sarabia [address] [place] [address] PCP - General Family Medicine 02/23/16 Commercial Lines Underwriter Relationship Specialty Start Date End Date Jody Sarabia [address] [place] [address] PCP - General Family Medicine 02/23/16 Commercial Lines Underwriter Relationship Specialty Start Date End Date Jody Sarabia [address] [place] [address] PCP - General Family Medicine 02/23/16 Commercial Lines Underwriter Relationship Specialty Start Date End Date Jody Sarabia MD [address] [place] [address] PCP - General Family Medicine 02/23/16 Commercial Lines Underwriter Relationship Specialty Start Date End Date Jody Sarabia MD [address] [place] [address] PCP - General Family Medicine 02/23/16 Commercial [employer] Underwriter Relationship Specialty Start Date End Date Jody Sarabia MD [address] [place] [address] PCP - General 01/02/19 Commercial [employer] Underwriter Relationship Specialty Start Date End Date Jody Sarabia MD [address] [place] [address] PCP - General 01/02/19 Commercial [employer] Underwriter Relationship Specialty Start Date End Date Jody Sarabia MD [address] [place] [phone] PCP - General 01/02/19 Commercial Lines Underwriter Relationship Specialty Start Date End Date Jody Sarabia MD [address] [place] [phone] PCP - General 01/02/19 Commercial [employer] Underwriter Relationship Specialty Start Date End Date Jody Sarabia MD [address] [place] [phone] PCP - General 01/02/19 Commercial [employer] Underwriter Relationship Specialty Start Date End Date Jody Sarabia MD [address] [place] [address] PCP - General Family Medicine 02/23/16 Commercial [employer] Underwriter Relationship Specialty Start Date End Date Jody Sarabia MD [address] [place] [phone] PCP - General Family Medicine 02/23/16 Active Administered Medications - up to 3 most recent administrations Administered Medications (un recognized section and content) Medication Order MAR Action Action Date Dose Rate Site PHENYLephrine 2.5 % 1 Drop (AK-DILATE, JAMES-SYNEPHRINE) 1 Drop, BOTH EYES, DIRECTED, Starting on Serena 09/18/23 at 0830, Until Serena 09/18/23 at 2028, Administer for dilation PROTECT FROM LIGHT Given 09/18/2023 8:30 AM EST 1 Drop proparacaine 0.5 % 1 Drop (ALCAINE) 1 Drop, BOTH EYES, DIRECTED, Starting on Serena 09/18/23 at 0800, Until Serena 09/18/23 at 1959, Administer for pneumo tonometry, tonopen tonometry, or pachymetry. In the event of a proparacaine shortage, administer tetracaine 0.5% ophthalmic drops 1 drop in both eyes as directed for pneumo tonometry, tonopen tonometry, or pachymetry, OPHT CLINIC MED ORDERS Given 09/18/2023 8:00 AM EST 1 Drop tropicamide 1 % 1 Drop (MYDRIACYL) 1 Drop, BOTH EYES, DIRECTED, Starting on Serena 09/18/23 at 0830, Until Serena 09/18/23 at 2028, Administer for dilation Given 09/18/2023 8:30 AM EST 1 Drop Inactive Administered Medications - up to 3 most recent administrations Medication Order MAR Action Action Date Dose Rate Site aflibercept intravitreal injection 2 mg/0.05 mL (EYLEA) 2 mg, ONCE, 1 dose, Starting on Serena 09/18/23 at 0839, Until Serena 09/18/23 at 0839 Given 09/18/2023 8:39 AM EST 2 mg Left FOR RECORDS PERTAINING TO PATIENTS WHO ARE OR HAVE BEEN ENROLLED IN A CHEMICAL DEPENDENCY/SUBSTANCEABUSE PROGRAM, SOME INFORMATION MAY BE OMITTED. This clinical summary was aggregated from multiple sources. Caution should be exercised in using it in the provision of clinical care. This summary normalizes information from multiple sources, and as a consequence, information in this document may materially change the coding, format and clinical context of patient data. In addition, data may be omitted in some cases. CLINICAL DECISIONS SHOULD BE BASED ON THE PRIMARY CLINICAL RECORDS. [facility] linkedü [facility]. provides no warranty or guarantee of the accuracy or completeness of information in this document.
--- NOTE | 2024-05-20 02:59 | RAD_ITS ---
INDICATION: NG placement -- KUB with both diaphragms for NG/OG Verification COMPARISON: Chest radiograph same day, 0346 hours. FINDINGS: Single frontal view of the upper abdomen, 0354 hours. Enteric tube tip coils over epigastrium, likely proximal stomach. Upper abdominal dilated small bowel loops. No obvious free air. No definite suspicious calcifications. No mass appreciated. Contrast within bilateral renal collecting systems. Cardiomegaly. Valve endovascular stent material. Median sternotomy wires. RAD/Abdomen Single View (Portable) IMPRESSION: Enteric tube tip coils over epigastrium, likely proximal stomach. Upper abdominal dilated small bowel loops, ileus versus bowel obstruction. Electronically Signed: Ruslan Khan MD at 6:04 EDT ,
--- NOTE | 2024-05-20 02:59 | RAD_ITS ---
INDICATION: NG Insertion COMPARISON: Abdominal CT same day. FINDINGS: Single frontal view of the upper abdomen, 0346 hours. Enteric tube tip coils over lower esophagus with tip terminating back over midesophagus. Upper abdominal dilated small bowel loops. No obvious free air. No definite suspicious calcifications. No mass appreciated. Contrast within bilateral renal collecting systems. Cardiomegaly. Valve endovascular stent material. Median sternotomy wires. RAD/Abdomen Single View (Portable) IMPRESSION: Enteric tube tip coils over lower esophagus with tip terminating back over midesophagus. Upper abdominal dilated small bowel loops, ileus versus bowel obstruction. Electronically Signed: Ruslan Khan MD at 6:14 EDT ,
--- NOTE | 2024-05-20 02:59 | RAD_ITS ---
INDICATION: NG PLACE COMPARISON: Chest radiograph same day, 0354 hours. FINDINGS: Single frontal view of the upper abdomen, 0358 hours. Enteric tube tip overlies distal esophagus. Upper abdominal dilated small bowel loops. No obvious free air. No definite suspicious calcifications. No mass appreciated. Contrast within bilateral renal collecting systems. Cardiomegaly. Valve endovascular stent material. Median sternotomy wires. Streaky bibasilar airspace disease. RAD/Abdomen Single View (Portable) IMPRESSION: Enteric tube tip overlies distal esophagus. Upper abdominal dilated small bowel loops, ileus versus bowel obstruction. Electronically Signed: Ruslan Khan MD at 6:08 EDT ,
--- NOTE | 2024-05-20 03:07 | EX.ED.DYSGE1 ---
HPI History of Present Illness Chief Complaint: Abd Pain Informant: patient, EMS and SNF Narrative Narrative: Patient is an 83-year-old male with past medical history of persistent atrial fibrillation currently on Eliquis. He also has past medical history of chronic renal sufficiency CAD and [id number] diabetes. He states that Friday night into Friday morning he could not sleep secondary to abdominal discomfort. He states as Friday past he had increased abdominal pain and nausea without vomiting. He reports over the last 1 to 2 days he has not been able to have a bowel movement either. He states with the worsening symptoms he was sent in for evaluation [facility] Medical History Renal calculus, left Adverse drug reaction POLY (acute kidney injury) Chronic pain Hypertension Stroke/cerebrovascular accident Abnormal CT of the head Anemia CRF (chronic renal failure) Thrombocytopenia Chronic back pain Mild vascular dementia DJD (degenerative joint disease) Gout Mild mitral regurgitation Mild aortic insufficiency Atrial fibrillation Hyperlipemia CAD (coronary artery disease) Hypoglycemia Sciatica Home Medications ?Medication ?Instructions ?Recorded ?Last Taken ?Type allopurinol 300 mg tablet 300 mg PO DAILY gout 07/07/21 11/10/23 History furosemide 20 mg tablet (Lasix) 20 mg PO DAILY diuretic 07/07/21 11/10/23 History hydrocodone-acetaminophen 5-325mg 1 tab PO Q6H PRN PRN Pain 4 days 05/23/23 Unknown Rx 5mg-325mg #15 TABLETS acetaminophen 500 mg capsule 500 mg PO Q6H PRN pain 05/28/23 Unknown History betamethasone dipropionate 0.05 % 1 applic topical DAILY 05/28/23 Unknown History topical ointment cholecalciferol (vitamin D3) 50 50 mcg PO DAILY supplement 05/28/23 11/10/23 History mcg (2,000 unit) capsule glucosamine HCl 750 mg tablet 750 mg PO BID joints 05/28/23 Unknown History metformin 500 mg tablet 500 mg PO BID Diabetes 05/28/23 Unknown History terazosin 5 mg capsule 5 mg PO QHS BPH 05/28/23 11/09/23 History eplerenone 50 mg tablet 50 mg PO DAILY HTN 11/11/23 Unknown History aspirin 81 mg chewable tablet 81 mg PO BREAKFAST #0 tabs 11/14/23 Unknown Rx atorvastatin 80 mg tablet 80 mg PO QHS #0 tabs 11/14/23 Unknown Rx hydrocodone-acetaminophen 5-325mg 1 tab PO Q6H PRN PRN Pain Score 11/14/23 Unknown Rx 5mg-325mg 6-10 3 days #10 tabs lisinopril 20 mg tablet 20 mg PO DAILY #1 TAB 11/14/23 Unknown Rx metoprolol succinate 25 mg 25 mg PO DAILY #1 TAB 11/14/23 Unknown Rx tablet,extended release 24 hr Allergy/AdvReac Type Severity Reaction Status Date / Time No Known Allergies Allergy Verified 05/20/24 00:54 Family History Mother No problems noted. Father Heart disease Myocardial infarction CVA (cerebral vascular accident) Surgical History Heart valve replaced History of hernia repair H/O bilateral cataract extraction History of quadruple bypass History of back surgery History of tonsillectomy History of total left knee replacement Social History household members: none housing: other details: Dependent Smoking Status: Never smoker alcohol intake: never substance use type: does not use what type of physical activity do you participate in: walking ROS ROS ED Constitutional Constitutional ED: Denies chills or fever(s) ENT ENT ED: Denies sore throat Cardiovascular Cardiovascular: Denies chest pain Respiratory/Chest Respiratory/Chest: Denies cough or dyspnea Gastrointestinal Gastrointestinal: Reports abdominal pain, constipation and nausea; Denies diarrhea or vomiting Genitourinary Genitourinary ED: Denies dysuria Musculoskeletal Musculoskeletal: Denies myalgias Integumentary Denies rash Neurologic Neurologic: Denies headache(s) Hematologic/Lymphatic Hematologic/Lymphatic: Reports easy bleeding and easy bruising EXAM Physical Exam Const Vital Signs: 05/20/24 00:49 Temperature 98.4 F Temperature Source Oral Pulse Rate 114 H Respiratory Rate 18 Blood Pressure 157/70 H Blood Pressure Mean 99 Pulse Ox 94 Oxygen Delivery Method Room Air Positive well nourished and well developed General Appearance ED: well developed; Negative for pallor HEENT HEENT Narrative: No tongue or lip swelling no oral lesions no airway edema or compromise No signs of infection noted in posterior pharynx Eyes PERRL and EOMs intact bilaterally General Eye ED: Negative for scleral icterus Neck supple Resp normal respiratory effort and clear to auscultation bilaterally Cardio regular rate Rate: other Other Details: Irregularly irregular rhythm with regular rate consistent with history of persistent atrial fibrillation GI GI Narrative: Abdomen is soft with mild distention in the midepigastric region. Bowel sounds are hypoactive. There is pain with palpation in the midepigastric region and increased tympany at the site. Otherwise no pulsatile mass or fluid wave. Auscultation: hypoactive bowel sounds Extremity Extremity Narrative: +1 pitting edema to the bilateral lower extremities that are equal and symmetric Negative Homans' sign bilaterally Neuro oriented x3, CN's II-XII intact bilaterally and no sensory deficits noted Sensorium / Orientation: alert Psych mental status grossly normal Skin no rashes or lesions noted General Skin Exam: Negative for jaundice or pallor MDM MDM MDM Narrative Medical decision making narrative: Patient arrived to the ER in atrial fibrillation but has a past medical history of this and is currently on relation so have low concern for PE DVT or mesenteric thrombus. With his abdominal pain there is concern for infection such as colitis biliary colic versus acute cholecystitis. There is also concern for potential small bowel obstruction versus gastric perforation. Basic labs were obtained and revealed an elevated lactate but otherwise no clinically significant findings. CT scan showed a high-grade small bowel obstruction with transition point. The case was discussed with general surgeon Dr. Turner and even though the patient does not have vomiting secondary to his high-grade obstruction he recommends an NG tube. Therefore this was placed. Based on the patient's chronic medical conditions he does feel patient would be best served with admission to the medicine service as he is not planning on performing a surgical intervention at this time. Therefore the hospitalist was contacted and I do agree to accept the patient for further care. History & Record Review Discussion w/independent historian: Patient Lab Data Attestation: I reviewed the patient's lab results. Labs: Laboratory Results - last 24 hr 05/20/24 01:25 WBC 11.3 H RBC 3.25 L Hgb 10.6 L Hct 31.8 L MCV 97.8 H MCH 32.6 H MCHC 33.3 RDW Std Deviation 50.8 H RDW Coeff of Zaheer 14.3 Plt Count 120 L MPV 9.8 Immature Gran % (Auto) 0.500 Neut % (Auto) 84.3 H Lymph % (Auto) 9.3 L [place] % (Auto) 5.7 Eos % (Auto) 0.0 Baso % (Auto) 0.2 Absolute Neuts (auto) 9.6 H Absolute Lymphs (auto) 1.05 Nucleated RBC % 0 Sodium 140 Potassium 4.5 Chloride 109 H Carbon Dioxide 21.0 Anion Gap 10 BUN 32 H Creatinine 1.68 H Estim Creat Clear Calc 40.09 Est GFR (MDRD) Af Amer 51 L Est GFR (MDRD) Non-Af 42 L BUN/Creatinine Ratio 19.0 Glucose 216 H Lactic Acid 4.0 H* Calcium 9.2 Total Bilirubin 0.70 Direct Bilirubin 0.34 H AST 22 ALT 29 Alkaline Phosphatase 247 H Total Protein 6.8 Albumin 3.5 Globulin 3.3 Lipase < 10 L Radiography Diagnostic Testing: Clinical Impression(s) from Imaging Studies Abdomen/Pelvis CT 05/20/24 01:05 IMPRESSION: 1. Moderate to high-grade small bowel obstruction with transition point in the right lower quadrant where there is evidence of ileitis. No perforation or other complication. 2. Nonobstructing 1 cm calcified left renal pelvis. Electronically Signed: Royce Yates MD at 2:49 EDT , KUB interpreted by the emergency medicine physician reveals NG tube to be in proper position within the lumen of the stomach without free air or perforation. Discharge Plan Triage Chief Complaint: Abd Pain ED Provider: Royce Ventura Dx/Rx/DC Orders Clinical Impression: Small bowel obstruction, Persistent atrial fibrillation, Current use of snf anticoagulation, Chronic renal insufficiency, Diabetes Prescriptions: No Action acetaminophen 500 mg capsule 500 mg PO Q6H PRN (Reason: pain) betamethasone dipropionate 0.05 % ointment 1 applic topical DAILY glucosamine HCl 750 mg tablet 750 mg PO BID Rx Instructions: administer with a meal metformin 500 mg tablet 500 mg PO BID terazosin 5 mg capsule 5 mg PO QHS cholecalciferol (vitamin D3) 50 mcg (2,000 unit) capsule 50 mcg PO DAILY furosemide [Lasix] 20 mg Tablet 20 mg PO DAILY allopurinol 300 mg Tablet 300 mg PO DAILY hydrocodone-acetaminophen [hydrocodone-acetaminophen] 5-325 mg tablet 1 tab PO Q6H PRN PRN (Reason: Pain) 4 Days Qty: 15 0RF eplerenone 50 mg tablet 50 mg PO DAILY hydrocodone-acetaminophen 5-325 mg Tablet 1 tab PO Q6H PRN PRN (Reason: Pain Score 6-10) 3 Days Qty: 10 0RF aspirin 81 mg Tablet,Chewable 81 mg PO BREAKFAST Qty: 0 0RF metoprolol succinate 25 mg Tablet Extended Release 24 Hr 25 mg PO DAILY Qty: 1 0RF atorvastatin 80 mg Tablet 80 mg PO QHS Qty: 0 0RF lisinopril 20 mg tablet 20 mg PO DAILY Qty: 1 0RF Primary Care Provider: Justen Sarabia Referrals: Justen Sarabia MD [Primary Care Provider] - Print Language: Gabonese Disposition Disposition: Acute Care Hospital [facility]
--- NOTE | 2024-05-20 03:12 | HP.PCM.HOS_ITS ---
HPI - General General Date of Admission: 05/20/24 Date of Service: 05/20/24 Chief Complaint: Abdominal pain, nausea. HPI Narrative The patient is an 83 y/o M w/ PMHx: CKD stage III per GFR trending, Chronic anemia, Chronic thrombocytopenia, Hx CVA, HTN, HLD, Vascular dementia chart reported as mild without known behavioral disturbance history, Gout, PAF, CAD s/p CABG x 4, Valvular Heart Disease, Diabetes mellitus type II who presents to the [facility] ED on 05/20/2024 with onset of abdominal discomfort starting just after dinner per report with initial pain upon arrival in the ED reported as 1 out of 10 in severity but unfortunately constant with associated nausea without emesis and not improving prompting eventual ED evaluation to be cautious. In the ED upon hospitalist evaluation he reports his abdominal discomfort is generalized, more aching and rates it 3 out of 10 in severity. He currently notes his nausea is improved. Workup in the ED included T98.4, heart 114, BP 157/70, respiratory rate 18, 94% on room air, CBC with WBC 11.3, hemoglobin 10.6, MCV 97.8, platelet 120 with left shift, CMP with chloride 109, BUN/creatinine 32/1.68, GFR 42, glucose 216, lactic acid 4.0, alk phos 247, T. bili 0.70, D bili 0.34 otherwise [place] profile not marked appearing, lipase less than 10, CT abdomen pelvis with moderate to high-grade small bowel obstruction with transition point in the right lower quadrant where there is evidence of ileitis with no perforation or other complication, nonobstructing 1 cm calcified left renal pelvis. In the ED patient with NG tube placement and follow-up KUB requested. In the ED patient ministered 2 L normal saline. [facility] Medical History (Updated 05/20/24 @ 03:[address] Angelina Winslow MD) CKD (chronic kidney disease), stage III Persistent atrial fibrillation Diabetes Chronic pain Hypertension Stroke/cerebrovascular accident Anemia Thrombocytopenia Chronic back pain Mild vascular dementia DJD (degenerative joint disease) Gout Mild mitral regurgitation Mild aortic insufficiency Hyperlipemia CAD (coronary artery disease) Sciatica Home Medications ?Medication ?Instructions ?Recorded ?Last Taken ?Type allopurinol 300 mg tablet 300 mg PO DAILY gout 07/07/21 11/10/23 History furosemide 20 mg tablet (Lasix) 20 mg PO DAILY diuretic 12/04/21 04/08/24 History hydrocodone-acetaminophen 5-325mg 1 tab PO Q6H PRN PRN Pain 4 days 05/23/23 Unknown Rx 5mg-325mg #15 TABLETS acetaminophen 500 mg capsule 500 mg PO Q6H PRN pain 05/28/23 Unknown History betamethasone dipropionate 0.05 % 1 applic topical DAILY 05/28/23 Unknown History topical ointment cholecalciferol (vitamin D3) 50 50 mcg PO DAILY supplement 05/28/23 11/10/23 History mcg (2,000 unit) capsule glucosamine HCl 750 mg tablet 750 mg PO BID joints 05/28/23 Unknown History metformin 500 mg tablet 500 mg PO BID Diabetes 05/28/23 Unknown History terazosin 5 mg capsule 5 mg PO QHS BPH 05/28/23 11/09/23 History eplerenone 50 mg tablet 50 mg PO DAILY HTN 11/11/23 Unknown History aspirin 81 mg chewable tablet 81 mg PO BREAKFAST #0 tabs 11/14/23 Unknown Rx atorvastatin 80 mg tablet 80 mg PO QHS #0 tabs 11/14/23 Unknown Rx hydrocodone-acetaminophen 5-325mg 1 tab PO Q6H PRN PRN Pain Score 11/14/23 Unknown Rx 5mg-325mg 6-10 3 days #10 tabs lisinopril 20 mg tablet 20 mg PO DAILY #1 TAB 11/14/23 Unknown Rx metoprolol succinate 25 mg 25 mg PO DAILY #1 TAB 11/14/23 Unknown Rx tablet,extended release 24 hr Allergy/AdvReac Type Severity Reaction Status Date / Time No Known Allergies Allergy Verified 05/20/24 00:54 Family History Mother No problems noted. Father Heart disease Myocardial infarction CVA (cerebral vascular accident) Surgical History Heart valve replaced History of hernia repair H/O bilateral cataract extraction History of quadruple bypass History of back surgery History of tonsillectomy History of total left knee replacement Social History household members: none housing: other details: Dependent Smoking Status: Never smoker alcohol intake: never substance use type: does not use what type of physical activity do you participate in: walking Vital Signs Vital Signs Vital Signs: 05/20/24 00:49 Temperature 98.4 F Temperature Source Oral Pulse Rate 114 H Respiratory Rate 18 Blood Pressure 157/70 H Blood Pressure Mean 99 Pulse Ox 94 Oxygen Delivery Method Room Air Weight Weight: 196 lb 13.965 oz Body Mass Index (BMI) 25.2 Physical Exam Narrative Physical Examination: General: Awake, alert, oriented to self, place, year but cannot give month and does take time to give these answers, does have underlying dementia and suspect this is his baseline, seated upright in the ED bed, reporting his abdominal discomfort 3 out of 10, pending NG tube placement. Skin: Normal color, normal turgor, no icterus, no cyanosis except for occasional staged ecchymoses, abrasion. HEENT: AT/NC, EOMI, PERRLA, mildly dry MM, no carotid bruits or JVD noted. Lungs: Mildly diminished, greater bases, appropriate effort, no rales, ronchi or wheezing. Heart: Mildly tachycardic, regular; no gallop, rub audible, + SM. Abdomen: Soft, mild generalized discomfort but no rebound or guarding and no focal region of pain upon palpation, despite findings on CT not markedly distended, significantly hypoactive bowel sounds diffusely, no appreciated HSM. Extremities: No cyanosis, no clubbing, bilateral lower extremity distal edema, more so left lower extremity suspected from harvesting for bypass surgery, mildly pitting ankle to distal jarrett. Neurological: Patient awake, alert, oriented as noted cognitive function decreased baseline with underlying dementia, suspect currently based intact; pupils equally reactive to light and accommodation, cranial nerves gross normal, moving all 4 extremities, no focal deficits, strength moderately to severely global decrease secondary to acute presentation complaints compounded by advanced age and underlying morbidities Psychiatric: Affect appears fatigued otherwise normal, no acute evidence of depressive or anxiety feelings. Results Lab / Micro Data 05/20/24 01:25 05/20/24 01:25 Labs: Laboratory Results - last 24 hr 05/20/24 01:25: WBC 11.3 H, RBC 3.25 L, Hgb 10.6 L, Hct 31.8 L, MCV 97.8 H, MCH 32.6 H, MCHC 33.3, RDW Std Deviation 50.8 H, RDW Coeff of Zaheer 14.3, Plt Count 120 L, MPV 9.8, Immature Gran % (Auto) 0.500, Neut % (Auto) 84.3 H, Lymph % (Auto) 9.3 L, [place] % (Auto) 5.7, Eos % (Auto) 0.0, Baso % (Auto) 0.2, Absolute Neuts (auto) 9.6 H, Absolute Lymphs (auto) 1.05, Nucleated RBC % 0, Sodium 140, Potassium 4.5, Chloride 109 H, Carbon Dioxide 21.0, Anion Gap 10, BUN 32 H, C reatinine 1.68 H, Estim Creat Clear Calc 40.09, Est GFR (MDRD) Af Amer 51 L, Est GFR (MDRD) Non-Af 42 L, BUN/Creatinine Ratio 19.0, Glucose 216 H, Lactic Acid 4.0 H*, Calcium 9.2, Total Bilirubin 0.70, Direct Bilirubin 0.34 H, AST 22, ALT 29, Alkaline Phosphatase 247 H, Total Protein 6.8, Albumin 3.5, Globulin 3.3, L ipase < 10 L Imaging Radiology Impression Abdomen/Pelvis CT 05/20/24 01:05 IMPRESSION: 1. Moderate to high-grade small bowel obstruction with transition point in the right lower quadrant where there is evidence of ileitis. No perforation or other complication. 2. Nonobstructing 1 cm calcified left renal pelvis. Electronically Signed: Royce Yates MD at 2:49 EDT , ADDENDUM: 05/20/24 0308 IMPRESSION: 1. Moderate to high-grade small bowel obstruction with transition point in the right lower quadrant where there is evidence of ileitis. No perforation or other complication. 2. Nonobstructing 1 cm calcified left renal pelvis. N.B. : Royce Ventura DO, confirmed on 05/20/2024 03:01:21 (ET) that the healthcare facility has received the radiology report. Electronically Signed: Royce Yates MD at 2:49 EDT , Assessment & Plan Assessment/Plan (1) SBO (small bowel obstruction): PLAN: Plan The patient is an 83 y/o M w/ PMHx: CKD stage III per GFR trending, Chronic anemia, Chronic thrombocytopenia, Hx CVA, HTN, HLD, Vascular dementia chart reported as mild without known behavioral disturbance history, Gout, PAF, CAD s/p CABG x 4, Valvular Heart Disease, Diabetes mellitus type II who presents to the [facility] ED on 05/20/2024 with onset of abdominal discomfort starting just after dinner per report with initial pain upon arrival in the ED reported as 1 out of 10 in severity but unfortunately constant with associated nausea without emesis and not improving prompting eventual ED evaluation to be cautious. #1. Abdominal pain, nausea without emesis w/ moderate to high-grade SBO with incidentally elevated lactic acid, possibly secondary to dehyration, acute illness presentation: Will admit to MS, maintain on IVFs, continue NGT to suction, strict I&Os, IV pain/anti-emetics PRN, serial KUB as needed to montior bowel function, PPI IV, maintain NPO on bowel rest. General surgery consulted and will follow. Trend lactic acid per facility protocol with IV fluids administered in the ED and continued maintenance as noted. #2. Diabetes mellitus type II with hyperglycemia, possibly stress response: Admission glucose 216, most recently noted hemoglobin A1c 6.0% 11/11/23, will repeat hemoglobin A1c, holding metformin and will maintain on every 6 hours Accu-Cheks with insulin sliding scale. #3. CAD: Status post CABG x 4, given presentation holding aspirin, statin, lisinopril, metoprolol regimen, resume once oral intake allowed. #4. Hypertension: Given n.p.o. status with NG tube holding hypertensive regimen, will have as needed IV hydralazine and may consider IV Lopressor/Vasotec as needed. #5. Hyperlipidemia: Holding home statin therapy, resume once oral intake allowed. #6. Vascular dementia, chart reported as mild: Unclear behavioral disturbance history, not on any regimen, temporally holding medications as noted given NG tube placement with bowel obstruction, add back once appropriate, encourage continued outpatient follow-up. #7. PAF: Holding metoprolol, also holding Eliquis. #8. History CVA: Temporally holding aspirin, statin, hypertensive regimen, diabetic regimen with adjustments as noted. #9. Chronic anemia, macrocytic: Admission hemoglobin 10.6, MCV 97.8, baseline hemoglobin noted previously 9-10, stable, continue to trend. #10. Chronic thrombocytopenia, unclear exact etiology: Admission platelet 120, previously 80-1, stable, continue to trend CBC. 20 range but has vacillated. #11. Chronic Kidney Disease Stage III, unclear subtype per GFR trend: Admission BUN/Cr 32/1.68, GFR 42, baseline renal function primarily 1.4-1.5, repeat BMP in AM. #12. Valvular heart disease: 11/11/2023 echocardiogram with EF 70%, LA and RA moderately enlarged, trivial MVI, mild AV insufficiency, mildly dilated aortic root. #13. Gout: Temporarily holding patient home allopurinol, add back once oral intake allowed. #14. DVT prophylaxis: Holding Eliquis. #15. CODE status: DNR-CCA, no intubation per facility paperwork. Charges/Coding Visit Charges Inpatient E&M: 86249 Init Hosp L3
[2024-05-20] MEDS: Oxymetazoline 0.05% 1 SPRAY SPRAY.BTL 2 SPRAY NASAL (03:30)
[2024-05-20] MEDS: 0.9% Normal Saline (1000mL) 1,000 ML 999 ML IV (03:34)
--- OUTSIDE RECORDS SUMMARY | 2024-05-20 04:09 | XMS RPT_ITS | CCD ---
Author Organization [facility] Care Team Providers Care Manager Beverage Name Role Phone RAMONITA CHRISTENSEN Unavailable Unavailable No, Jody Unavailable Unavailable No, Jody Unavailable Unavailable RAMONITA CHRISTENSEN Unavailable Unavailable No, Jody Unavailable Unavailable NoJody santos Unavailable Unavailable Jody Sarabia Primary Care Provider Jody Sarabia MD Primary Care Provider Jody Sarabia Unavailable Unavailable Unavailable Jody Sarabia MD Primary Care Provider [phone] Dr. Jody Sarabia Primary Care Christoph Lozano Attending Unavailab Christoph Chairez Referring Unavailab Dr. Jody Cid Primary Care Christoph Lozano Attending Unavailab Christoph Chairez Referring Unavailab le Unavailable Unavailable Jody Sarabia Primary Care Provider Jody Sarabia MD Primary Care Provider Jody Sarabia MD Primary Care Provider LIZZY GONZALEZ Attending Unavailable NOJODY SANTOS Primary Care Unavailable LIZZY GONZALEZ Attending Unavailable JODY SARABIA Primary Care Unavailable NOJODY Referring Unavailable JODY SARABIA Primary Care Unavailable DIPAK QAUCH Attending Unavailable Jody Sarabia MD Primary Care Provider DENNIS RAMIREZ Referring Unavailable DENNIS RAMIREZ Attending [...] amLODIPine (1 source) amLODIPine Drug Allergy Swelling [facility] hydroCHLOROthiazide (1 source) hydroCHLOROthiazide Drug Allergy Other (See Comments) [facility] (13 sources) amLODIPine; Translations: [AMLODIPINE] Drug Allergy Swelling [facility] (7 sources) hydroCHLOROthiazide; Translations: [HYDROCHLOROTHIAZIDE] Drug Allergy Unknown [facility] (6 sources) hydroCHLOROthiazide Drug Allergy [facility] Medications Current Medications Medication Drug Class(es) Dates [...] Take 50 mg by mouth once daily. Misc Natural Products (GLUCOSAMINE CHOND CMP ADVANCED PO) (6 sources) take 1 tablet by mouth in the morning Misc Natural Products (GLUCOSAMINE CHOND CMP ADVANCED PO) Take 1 tablet by mouth in the morning. 0 Active Misc Natural Products (GLUCOSAMINE CHOND COMPLEX/MSM PO) (4 sources) Misc Natural Pro ducts (GLUCOSAMINE CHOND COMPLEX/MSM PO) Indications: Nonrheumatic aortic valve stenosis Take by mouth daily 0 Active Normal saline (6 sources) NASAL SPRAY SALI NE NA omega-3 acid ethyl esters (half-way) 1000 mg oral capsule (1 source) take 1 capsule by mouth once daily Gulliver-3 Fatty Acids (FISH OIL) 1000 MG CAPS Take 1,000 mg by mouth daily 0 Active phenylephrine hydrochloride 25 mg/ml ophthalmic solution (5 sources) alpha-1 Adrenergic Agonist Start: 12-18-19 End: 12-18-19 PHENYLephrine 2.5 % 1 Drop (AK-DILATE, JAMES-SYNEPHRINE) Start: 09-18-2023 End: 09-18-2023 PHENYLephrine 2.5 % 1 Drop ( AK-DILATE, JAMES-SYNEPHRINE) Start: 04-10-2023 End: 04-10-2023 PHENYLephrine 2.5 % 1 Drop ( AK-DILATE, JAMES-SYNEPHRINE) Start: 09-27-2022 End: 09-28-2022 PHENYLephrine 2.5 % 1 Drop ( AK-DILATE, JAMES-SYNEPHRINE) proparacaine hydrochloride 5 mg/ml ophthalmic solution (7 sources) Local Anesthetic Start: 12-18-2023 End: 12-18-2023 proparacaine 0.5 % 1 Drop (ALCAINE) Start: 09-18-2023 End: 09-18-2023 proparacaine 0.5 % 1 Drop (A LCAINE) Start: 04-10-2023 End: 04-10-2023 proparacaine 0.5 % 1 Drop (A LCAINE) Start: 12-05-2022 End: 12-06-2022 proparacaine 0.5 % 1 Drop (A LCAINE) Start: 10-03-2022 End: 10-04-2022 proparacaine 0.5 % 1 Drop (A LCAINE) Start: 09-27-2022 End: 09-28-2022 proparacaine 0.5 % 1 Drop (A LCAINE) terazosin 5 mg oral capsule (13 sources) alpha-Adrenergic Joe Start: 11-28-2022 teraz osin (HYTRIN) 5 mg capsule Start: 09-08-2020 Terazosin HCl - 5 MG Oral Capsule Quantity: 90 Refills: 0 Ordered: 08-Sep-2020 DO Start : 08-Sep-2020 Active tropicamide 10 mg/ml ophthalmic solution (6 sources) Anticholinergic Start: 12-18-2023 End: 12-18-2023 tropicamide 1 % 1 Drop (MYDRIACYL) Start: 09-18-2023 End: 09-18-2023 tropicamide 1 % 1 Drop (MYDR IACYL) Start: 04-10-2023 End: 04-10-2023 tropicamide 1 % 1 Drop (MYDR IACYL) Start: 10-03-2022 End: 10-04-2022 tropicamide 1 % 1 Drop (MYDR IACYL) Start: 09-27-2022 End: 09-28-2022 tropicamide 1 % 1 Drop (MYDR IACYL) Completed/Discontinued Medications Medication Drug Class(es) Dates Sig (Normalized) Sig (Original) acetic acid 20 mg/ml / hydrocortisone 10 mg/ml otic solution (7 sources) Corticosteroid Start: 02-17-2017 Hydrocortisone-Ford tic Acid 1-2 % Otic Solution 4 drops to both ears twice a day for 5 days for itching and irritation. Repeat as symptoms require it. Quantity: 1 Refills: 3 Ordered: 17-Feb-2017 Christoph Morris MD Start : 17-Feb-2017 Active Start: 02-17-2017 acetic acid-hy drocortisone (VOSOL-HC) 1-2 % otic solution 0.05 ml aflibercept 40 mg/ml injection (5 sources) Vascular Endothelial Growth Factor Inhibitor Start: 03-18-2024 End: 03-18-2024 aflibercept intravitreal injection 2 mg/0.05 mL (EYLEA) Start: 12-18-2023 End: 12-18-2023 aflibercept intravitreal inj ection 2 mg/0.05 mL (EYLEA) Start: 09-18-2023 End: 09-18-2023 aflibercept intravitreal inj ection 2 mg/0.05 mL (EYLEA) amLODIPine 5 mg oral tablet (6 sources) Dihydropyridine Calcium Channel Joe Start: 06-17-2018 amLODIPine Besylate 5 MG Oral Tablet Quantity: 90 Refills: 0 Ordered: 17-Jun-2018 DO Start : 17-Jun-2018 Active Start: 06-02-2018 take 1 tablet by svetlana th once daily amLODIPine (NORVASC) 5 MG tablet Indications: Essential hypertension TAKE 1 TABLET BY MOUTH DAILY 90 tablet 3 06/02/2018 Active aspirin 81 mg oral tablet (3 sources) Platelet Aggregation Inhibitor, Nonsteroidal Anti-inflammatory Drug Start: 04-04-2015 Aspirin 81 MG TAB S Quantity: 0 Refills: 0 Ordered: 04-Apr-2015 DO Start : 04-Apr-2015 Active betamethasone 0.5 mg/ml / clotrimazole 10 mg/ml topical cream (3 sources) Azole Antifungal, Corticosteroid Start: 02-17-2017 Clotrimazole-Betame thasone 1-0.05 % External Cream Applied to the opening of the right ear twice a day as needed for dryness and irritation Quantity: 1 Refills: 1 Ordered: 17-Feb-2017 Christoph Morris MD Start : 17-Feb-2017 Active bevacizumab intravitreal syringe 2.5 mg/0.1 mL (3 sources) Start: 04-10-2023 End: 04-10-2023 bevacizumab intravitreal syringe 2.5 mg/0.1 mL Start: 12-05-2022 End: 12-05-2022 bevacizumab intravitreal syr roma 2.5 mg/0.1 mL Start: 10-03-2022 End: 10-03-2022 bevacizumab intravitreal syr roma 2.5 mg/0.1 mL carvedilol 25 mg oral tablet (10 sources) alpha-Adrenergic Joe, beta-Adrenergic Joe Start: 04-04-2015 Carvedilol 25 MG Oral Tablet Quantity: 0 Refills: 0 Ordered: 04-Apr-2015 DO Start : 04-Apr-2015 Active Comment on above: Take 25 mg by mouth twice daily with meals. Chondroitin Sulfates / Glucosamine (3 sources) Start: 04-04-2015 Glucosamine Chondroitin MSM Oral Tablet Quantity: 0 Refills: 0 Ordered: 04-Apr-2015 DO Start : 04-Apr-2015 Active docosahexaenoic acid 120 mg / eicosapentaenoic acid 180 mg oral capsule (12 sources) Start: 04-04-2015 Fish Oil 1000 MG Oral Capsule Quantity: 0 Refills: 0 Ordered: 04-Apr-2015 DO Start : 04-Apr-2015 Active omega-3 (Fish Oi l) 1000 MG capsule Every 24 hours. 0 Active hydrocortisone 10 mg/ml / neomycin 3.5 mg/ml / polymyxin b [id number] unt/ml otic solution (3 sources) Aminoglycoside Antibacterial, Polymyxin-class Antibacterial, Corticosteroid Start: 04-12-2015 Dvmxtpoz-Ohylyfnfi-LS 1 % Otic Solution Quantity: 10 Refills: 0 Ordered: 12-Apr-2015 DO Start : 12-Apr-2015 Active ketoconazole 20 mg/ml medicated shampoo (3 sources) Azole Antifungal Start: 03-06-2020 Ketoconazole 2 % External Shampoo Quantity: 120 Refills: 0 Ordered: 06-Mar-2020 DO Start : 06-Mar-2020 Active lisinopril 40 mg oral tablet (20 sources) Angiotensin Converting Enzyme Inhibitor Start: 06-21-2020 Lisinopril 40 MG Oral Tablet Quantity: 90 Refills: 0 Ordered: 25-Sep-2020 DO Start : 21-Jun-2020 Active Start: 04-04-2015 Lisinopril 20 MG Oral Tablet Quantity: 0 Refills: 0 Ordered: 04-Apr-2015 DO Start : 04-Apr-2015 Active Start: 01-25-2015 take 2 tablets by mo uth in the evening lisinopril (PRINIVIL;ZESTRIL) 20 MG tablet Take 20 mg by mouth Taking two 20 mg tablets in the evening 0 01/25/2015 Active take 1 tablet by svetlana th once daily lisinopril 40 MG tablet Take 40 mg by mouth daily. 0 Active Comment on above: Take 20 mg by mouth twice daily. predniSONE 20 mg oral tablet (1 source) Start: 02-27-2020 End: 02-27-2020 predniSONE (DELTASONE) tablet 40 mg warfarin sodium 5 mg oral tablet (20 sources) Vitamin K Antagonist Start: 01-25-2015 Warfarin Sodium 5 MG Oral Tablet Quantity: 0 Refills: 0 Ordered: 04-Apr-2015 DO Start : 04-Apr-2015 Active WARFARIN SODIUM (WARFARIN ORAL) Take by mouth. 7.5 mg M,W,F 5 mg T,TH,Sat,Sun Subject to change based upon bloodwork. 0 Active End: 12-04-2023 warfarin (Coumadin) 5 MG tab let Every 24 hours. DOSING PER PCP 0 12/04/2023 Discontinued Comment on above: Take by mouth. 7.5 m g M,W,F 5 mg T,TH,Sat,Sun Subject to change based upon bloodwork. Problems Active Problems Problem Classification Problem Date Documented Date Episodic/Chronic Acquired foot deformities (12 sources) Acquired hallux valgus; Translations: [Hallux valgus (acquired), unspecified foot] Onset: 08-20-2022 08-20-2022 Chronic Cardiac dysrhythmias (20 sources) Chronic atrial fibrillation; Translations: [Atrial fibrillation] Onset: 11-27-2016 11-27-2016 Chronic Cataract (20 sources) Bilateral pseudophakia; Translations: [Presence of intraocular lens] Onset: 02-26-2016 Resolved: 04-19-2020 Chronic Chronic kidney disease (6 sources) Chronic kidney disease stage 3A ; Translations: [Stage 3a chronic kidney disease] Onset: 08-20-2022 08-20-2022 Chronic Coagulation and hemorrhagic disorders (13 sources) Platelet count below reference range; Translations: [Thrombocytopenia, unspecified] Onset: 08-19-2017 08-19-2017 Chronic Congestive heart failure; nonhypertensive (6 sources) Chronic congestive heart failure; Translations: [Heart failure, unspecified] Onset: 08-20-2022 08-20-2022 Chronic Coronary atherosclerosis and other heart disease (11 sources) Coronary atherosclerosis; Translations: [Atherosclerotic heart disease of [place] coronary artery without angina pectoris] Onset: 11-22-2020 11-22-2020 Chronic Delirium, dementia, and amnestic and other cognitive disorders (1 source) Vascular dementia ; Translations: [Mild vascular dementia without behavioral disturbance, psychotic disturbance, mood disturbance, or anxiety (HCC)] 12-04-2023 Chronic Diabetes mellitus with complications (20 sources) Type 2 diabetes mellitus; Translations: [Type 2 diabetes mellitus with mild nonproliferative diabetic retinopathy without macular edema, right eye] Onset: 02-26-2016 Chronic Essential hypertension (14 sources) Essential hypertension; Translations: [Essential (primary) hypertension] Onset: 12-31-2017 12-31-2017 Chronic Gout and other crystal arthropathies (6 sources) Gout; Translations: [Gout, unspecified] Onset: 08-20-2022 08-20-2022 Chronic Heart valve disorders (20 sources) Presence of prosthetic heart valve; Translations: [Aortic valve stenosis] Onset: 04-09-2016 Resolved: 11-05-2016 11-05-2016 Chronic Hyperplasia of prostate (10 sources) Benign prostatic hypertrophy with outflow obstruction; Translations: [Benign prostatic hyperplasia with lower urinary tract symptoms] Onset: 12-17-2016 12-17-2016 Chronic Hypertension with complications and secondary hypertension (6 sources) Hypertensive heart failure; Translations: [Hypertensive heart disease with heart failure] Onset: 08-20-2022 08-20-2022 Chronic Nutritional deficiencies (6 sources) Vitamin D deficiency; Translations: [Vitamin D deficiency, unspecified] Onset: 08-20-2022 08-20-2022 Chronic Osteoarthritis (6 sources) Localized osteoarthrosis; Translations: [Unspecified osteoarthritis, unspecified site] Onset: 08-20-2022 08-20-2022 Chronic Other and ill-defined cerebrovascular disease (2 sources) Small vessel cerebrovascular disease; Translations: [Cerebrovascular disease, unspecified] 10-30-2023 Chronic Other and ill-defined cerebrovascular disease (1 source) Cerebrovascular disease; Translations: [Cerebrovascular disease, unspecified] 12-04-2023 Chronic Other and ill-defined cerebrovascular disease (2 sources) Cerebrovascular disease, unspecified; Translations: [Cerebrovascular disease, unspecified] Onset: 12-04-2023 Chronic Other and ill-defined heart disease (2 sources) Cardiomegaly; Translations: [Cardiomegaly] Onset: 12-31-2017 Chronic Other and ill-defined heart disease (3 sources) Heart disease; Translations: [Heart disease, unspecified] Chronic Other and ill-defined heart disease (6 sources) Left ventricular hypertrophy; Translations: [Cardiomegaly] Onset: 08-20-2022 08-20-2022 Chronic Other circulatory disease (3 sources) H/O: hypertension; Translations: [Personal history of other diseases of circulatory system] Episodic Other circulatory disease (2 sources) History of cerebrovascular accident; Translations: [Personal history of transient ischemic attack (TIA), and cerebral infarction without residual deficits] 12-18-2023 Episodic Other connective tissue disease (3 sources) H/O: gout; Translations: [Personal history of other endocrine, metabolic, and immunity disorders] Episodic Other ear and sense organ disorders (3 sources) Chronic otitis externa; Translations: [Other chronic otitis externa] Chronic Other ear and sense organ disorders (3 sources) Sensorineural hearing loss, bilateral; Translations: [Sensorineural hearing loss, bilateral] Chronic Other ear and sense organ disorders (2 sources) Bilateral hearing loss; Translations: [Unspecified hearing loss, bilateral] 10-30-2023 Chronic Other ear and sense organ disorders (2 sources) Unspecified hearing loss, bilateral; Translations: [Unspecified hearing loss, bilateral] Onset: 10-30-2023 Chronic Other ear and sense organ disorders (6 sources) Otorrhea; Translations: [Otorrhea, unspecified] Episodic Other ear and sense organ disorders (3 sources) Excessive cerumen in ear canal ; Translations: [Impacted cerumen] Episodic Other eye disorders (14 sources) Bilateral posterior vitreous detachment; Translations: [Vitreous degeneration, bilateral] Onset: 03-04-2018 Chronic Other hereditary and degenerative nervous system conditions (6 sources) Impaired cognition; Translations: [Mild cognitive impairment, so stated] Onset: 08-20-2022 08-20-2022 Chronic Other nervous system disorders (3 sources) Abnormal gait; Translations: [Abnormality of gait] Episodic Other nervous system disorders (3 sources) History of hearing loss; Translations: [Personal history of other disorders of nervous system and sense organs] Episodic Other nervous system disorders (3 sources) H/O: respiratory disease; Translations: [Personal history of other specified diseases] Episodic Other nervous system disorders (2 sources) Impaired cognition; Translations: [Other symptoms and signs involving cognitive functions and awareness] 10-30-2023 Episodic Other nervous system disorders (2 sources) Other symptoms and signs involving cognitive functions and awareness; Translations: [Other symptoms and signs involving cognitive functions and awareness] Onset: 10-30-2023 Episodic Other nutritional; endocrine; and metabolic disorders (3 sources) History of diabetes mellitus type 2; Translations: [Personal history of other endocrine, metabolic, and immunity disorders] Episodic Other screening for suspected conditions (not mental disorders or infectious disease) (3 sources) Platelet count below reference range; Translations: [Thrombocytopenia] 08-19-2017 Episodic Other upper respiratory infections (3 sources) Nasal discharge; Translations: [Unspecified sinusitis (chronic)] Episodic Otitis media and related conditions (3 sources) Dysfunction of eustachian tube; Translations: [Dysfunction of Eustachian tube] Episodic Ale-; endo-; and myocarditis; cardiomyopathy (except that caused by tuberculosis or sexually transmitted disease) (7 sources) Cardiomyopathy; Translations: [Other cardiomyopathies] Onset: 11-22-2020 11-22-2020 Chronic Pulmonary heart disease (6 sources) Pulmonary hypertension; Translations: [Pulmonary hypertension, unspecified] Onset: 08-20-2022 08-20-2022 Chronic Residual codes; unclassified (6 sources) Sleep apnea; Translations: [Sleep apnea, unspecified] Onset: 08-20-2022 08-20-2022 Chronic Retinal detachments; defects; vascular occlusion; and retinopathy (7 sources) Branch retinal vein occlusion with macular edema; Translations: [Tributary (branch) retinal vein occlusion, left eye, with macular edema] Chronic Spondylosis; intervertebral disc disorders; other back problems (6 sources) Degeneration of intervertebral disc; Translations: [Degeneration of intervertebral disc] Onset: 08-20-2022 08-20-2022 Chronic Unclassified (1 source) Vascular dementia, mild, without behavioral disturbance, psychotic disturbance, mood disturbance, and anxiety (HCC); Translations: [Vascular dementia, mild, without behavioral disturbance, psychotic disturbance, mood disturbance, and anxiety (HCC)] Onset: 12-04-2023 Past or Other Problems Problem Classification Problem Date Documented Da te Episodic/Chronic Allergic reactions (7 sources) Contact dermatitis due to Genus Toxicodendron; Translations: [Nummular eczema] Onset: 08-20-2022 08-20-2022 Episodic Blindness and vision defects (13 sources) Disorder of refraction; Translations: [Unspecified disorder of refraction] Onset: 02-26-2016 02-26-2016 Episodic Coagulation and hemorrhagic disorders (6 sources) Petechiae; Translations: [Spontaneous ecchymoses] Onset: 08-20-2022 08-20-2022 Episodic Genitourinary symptoms and ill-defined conditions (6 sources) Proteinuria; Translations: [Proteinuria, unspecified] Onset: 08-20-2022 08-20-2022 Episodic Mycoses (6 sources) Onychomycosis; Translations: [Tinea unguium] Onset: 08-20-2022 08-20-2022 Episodic Neoplasms of unspecified nature or uncertain behavior (10 sources) Neoplasm of uncertain behavior of prostate; Translations: [Neoplasm of uncertain behavior of prostate] Onset: 12-17-2016 12-17-2016 Episodic Other aftercare (10 sources) Long-term current use of anticoagulant; Translations: [longterm (current) use of anticoagulants] Onset: 08-19-2017 08-19-2017 Episodic Other connective tissue disease (6 sources) Neurogenic claudication; Translations: [Other symptoms and signs involving the nervous system] Onset: 08-20-2022 08-20-2022 Episodic Other diseases of veins and lymphatics (11 sources) Varicocele; Translations: [Scrotal varices] Onset: 05-07-2017 05-07-2017 Episodic Other ear and sense organ disorders (6 sources) Acute eczematoid otitis externa; Translations: [Acute eczematoid otitis externa, unspecified ear] Onset: 08-20-2022 08-20-2022 Episodic Other eye disorders (2 sources) Posterior vitreous detachment; Translations: [Vitreous degeneration, unspecified eye] Onset: 02-26-2016 Resolved: 04-19-2020 04-19-2020 Chronic Other eye disorders (14 sources) Disorder of lacrimal gland; Translations: [Dry eye syndrome of bilateral lacrimal glands] Onset: 02-26-2016 Episodic Other eye disorders (14 sources) Meibomian gland dysfunction of bilateral eyes; Translations: [Meibomian gland dysfunction right eye, upper and lower eyelids] Onset: 02-26-2016 Episodic Other male genital disorders (10 sources) Phimosis; Translations: [Phimosis] Onset: 05-07-2017 05-07-2017 Episodic Other male genital disorders (9 sources) Cyst of epididymis; Translations: [Cyst of epididymis] Onset: 09-22-2019 09-22-2019 Episodic Other male genital disorders (1 source) Pain in testicle Episodic Poisoning by nonmedicinal substances (6 sources) Toxic effect of lead and its compounds, accidental (unintentional), subsequent encounter; Translations: [Toxic effect of unspecified lead compound] Onset: 08-20-2022 08-20-2022 Episodic Residual codes; unclassified (6 sources) Amnesia; Translations: [Other amnesia] Onset: 08-20-2022 08-20-2022 Episodic Residual codes; unclassified (6 sources) Insomnia; Translations: [Insomnia, unspecified] Onset: 08-20-2022 08-20-2022 Episodic Spondylosis; intervertebral disc disorders; other back problems (20 sources) Neck pain; Translations: [Chronic low back pain] Onset: 08-20-2022 Episodic Unclassified (1 source) Vascular dementia, mild, without behavioral disturbance, psychotic disturbance, mood disturbance, and anxiety (HCC); Translations: [Vascular dementia, mild, without behavioral disturbance, psychotic disturbance, mood disturbance, and anxiety (HCC)] Onset: 12-04-2023 Results Test Name Value Interpretation Reference Range Facility EYLEA (AFLIBERCEPT) 2MG INTR AVITREAL INJECTION OS (LEFT EYE)on 03-18-2024 [facility] OCT MACULA CIRRUS OU (BOTH E YES)on 03-18-2024 [facility] Radiology Study observation (narrative) [facility] VISUAL FIELD 24-2 OU (BOTH E YES)on 03-18-2024 [facility] Radiology Study observation (narrative) [facility] EYLEA (AFLIBERCEPT) 2MG INTR AVITREAL INJECTION OS (LEFT EYE)on 12-18-2023 [facility] OCT MACULA CIRRUS OU (BOTH E YES)on 12-18-2023 [facility] Radiology Study observation (narrative) [facility] Office Visiton 12-04-2023 Follow-up visit [id number] Adal Mancera 1940 M Date Provider Department Center 12/04/2023 [id number] GONZALEZ [facility] CS None Family History Problem Relation Age of Onset Heart disease Father Diabetes Father Stroke Father Family Status - Relation Status Age at Father Mother Level of Service:97209 [place] OFFICE/OUTPATIENT ESTABLISHED HIGH MDM 40 MIN Reason for Visit and Comments: Dementia [30] Normal [facility] Progress Noteon 12-04-2023 Progress Note [facility] [address] [place] [address] Dept: [phone] Dept Loc: [phone] Visit type: [facility] Family Summary Conference Reason for Visit: [...] in about 3 months (around 03/05/2024). Subjective Adal Mancera is a 83 y.o. male with [...] with daughter Carmella and son in law Dipak -He had a fall on November 09. He was on the floor for several hours before the family found him. He was hospitalized at [place] x 1 week. He had an occipital [...] times daily. Cholecalciferol (Vitamin D) 50 MCG (2000 UT) capsule Every 24 hours. Diclofenac Sodium [...] this visit. Past Medical History: Diagnosis Date (more content not included)... Normal [facility] Progress Note Interval history sin ce last appointment: Any visits to primary care provider? No Any visits to the emergency department/hospital? Yes Any medication changes? Yes- discontinued Warfarin and started Eliquis Any falls? No Family present: patient, daughter Carmella, son in law Dipak Educational Materials reviewed/provided at visit: Memory/Cognitive Ability Alzheimer[employer] info/hotline 10 Tips to Keeping Independent Memory Tips (mild) 5Ms Dealing with Dementia 10 Ways to Love Your Brain Vascular Dementia Exercise/Activities Dementia exercise tips Communication/Behaviors Communication - All Stages Communication Tips Redirecting Apathy Home Care/Facility Options Adult Day Center list Diet Healthy Nutrition for Older Adults - [facility] Injury Prevention/Home Safety [facility] Home Safety Checklist Hearing/Vision Hearing Loss and Older Adults Associate Principal List Medications Medication Safety/Dispensers Sleep Getting a Good Night's Sleep ([facility]) Personal Care Personal Care Tips Normal [facility] Office Visiton 10-30-2023 Follow-up visit [id number] Adal Mancera 1940 M [facility] Provider Department Center 10/30/2023 [id number] GONZALEZ [facility] CS None Family History Problem Relation Age of Onset Heart disease Father Diabetes Father Stroke Father Family Status - Relation Status Age at Father Mother Level of Service:44363 [place] OFFICE/OUTPATIENT NEW HIGH MDM 60 MINUTES Reason for Visit and Comments: Memory Loss [66] Normal [facility] PATINSon 10-30-2023 PATINS I encourage you to g et your hearing checked and try hearing aids again. Improved hearing can help with memory and conversation skills Normal [facility] Progress Noteon 10-30-2023 Progress Note [facility] [facility] [address] [facility] [id number] Dept: [phone] Dept Loc: [phone] Visit type: [facility] Initial Assessment Visit Date: 10/30/2023 Reason [...] about 5 weeks (around 12/04/2023). Subjective HPI: Adal Mancera is a 83 y.o. 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 [Moles/Vol] 140 mmol/L Normal 135-145 [facility] Work Phone: Comment on above: Performed By: #### B MP3, HEMDF #### [facility] [address] [place] [address] Anion gap [Moles/Vol] 2 mmol/L Low 3 - 13 mmol/L [facility] Work Phone: Calcium [Mass/Vol] 8.8 mg/dL 8.4 - 10. 4 mg/dL [facility] Work Phone: CO2 [Moles/Vol] 28 mmol/L 22 - 30 mmol/L [facility] Work Phone: Creatinine [Mass/Vol] 1.25 mg/dL 0.52 - 1.25 mg/dL [employer] Work Phone: EGFR IF NonAfrican German 54.8 mL/min Abnormal >60 [facility] Work Phone: Comment on above: KDIGO guidelines pro vide the following GFR categories: Stage GFR(ml/min/1.73 m2) Terms G1 >=90 Normal or high G2 60-89 Mildly decreased* G3a 45-59 Mildly to moderately decreased G3b 30-44 Moderately to severely decreased G4 15-29 Severely decreased G5 <15 Kidney failure *Relative to young adult level. In the absence of evidence of kidney damage, neither GFR category G1 nor G2 fulfill the criteria for CKD. The CKD-EPI equation is validated in individuals 18 years of age and older. Currently the best equation for estimating glomerular filtration rate (GFR) from serum creatinine in children is the Bedside Chang equation. It is less accurate in patients with extremes of muscle mass, restriction of dietary protein, ingestion of creatine, extra-renal metabolism of creatinine, or treatment with medications that affect renal tubular creatinine secretion. GFR/1.73 sq M.predicted among blacks MDRD (S/P/Bld) [Vol rate/Area] 63.5 mL/min/{1.73_m2} >60 [facility] Work Phone: Glucose [Mass/Vol] 153 mg/dL High 70 - 100 mg/dL [facility] Work Phone: Interpretation and review of laboratory results Abnormal [facility] Work Phone: Urea nitrogen (BldV) [Mass/Vol] 18 mg/dL 7 - 20 mg/dL [facility] Work Phone: Test Performed by [facility], [address] [place] [id number] [facility] Work Phone: CR Hip w/ Pelvis 2 or 3 View s Lefton 12-08-2020 CR Hip w/ Pelvis 2 or 3 Views Left Patient Name: ADAL MANCERA Diagnostic Radiology ACCESSION EXAM DATE/TIME PROCEDURE ORDERING PROVIDER [id number] 12/08/2020 16:06 EDT CR Hip w/ Pelvis 2 or 3 BRITTNEY, FACILITY MECHANIC, NIKITA M Views Left n CPT code 39852 Reason For Exam (CR Hip w/ Pelvis 2 or 3 Views Left n) pain Report Left hip 12/08/2020. Clinical Information: left hip pain. Findings: An AP view of the pelvis and AP and frogleg lateral views of the left hip reveal the bones to be well mineralized. There is no evidence of fracture or dislocation. The joint spaces are maintained. Impression: No acute process. Report Dictated on Final Dictating Physician: MD QUINTANILAL RISA Signed Date and Time: 12/08/2020 4:15 pm Signed by: MD QUINTANILLA RISA Transcribed Date and Time: 12/08/2020 4:16 Normal [facility] CR Spine Lumbosacral 2 or 3 Viewson 12-08-2020 CR Spine Lumbosacral 2 or 3 Views Patient Name: ADAL MANCERA Diagnostic Radiology ACCESSION EXAM DATE/TIME PROCEDURE ORDERING PROVIDER [id number] 12/08/2020 16:06 EDT CR Spine Lumbosacral 2 BRITTNEY, FACILITY MECHANIC, NIKITA M or 3 Views CPT code 35291 Reason For Exam (CR Spine Lumbosacral 2 or 3 Views) low back pain Report Lumbar spine: 12/08/2020 . Clinical Information: Low back pain. Findings: AP, lateral and coned-down lateral views of the lumbar spine reveal moderate narrowing at all lumbar levels similar to prior study 02/07/2020. The heights of the lumbar vertebral bodies are be maintained. The alignment is anatomic. No compression deformities are identified. There is no evidence of spondylolisthesis. There is spurring throughout the lumbar spine and sclerosis of the apophyseal joints at all lumbar levels. Impression: No acute abnormality identified. Degenerative changes unchanged from prior study. Report Dictated on Final Dictating Physician: MD QUINTANILLA RISA Signed Date and Time: 12/08/2020 4:29 pm Signed by: MD QUINTANILLA RISA Transcribed Date and Time: 12/08/2020 4:30 Normal [facility] ED Provider Noteon ED Provider Note Dajuan K[facility] ED eMERGENCY dEPARTMENT eNCOUnter Pt Name: Adal Mancera Birthdate 1940 Date of evaluation: 12/08/2020 Provider: RAFAEL Rosenthal CNP I have evaluated this patient on my own, per my scope of practice with an attending physician available for consultation. CHIEF COMPLAINT Chief Complaint Patient presents with ? Hip Pain ? Back Pain HISTORY OF PRESENT ILLNESS (Location/Symptom, Timing/Onset,Context/Se tting, Quality, Duration, Modifying Factors, Severity) Note limiting factors. HPI Adal Mancera is a 80 y.o. male who presents to the emergency department with pain in his low back, left gluteus and down the left leg that is been going on for the last several months. The patient states he feels like the leg is giving out on him at times.Denies fevers or chills or bowel or bladder incontinence, states he had swelling of the legs for quite some time as it was thought to be due to medication he states that his PCP had his medications around and it improved. Denies history of kidney problems. is not a diabetic. Denies any other complaints. has been taking Motrin for this. Nursing Notes were reviewed. REVIEW OF SYSTEMS (2+ for4; 10+ for level 5) Review of Systems Constitutional: Negative for activity change, appetite change, chills and fever. HENT: Negative for congestion, ear discharge, ear pain, hearing loss, postnasal drip, rhinorrhea and sore throat. Eyes: Negative for discharge and redness. Respiratory: Negative for chest tightness and shortness of breath. Cardiovascular: Positive for leg swelling. Negative for chest pain. Gastrointestinal: Negative for abdominal pain, diarrhea, nausea and vomiting. Genitourinary: Negative for dysuria. Musculoskeletal: Positive for arthralgias, back pain and myalgias. Negative for joint swelling. Skin: Negative for color change. Neurological: Negative for dizziness, tremors, syncope, weakness, light-headedness and headaches. Hematological: Negative for adenopathy. Psychiatric/Behavioral: Negative for agitation and confusion. All other systems reviewed and are negative. PAST MEDICAL HISTORY Past Medical History: Diagnosis Date ? Anticoagulant long-term use ? Aortic stenosis, severe ? Arthritis ? Atrial fibrillation (HCC) ? Back pain ? Basal cell carcinoma ? CAD (coronary artery disease) ? Diabetes mellitus (HCC) [address] [place] ? Dizziness ? DJD (degenerative joint disease) Left Knee ? Epididymal cyst 09/22/2019 ? ETD (eustachian tube dysfunction) ? Gout 2008 ? Hypertension ? Incomplete bladder emptying ? Left inguinal hernia ? Mild mitral regurgitation ? Severe aortic insufficiency ? Sinusitis 2013 ? Thrombocytopenia (HCC) ? Vascular dementia (HCC) SURGICALHISTORY Past Surgical History: Procedure Laterality Date ? AORTIC VALVE REPLACEMENT TAVR ? ARTERIAL BYPASS SURGRY Quadruple Bypass 2003 ? BACK SURGERY 2007 ? CARDIAC CATHETERIZATION 03/08/2016 right and left heart cath ? CATARACT REMOVAL 10/2011 ? HERNIA REPAIR 2012 ? SKIN CANCER EXCISION 01/2012 ? TONSILLECTOMY Child ? TOTAL KNEE ARTHROPLASTY 02/2010 CURRENT MEDICATIONS Previous Medications ACETIC ACID-HYDROCORTISONE (VOSOL-HC) 1-2 % OTIC SOLUTION ALLOPURINOL (ZYLOPRIM) 300 MG TABLET 300 mg daily AMELIA CONTOUR TEST STRIP TEST DAILY AND NEEDED DX E11.42 NIDDM ONCE A DAY ERYTHROMYCIN (ROMYCIN) 5 MG/GM OPHTHALMIC OINTMENT INSTILL INTO LEFT EYE 3 TIMES DAILY FUROSEMIDE (LASIX) 20 MG TABLET 20 mg daily IBUPROFEN (ADVIL;MOTRIN) 800 MG TABLET Take 1 tablet by mouth 2 times daily for 10 days LISINOPRIL (PRINIVIL;ZESTRIL) 40 MG TABLET Take 40 mg by mouth daily METOPROLOL SUCCINATE (TOPROL XL) 50 MG EXTENDED RELEASE TABLET Take 1 tablet by mouth daily MISC NATURAL PRODUCTS (GLUCOSAMINE CHOND COMPLEX/MSM PO) Take by mouth daily OMEGA-3 FATTY ACIDS (FISH OIL) 1000 MG CAPS Take 1,000 mg by mouth daily TERAZOSIN (HYTRIN) 5 MG CAPSULE 5 mg daily WARFARIN (COUMADIN) 5 MG TABLET 5 mg qd Amlodipine and Hydrochlorothiazide FAMILY HISTORY Family History Problem Relation Age of Onset ? Diabetes Father ? Heart Disease Father ? Stroke Father SOCIAL HISTORY Social History Socioeconomic History ? Marital status: Spouse name: Not on file ? Number of children: Not on file ? Years of education: Not on file ? Highest education level: Not on file Occupational History ? Not on file Social Needs ? Financial resource strain: Not on file ? Food insecurity Worry: Not on file Inability: Not on file ? Transportation needs Medical: Not on file Non-medical: Not on file Tobacco Use ? Smoking status: Never Smoker ? Smokeless tobacco: Never Used Substance and Sexual Activity ? Alcohol use: No ? Drug use: No Comment: caffeine use: occasionally ? Sexual activity: Not on file Lifestyle ? Physical activity Days per w (more content not included)... [facility] w/Auto DiffOr dered By: Nikita Lugo on 12-08-2020 Absolute Baso # 0.1 10*3/uL 0.0 - 0.2 10*3/uL [employer] Work Phone: Absolute Neut # 3.4 10*3/uL 1.8 - 7.0 10*3/uL [employer] Work Phone: Basophils/100 WBC (Bld) 0.9 % 0.0 - 2.0 % [employer] Work Phone: Eosinophils (Bld) [#/Vol] 0.2 10*3/uL 0.0 - 0.5 10*3/uL [employer] Work Phone: Eosinophils/100 WBC (Bld) 2.7 % 1.0 - 6.0 % [employer] Work Phone: Granulocytes/100 WBC (Bld) 57.6 % 40.0 - 80.0 % [employer] Work Phone: Hematocrit (Bld) [Volume fraction] 35.2 % Low 40.0 - 52.0 % [employer] Work Phone: Hemoglobin.gastroint estinal spec 1 Ql (Stl) 12.0 g/dL Low 13.0 - 18.0 g/dL [employer] Work Phone: Interpretation and review of laboratory results Abnormal [employer] Work Phone: Lymphocytes (Bld) [#/Vol] 1.8 10*3/uL 1.0 - 4.3 10*3/uL [employer] Work Phone: Lymphocytes/100 WBC (Bld) 29.9 % 20.0 - 40.0 % [employer] Work Phone: MCH (RBC) [Entitic mass] 33.0 pg 26.0 - 34.0 pg [employer] Work Phone: MCHC (RBC) [Mass/Vol] 34.0 % 32.0 - 36.0 % [employer] Work Phone: MCV (RBC) [Entitic vol] 97.0 fL 80.0 - 98.0 fL [employer] Work Phone: Monocytes (Bld) [#/Vol] 0.5 10*3/uL 0.0 - 0.8 10*3/uL [facility] Work Phone: Monocytes/100 WBC (Bld) 8.9 % 2.0 - 10.0 % [employer] Work Phone: Platelet distribution width (Bld) [Ratio] 15.7 % High 11.5 - 14.5 % [employer] Work Phone: Platelet mean volume (Bld) [Entitic vol] 9.1 fL 7.4 - 10.4 fL [employer] Work Phone: Platelets (Bld) [#/Vol] 109 10*3/uL Low 140 - 440 10*3/uL [employer] Work Phone: RBC (Bld) [#/Vol] 3.62 10*6/uL Low 4.40 - 5.9 0 10*6/uL [facility] Work Phone: WBC (Bld) [#/Vol] 5.9 10*3/uL 3.6 - 10.7 10*3/uL [employer] Work Phone: Test Performed by [facility], [address] [place] [address] [facility] Work Phone: Hemogram w/ Autodiffon 12-08 Abs Baso Cnt 0.1 10*3/uL Normal 0.0-0.2 [facility] Comment on above: Performed By: #### B MP3, HEMDF #### [facility] [address] [place] [address] Abs Neutrophile Cnt 3.4 10*3/uL Normal 1.8-7.0 [facility] Comment on above: Performed By: #### B MP3, HEMDF #### [facility] [address] [place] [address] Basophils/100 WBC (Bld) 0.9 % Normal 0.0-2.0 [facility] Comment on above: Performed By: #### B MP3, HEMDF #### [facility] [address] [place] [address] Eosinophils (Bld) [#/Vol] 0.2 10*3/uL Normal 0.0-0.5 [facility] [employer] Comment on above: Performed By: #### B MP3, HEMDF #### [facility] [address] [place] [address] Eosinophils/100 WBC (Bld) 2.7 % Normal 1.0-6.0 [facility] Comment on above: Performed By: #### B MP3, HEMDF #### [facility] [address] [place] [address] Erythrocyte distribution width (RBC) [Ratio] 15.7 % High 11.5-14.5 [facility] Comment on above: Performed By: #### B MP3, HEMDF #### [facility] [address] [place] [address] Granulocytes/100 WBC (Bld) 57.6 % Normal 40.0-80.0 [facility] Comment on above: Performed By: #### B MP3, HEMDF #### [facility] [address] [place] [address] Hematocrit (Bld) [Volume fraction] 35.2 % Low 40.0-52.0 [facility] Comment on above: Performed By: #### B MP3, HEMDF #### [facility] [address] [place] [address] Hemoglobin (Bld) [Mass/Vol] 12.0 g/dL Low 13.0-18.0 [facility] Comment on above: Performed By: #### B MP3, HEMDF #### [facility] [address] [place] [address] Lymphocytes (Bld) [#/Vol] 1.8 10*3/uL Normal 1.0-4.3 [facility] Comment on above: Performed By: #### B MP3, HEMDF #### [facility] [address] [place] [address] Lymphocytes/100 WBC (Bld) 29.9 % Normal 20.0-40.0 [facility] Comment on above: Performed By: #### B MP3, HEMDF #### [facility] [address] [place] [address] MCH (RBC) [Entitic mass] 33.0 pg Normal 26.0-34.0 [facility] Comment on above: Performed By: #### B MP3, HEMDF #### [facility] [address] [place] [address] MCHC 34.0 % Normal 32.0-36.0 [facility] Comment on above: Performed By: #### B MP3, HEMDF #### [facility] [address] [place] [address] MCV (RBC) [Entitic vol] 97.0 fL Normal 80.0-98.0 [facility] [employer] Comment on above: Performed By: #### B MP3, HEMDF #### [facility] [address] [place] [address] Monocytes (Bld) [#/Vol] 0.5 10*3/uL Normal 0.0-0.8 [facility] Comment on above: Performed By: #### B MP3, HEMDF #### [facility] [address] [place] [address] Monocytes/100 WBC (Bld) 8.9 % Normal 2.0-10.0 [facility] Comment on above: Performed By: #### B MP3, HEMDF #### [facility] [address] [place] [address] Platelet mean volume (Bld) [Entitic vol] 9.1 fL Normal 7.4-10.4 [facility] Comment on above: Performed By: #### B MP3, HEMDF #### [facility] [address] [place] [address] Platelets (Bld) [#/Vol] 109 10*3/uL Low 140-440 [facility] Comment on above: Performed By: #### B MP3, HEMDF #### [facility] [address] [place] [address] RBC (Bld) [#/Vol] 3.62 10*6/uL Low 4.40-5.90 [facility] Comment on above: Performed By: #### B MP3, HEMDF #### [facility] [address] [place] [address] WBC (Bld) [#/Vol] 5.9 10*3/uL Normal 3.6-10.7 [facility] Comment on above: Performed By: #### B MP3, HEMDF #### [facility] [address] [place] [address] VL Venous Duplex US Lower Ex t Bilateralon 12-08-2020 VL Venous Duplex US Lower Ext Bilateral Patient Name: ADAL MANCERA Ultrasound ACCESSION EXAM DATE/TIME PROCEDURE ORDERING PROVIDER [id number] 12/08/2020 16:47 EDT VL Venous Duplex US ROSSANA LUGO, NIKITA Craft Lower Ext Bilateral CPT code 26697 Reason For Exam (VL Venous Duplex US Lower Ext Bilateral) leg pain and swelling Report [facility] -- Lower Extremity Venous Duplex Report Patient Calder[place] : 1940 Study 12/08/2020 Name: Adal Shen (80yrs) Date: Patient [id number] Age: 80 Account: [id number] ID: Gender: M Loc: 444 BP: Ordering Physician: Nikita Lugo Mail Machine Operator: Jennifer Dumas RDMS, RVT Interpreting Physician: Mann Mcbride MD -- Location: [facility] -- Indications: Edema of the upper and lower bilateral legs -- Preliminary result was reported to TEMO Lugo by Jennifer Dumas on 12/08/2020 , at 04:15 PM. Correct read-back was verified. -- Conclusions 1. There is no evidence of acute deep or superficial venous thrombosis noted in the right lower extremity. 2. There is no evidence of acute deep or superficial venous thrombosis noted in the left lower extremity. -- History: Risk factors: Hypercoagulable state. Immobility. Age over 65 years. -- Study data: Complete lower extremity venous duplex evaluation. Grayscale 2D imaging, color Doppler imaging, and spectral Doppler Ultrasound Report analysis. Location: Bedside. Procedure: A vascular evaluation was performed with the patient in the supine position. Images were obtained using a [employer]anza E9 vascular ultrasound machine. -- Venous flow and imaging: + ---+-------+ -+ +Location +Overall+Properties + + ---+-------+ -+ +R CFV +Patent +Normal phasicity; spontaneous; + + + +normal augmentation; compressible + + ---+-------+ -+ +R saphenofemoral junction+Patent +Compressible + + ---+-------+ -+ +R profunda femoral +Patent +Normal phasicity; spontaneous; + + + +normal augmentation + + ---+-------+ -+ +R FV - prox. +Patent +Compressible + + ---+-------+ -+ +R FV - mid +Patent +Normal phasicity; spontaneous; + + + +normal augmentation; compressible + + ---+-------+ -+ +R FV - distal +Patent +Compressible + + ---+-------+ -+ +R popliteal +Patent +Normal phasicity; spontaneous; + + + +normal augmentation; compressible + + ---+-------+ -+ +R gastrocnemius +Patent +Compressible + + ---+-------+ -+ +R PTV +Patent +Compressible + + ---+-------+ -+ +R peroneal +Patent +Compressible + + ---+-------+ -+ +R soleal +Patent +Compressible + + ---+-------+ -+ +R GSV +Patent +Compressible + + ---+-------+ -+ +L CFV +Patent +Normal phasicity; spontaneous; + + + +normal augmentation; compressible + + ---+-------+ -+ +L saphenofemoral junction+Patent +Compressible + + ---+-------+ -+ +L profunda femoral +Patent +Normal phasicity; spontaneous; + + + +normal augmentation + + ---+-------+ -+ +L FV - prox. +Patent +Compressible + + ---+-------+ -+ +L FV - mid +Patent +Normal phasicity; spontaneous; + + + +normal augmentation; compressible + + ---+-------+ -+ +L FV - distal +Patent +Compressible + + ---+-------+ -+ +L popliteal +Patent +Normal phasicity; spontaneous; + + + +normal augmentation; compressible + + (more content not included)... Normal [facility] XR HIP LEFT (2-3 VIEWS)Order ed By: Nikita Lugo on 12-08-2020 Patient Name: ADAL MARIE Diagnostic Radiology ACCESSION EXAM DATE/TIME PROCEDURE ORDERING PROVIDER [id number] 12/08/2020 16:06 EDT CR Hip w/ Pelvis 2 or 3 ROSSANA LUGO DANIEL M Views Left n CPT code 91061 Reason For Exam (CR Hip w/ Pelvis 2 or 3 Views Left n) pain Report Left hip 12/08/2020. Clinical Information: left hip pain. Findings: An AP view of the pelvis and AP and frogleg lateral views of the left hip reveal the bones to be well mineralized. There is no evidence of fracture or dislocation. The joint spaces are maintained. Impression: No acute process. Report Dictated on --- Final --- Dictating Physician: MD QUINTANILLA RISA Signed Date and Time: 12/08/2020 4:15 pm Signed by: MD QUINTANILLA RISA Transcribed Date and Time: 12/08/2020 4:16 [facility] Work Phone: [place], [facility] Incoming Radiology Results From [facility] - 12/08/2020 4:16 PM EDT Patient Name: ADAL MANCERA Diagnostic Radiology ACCESSION EXAM DATE/TIME PROCEDURE ORDERING PROVIDER [id number] 12/08/2020 16:06 EDT CR Hip w/ Pelvis 2 or 3 ROSSANA LUGO DANIEL M Views Left n CPT code 34000 Reason For Exam (CR Hip w/ Pelvis 2 or 3 Views Left n) pain Report Left hip 12/08/2020. Clinical Information: left hip pain. Findings: An AP view of the pelvis and AP and frogleg lateral views of the left hip reveal the bones to be well mineralized. There is no evidence of fracture or dislocation. The joint spaces are maintained. Impression: No acute process. Report Dictated on --- Final --- Dictating Physician: MD QUINTANILLA RISA Signed Date and Time: 12/08/2020 4:15 pm Signed by: MD QUINTANILLA RISA Transcribed Date and Time: 12/08/2020 4:16 [facility] Work Phone: XR LUMBAR SPINE (2-3 VIEWS)O rdered By: Nikita Lugo on 12-08-2020 Patient Name: ADAL MARIE Diagnostic Radiology ACCESSION EXAM DATE/TIME PROCEDURE ORDERING PROVIDER [id number] 12/08/2020 16:06 EDT CR Spine Lumbosacral 2 ROSSANA LUGO DANIEL M or 3 Views CPT code 06670 Reason For Exam (CR Spine Lumbosacral 2 or 3 Views) low back pain Report Lumbar spine: 12/08/2020 . Clinical Information: Low back pain. Findings: AP, lateral and coned-down lateral views of the lumbar spine reveal moderate narrowing at all lumbar levels similar to prior study 02/07/2020. The heights of the lumbar vertebral bodies are be maintained. The alignment is anatomic. No compression deformities are identified. There is no evidence of spondylolisthesis. There is spurring throughout the lumbar spine and sclerosis of the apophyseal joints at all lumbar levels. Impression: No acute abnormality identified. Degenerative changes unchanged from prior study. Report Dictated on --- Final --- Dictating Physician: MD QUINTANILLA RISA Signed Date and Time: 12/08/2020 4:29 pm Signed by: MD QUINTANILLA RISA Transcribed Date and Time: 12/08/2020 4:30 [facility] Work Phone: [place], [facility] Incoming Radiology Results From [facility] - 12/08/2020 4:30 PM EDT Patient Name: ADAL MANCERA Diagnostic Radiology ACCESSION EXAM DATE/TIME PROCEDURE ORDERING PROVIDER [id number] 12/08/2020 16:06 EDT CR Spine Lumbosacral 2 BRITTNEY, ROSSANA, NIKITA M or 3 Views CPT code 66964 Reason For Exam (CR Spine Lumbosacral 2 or 3 Views) low back pain Report Lumbar spine: 12/08/2020 . Clinical Information: Low back pain. Findings: AP, lateral and coned-down lateral views of the lumbar spine reveal moderate narrowing at all lumbar levels similar to prior study 02/07/2020. The heights of the lumbar vertebral bodies are be maintained. The alignment is anatomic. No compression deformities are identified. There is no evidence of spondylolisthesis. There is spurring throughout the lumbar spine and sclerosis of the apophyseal joints at all lumbar levels. Impression: No acute abnormality identified. Degenerative changes unchanged from prior study. Report Dictated on --- Final --- Dictating Physician: MD QUINTANILLA RISA Signed Date and Time: 12/08/2020 4:29 pm Signed by: MD QUINTANILLA RISA Transcribed Date and Time: 12/08/2020 4:30 [facility] Work Phone: ECHO Complete 2D W Doppler W [place] 11-09-2020 TRANSTHORACIC ECHOCARDIOGRAM PATIENT: Adal Mancera STUDY DATE: 11/09/2020 : 1940 AGE: 80 HT/WT: 188 cm (74 93 kg in) (204.6 lb) GENDER: M BP: LOCATION: [facility] PATIENT Outpatient [facility] STATUS: *ORDERING PHYSICIAN: * No, *FELLOW: * Christina Amato *READING PHYSICIAN: * Na Anderson *ASBESTOS HAZARD ABATEMENT WORKER: * Awilda Jeffery MD -- INDICATIONS: SOB. -- CONCLUSIONS SUMMARY: 1. Left ventricle: The cavity size is normal. Wall thickness is mildly increased. Systolic function is normal. The estimated ejection fraction is 55%. There are no regional wall motion abnormalities. Unable to assess LV diastolic function due to atrial fibrillation 2. Left atrium: The atrium is severely dilated. BRET = 75 ml/m2. 3. Mitral valve: Severely calcified, posterior annulus. Mildly thickened leaflets. There is mild, 1+ regurgitation, directed posteriorly. 4. Aortic valve: There is a 26.0 mm Mendez S3 bioprosthetic valve. There is mild-moderate perivalvular regurgitation, which is posteriorly directed, and appears similar to the previously described assessment. The peak systolic velocity is 2 m/sec. The mean systolic gradient is 9 mm Hg. The peak systolic gradient is 16 mm Hg. Dimensionless index: 0.65. -- STUDY DATA: Complete transthoracic echocardiogram. Procedure: Image quality was fair. M-mode, complete 2D, complete spectral Doppler, and color flow Doppler images were acquired and archived for permanent storage and are available for subsequent review. Study status: Routine. Patient status: Outpatient. ECG RHYTHM: Atrial fibrillation -- FINDINGS LEFT VENTRICLE: The cavity size is normal. Wall thickness is mildly increased. There is mild concentric hypertrophy. Systolic function is normal. The estimated ejection fraction is 55%. There are no regional wall motion abnormalities. Unable to assess LV diastolic function due to atrial fibrillation RIGHT VENTRICLE: The cavity size is normal. Systolic function is normal. Right ventricular systolic pressure is within the normal range. The estimated peak pressure is 30 mm Hg. VENTRICULAR SEPTUM: There is no evidence of a ventricular septal defect. LEFT ATRIUM: The atrium is severely dilated. BRET = 75 ml/m2. RIGHT ATRIUM: The atrium is moderately dilated. ATRIAL SEPTUM: Color Doppler shows no shunt. MITRAL VALVE: Severely calcified, posterior annulus. Mildly thickened leaflets. Doppler: There is mild, 1+ regurgitation, directed posteriorly. The valve area (LVOT continuity) is 3.0 cm^2. The mean diastolic gradient is 3 mm Hg. The peak diastolic gradient is 6 mm Hg. AORTIC VALVE: There is a 26.0 mm Mendez S3 bioprosthetic valve. Doppler: There is mild-moderate perivalvular regurgitation, which is posteriorly directed, and appears similar to the previously described assessment. Dimensionless index: 0.65. The valve area by the velocity-time integral method is 2.1 cm^2. The valve area index by the velocity-time integral method is 1 cm^2/m^2. The mean systolic gradient is 9 mm Hg. The peak systolic gradient is 16 mm Hg. The peak systolic velocity is 2 m/sec. TRICUSPID VALVE: Structurally normal valve. Doppler: There is trivial, less than 1+ regurgitation. PULMONIC VALVE: Structurally normal valve. Doppler: There is mild, 1+ regurgitation. AORTA: The aorta is mildly dilated. PERICARDIUM: There is no pericardial effusion. SYSTEMIC VEINS: Inferior vena cava: The vessel is normal. The IVC collapses by greater than 50% with inspiration. -- Measurements Value 09/28/2018 Reference Ascending aorta ID (H) 4.0 cm 2.2 - 3.8 Ascending aorta ID/bsa, 1.8 cm/m^2 1.1 - 1.9 A-P Ascending aorta ID, A-P, 4.0 cm 3.9 S Ascending aorta ID/bsa, 1.8 cm/m^2 A-P, S Left ventricle Value 09/28/2018 Reference LV ID, ED 4.3 cm 4.9 4.2 - 5.8 LV ID, ES 3.1 cm 3.5 2.5 - 4.0 LV ID/bsa, ED (L) 2.0 cm/m^2 2.2 - 3.0 LV ID/bsa, ES 1.4 cm/m^2 1.3 - 2.1 LV PW thickness, ED (H) 1.2 cm 1.6 0.6 - 1.0 LV PW/LV ID ratio, ED 0.27 LV wall mass (H) 209 g 96 - 200 LV wall mass/bsa 94 g/m^2 50 - 102 Stroke volume/bsa, 1-p 33.6 ml/m^2 A2C LV end-diastolic volume, 143 ml 69 - 185 1-p A4C LV end-systolic volume, 65 ml 22 - 78 1-p A4C LV end-diastolic volume, 146 ml 62 - 150 2-p LV end-systolic volume, (H) 66 ml 21 - 61 2-p LV ejection fraction, 2-p 55 % 52 - 72 Ventricular septum Value 09/28/2018 Reference IVS thickness, ED (H) 1.4 cm 1.6 0.6 - 1.0 LVOT Value 09/28/2018 Reference LVOT ID, A-P 2.0 cm 2.1 LVOT mean velocity, S 0.8 m/sec 0.7 LVOT peak gradient, S 5 mm Hg 4 Stroke volume (SV), LVOT 85 ml 83 DP Stroke index (SV/bsa), 39 ml/m^2 39 LVOT DP Aortic valve Value 09/28/2018 Reference Aortic valve peak 2 m/sec 2.2 velocity, S Aortic valve mean 1.4 m/sec 1.4 velocity, S Aortic mean gradient, S 9 mm Hg 10 Aortic peak gradient, S 16 mm Hg 20 DI 0.65 0.53 Aortic valve area, VTI 2.1 cm^2 1.7 Aortic valve area/bsa, 1 cm^2/m^2 0.8 VTI Aortic regurg pressure 543 ms 557 half-time Left atrium Value 09/28/2018 Reference LA volume/bsa, ES, 2-p (H) 75 ml/m^2 77 16 - 34 Mitral valve Value 09/28/2018 Reference Mitral E-wave peak 1 m/sec velocity Mitral A-wave peak 0 m/sec velocity Mitral deceleration time 260 ms Mitral mean gradient, D 3 mm Hg Mitral peak gradient, D 6 mm Hg Mitral E/A ratio, peak 68.4 Mitral valve area, LVOT 3.0 cm^2 continuity Tricuspid valve Value 09/28/2018 Reference Tricuspid regurg peak 2.6 m/sec 2.1 <=2.8 velocity Tricuspid peak RV-RA 27 mm Hg 17 gradient Right atrium Value 09/28/2018 Reference RA area, ES, A4C (H) 26 cm^2 34 10 - 18 Systemic veins Value 09/28/2018 Reference Estimated RAP 3 mm Hg 3 Right ventricle Value 09/28/2018 Reference TAPSE, 2D 1.8 cm 1.7 - 3.1 RV pressure, S, DP 30 mm Hg 20 RV s', lateral 6.6 cm/sec 6.0 - 13.4 Legend: (L) and (H) dada values outside specified reference range. Electronically signed by Na Anderson MD 11/09/2020 15:00 Prior Signatures: M.dot Work Phone: [facility] Incoming Cardiology Results From [facility] - 11/09/2020 3:00 PM EDT TRANSTHORACIC ECHOCARDIOGRAM PATIENT: Adal Mancera STUDY DATE: 11/09/2020 : 1940 AGE: 80 HT/WT: 188 cm (74 93 kg in) (204.6 lb) GENDER: M BP: LOCATION: [facility] PATIENT Outpatient [facility] STATUS: *ORDERING PHYSICIAN: * No, *FELLOW: * Christina Amato *READING PHYSICIAN: * Na Anderson *[employer]AT[employer] WORKER: Awilda Lucio MD -- INDICATIONS: SOB. -- CONCLUSIONS SUMMARY: 1. Left ventricle: The cavity size is normal. Wall thickness is mildly increased. Systolic function is normal. The estimated ejection fraction is 55%. There are no regional wall motion abnormalities. Unable to assess LV diastolic function due to atrial fibrillation 2. Left atrium: The atrium is severely dilated. BRET = 75 ml/m2. 3. Mitral valve: Severely calcified, posterior annulus. Mildly thickened leaflets. There is mild, 1+ regurgitation, directed posteriorly. 4. Aortic valve: There is a 26.0 mm Mendez S3 bioprosthetic valve. There is mild-moderate perivalvular regurgitation, which is posteriorly directed, and appears similar to the previously described assessment. The peak systolic velocity is 2 m/sec. The mean systolic gradient is 9 mm Hg. The peak systolic gradient is 16 mm Hg. Dimensionless index: 0.65. -- STUDY DATA: Complete transthoracic echocardiogram. Procedure: Image quality was fair. M-mode, complete 2D, complete spectral Doppler, and color flow Doppler images were acquired and archived for permanent storage and are available for subsequent review. Study status: Routine. Patient status: Outpatient. ECG RHYTHM: Atrial fibrillation -- FINDINGS LEFT VENTRICLE: The cavity size is normal. Wall thickness is mildly increased. There is mild concentric hypertrophy. Systolic function is normal. The estimated ejection fraction is 55%. There are no regional wall motion abnormalities. Unable to assess LV diastolic function due to atrial fibrillation RIGHT VENTRICLE: The cavity size is normal. Systolic function is normal. Right ventricular systolic pressure is within the normal range. The estimated peak pressure is 30 mm Hg. VENTRICULAR SEPTUM: There is no evidence of a ventricular septal defect. LEFT ATRIUM: The atrium is severely dilated. BRET = 75 ml/m2. RIGHT ATRIUM: The atrium is moderately dilated. ATRIAL SEPTUM: Color Doppler shows no shunt. MITRAL VALVE: Severely calcified, posterior annulus. Mildly thickened leaflets. Doppler: There is mild, 1+ regurgitation, directed posteriorly. The valve area (LVOT continuity) is 3.0 cm^2. The mean diastolic gradient is 3 mm Hg. The peak diastolic gradient is 6 mm Hg. AORTIC VALVE: There is a 26.0 mm Mendez S3 bioprosthetic valve. Doppler: There is mild-moderate perivalvular regurgitation, which is posteriorly directed, and appears similar to the previously described assessment. Dimensionless index: 0.65. The valve area by the velocity-time integral method is 2.1 cm^2. The valve area index by the velocity-time integral method is 1 cm^2/m^2. The mean systolic gradient is 9 mm Hg. The peak systolic gradient is 16 mm Hg. The peak systolic velocity is 2 m/sec. TRICUSPID VALVE: Structurally normal valve. Doppler: There is trivial, less than 1+ regurgitation. PULMONIC VALVE: Structurally normal valve. Doppler: There is mild, 1+ regurgitation. AORTA: The aorta is mildly dilated. PERICARDIUM: There is no pericardial effusion. SYSTEMIC VEINS: Inferior vena cava: The vessel is normal. The IVC collapses by greater than 50% with inspiration. -- Measurements Value 09/28/2018 Reference Ascending aorta ID (H) 4.0 cm 2.2 - 3.8 Ascending aorta ID/bsa, 1.8 cm/m^2 1.1 - 1.9 A-P Ascending aorta ID, A-P, 4.0 cm 3.9 S Ascending aorta ID/bsa, 1.8 cm/m^2 A-P, S Left ventricle Value 09/28/2018 Reference LV ID, ED 4.3 cm 4.9 4.2 - 5.8 LV ID, ES 3.1 cm 3.5 2.5 - 4.0 LV ID/bsa, ED (L) 2.0 cm/m^2 2.2 - 3.0 LV ID/bsa, ES 1.4 cm/m^2 1.3 - 2.1 LV PW thickness, ED (H) 1.2 cm 1.6 0.6 - 1.0 LV PW/LV ID ratio, ED 0.27 LV wall mass (H) 209 g 96 - 200 LV wall mass/bsa 94 g/m^2 50 - 102 Stroke volume/bsa, 1-p 33.6 ml/m^2 A2C LV end-diastolic volume, 143 ml 69 - 185 1-p A4C LV end-systolic volume, 65 ml 22 - 78 1-p A4C LV end-diastolic volume, 146 ml 62 - 150 2-p LV end-systolic volume, (H) 66 ml 21 - 61 2-p LV ejection fraction, 2-p 55 % 52 - 72 Ventricular septum Value 09/28/2018 Reference IVS thickness, ED (H) 1.4 cm 1.6 0.6 - 1.0 LVOT Value 09/28/2018 Reference LVOT ID, A-P 2.0 cm 2.1 LVOT mean velocity, S 0.8 m/sec 0.7 LVOT peak gradient, S 5 mm Hg 4 Stroke volume (SV), LVOT 85 ml 83 DP Stroke index (SV/bsa), 39 ml/m^2 39 LVOT DP Aortic valve Value 09/28/2018 Reference Aortic valve peak 2 m/sec 2.2 velocity, S Aortic valve mean 1.4 m/sec 1.4 velocity, S Aortic mean gradient, S 9 mm Hg 10 Aortic peak gradient, S 16 mm Hg 20 DI 0.65 0.53 Aortic valve area, VTI 2.1 cm^2 1.7 Aortic valve area/bsa, 1 cm^2/m^2 0.8 VTI Aortic regurg pressure 543 ms 557 half-time Left atrium Value 09/28/2018 Reference LA volume/bsa, ES, 2-p (H) 75 ml/m^2 77 16 - 34 Mitral valve Value 09/28/2018 Reference Mitral E-wave peak 1 m/sec velocity Mitral A-wave peak 0 m/sec velocity Mitral deceleration time 260 ms Mitral mean gradient, D 3 mm Hg Mitral peak gradient, D 6 mm Hg Mitral E/A ratio, peak 68.4 Mitral valve area, LVOT 3.0 cm^2 continuity Tricuspid valve Value 09/28/2018 Reference Tricuspid regurg peak 2.6 m/sec 2.1 <=2.8 velocity Tricuspid peak RV-RA 27 mm Hg 17 gradient Right atrium Value 09/28/2018 Reference RA area, ES, A4C (H) 26 cm^2 34 10 - 18 Systemic veins Value 09/28/2018 Reference Estimated RAP 3 mm Hg 3 Right ventricle Value 09/28/2018 Reference TAPSE, 2D 1.8 cm 1.7 - 3.1 RV pressure, S, DP 30 mm Hg 20 RV s', lateral 6.6 cm/sec 6.0 - 13.4 Legend: (L) and (H) dada values outside specified reference range. Electronically signed by Na Anderson MD 11/09/2020 15:00 Prior Signatures: OFELAI Work Phone: Echo Complete w/wo Contrasto n 04-08-2021 Echo Complete w/wo Contrast Patient Name: ADAL MANCERA Ultrasound ACCESSION EXAM DATE/TIME PROCEDURE ORDERING PROVIDER [id number] 11/09/2020 13:53 EDT Echo Complete w/wo MD SARABIA DOUGLAS A Contrast Reason For Exam (Echo Complete w/wo Contrast) SOB Report TRANSTHORACIC ECHOCARDIOGRAM PATIENT: Adal Mancera STUDY DATE: 11/09/2020 : 1940 AGE: 80 HT/WT: 188 cm (74 93 kg in) (204.6 lb) GENDER: M BP: LOCATION: [facility] PATIENT Outpatient [facility] STATUS: *ORDERING PHYSICIAN: * No, *FELLOW: * Christina Amato *READING PHYSICIAN: * Na Anderson *[employer]AT[employer] WORKER: * Awilda Jeffery MD -- INDICATIONS: SOB. -- CONCLUSIONS SUMMARY: 1. Left ventricle: The cavity size is normal. Wall thickness is mildly increased. Systolic function is normal. The estimated ejection fraction is 55%. There are no regional wall motion abnormalities. Unable to assess LV diastolic function due to atrial fibrillation 2. Left atrium: The atrium is severely dilated. BRET = 75 ml/m2. 3. Mitral valve: Severely calcified, posterior annulus. Mildly thickened leaflets. There is mild, 1+ regurgitation, directed posteriorly. 4. Aortic valve: There is a 26.0 mm Mendez S3 bioprosthetic valve. There is mild-moderate perivalvular regurgitation, which is posteriorly directed, and appears similar to the previously described assessment. The peak systolic velocity is 2 m/sec. The mean systolic gradient is 9 mm Hg. The peak systolic gradient is 16 mm Hg. Dimensionless index: 0.65. -- STUDY DATA: Complete transthoracic echocardiogram. Procedure: Image quality was fair. M-mode, complete 2D, complete spectral Doppler, and color flow Doppler images were acquired and archived for permanent storage and are available for subsequent review. Study status: Routine. Patient status: Outpatient. ECG RHYTHM: Atrial fibrillation Ultrasound Report -- FINDINGS LEFT VENTRICLE: The cavity size is normal. Wall thickness is mildly increased. There is mild concentric hypertrophy. Systolic function is normal. The estimated ejection fraction is 55%. There are no regional wall motion abnormalities. Unable to assess LV diastolic function due to atrial fibrillation RIGHT VENTRICLE: The cavity size is normal. Systolic function is normal. Right ventricular systolic pressure is within the normal range. The estimated peak pressure is 30 mm Hg. VENTRICULAR SEPTUM: There is no evidence of a ventricular septal defect. LEFT ATRIUM: The atrium is severely dilated. BRET = 75 ml/m2. RIGHT ATRIUM: The atrium is moderately dilated. ATRIAL SEPTUM: Color Doppler shows no shunt. MITRAL VALVE: Severely calcified, posterior annulus. Mildly thickened leaflets. Doppler: There is mild, 1+ regurgitation, directed posteriorly. The valve area (LVOT continuity) is 3.0 cm^2. The mean diastolic gradient is 3 mm Hg. The peak diastolic gradient is 6 mm Hg. AORTIC VALVE: There is a 26.0 mm Mendez S3 bioprosthetic valve. Doppler: There is mild-moderate perivalvular regurgitation, which is posteriorly directed, and appears similar to the previously described assessment. Dimensionless index: 0.65. The valve area by the velocity-time integral method is 2.1 cm^2. The valve area index by the velocity-time integral method is 1 cm^2/m^2. The mean systolic gradient is 9 mm Hg. The peak systolic gradient is 16 mm Hg. The peak systolic velocity is 2 m/sec. TRICUSPID VALVE: Structurally normal valve. Doppler: There is trivial, less than 1+ regurgitation. PULMONIC VALVE: Structurally normal valve. Doppler: There is mild, 1+ regurgitation. AORTA: The aorta is mildly dilated. PERICARDIUM: There is no pericardial effusion. SYSTEMIC VEINS: Inferior vena cava: The vessel is normal. The IVC collapses by greater than 50% with inspiration. -- Measurements Value 09/28/2018 Reference Ascending aorta ID (H) 4.0 cm 2.2 - 3.8 Ascending aorta ID/bsa, 1.8 cm/m^2 1.1 - 1.9 A-P Ascending aorta ID, A-P, 4.0 cm 3.9 S Ascending aorta ID/bsa, 1.8 cm/m^2 A-P, S Left ventricle Value 09/28/2018 Reference LV ID, ED 4.3 cm 4.9 4.2 - 5.8 LV ID, ES 3.1 cm 3.5 2.5 - 4.0 LV ID/bsa, ED (L) 2.0 cm/m^2 2.2 - 3.0 LV ID/bsa, ES 1.4 cm/m^2 1.3 - 2.1 LV PW thickness, ED (H) 1.2 cm 1.6 0.6 - 1.0 LV PW/LV ID ratio, ED 0.27 LV wall mass (H) 209 g 96 - 200 LV wall mass/bsa 94 g/m^2 50 - 102 (more content not included)... Normal [facility] XR CERVICAL SPINE (4-5 VIEWS )on 02-27-2020 Patient Name: ADAL MARIE ---Diagnostic Radiology--- Exam Date/Time 02/27/2020 18:50:48 EDT Exam CR Spine Cervical 4+ Views Ordering Physician MAGED MALCOLM AMY L Accession Number [id number] CPT4 Codes 56609 () Reason For Exam neck pain Report CERVICAL SPINE SERIES CLINICAL INDICATION: Pain AP, lateral, swimmers, and odontoid plain films of the cervical spine were obtained. COMPARISON: None FINDINGS: No fracture or dislocation of the cervical spine is identified. There is no abnormal prevertebral soft tissue swelling. The dens and lateral masses of the C1 vertebral body appear within normal limits on the open mouth odontoid view. There is moderate, diffuse loss of intervertebral disc space height and degenerative endplate spurring throughout the cervical spine, worst at C5/C6. Moderate facet hypertrophic changes are also noted throughout the cervical spine. IMPRESSION: No fracture or dislocation of the cervical spine is identified. Diffuse degenerative changes of the cervical spine, worst at C5/C6. Report Dictated on --- Final --- Dictating Physician: MD RIVERA JONATHAN R Signed Date and Time: 02/27/2020 6:50 pm Signed by: MD RIVERA JONATHAN R Transcribed Date and Time: 02/27/2020 6:51 [facility], [place], [facility] Incoming Radiology Results From [facility] - 02/27/2020 6:51 PM EDT Patient Name: ADAL MANCERA ---Diagnostic Radiology--- Exam Date/Time 02/27/2020 18:50:48 EDT Exam CR Spine Cervical 4+ Views Ordering Physician MAGED MALCOLM AMY L Accession Number [id number] CPT4 Codes 05642 () Reason For Exam neck pain Report CERVICAL SPINE SERIES CLINICAL INDICATION: Pain AP, lateral, swimmers, and odontoid plain films of the cervical spine were obtained. COMPARISON: None FINDINGS: No fracture or dislocation of the cervical spine is identified. There is no abnormal prevertebral soft tissue swelling. The dens and lateral masses of the C1 vertebral body appear within normal limits on the open mouth odontoid view. There is moderate, diffuse loss of intervertebral disc space height and degenerative endplate spurring throughout the cervical spine, worst at C5/C6. Moderate facet hypertrophic changes are also noted throughout the cervical spine. IMPRESSION: No fracture or dislocation of the cervical spine is identified. Diffuse degenerative changes of the cervical spine, worst at C5/C6. Report Dictated on --- Final --- Dictating Physician: MD RIVERA JONATHAN R Signed Date and Time: 02/27/2020 6:50 pm Signed by: MD RIVERA JONATHAN R Transcribed Date and Time: 02/27/2020 6:51 [place], [place] XR LUMBAR SPINE (2-3 VIEWS)o n 02-27-2020 Patient Name: ADAL MARIE ---Diagnostic Radiology--- Exam Date/Time 02/27/2020 18:50:48 EDT Exam CR Spine Lumbosacral 2 or 3 Views Ordering Physician MAGED MALCOLM AMY L Accession Number [id number] CPT4 Codes 15757 () Reason For Exam Pain Report LUMBAR SPINE CLINICAL INDICATION: Back pain AP and lateral plain films of the lumbar spine were obtained. An additional coned down view of L5/S1 was also performed in the lateral projection. COMPARISON: 04/07/2007. FINDINGS: The alignment of the lumbar spine is normal. No fractures are seen. There is diffuse loss of intervertebral disc space height and degenerative endplate spurring throughout the lumbar spine, worst at L5/S1. Diffuse facet hypertrophic changes are also noted throughout the lumbar spine. There are no lytic or blastic lesions observed. The sacroiliac joints appear unremarkable. Cholecystectomy clips and right inguinal hernia repair clips are noted. IMPRESSION: No acute bony abnormality of the lumbar spine is seen. Moderate to advanced diffuse degenerative changes of the lumbar spine. Report Dictated on --- Final --- Dictating Physician: MD RIVERA JONATHAN R Signed Date and Time: 02/27/2020 6:47 pm Signed by: MD RIVERA JONATHAN R Transcribed Date and Time: 02/27/2020 6:51 [place], [place], [facility] Incoming Radiology Results From [facility] - 02/27/2020 6:51 PM EDT Patient Name: ADAL MANCERA ---Diagnostic Radiology--- Exam Date/Time 02/27/2020 18:50:48 EDT Exam CR Spine Lumbosacral 2 or 3 Views Ordering Physician MAGED MALCOLM, KYA Eddy Accession Number [id number] CPT4 Codes 34867 () Reason For Exam Pain Report LUMBAR SPINE CLINICAL INDICATION: Back pain AP and lateral plain films of the lumbar spine were obtained. An additional coned down view of L5/S1 was also performed in the lateral projection. COMPARISON: 04/07/2007. FINDINGS: The alignment of the lumbar spine is normal. No fractures are seen. There is diffuse loss of intervertebral disc space height and degenerative endplate spurring throughout the lumbar spine, worst at L5/S1. Diffuse facet hypertrophic changes are also noted throughout the lumbar spine. There are no lytic or blastic lesions observed. The sacroiliac joints appear unremarkable. Cholecystectomy clips and right inguinal hernia repair clips are noted. IMPRESSION: No acute bony abnormality of the lumbar spine is seen. Moderate to advanced diffuse degenerative changes of the lumbar spine. Report Dictated on --- Final --- Dictating Physician: MD RIVERA JONATHAN R Signed Date and Time: 02/27/2020 6:47 pm Signed by: MD RIVERA JONATHAN R Transcribed Date and Time: 02/27/2020 6:51 [place], [place] US SCROTUM AND TESTICLESOrde red By: Janae Yeh on 07-19-2019 Patient Name: ADAL MARIE ---Ultrasound--- Exam Date/Time 07/19/2019 13:00:00 EST Exam US Scrotum (Contents) Ordering Physician GERMAGED CHINCHILLA ERICA L Accession Number [id number] CPT4 Codes 80145 () Reason For Exam Testicular pain, unspecified Report ULTRASOUND SCROTUM: CLINICAL INDICATION: Testicular pain. TECHNIQUE: Ultrasonographic evaluation of the scrotal contents, including color flow and spectral Doppler imaging was performed. COMPARISON: None. FINDINGS: RIGHT: Testicle: Normal in size without focal lesion. Heterogeneous echotexture of the testicle. Normal color and Doppler waveforms Size: 3.3 x 1.3 x 2.6 cm Epididymis: Normal in size and echotexture. There is a cyst measuring 0.3 cm. Hydrocele: None Varicocele*: Present LEFT: Testicle: Normal in size without focal lesion. Heterogeneous echotexture of the testicle. Normal color and Doppler waveforms Size: 3.3 x 1.3 x 2.1 cm Epididymis: Normal in size and echotexture. There is a cyst measuring 0.6 cm. Hydrocele: None Varicocele: Present Other Findings: None IMPRESSION: 1. No testicular torsion or epididymoorchitis. 2. Bilateral varicoceles. 3. Mild heterogeneity of the bilateral testicles, nonspecific but can be seen in history of trauma, infection or seminiferous tubular atrophy. Report Dictated on --- Final --- Dictating Physician: MD MURRELL NICHOLAS Signed Date and Time: 07/19/2019 3:41 pm Signed by: MD MURRELL NICHOLAS Transcribed Date and Time: 07/19/2019 3:42 [facility] Work Phone: [place], [facility] Incoming Rad[facility] Results From [facility] - 07/19/2019 3:42 PM EST Patient Name: ADAL MANCERA ---Ultrasound--- Exam Date/Time 07/19/2019 13:00:00 EST Exam US Scrotum (Contents) Ordering Physician MAGED YEH ERICA L Accession Number [id number] CPT4 Codes 24721 () Reason For Exam Testicular pain, unspecified Report ULTRASOUND SCROTUM: CLINICAL INDICATION: Testicular pain. TECHNIQUE: Ultrasonographic evaluation of the scrotal contents, including color flow and spectral Doppler imaging was performed. COMPARISON: None. FINDINGS: RIGHT: Testicle: Normal in size without focal lesion. Heterogeneous echotexture of the testicle. Normal color and Doppler waveforms Size: 3.3 x 1.3 x 2.6 cm Epididymis: Normal in size and echotexture. There is a cyst measuring 0.3 cm. Hydrocele: None Varicocele*: Present LEFT: Testicle: Normal in size without focal lesion. Heterogeneous echotexture of the testicle. Normal color and Doppler waveforms Size: 3.3 x 1.3 x 2.1 cm Epididymis: Normal in size and echotexture. There is a cyst measuring 0.6 cm. Hydrocele: None Varicocele: Present Other Findings: None IMPRESSION: 1. No testicular torsion or epididymoorchitis. 2. Bilateral varicoceles. 3. Mild heterogeneity of the bilateral testicles, nonspecific but can be seen in history of trauma, infection or seminiferous tubular atrophy. Report Dictated on --- Final --- Dictating Physician: MD MURRELL NICHOLAS Signed Date and Time: 07/19/2019 3:41 pm Signed by: MD MURRELL NICHOLAS Transcribed Date and Time: 07/19/2019 3:42 [facility] Work Phone: Basic Metabolic Panelon 05-3 Anion gap 13 Normal [facility] Comment on above: Performed By: #### H ZULEMA RICH3 ####[facility] [address] [place] [address] Calcium 9.4 mg/dL Normal 8.4-10.2 [facility] Comment on above: Performed By: #### H ZULEMA RICH3 ####[facility] [address] [place] [address] CO2 28 mmol/L Normal 22-30 [facility] Comment on above: Performed By: #### H ZULEMA RICH3 ####[facility] [place] [address] Glucose mass conc 107 mg/dL High 70-100 [facility] Comment on above: Performed By: #### H ZULEMA RICH3 ####[facility] [id number] [place] [address] Urea nitrogen 20 mg/dL Normal 7-20 [facility] Comment on above: Performed By: #### H HILARIO BMP3 ####[facility] [id number] [place], [place] Creatinine 1.35 mg/dL High 0.52-1.25 [facility] Comment on above: Performed By: #### H HILARIO BMP3 ####[facility] [id number] [place], [place] eGFR (black) mL/min/{1.73_m2} Normal >60 [facility] Comment on above: Performed By: #### H HILARIO BMP3 ####[id number] [place], [place] eGFR (non-black) 51.5 mL/min/{1.73_m2} Normal >60 [facility] Comment on above: Result Comment: Sour ce- MDRD equation with creatinine calibration to IDMS(NKDEP) eGFR not recommended for drug dose adjustment Performed By: #### H HILARIO BMP3 ####[facility] [address] [place], [place] Potassium molar conc 5.0 mmol/L Normal 3.5-5.1 [facility] Comment on above: Performed By: #### H HILARIO BMP3 ####[id number] [place], [place] Sodium 147 mmol/L High 137-145 [facility] Comment on above: Performed By: #### H HILARIO BMP3 ####[id number] [place], [place] Chloride 106 mmol/L Normal 98-107 [facility] Comment on above: Performed By: #### H HILARIO BMP3 ####[facility] [id number] [place], [place] Echo Complete w/wo Contrasto n 12-31-2017 Echo Complete w/wo Contrast Patient Name: ADAL MANCERA Ultrasound Exam Date/Time 12/31/2017 16:31:21 EDT Exam Echo Complete w/wo Contrast Ordering Physician ANUSHKA CHRISTENSEN, RAMONITA Accession Number [id number] Reason For Exam one yr post TAVR Report TRANSTHORACIC ECHOCARDIOGRAM PATIENT: Adal Mancera STUDY DATE: 12/31/2017 : 1940 AGE: 77 HT/WT: 188 cm (74 86.2 kg in) (189.6 lb) GENDER: M BP: 151 / 91 LOCATION: [facility] and PATIENT Outpatient [facility] STATUS: *ORDERING PHYSICIAN: * Ramonita Christensen *READING PHYSICIAN: * Mann Moreno MD *ASBESTOS HAZARD ABATEMENT WORKER: * Mitzi Hernandez ------ --- INDICATIONS: ONE YR POST TAVR. ------ --- HISTORY: TAVR NOVEMBER 2016. ------ --- CONCLUSIONS SUMMARY: 1. Left ventricle: The cavity size is normal. Wall thickness is normal. Systolic function is by visual assessment. The estimated ejection fraction is 60%. 2. Left atrium: The atrium is moderately dilated. 3. Right atrium: The atrium is moderately dilated. 4. Aortic valve: A bioprosthesis is present. There is moderate-severe perivalvular regurgitation. Peak velocity (S): 2.4 m/sec. Mean gradient (S): 12 mm Hg. Valve area (VTI): 0.9 cm2. ------ --- STUDY DATA: Complete transthoracic echocardiogram. Procedure: Image quality was adequate. M-mode, complete 2D, complete spectral Doppler, and color flow Doppler images were acquired and archived for permanent storage and are available for subsequent review. Study status: Routine. Patient status: Outpatient. ------ --- FINDINGS LEFT VENTRICLE: The cavity size is normal. Wall thickness is normal. Systolic function is by visual assessment. The estimated ejection fraction is 60%. There are no regional wall motion abnormalities. RIGHT VENTRICLE: The cavity size is normal. Wall thickness is normal. Systolic function is normal. Right ventricular systolic pressure is within the normal range. VENTRICULAR SEPTUM: There is no evidence of a ventricular septal defect. LEFT ATRIUM: The atrium is moderately dilated. RIGHT ATRIUM: The atrium is moderately dilated. ATRIAL SEPTUM: Color Doppler shows no evidence of shunt. MITRAL VALVE: Moderately thickened, mildly calcified leaflets. Doppler: There is trivial, less than 1+ regurgitation. ERO BY PISA: 0.1 cm2. AORTIC VALVE: A bioprosthesis is present. Doppler: There is moderate-severe perivalvular regurgitation. Dimensionless index: 0.29. Valve area (VTI): 0.9 cm2. Indexed valve area (VTI): 0.4 cm2/m2. Mean gradient (S): 12 mm Hg. Peak gradient (S): 22 mm Hg. Peak velocity (S): 2.4 m/sec. TRICUSPID VALVE: Structurally normal valve. Doppler: There is trivial, less than 1+ regurgitation. PULMONIC VALVE: Structurally normal valve. Doppler: There is mild, 1+ regurgitation. AORTA: The aorta is mildly dilated. PULMONARY ARTERY: Main pulmonary artery: Normal. PERICARDIUM: There is no pericardial effusion. SYSTEMIC VEINS: Inferior vena cava: The vessel is normal. The IVC collapses by greater than 50% with inspiration. ------ --- Measurements Left ventricle Value 01/01/2017 Reference LV ID, ED 4.9 cm 4.9 4.2 - 5.9 LV ID, ES 3.7 cm 3.1 ------- -- LV PW thickness, ED (H) 1.1 cm 1.3 0.6 - 1.0 LV end-diastolic volume, 1-p A4C (H) 161 ml 135 67 - 155 LV end-systolic volume, 1-p A4C (H) 93 ml 69 22 - 58 LV end-diastolic volume, 2-p 155 ml 143 67 - 155 LV end-systolic volume, 2-p (H) 85 ml 71 22 - 58 LV ejection fraction, 2-p (L) 45 % 65 >=55 Ventricular septum Value 01/01/2017 Reference IVS thickness, ED (H) 1.3 cm 1.2 0.6 - 1.0 LVOT Value 01/01/2017 Reference LVOT ID, A-P 2.0 cm 2.0 ------- -- LVOT mean velocity, S 0.4 m/sec ------- -- LVOT VTI, S 14.5 cm 30.9 ------- -- LVOT peak gradient, S 1 mm Hg 8 ------- -- Stroke volume (SV), LVOT DP 44 ml 94 ------- -- Stroke index (SV/bsa), LVOT DP 21 ml/m2 44 -------- - Aortic valve Value 01/01/2017 Reference Aortic valve peak velocity, S 2.4 m/sec 2.4 ------- -- Aortic valve mean velocity, S 1.7 m/sec 1.7 ------- -- Aortic valve VTI, S 50.9 cm 54.5 ------- -- Aortic mean gradient, S 12 mm Hg 13 ------- -- Aortic peak gradient, S 22 mm Hg 23 ------- -- DI 0.29 0.57 ------- -- Aortic valve area, VTI 0.9 cm2 2.1 -------- - Aortic valve area/bsa, VTI 0.4 cm2/m2 1 --------- Aortic regurg pressure half-time 609 ms 534 ------- -- Aorta Value 01/01/2017 Reference Ascending aorta ID, max 3.9 cm ------- -- Left atrium Value 01/01/2017 Reference LA volume/bsa, ES, 2-p 54 ml/m2 48 -------- - Mitral valve Value 01/01/2017 Reference ERO 0.1 cm2 0.1 -------- - Tricuspid valve Value 01/01/2017 Reference Tricuspid regurg peak velocity 2 m/sec 2.8 ------- -- Tricuspid peak RV-RA gradient 16 mm Hg 30 ------- -- Right atrium Value 01/01/2017 Reference RA area, ES, A4C (H) 30 cm2 28 10 - 18 Right ventricle Value 01/01/2017 Reference RV ID, minor axis, ED, A4C base 3.4 cm 2.4 - 4.2 RV ID, minor axis, ED, A4C mid 3.1 cm 4.7 2.0 - 3.5 Legend: (L) and (H) dada values outside specified reference range. Electronically signed by Mann Moreno MD 12/31/2017 17:06 Final Dictated: 12/31/2017 5:07 pm Dictating Physician: MANN MORENO Signed Date and Time: 12/31/2017 5:06 pm Signed by: MANN MORENO [facility] Hemogramon 12-31-2017 Erythrocyte distribution width Auto Ratio (RBC) 14.2 % Normal 11.5-14.5 [facility] Comment on above: Performed By: #### H HILARIO BMP3 ####[address] Erythrocytes (RBC) 4.34 10*6/uL Low 4.40-5.90 [facility] Comment on above: Performed By: #### H HILARIO BMP3 ####[address] Hematocrit (HCT) 41.7 % Normal 40.0-52.0 [facility] Comment on above: Performed By: #### H HILARIO BMP3 ####[address] Hemoglobin mass conc (Bld) 14.1 g/dL Normal 13.0-18.0 [facility] Comment on above: Performed By: #### H HILARIO BMP3 ####[address] MCH 32.4 pg Normal 26.0-34.0 [facility] Comment on above: Performed By: #### H HILARIO BMP3 ####[address] MCHC mass conc (RBC) 33.7 % Normal 32.0-36.0 [facility] Comment on above: Performed By: #### H HILARIO BMP3 ####[address] MCV 95.9 fL Normal 80.0-98.0 [facility] Comment on above: Performed By: #### H HILARIO BMP3 ####[address] Platelet mean volume (PMV) 9.2 fL Normal 7.4-10.4 [facility] Comment on above: Performed By: #### Elaina RICH BMP3 ####[address] Platelets 123 10*3/uL Low 140-440 [facility] [facility] Comment on above: Performed By: #### H ZULEMA RICH3 ####[facility] [id number] [place], [place] WBC (Leukocytes) 7.2 10*3/uL Normal 3.6-10.7 [facility] [place] [facility] Comment on above: Performed By: #### H ZULEMA RICH3 ####[facility] [address] [place], [place] No Panel Information [facility] Vital Signs Date Time Vital Sign Value Performing Clinician Faci lity 12-04-2023 09:39-0400 Body mass index (BMI) [Ratio] 23.59 kg/m2 Lizzy Gonzalez MD Work Phone: [facility] 12-04-2023 09:39-0400 Body weight 81.1 kg Lizzy Gonzalez MD Work Phone: [facility] 10-30-2023 10:10-0400 Diastolic blood pressure 73 mm[Hg] Lizzy Gonzalez MD Work Phone: [facility] 10-30-2023 10:10-0400 Heart rate 62 /min Lizzy Gonzalez MD Work Phone: [facility] [employer] 10-30-2023 10:10-0400 Systolic blood pressure 123 mm[Hg] Lizzy Gonzalez MD Work Phone: [facility] 10-30-2023 10:06-0400 Body height 185.4 cm Lizzy Gonzalez MD Work Phone: [facility] [employer] 10-30-2023 10:06-0400 Body mass index (BMI) [Ratio] 24.94 kg/m2 Lizzy Gonzalez MD Work Phone: [facility] [employer] 10-30-2023 10:06-0400 Body weight 85.73 kg Lizzy Gonzalez MD Work Phone: [facility] 2023 08:51-0400 Diastolic blood pressure 64 mm[Hg] Dipak Quach MD Work Phone: [email or web address] 2023 08:51-0400 Systolic blood pressure 168 mm[Hg] Dipak Quach MD Work Phone: [facility] [employer] 2023 08:41-0400 Body height 188 cm Dipak Quach MD Work Phone: [facility] [employer] 2023 08:41-0400 Body mass index (BMI) [Ratio] 24.34 kg/m2 Dipak Quach MD Work Phone: [facility] [employer] 2023 08:41-0400 Body weight 86 kg Dipak Quach MD Work Phone: [facility] [employer] 2023 08:41-0400 Heart rate 59 /min Dipak Quach MD Work Phone: [facility] [employer] 2023 08:41-0400 SaO2% (BldA) [Mass fraction] 99 % Dipak Quach MD Work Phone: [facility] 11-20-2022 14:19-0400 Body height 187.96 cm Jody Sharma No Work Phone: [employer] Work Phone: 11-20-2022 14:19-0400 Body mass index (BMI) [Ratio] 26.96 kg/m2 Jody A No Work Phone: [employer] Work Phone: 11-20-2022 14:19-0400 Body surface area Derived from formula 2.22 m2 Jody A No Work Phone: [employer] Work Phone: 11-20-2022 14:19-0400 Body temperature 97.9 [degF] Jody A No Work Phone: [employer] Work Phone: 11-20-2022 14:19-0400 Body weight 95.26 kg Jody Mercernger Work Phone: -[facility] Work Phone: 11-20-2022 14:19-0400 Diastolic blood pressure 85 mm[Hg] Jody Mercernger Work Phone: [facility] Work Phone: 11-20-2022 14:19-0400 Heart rate 87 /min Jody Mercernger Work Phone: -[facility] Work Phone: 11-20-2022 14:19-0400 Systolic blood pressure 154 mm[Hg] Jody Mercernger Work Phone: -[facility] Work Phone: 05-13-2022 13:49-0400 Body height 187.96 cm Jody Mercernger Work Phone: -[facility] -[place] [address] Work Phone: 05-13-2022 13:49-0400 Body mass index (BMI) [Ratio] 26.96 kg/m2 Jody Mercernger Work Phone: [facility] [address] Work Phone: 05-13-2022 13:49-0400 Body surface area Derived from formula 2.22 m2 Jody Mercernger Work Phone: [facility] [address] Work Phone: 05-13-2022 13:49-0400 Body temperature 98.2 [degF] Jody Mercernger Work Phone: [facility] [address] Work Phone: 05-13-2022 13:49-0400 Body weight 95.26 kg Jody A No Work Phone: [facility] [address] Work Phone: 05-13-2022 13:49-0400 Diastolic blood pressure 86 mm[Hg] Jody A No Work Phone: [facility] [address] Work Phone: 05-13-2022 13:49-0400 Heart rate 86 /min Jody A No Work Phone: [facility] [address] Work Phone: 05-13-2022 13:49-0400 Respiratory rate 18 /min Jody A No Work Phone: [facility] [address] Work Phone: 05-13-2022 13:49-0400 Systolic blood pressure 136 mm[Hg] Jody A No Work Phone: [facility] [address] Work Phone: 10-15-2021 14:34-0400 Body height 187.96 cm Jody A No Work Phone: [facility] Work Phone: 10-15-2021 14:34-0400 Body mass index (BMI) [Ratio] 26.96 kg/m2 Jody A No Work Phone: [facility] Work Phone: 10-15-2021 14:34-0400 Body surface area Derived from formula 2.22 m2 Jody A No Work Phone: [facility] Work Phone: 10-15-2021 14:34-0400 Body temperature 98 [degF] Jody A No Work Phone: [employer]-[facility] Work Phone: 10-15-2021 14:34-0400 Body weight 95.26 kg Jody Jimenezer Work Phone: [employer] Work Phone: 10-15-2021 14:34-0400 Diastolic blood pressure 82 mm[Hg] Jody Jimenezer Work Phone: [employer] Work Phone: 10-15-2021 14:34-0400 Heart rate 90 /min Jody Jimenezer Work Phone: [facility] [facility] Work Phone: 10-15-2021 14:34-0400 Respiratory rate 18 /min Jody Jimenezer Work Phone: [employer] [facility] Work Phone: 10-15-2021 14:34-0400 Systolic blood pressure 154 mm[Hg] Jody Jimenezer Work Phone: [employer] [facility] [facility] Work Phone: 12-08-2020 17:58-0400 SaO2% (BldA) [Mass fraction] 98 % Jody Sarabia MD Work Phone: [facility] Work Phone: 12-08-2020 17:33-0400 Diastolic blood pressure 73 mm[Hg] Jody Sarabia MD Work Phone: [facility] Work Phone: 12-08-2020 17:33-0400 Heart rate 55 /min Jody Sarabia MD Work Phone: [facility] Work Phone: 12-08-2020 17:33-0400 Systolic blood pressure 191 mm[Hg] Jody Sarabia MD Work Phone: [facility] Work Phone: 12-08-2020 15:34-0400 Respiratory rate 20 /min Jody Sarabia MD Work Phone: [facility] Work Phone: 12-08-2020 13:51-0400 Body mass index (BMI) [Ratio] 25.87 kg/m2 Jody Sarabia MD Work Phone: [facility] Work Phone: 12-08-2020 13:51-0400 Body temperature 97.11 [degF] Jody Sarabia MD Work Phone: [facility] Work Phone: 12-08-2020 13:51-0400 Body weight 93.89 kg Jody Sarabia MD Work Phone: [facility] Work Phone: 12-08-2020 13:49-0400 Body height 190.5 cm Jody Sarabia MD Work Phone: [facility] Work Phone: 02-27-2020 16:57-0400 Body Temperature 98.01 [degF] Jody No [employer] [place] 02-27-2020 16:57-0400 BP Diastolic 94 mm[Hg] [facility] [place] [facility] [place] 02-27-2020 16:57-0400 BP Systolic 170 mm[Hg] [facility] [place] , [place] 02-27-2020 16:57-0400 Pulse (Heart Rate) 77 /min [facility] [place] [place] 02-27-2020 16:57-0400 Pulse Oximetry 98 % [facility] [place] 02-27-2020 16:57-0400 Respiratory Rate 18 /min Jody No [employer] [place] 02-27-2020 16:55-0400 BMI (Body Mass Index) 37.75 kg/m2 Jody Pérez [facility], [place] 02-27-2020 16:55-0400 Body weight 133.36 [facility] [place] 02-27-2020 16:55-0400 Height 188 cm [facility] [place] Encounters Encounter Date Encounter Type Care Provider Facility Start: 03-18-2024 End: 03-18-2024 ambulatory DENNIS RAMIREZ Facility:[facility] Start: 03-18-2024 End: 03-18-2024 Unlisted evaluation and management service Dennis Ramirez MD, PhD Work Phone: Ophthalmology Comment on above: Tributary (branch) r etinal vein occlusion, left eye, with macular edema; Type 2 diabetes mellitus with both eyes affected by mild nonproliferative retinopathy and macular edema, without long-term current use of insulin (HCC); History of CVA (cerebrovascular accident); Pseudophakia of both eyes Start: 12-18-2023 End: 12-18-2023 ambulatory DENNIS RAMIREZ Facility:[facility] Start: 12-18-2023 End: 12-18-2023 Office outpatient visit 15 minutes Dennis Ramirez MD, PhD Work Phone: Ophthalmology Comment on above: Type 2 diabetes liz itus with both eyes affected by mild nonproliferative retinopathy and macular edema, without long-term current use of insulin (HCC) (Primary Dx); Tributary (branch) retinal vein occlusion, left eye, with macular edema; Pseudophakia of both eyes; History of CVA (cerebrovascular accident) Start: 12-04-2023 End: 12-04-2023 ambulatory LIZZYInfrafone [facility] Start: 12-04-2023 End: 12-04-2023 Office outpatient visit 40 minutes Lizzy Gonzalez MD Work Phone: [facility] Geriatrics Comment on above: Cerebral vascular di sease (Primary Dx); Mild vascular dementia without behavioral disturbance, psychotic disturbance, mood disturbance, or anxiety (HCC) Start: 11-11-2023 ambulatory Facility:[facility] Start: 10-30-2023 End: 10-30-20[facility] Start: 10-30-2023 End: 10-30-2023 Office outpatient new 60 minutes Lizzy Gonzalez MD Work Phone: [facility] Ger[facility] Comment on above: Cognitive impairment (Primary Dx); Small vessel disease, cerebrovascular; Bilateral hearing loss, unspecified hearing loss type Start: 2023 End: 2023 ambulatory JODY SARABIA [facility] Start: 2023 End: 2023 Office outpatient visit 25 minutes Dipak Quach MD Work Phone: [facility] Card[facility] Comment on above: 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 (Primary Dx); Essential hypertension Start: 10-03-2023 ambulatory Sandra amaya RN [facility] Communication Start: 10-03-2023 Patient encounter procedure Sandra Meadows RN [facility] Start: 09-22-2023 Telephone encounter Lizzy medellin MD Work Phone: [facility] Geriatrics Comment on above: Appointment Request Start: 09-18-2023 End: 09-18-2023 ambulatory DENNIS RAMIREZ Facility:[facility] Start: 09-18-2023 End: 09-18-2023 Office outpatient visit 15 minutes Dennis Ramirez MD, PhD Work Phone: Ophthalmology Comment on above: Tributary (branch) r etinal vein occlusion, left eye, with macular edema Start: 06-19-2023 End: 06-19-2023 ambulatory DENNIS RAMIREZ Facility:[facility] Start: 04-10-2023 End: 04-10-2023 ambulatory DENNIS RAMIREZ Facility:[facility] Start: 04-10-2023 End: 04-10-2023 Patient encounter procedure Dennis Ramirez MD, PhD Work Phone: Ophthalmology Comment on above: Tributary (branch) r etinal vein occlusion, left eye, with macular edema Start: 12-05-2022 End: 12-05-2022 Patient encounter procedure Dennis Ramirez MD, PhD Work Phone: Ophthalmology Comment on above: Tributary (branch) r etinal vein occlusion, left eye, with macular edema Start: 11-20-2022 Office outpatient vi sit 25 minutes Jody Sarabia Work Phone: [facility] Work Phone: Start: 10-03-2022 End: 10-03-2022 Patient encounter procedure Dennis Ramirez MD, PhD Work Phone: Ophthalmology Comment on above: Tributary (branch) r etinal vein occlusion, left eye, with macular edema (Primary Dx) Start: 09-27-2022 End: 09-27-2022 Office outpatient new 30 minutes Naomi Collado OD Work Phone: Ophthalmology Comment on above: Tributary (branch) r etinal vein occlusion, left eye, with macular edema (Primary Dx); Type 2 diabetes mellitus with right eye affected by mild nonproliferative retinopathy without macular edema, without long-term current use of insulin (HCC); Pseudophakia of both eyes; PCO (posterior capsular opacification), bilateral; Dry eye syndrome of bilateral lacrimal glands; PVD (posterior vitreous detachment), bilateral; Meibomian gland dysfunction (MGD), bilateral, both upper and lower lids Start: 05-13-[address] Jody Montoya Facility:[id number] Start: 05-13-2022 Office outpatient vi sit 15 minutes Jody Sarabia Work Phone: [facility] [address] Work Phone: Start: 10-15-[address] Jody Montoya Facility:[id number] Start: 10-15-2021 Office outpatient vi sit 15 minutes Jody Sarabia Work Phone: [facility]ewfdmrjozd[facility]Jgl on Work Phone: Start: 12-08-2020 End: 12-08-2020 Emergency department patient visit [facility] MD [facility] Comment on above: Acute left-sided low back pain with left-sided sciatica (Primary Dx); Lumbar radiculopathy; Essential hypertension Start: 11-09-2020 End: 11-09-2020 Subsequent hospital visit by physician Jody Edith MercerNo Work Phone: [facility] Comment on above: Atherosclerotic hear t disease of [place] coronary artery without angina pectoris Start: 02-27-2020 End: 02-27-2020 Emergency department patient visit Jody Sarabia [facility] Comment on above: Acute exacerbation o f chronic low back pain (Primary Dx); Neck pain; Rhus dermatitis Start: 07-19-2019 End: 07-19-2019 Subsequent hospital visit by physician Janae Yeh PA-C Work Phone: [facility]ound Comment on above: Testicle pain; Varicocele Start: 12-31-2017 Ambulatory [facility]ITA [facility]ER[facility] Start: 12-31-2017 Ambulatory AcomniEL [facility] Procedures Date Procedure Procedure Detail Performing Clinician Start: 03-18-2024 Intravitreal njx pharmacologic agt spx Dennis Ramirez MD, PhD Work Phone: Start: 03-18-2024 End: 03-18-2024 Visual field xm uni/bi w/interp extended exam Dennis Ramirez MD, PhD Work Phone: Start: 12-18-2023 Intravitreal njx pharmacologic agt spx Dennis Ramirez MD, PhD Work Phone: Start: 12-18-2023 Computerized ophthal sylvain imaging retina Dennis Ramirez MD, PhD Work Phone: Start: 10-30-2023 Adult depression scr eening assessment Lizzy Gonzalez MD Work Phone: Start: 2023 Ecg routine ecg w/le ast 12 lds w/i&r Dipak Quach MD Work Phone: Start: 09-18-2023 Intravitreal njx pharmacologic agt spx Dennis Ramirez MD, PhD Work Phone: Start: 09-18-2023 Computerized ophthal sylvain imaging retina Dennis Ramirez MD, PhD Work Phone: Start: 04-10-2023 Intravitreal njx pharmacologic agt spx Dennis Ramirez MD, PhD Work Phone: Start: 04-10-2023 Computerized ophthal sylvain imaging retina Dennis Ramirez MD, PhD Work Phone: Start: 12-05-2022 Intravitreal njx pharmacologic agt spx Dennis Ramirez MD, PhD Work Phone: Start: 12-05-2022 Computerized ophthal sylvain imaging retina Dennis Ramirez MD, PhD Work Phone: Start: 10-03-2022 Intravitreal njx pharmacologic agt spx Dennis Ramirez MD, PhD Work Phone: Start: 10-03-2022 Computerized ophthal sylvain imaging retina Dennis Ramirez MD, PhD Work Phone: Start: 09-27-2022 Computerized ophthal sylvain imaging retina Naomi Collado OD Work Phone: Start: 12-08-2020 Dup-scan xtr veins complete bilateral study Nikita Baimiriam [employer] Work Phone: Start: 12-08-2020 End: 12-08-2020 Basic metabolic panel calcium total iNkita Baimiriam [employer] Work Phone: Start: 12-08-2020 Radex spine lumbosac ral 2/3 views Nikita Baimiriam [employer] Work Phone: Start: 11-09-2020 Echo tthrc r-t 2d w/wom-mode compl spec&colr d Jody Jimenezer Work Phone: Start: 02-27-2020 Radex spine cervical 4 or 5 views Kya Malcolm Work Phone: Start: 02-27-2020 Radex spine lumbosac ral 2/3 views Kya Malcolm Work Phone: Start: 07-19-2019 Us scrotum & contents E bryn Yeh PA-C Work Phone: Ear Surgery Jody Jimeneze r Work Phone: Comment on above: Biopsy right outer e ar (Precancer); Heart Surgery Jody Jimenez er Work Phone: Comment on above: quad bypass / maze p rocedure 2003; Hernia repair Jody Jimenez er Work Phone: Tonsillectomy Jody Jimenez er Work Phone: Total knee replacement Dougrafael as A No Work Phone: Plan of Treatment Date Care Activity Detail Author Start: 2026 DTaP/Tdap/Td vaccine (2 - Td) DTaP/Tdap/Td vaccine (2 - Td) [employer] Work Phone: Start: 2026 DTaP/Tdap/Td Vaccines (2 - Td or Tdap) DTaP/Tdap/Td Vaccines (2 - Td or Tdap) [facility] Start: 2026 Urine microalbumin profile DTaP,Tdap,Td Vaccine (2 - Td or Tdap) 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, without long-term current use of insulin (HCC) History of CVA (cerebrovascular accident) Pseudophakia of both eyes Expected: 04/02/2025, Expires: 09/09/2025 [facility] Work Phone: Comment on above: Expected: 04/02/2025, Expires: Start: 01-01-2025 End: 06-10-2025 OCT MACULA CIRRUS OU (BOTH EYES) OCT MACULA CIRRUS OU (BOTH EYES) [facility] Imaging Routine Tributary (branch) retinal vein occlusion, left eye, 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 Start: 10-29-2024 Depression Screening Depression Screening [facility] Start: 10-23-2024 Creatinine measurement Creatinine Level [facility] Start: 10-23-2024 Potassium measurement Potassium Level [facility] Start: 10-02-2024 End: 03-11-2025 OCT MACULA CIRRUS OU (BOTH EYES) OCT MACULA CIRRUS OU (BOTH EYES) [facility] Imaging Routine Tributary (branch) retinal vein occlusion, left eye, with macular edema Expected: 10/02/2024, Expires: 03/11/2025 [facility] Work Phone: Comment on above: Expected: 10/02/2024, Expires: Start: 09-18-2024 Glaucoma screening Dilated Retinal Exam [facility] Start: 06-24-2024 End: 06-24-2024 Patient encounter procedure 06/24/2024 9:00 AM EST Office Visit [facility] [address] [place], [place] [id number] Dennis Ramirez MD, PhD [address] [place] [address] *DFE/ OCT both eyes ? eylea. Ophthalmology Comment on above: *DFE/ OCT both eyes ? eylea. Start: 04-24-2024 End: 10-01-2024 OCT MACULA CIRRUS OU (BOTH EYES) OCT MACULA CIRRUS OU (BOTH EYES) [facility] Imaging Routine Tributary (branch) retinal vein occlusion, left eye, with macular edema Expected: 04/24/2024, Expires: 10/01/2024 [facility] Work Phone: Comment on above: Expected: 04/24/2024, Expires: Start: 04-10-2024 Hepatitis C antibody, confirmatory test DILATED RETINAL EXAM [facility] Start: 04-04-2024 Influenza vaccination [facility] Start: 03-18-2024 End: 03-18-2024 Patient encounter procedure 03/18/2024 8:30 AM EDT Office Visit [facility] [address] [place] [address] Dennis Ramirez MD, PhD [address] [place] [address] STI eylea OS/ OCT and HVF 24-2 Ophthalmology Comment on above: STI eylea OS/ OCT and HVF 24-2 Start: 03-04-2024 End: 03-04-2024 Patient encounter procedure 03/04/2024 10:45 AM EDT Office Visit [facility] [address] [place] [address] Lizzy Gonzalez MD [address] [address] [address] [facility] Start: 12-20-2023 End: 05-28-2024 OCT MACULA CIRRUS OU (BOTH EYES) OCT MACULA CIRRUS OU (BOTH EYES) [facility] Imaging Routine Tributary (branch) retinal vein occlusion, left eye, with macular edema Expected: 12/20/2023, Expires: 05/28/2024 [facility] Work Phone: Comment on above: Expected: 12/20/2023, Expires: Start: 12-04-2023 End: 12-04-2023 Patient encounter procedure 12/04/2023 9:45 AM EDT Office Visit [facility] [address] [place] [address] Lizzy Gonzalez MD [address] [address] [facility] Start: 11-27-2023 End: 11-27-2023 Patient encounter procedure 11/27/2023 9:00 AM EDT Office Visit [facility] [address] [facility] [place] [phone] Scarlett Kern PA-C [address] [place] [address] [facility] Start: 11-07-2023 End: 01-24-2024 Basic metabolic 1998 panel - Serum or Plasma Basic metabolic panel Lab Routine Coronary artery disease involving [facility] coronary artery of [facility] heart without angina pectoris Expected: 11/07/2023 (Approximate), Expires: 01/24/2024 [facility] Comment on above: Expected: 11/07/2023 (Approximate), Expi res: 01/24/2024 Start: 10-30-2023 End: 10-30-2023 Patient encounter procedure 10/30/2023 9:45 AM EDT Office Visit [facility] [address] [place] [phone] Lizzy Gonzalez MD [address] [id number] [facility] Start: 2023 End: 10-23-2024 Aldosterone Aldosterone Lab Routine Essential hypertension Expected: 2023 (Approximate), Expires: 10/23/2024 [facility] Comment on above: Expected: 2023 (Approximate), Expi res: 10/23/2024 Start: 2023 End: 10-23-2024 Renin Activity Renin Activity Lab Routine Essential hypertension Expected: 2023 (Approximate), Expires: 10/23/2024 [facility] [employer] Work Phone: Comment on above: Expected: 2023 (Approximate), Expi res: 10/23/2024 Start: 2023 End: 2023 Patient encounter procedure 2023 8:15 AM EDT Office Visit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 retinal vein occlusion left eye -patient started noticing change in vision for 2 years now (since 2020) -decent response to avastin 2. Type 2 diabetes without mcfp use of insulin -rec good blood pressure/sugar [...] of its relevant components. Dennis Ramirez MD [facility] 09-18-2023 History of Present illness Narrative Referred by Dr. Collado for Branch retinal vein occlusion Here for inj Branch retinal vein occlusion left eye -patient started noticing change in vision for 2 years now (since 2020) -decent response to avastin 2. Type 2 diabetes without mcfp use of insulin -rec good blood pressure/sugar [...] Dennis Ramirez MD documented in this encounter [facility] 06-19-2023 Note HNO ID: [id number] Author: Dennis Ramirez MD, PhD Service: ? Author Type: Physician Type: Progress Notes Filed: 06/19/2023 12:35 PM Note Text: Referred by Dr. Collado for Branch retinal vein occlusion Here for inj Branch retinal vein occlusion left eye -patient started noticing change in vision for 2 years now (since 2020) -decent response to avastin 2. Type 2 diabetes without mcfp use of insulin -rec good blood pressure/sugar [...] of its relevant components. Dennis Ramirez MD [facility] 04-10-2023 Instructions Dennis Ramirez MD, PhD - [...] than dabbing lightly with a tissue An lups-mtj-cymdmjh pain reliever (i.e. Tylenol) can be used [...] If it is after hours please call [phone] which will give instructions on how to reach the eye doctor vice president of consulting services documented in this encounter [facility] 04-10-2023 Note HNO ID: [id number] Author: Dennis Ramirez MD, PhD Service: ? Author Type: Physician Type: Progress Notes Filed: 04/10/2023 11:01 AM Note Text: Referred by Dr. Collado for Branch retinal vein occlusion Here for inj Branch retinal vein occlusion left eye -patient started noticing change in vision for 2 years now (since 2020) -decent response to avastin 2. Type 2 diabetes without mcfp use of insulin -rec good blood pressure/sugar [...] of its relevant components. Dennis Ramirez MD [facility] 04-10-2023 History of Present illness Narrative Referred by Dr. Collado for Branch retinal vein occlusion Here for inj Branch retinal vein occlusion left eye -patient started noticing change in vision for 2 years now (since 2020) -decent response to avastin 2. 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 12-05-2022 Instructions Dennis Ramirez MD, PhD - [...] than dabbing lightly with a tissue An zken-ivy-qapwhgc pain reliever (i.e. Tylenol) can be used [...] If it is after hours please call [phone] which will give instructions on how to reach the eye doctor vice president of consulting services documented in this encounter [facility] 12-05-2022 History of Present illness Narrative Referred by Dr. 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 10-03-2022 Instructions Dennis Ramirez MD, PhD - [...] than dabbing lightly with a tissue An rjgb-kve-gfizzoy pain reliever (i.e. Tylenol) can be used [...] If it is after hours please call [phone] which will give instructions on how to reach the eye doctor vice president of consulting services documented in this encounter [facility] 10-03-2022 History of Present illness Narrative Referred by Dr. 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 Type 2 diabetes without mcfp use of insulin -rec good blood pressure/sugar [...] Dennis Ramirez MD documented in this encounter [facility] 09-27-2022 History of Present illness Narrative 1. [...] continue care with primary care doctor and/or dehairing machine tender to maintain optimum levels as they are [...] 2022 4:13 PM documented in this encounter [facility] 12-08-2020 Hospital Discharge instructions Nikita Lugo, RAFAEL - FACILITY MECHANIC - 12/08/2020 Use tylenol for pain, follow up with Dr. Sarabia next week, you may need to get an MRI of you Lumbar spine The following attachments cannot be sent through Care Everywhere.Hypertension: General Info ([place] Islander)Low Back Pain: Exercises ([place] Islander)Back Pain ([place] Islander)documented in this encounter [facility] Work Phone: 02-26-2016 History of Past i llness Narrative Problem Noted Date Resolved Date PCO (posterior capsular opacification) 6 04/19/2020 PVD (posterior vitreous detachment) 02/26/2016 04/19/2020 documented as of this encounter (statuses as of 09/27/2022) [facility] History of Past illness Narrative* Problem Noted Date Resolved Date PCO (posterior capsular opacification) 6 04/19/2020 PVD (posterior vitreous detachment) 02/26/2016 04/19/2020 documented as of this encounter (statuses as of 10/03/2022) [facility] History of Past illness Narrative* Problem Noted Date Resolved Date PCO (posterior capsular opacification) 6 04/19/2020 PVD (posterior vitreous detachment) 02/26/2016 04/19/2020 documented as of this encounter (statuses as of 12/06/2022) [facility] History of Past illness Narrative* Problem Noted Date Diagnosed Date Resolved Date PCO (posterior capsular opacification) 02/26/2016 04/19/2020 PVD (posterior vitreous detachment) 02/26/2016 04/19/2020 documented as of this encounter (statuses as of 04/10/2023) [facility] History of Past illness Narrative* Problem Noted Date Diagnosed Date Resolved Date PCO (posterior capsular opacification) 02/26/2016 04/19/2020 PVD (posterior vitreous detachment) 02/26/2016 04/19/2020 documented as of this encounter (statuses as of 09/18/2023) [facility] Diagnosis Acute left-sided low back pain [...] and lower lids [facility] Diagnosis Tributary (branch) retinal vein occlusion, left eye, with macular edema- Primary [facility] Diagnosis Tributary (branch) retinal vein occlusion, left eye, with macular edema [facility] Diagnosis Tributary (branch) retinal vein occlusion, left eye, with macular edema [facility] Diagnosis Tributary (branch) retinal vein occlusion, left eye, with macular edema [facility] Diagnosis Coronary artery disease involving [place] coronary artery of [place] heart without angina pectoris- Primary Essential hypertension Unspecified essential hypertension [facility] Diagnosis Cognitive impairment- Primary Unspecified persistent mental disorders due to conditions classified elsewhere Small vessel disease, cerebrovascular Bilateral hearing loss, unspecified hearing loss type documented in this encounter [facility] note* Diagnosis Cerebral vascular disease- Primary Unspecified cerebrovascular disease Mild vascular dementia without behavioral disturbance, psychotic disturbance, mood disturbance, or anxiety (HCC) documented in this encounter [facility] note* Diagnosis Type 2 diabetes mellitus [...] without residual deficits 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 of [facility] NarrativeThis 80-year-old male is being seen today for [...] at this point not to amplify his hearing.JC-Oekiooyigfzkph-Exqny Work Phone: History of Present illness NarrativeThis 81-year-old gentleman is being seen today for [...] and voice have been stable for him. ZM-Xkylwdafoigysn-Iiswo [facility] Work Phone: History of Present illness NarrativeThis [...] and voice have been stable for him. 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 * Back Pain ([place] Islander) * Cervical: Exercises ([place] Islander) * Poison Gracie - [place] - and [place] ([place] Islander) documented in this encounter Assessments Diagnosis Acute exacerbation of chronic low back pain Neck pain Cervicalgia Rhus dermatitis Contact dermatitis and other eczema due to plants (except food) Diagnosis Atherosclerotic heart disease of [place] coronary artery without angina pectoris Coronary atherosclerosis of [place] coronary artery Chief Complaint 6 month follow up on ears, CIfollow up6 month follow up. Reason for Referral Status Reason Specialty Diagnoses / Procedures Referre d By Contact Referred To Contact [facility] Diagnoses Testicle pain Varicocele Procedures US SCROTUM AND TESTICLES Janae Yeh PA-C [address] [address] Medications Administered Section Active Administered Medications - up to 3 most recent administrations Medication Order MAR Action Action Date Dose Rate Site PHENYLephrine 2.5 % 1 Drop (AK-DILATE, JAMES-SYNEPHRINE) 1 Drop, BOTH EYES, DIRECTED, Starting on 09/27/22 at 1430, Until 09/28/22 at 0229, Administer [...] section and content) DATE CREATED AUTHOR 01/21/2018 [facility] DATE CREATED AUTHOR AUTHOR'S ORGANIZ ATION 01/29/2018 [facility] DATE CREATED AUTHOR AUTHOR'S ORGANIZ ATION 07/18/2021 [facility] DATE CREATED AUTHOR AUTHOR'S ORGANIZ ATION 05/13/2022 [facility] DATE CREATED AUTHOR AUTHOR'S ORGANIZ ATION 05/13/2022 [facility] DATE CREATED AUTHOR AUTHOR'S ORGANIZ ATION 11/12/2023 [facility] DATE CREATED AUTHOR AUTHOR'S ORGANIZ ATION 12/10/2023 [facility] DATE CREATED AUTHOR AUTHOR'S ORGANIZ ATION 03/19/2024 [facility] Reason for Visit (unrecogniz ed section and [...] assessment Jody Sarabia MD [address] [place] [address] [address] Referral ID Status Reason Start Date Expiration Date Visits Re quested Visits Authorized [id number] Closed 09/23/2023 03/21/2024 1 1 Reason Comments [...] or prosecute any alcohol or drug abuse patient.[facility] the event this information is protected by the Federal Confidentiality of Alcohol and Drug Abuse Patient Records regulations: The Federal rules restrict any use of the information to criminally investigate or prosecute any alcohol or drug abuse patient.[facility] the event this information is protected by the Federal Confidentiality of Alcohol and Drug Abuse Patient Records regulations: The Federal rules restrict any use of the information to criminally investigate or prosecute any alcohol or drug abuse patient.[facility] the event this information is protected by the Federal Confidentiality of Alcohol and Drug Abuse Patient Records regulations: The Federal rules restrict any use of the information to criminally investigate or prosecute any alcohol or drug abuse patient.[facility] the event this information is protected by the Federal Confidentiality of Alcohol and Drug Abuse Patient Records regulations: The Federal rules restrict any use of the information to criminally investigate or prosecute any alcohol or drug abuse patient.[facility] the event this information is protected by the Federal Confidentiality of Alcohol and Drug Abuse Patient Records regulations: The Federal rules restrict any use of the information to criminally investigate or prosecute any alcohol or drug abuse patient.[facility] the event this information is protected by the Federal Confidentiality of Alcohol and Drug Abuse Patient Records regulations: The Federal rules restrict any use of the information to criminally investigate or prosecute any alcohol or drug abuse patient.[facility] Care Teams (unrecognized sec tion and content) Manager Beverage Relationship Specialty Start Date End Date Jody Sarabia [address] [place] [address] PCP - General Family Medicine 02/23/16 Manager Beverage Relationship Specialty Start Date End Date Jody Sarabia [address] [place] [address] PCP - General Family Medicine 02/23/16 Manager Beverage Relationship Specialty Start Date End Date Jody Sarabia [address] [place] [address] PCP - General Family Medicine 02/23/16 Manager Beverage Relationship Specialty Start Date End Date Jody Sarabia MD [address] [place] [address] PCP - General Family Medicine 02/23/16 Manager Beverage Relationship Specialty Start Date End Date Jody Sarabia MD [address] [place] [address] PCP - General Family Medicine 02/23/16 Manager Beverage Relationship Specialty Start Date End Date Jody Sarabia MD [address] [place] [address] PCP - General 01/02/19 Manager Beverage Relationship Specialty Start Date End Date Jody Sarabia MD [address] [place] [address] PCP - General 01/02/19 Manager Beverage Relationship Specialty Start Date End Date Jody Sarabia MD [address] [place] [address] PCP - General 01/02/19 Manager Beverage Relationship Specialty Start Date End Date Jody Sarabia MD [address] [place] [address] PCP - General 01/02/19 Manager Beverage Relationship Specialty Start Date End Date Jody Sarabia MD [address] [place] [address] PCP - General 01/02/19 Manager Beverage Relationship Specialty Start Date End Date Jody Sarabia MD [address] [place] [address] PCP - General Family Medicine 02/23/16 Manager Beverage Relationship Specialty Start Date End Date Jody Sarabia MD [address] [place] [address] PCP - General Family Medicine 02/23/16 Active Administered Medications - up to 3 most recent administrations Administered Medications (un recognized section and content) Medication Order MAR Action Action Date Dose Rate Site PHENYLephrine 2.5 % 1 Drop (AK-DILATE, JAMES-SYNEPHRINE) 1 Drop, BOTH EYES, DIRECTED, Starting on Fri09/18/23 at 0830, Until Fri09/18/23 at 2028, Administer for dilation PROTECT FROM LIGHT Given 09/18/2023 8:30 AM EST 1 Drop proparacaine 0.5 % 1 Drop (ALCAINE) 1 Drop, BOTH EYES, DIRECTED, Starting on Fri09/18/23 at 0800, Until Serena 09/18/23 at 1959, [...] BE BASED ON THE PRIMARY CLINICAL RECORDS. [employer] provides no warranty or guarantee of the accuracy or completeness of information in this document.
[2024-05-20] MEDS: 0.9% Normal Saline (1000mL) 1,000 ML 100 ML IV (05:20)
[2024-05-20] MEDS: 0.9% Saline Lock 10 ML Syringe IV ×2 (05:21→21:17)
[2024-05-20 05:30] LABS: Reflex Lactate? Y
[2024-05-20] MEDS: Pantoprazole Sodium 40 MG in 0.9% Normal Saline (100mL MB+) 100 ML 330 MG IV ×2 (05:30→21:15)
[2024-05-20] MEDS: Insulin Lispro 100 UNIT/ML INSULN.PEN SC (05:40)
[2024-05-20 06:17] LABS: Absolute Lymphocyte Count 1.28 X10^3/uL (0.83-4.51); Absolute Neutrophil Count 9.1 X10^3/uL (2.0-7.7); Basophil# 0.02 X10^3/uL; Basophil% 0.2 % (0-1); Hematocrit 30.9 % (40-54); Hemoglobin 10.1 g/dL (13.0-16.5); Lymphocyte # 1.28 X10^3/ul (0.83-4.51); Lymphocyte % 11.4 % (19-41); Mean Corp Hgb Conc 32.7 g/dL (32-36); Mean Corpuscular Hgb 32.5 pg (27.0-32.0); Mean Corpuscular Volume 99.4 fL (80-94); Mean Platelet Vol. 10.7 fl (6.2-12.0); Monocyte# 0.74 X10^3/uL; Monocyte% 6.6 % (0-10); NRBC Flagged by Analyzer 0 % (0-5); Neutrophil # 9.14 X10^3/uL (2.7-7.7); Neutrophil % 81.4 % (47-70); Platelet Count 135 K/mm3 (150-450); RBC Distribution Width CV 14.2 % (11.6-14.6); RBC Distribution Width SD 51.2 fl (35.1-43.9); Red Blood Count 3.11 M/mm3 (4.6-6.2); White Blood Count 11.2 K/mm3 (4.4-11.0)
[2024-05-20 06:42] LABS: Lactic Acid 2.9 mmol/L (0.4-1.9)
[2024-05-20 06:44] LABS: AST(SGOT) 19 U/L (15-37); Alanine Aminotransfer ALT/SGPT 28 U/L (16-61); Albumin, Serum 3.3 g/dL (3.2-5.0); Alkaline Phosphatase 233 U/L (45-117); Anion Gap 8 (5-15); BUN 32 mg/dL (7-18); BUN/Creat Ratio 20.6 RATIO (10-20); Calcium,Total 8.8 mg/dL (8.5-10.1); Chloride 108 mmol/L (98-107); Creatinine, Serum 1.55 mg/dL (0.70-1.30); EST Glomerular Filtration Rate 46 mL/min (>60); Est Glom Filt Rate - Afr Amer 56 mL/min (>60); Estimated Creatinine Clearance 43.46 ml/min; Globulin 3.3 g/dL (2.2-4.2); Glucose 202 mg/dL (74-106); Potassium 4.3 mmol/L (3.5-5.1); Protein, Total 6.6 g/dL (6.4-8.2); Sodium Level 137 mmol/L (136-145)
[2024-05-20 07:17] LABS: Bedside Glucose 201 mg/dL (74-106)
[2024-05-20 07:51] LABS: Hemoglobin A1c 6.3 % (3.8-5.6)
--- NOTE | 2024-05-20 08:14 | EX.PCM.CON.S ---
Assessment & Plan Assessment/Plan (1) SBO (small bowel obstruction): PLAN: Plan The patient is an 83-year-old male admitted with nausea and abdominal pain. He was found on CT scan imaging to have a moderate to high-grade small bowel obstruction with evidence of ileitis of the distal small bowel. The patient's only previous abdominal surgery was an appendectomy. He has had no previous bowel obstruction to his knowledge. Clinically he seems stable. He denies any flatus. Given his clinical picture and CT scan evidence of small bowel obstruction, I am recommending continued nasogastric tube decompression and n.p.o. along with IV fluid resuscitation. I have asked nursing staff to advance the NG tube as it appears on most recent KUB to be within the distal esophagus. I agree with holding his Eliquis for possible surgery if his small bowel obstruction does not resolve with conservative measures. At this point, I am uncertain of the significance of the ileitis. This could either be a result of the small bowel obstruction or cause. 1 consideration could be that the ileitis could be related to Crohn's. Consideration of GI consultation if this does not improve. Since the patient is stable, I would recommend continued conservative approach but certainly if his small bowel obstruction does not improve, surgical intervention may be warranted in this case. Will repeat abdominal imaging later today. HPI Consult Data Date of Consult: 05/20/24 HPI Narrative Reason for Consultation: Small bowel obstruction HPI Narrative: ADAL STOKES, is a 83 M who presented overnight to the emergency department with complaints of abdominal pain and nausea. Patient has multiple medical problems including persistent atrial fibrillation for which he is on Eliquis. He also has a history of chronic kidney disease, chronic anemia, and chronic thrombocytopenia. He also has a history of CVA, hypertension, hyperlipidemia, vascular dementia gout as well as coronary artery disease status post CABG. Also a history of valvular heart disease and diabetes. His abdominal pain started last evening just after dinner. This was reportedly mild but was also constant in nature and was associated with nausea without emesis. This pain did not improve and this prompted a visit to the emergency department. He was seen evaluated by the emergency department staff. He underwent laboratory testing which revealed a white blood cell count of 11.3 his BUN and creatinine were elevated at 32/1.68. His lactate was also elevated 4.0. CT scan was performed to evaluate his abdominal pain and this was read as showing moderate to high-grade small bowel obstruction with a transition point in the right lower quadrant where there was evidence of ileitis but without perforation or other complication. The significance of the ileitis was uncertain. The patient was subsequently admitted to the medicine service. Nasogastric tube was placed although this seems to be within the distal esophagus on most recent imaging and this will be readjusted. He denies any significant abdominal pain at present. No further nausea. He denies any passage of flatus or bowel movement since admission. I was notified by the emergency department staff and recommended admission to the medicine service with a surgical consult. [facility] Medical History CKD (chronic kidney disease), stage III Persistent atrial fibrillation Diabetes Chronic pain Hypertension Stroke/cerebrovascular accident Anemia Thrombocytopenia Chronic back pain Mild vascular dementia DJD (degenerative joint disease) Gout Mild mitral regurgitation Mild aortic insufficiency Hyperlipemia CAD (coronary artery disease) Sciatica Home Medications ?Medication ?Instructions ?Recorded ?Last Taken ?Type allopurinol 300 mg tablet 300 mg PO DAILY gout 07/07/21 11/10/23 History furosemide 20 mg tablet (Lasix) 20 mg PO DAILY diuretic 07/07/21 11/10/23 History acetaminophen 500 mg capsule 500 mg PO Q6H PRN pain 05/28/23 Unknown History cholecalciferol (vitamin D3) 50 50 mcg PO DAILY supplement 05/28/23 11/10/23 History mcg (2,000 unit) capsule metformin 500 mg tablet 500 mg PO BID Diabetes 05/28/23 Unknown History terazosin 5 mg capsule 5 mg PO DAILY BPH 05/28/23 11/09/23 History eplerenone 50 mg tablet 50 mg PO DAILY HTN 11/11/23 Unknown History atorvastatin 80 mg tablet 80 mg PO QHS #0 tabs 11/14/23 Unknown Rx lisinopril 20 mg tablet 20 mg PO DAILY #1 TAB 11/14/23 Unknown Rx metoprolol succinate 25 mg 25 mg PO DAILY #1 TAB 11/14/23 Unknown Rx tablet,extended release 24 hr apixaban 2.5 mg tablet (Eliquis) 2.5 mg PO BID 05/20/24 Unknown History triamcinolone acetonide 0.5 % 1 applic topical QHS PRN PRN rash 05/20/24 Unknown History topical ointment Allergy/AdvReac Type Severity Reaction Status Date / Time No Known Allergies Allergy Verified 05/20/24 00:54 Family History Mother No problems noted. Father Heart disease Myocardial infarction CVA (cerebral vascular accident) Surgical History Heart valve replaced History of hernia repair H/O bilateral cataract extraction History of quadruple bypass History of back surgery History of tonsillectomy History of total left knee replacement Social History household members: none housing: other details: Dependent Smoking Status: Never smoker alcohol intake: never substance use type: does not use what type of physical activity do you participate in: walking ROS Eyes Eyes: Reports systems reviewed and no addt'l complaints, except as documented ENT HEENT: Reports systems reviewed and no addt'l complaints, except as documented Cardiovascular Cardiovascular: Reports systems reviewed and no addt'l complaints, except as documented Respiratory/Chest Respiratory/Chest: Reports systems reviewed and no addt'l complaints, except as documented Gastrointestinal Gastrointestinal: Reports systems reviewed and no addt'l complaints, except as documented Physical Exam Const alert and no apparent distress Constitutional Narrative: Nasogastric tube in place however there is no output in the suction canister General Appearance: cooperative and frail HEENT normocephalic Eyes PERRL Chest inspection of chest normal Resp normal respiratory effort GI GI Narrative: Abdomen was soft and somewhat distended. Minimal diffuse tenderness to palpation. No rebound or guarding. Decreased bowel sounds Auscultation: hypoactive bowel sounds Lab / Micro Data 05/20/24 05:36 05/20/24 05:36 Labs: Laboratory Results - last 24 hr 05/20/24 01:25: WBC 11.3 H, RBC 3.25 L, Hgb 10.6 L, Hct 31.8 L, MCV 97.8 H, MCH 32.6 H, MCHC 33.3, RDW Std Deviation 50.8 H, RDW Coeff of Zaheer 14.3, Plt Count 120 L, MPV 9.8, Immature Gran % (Auto) 0.500, Neut % (Auto) 84.3 H, Lymph % (Auto) 9.3 L, [place] % (Auto) 5.7, Eos % (Auto) 0.0, Baso % (Auto) 0.2, Absolute Neuts (auto) 9.6 H, Absolute Lymphs (auto) 1.05, Nucleated RBC % 0, Sodium 140, Potassium 4.5, Chloride 109 H, Carbon Dioxide 21.0, Anion Gap 10, BUN 32 H, Creatinine 1.68 H, Estim Creat Clear Calc 40.09, Est GFR (MDRD) Af Amer 51 L, Est GFR (MDRD) Non-Af 42 L, BUN/Creatinine Ratio 19.0, Glucose 216 H, Lactic Acid 4.0 H*, Calcium 9.2, Total Bilirubin 0.70, Direct Bilirubin 0.34 H, AST 22, ALT 29, Alkaline Phosphatase 247 H, Total Protein 6.8, Albumin 3.5, Globulin 3.3, Lipase < 10 L 05/20/24 05:26: POC Glucose 201 H 05/20/24 05:36: WBC 11.2 H, RBC 3.11 L, Hgb 10.1 L, Hct 30.9 L, MCV 99.4 H, MCH 32.5 H, MCHC 32.7, RDW Std Deviation 51.2 H, RDW Coeff of Zaheer 14.2, Plt Count 135 L, MPV 10.7, Immature Gran % (Auto) 0.400, Neut % (Auto) 81.4 H, Lymph % (Auto) 11.4 L, [place] % (Auto) 6.6, Eos % (Auto) 0.0, Baso % (Auto) 0.2, Absolute Neuts (auto) 9.1 H, Absolute Lymphs (auto) 1.28, Nucleated RBC % 0, Sodium 137, Potassium 4.3, Chloride 108 H, Carbon Dioxide 21.0, Anion Gap 8, BUN 32 H, Creatinine 1.55 H, Estim Creat Clear Calc 43.46, Est GFR (MDRD) Af Amer 56 L, Est GFR (MDRD) Non-Af 46 L, BUN/Creatinine Ratio 20.6 H, Glucose 202 H, Hemoglobin A1c 6.3 H, Calcium 8.8, Total Bilirubin 0.70, AST 19, ALT 28, Alkaline Phosphatase 233 H, Total Protein 6.6, Albumin 3.3, Globulin 3.3, Albumin/Globulin Ratio 1.0 05/20/24 06:00: Lactic Acid 2.9 H* Imaging Radiology Impression Abdomen/Pelvis CT 05/20/24 01:05 IMPRESSION: 1. Moderate to high-grade small bowel obstruction with transition point in the right lower quadrant where there is evidence of ileitis. No perforation or other complication. 2. Nonobstructing 1 cm calcified left renal pelvis. Electronically Signed: Royce Yates MD at 2:49 EDT , ADDENDUM: 05/20/24 0308 IMPRESSION: 1. Moderate to high-grade small bowel obstruction with transition point in the right lower quadrant where there is evidence of ileitis. No perforation or other complication. 2. Nonobstructing 1 cm calcified left renal pelvis. N.B. : Royce Ventura DO, confirmed on 05/20/2024 03:01:21 (ET) that the healthcare facility has received the radiology report. Electronically Signed: Royce Yates MD at 2:49 EDT , KUB X-Ray 05/20/24 02:59 IMPRESSION: Enteric tube tip coils over lower esophagus with tip terminating back over midesophagus. Upper abdominal dilated small bowel loops, ileus versus bowel obstruction. Electronically Signed: Ruslan Khan MD at 6:14 EDT , KUB X-Ray 05/20/24 02:59 IMPRESSION: Enteric tube tip coils over epigastrium, likely proximal stomach. Upper abdominal dilated small bowel loops, ileus versus bowel obstruction. Electronically Signed: Ruslan Khan MD at 6:04 EDT , KUB X-Ray 05/20/24 02:59 IMPRESSION: Enteric tube tip overlies distal esophagus. Upper abdominal dilated small bowel loops, ileus versus bowel obstruction. Electronically Signed: Ruslan Khan MD at 6:08 EDT , Charges/Coding Visit Charges Inpatient E&M: 79135 Init Hosp L3
--- NOTE | 2024-05-20 08:38 | RAD_ITS ---
INDICATION: NG tube placement verification EXAMINATION/TECHNIQUE: X-RAY - XR Abdomen 1 View COMPARISON: May 20, 2024 at 3:58 AM FINDINGS: BOWEL GAS PATTERN: There are dilated gas-filled loops of small bowel. There is a nasogastric tube in place that is loosely coiled within the proximal stomach and terminating within the gastric body. FREE AIR: Not assessed on a single supine view. CALCIFICATIONS: There are indeterminate calcific density within the left mid abdomen which may reflect renal calculi. LOWER CHEST: No acute pathology. BONES AND SOFT TISSUES: No acute pathology. There is a bladder diverticulum left of midline RAD/Abdomen Single View (Portable) IMPRESSION: Small bowel obstruction. Nasogastric tube terminating within the expected region of the gastric body. Electronically Signed: Elizabeth Emmanuel MD at 9:20 EDT ,
[2024-05-20 10:36] LABS: Bedside Glucose 161 mg/dL (74-106)
--- NOTE | 2024-05-20 11:25 | CASEMGMT ---
Patient is from [facility]. This SW and LUPE Peterson met with patient. Introduced self and role at [facility]. [facility] at [facility]. SW asked patient if rehab would be recommended would he want to do his rehab at [facility] and patient said yes. SW will keep [facility]. SW will continue to follow for most appropriate d/c plan. Janae QUEVEDO
--- NOTE | 2024-05-20 11:51 | CASEMGMT ---
Discharge Planning Updates sent to [facility] via [facility]. Tila French DC Planning Asst.
[2024-05-20] MEDS: hydrALAZINE 20 MG/ML Vial 10 MG IV (11:59)
--- NOTE | 2024-05-20 15:52 | PCM.HOSP.N ---
Hospitalist Note Patient was seen and examined today, he has minimal bowel sounds, NG tube in place and the patient's abdomen is distended and tympanic. The abdomen is soft however. Surgery has recommended a conservative approach. Patient will be reevaluated tomorrow by general surgery.
--- NOTE | 2024-05-20 16:46 | PCM.PN.BLA ---
Progress Note Patient seen and reexamined this afternoon. He denies any new issues or complaints. Abdomen remains distended with only mild tenderness to palpation. Still minimal if any output from NG tube. Will repeat abdominal x-rays in a.m. Will continue to follow and advise accordingly.
[2024-05-20 17:11] LABS: Bedside Glucose 203 mg/dL (74-106)
[2024-05-20 21:44] LABS: Bedside Glucose 185 mg/dL (74-106)
[2024-05-21] VITALS (16 sets, daily range): BP systolic 116–161; BP diastolic 70–111; PULSE 84–138; RESP 16–20; TEMP 36.3–37.1; O2SAT 93–97; BMI 24.8; BMI 24.9
[2024-05-21] MEDS: Ondansetron 4 MG/2 ML Vial IV (04:25)
[2024-05-21] MEDS: 0.9% Saline Lock 10 ML Syringe IV ×2 (04:26→18:49)
[2024-05-21 04:40] LABS: Bedside Glucose 187 mg/dL (74-106)
[2024-05-21 06:06] LABS: Absolute Lymphocyte Count 1.15 X10^3/uL (0.83-4.51); Absolute Neutrophil Count 7.4 X10^3/uL (2.0-7.7); Basophil# 0.02 X10^3/uL; Basophil% 0.2 % (0-1); Hematocrit 31.5 % (40-54); Hemoglobin 10.6 g/dL (13.0-16.5); Lymphocyte # 1.15 X10^3/ul (0.83-4.51); Lymphocyte % 11.9 % (19-41); Mean Corp Hgb Conc 33.7 g/dL (32-36); Mean Corpuscular Hgb 32.7 pg (27.0-32.0); Mean Corpuscular Volume 97.2 fL (80-94); Mean Platelet Vol. 10.7 fl (6.2-12.0); Monocyte# 1.08 X10^3/uL; Monocyte% 11.1 % (0-10); NRBC Flagged by Analyzer 0 % (0-5); Neutrophil # 7.42 X10^3/uL (2.7-7.7); Neutrophil % 76.5 % (47-70); Platelet Count 138 K/mm3 (150-450); RBC Distribution Width CV 14.5 % (11.6-14.6); RBC Distribution Width SD 51.1 fl (35.1-43.9); Red Blood Count 3.24 M/mm3 (4.6-6.2); White Blood Count 9.7 K/mm3 (4.4-11.0)
--- NOTE | 2024-05-21 06:30 | RAD_ITS ---
EXAM: XR ABDOMEN, 1 VIEW CLINICAL INDICATION: SBO TECHNIQUE: Frontal supine view of the abdomen/pelvis. COMPARISON: 05/20/2024. FINDINGS: LOWER THORAX: No acute pathology. GASTROINTESTINAL TRACT: Mild gaseous dilatation of small bowel loops. ORGANS: Surgical clips in the right upper quadrant from prior cholecystectomy. Contrast filled urinary bladder. No organomegaly. No abnormal calcifications. BONES/JOINTS: See below. SOFT TISSUES: Surgical clips in the left lower abdomen and radiopaque spring coils in the right side of the pelvis and in the central pelvis. TUBES, LINES AND DEVICES: NG tube tip and sidehole are in the right side of the abdomen. RAD/Abdomen Single View (Portable) IMPRESSION: 1. NG tube tip and sidehole are inside the right side of the abdomen. 2. Mild gaseous distention of small bowel loops. 3. No significant interval change when compared to 05/20/2024. Electronically Signed: Jeremiah Maki MD at 9:50 EDT ,
[2024-05-21 06:42] LABS: AST(SGOT) 26 U/L (15-37); Alanine Aminotransfer ALT/SGPT 23 U/L (16-61); Albumin, Serum 3.1 g/dL (3.2-5.0); Alkaline Phosphatase 199 U/L (45-117); Anion Gap 7 (5-15); BUN 38 mg/dL (7-18); Calcium,Total 8.6 mg/dL (8.5-10.1); Chloride 112 mmol/L (98-107); Creatinine, Serum 1.65 mg/dL (0.70-1.30); EST Glomerular Filtration Rate 43 mL/min (>60); Est Glom Filt Rate - Afr Amer 52 mL/min (>60); Estimated Creatinine Clearance 40.82 ml/min; Glucose 195 mg/dL (74-106); Protein, Total 6.1 g/dL (6.4-8.2); Sodium Level 141 mmol/L (136-145)
--- NOTE | 2024-05-21 08:45 | RAD_ITS ---
INDICATION: sbo- gastrografin- -- modified-gastrografin kub immed/1hr/3hr/4.5 HR EXAMINATION/TECHNIQUE: Gastrograffin oral contrast was administered orally to the patient. Number of Images: 7 COMPARISON: Prior study dated: 05/21/2024 FINDINGS: Oral contrast is seen throughout a markedly dilated small bowel. No contrast is seen distally in the colon after 4 1/2 hours.. NG tube is present with tip in the stomach. Contrast seen in bladder. Surgical clips seen throughout the right hemipelvis. RAD/Small Bowel Series Only IMPRESSION: Findings consistent with persistent small bowel obstruction. Electronically Signed: Ferdinand Mckeon MD at 15:59 EDT ,
--- NOTE | 2024-05-21 08:49 | PN.SURG_ITS ---
Subjective Subjective Patient's abdomen pulp press tender to palpation mildly diffusely, denies any flatus. Patient is having bilious output from the NG. Objective Data Objective Data Vital Signs: Vital Signs Temp Pulse Resp BP Pulse Ox O2 Del Method 97.7 F L 119 H 18 161/111 H 96 Room Air 05/21/24 08:30 05/21/24 08:30 05/21/24 08:30 05/21/24 08:30 05/21/24 08:30 05/21/24 08:30 Oxygen Delivery Method Room Air Weight: 193 lb 9.054 oz Body Mass Index (BMI) 24.8 Intake & Output: Intake and Output for Last 24 Hours 05/19/24 05/20/24 05/21/24 23:59 23:59 23:59 Intake Total 3220.00 / 3220.00 250 / 250 Output Total 600 / 600 500 / 500 Balance 2620.00 / 2620.00 -250 / -250 Lab / Micro Data 05/21/24 05:15 05/21/24 05:15 Labs: Laboratory Results - last 24 hr 05/20/24 10:18: POC Glucose 161 H 05/20/24 16:54: POC Glucose 203 H 05/20/24 21:20: POC Glucose 185 H 05/21/24 04:12: POC Glucose 187 H 05/21/24 05:15: WBC 9.7, RBC 3.24 L, Hgb 10.6 L, Hct 31.5 L, MCV 97.2 H, MCH 32.7 H, MCHC 33.7, RDW Std Deviation 51.1 H, RDW Coeff of Zaheer 14.5, Plt Count 138 L, MPV 10.7, Immature Gran % (Auto) 0.300, Neut % (Auto) 76.5 H, Lymph % (Auto) 11.9 L, [place] % (Auto) 11.1 H, Eos % (Auto) 0.0, Baso % (Auto) 0.2, Absolute Neuts (auto) 7.4, Absolute Lymphs (auto) 1.15, Nucleated RBC % 0, Sodium 141, Potassium 4.0, Chloride 112 H, Carbon Dioxide 22.0, Anion Gap 7, BUN 38 H, Creatinine 1.65 H, Estim Creat Clear Calc 40.82, Est GFR (MDRD) Af Amer 52 L, Est GFR (MDRD) Non-Af 43 L, BUN/Creatinine Ratio 23.0 H, Glucose 195 H, Calcium 8.6, Total Bilirubin 0.90, AST 26, ALT 23, Alkaline Phosphatase 199 H, T otal Protein 6.1 L, Albumin 3.1 L, Globulin 3.0, Albumin/Globulin Ratio 1.0 Radiography Diagnostic Testing: Radiology Impression KUB X-Ray 05/20/24 08:38 IMPRESSION: Small bowel obstruction. Nasogastric tube terminating within the expected region of the gastric body. Electronically Signed: Elizabeth Emmanuel MD at 9:20 EDT , Physical Exam Const oriented x3 Resp normal respiratory effort Cardio regular rate GI soft to palpation GI Narrative: Tender diffusely, no peritoneal signs Inspection: abdominal distention Assessment & Plan Assessment/Plan (1) SBO (small bowel obstruction): PLAN: Plan The patient is an 83-year-old male admitted with nausea and abdominal pain. He was found on CT scan imaging to have a moderate to high-grade small bowel obstruction with evidence of ileitis of the distal small bowel. Plan to check small bowel follow-through today. And will consider possible surgery if it does not go through. Discussed diagnostic laparoscopy, possible laparotomy, possible bowel resection with the patient including risks including but not limited to bleeding, infection, injury to another organ, and hernia. Also discussed with patient's daughter Carmella over the phone as well. Nataly Chapman M.D. Pager: [phone] [facility] [address] [place] [address], [facility], [address] [place] [address] Office: [phone] Charges/Coding Visit Charges Inpatient E&M: 62251 Subs Hosp L2
[2024-05-21] MEDS: Pantoprazole Sodium 40 MG in 0.9% Normal Saline (100mL MB+) 100 ML 330 MG IV ×2 (10:57→22:21)
[2024-05-21 11:43] LABS: Bedside Glucose 184 mg/dL (74-106)
--- NOTE | 2024-05-21 12:38 | PN.HOSP_ITS ---
Reason for Visit Reason for Visit: Diagnoses Unspecified intestinal obstruction, unspecified as to partial versus complete obstruction (05/20/24) Subjective Subjective Patient was seen and examined today, his abdomen is still distended. I talked briefly to general surgery, they felt it was a very good possibility the patient would need to go to surgery this afternoon. Surgery talked with the patient's and the patient about this today. I placed the patient on lactated Ringer's due to the fact he had not been receiving fluids, at the request of surgery. Objective Data Objective Data Vital Signs: Vital Signs Temp Pulse Resp BP Pulse Ox O2 Del Method 97.7 F L 119 H 18 161/111 H 96 Room Air 05/21/24 08:30 05/21/24 08:30 05/21/24 08:30 05/21/24 08:30 05/21/24 08:30 05/21/24 10:00 Oxygen Delivery Method Room Air Weight: 87.8 kg Body Mass Index (BMI) 24.8 Intake & Output: Intake and Output for Last 24 Hours 05/19/24 05/20/24 05/21/24 23:59 23:59 23:59 Intake Total 3220.00 / 3220.00 485 / 485 Output Total 600 / 600 500 / 500 Balance 2620.00 / 2620.00 -15 / -15 Lab / Micro Data 05/21/24 05:15 05/21/24 05:15 Labs: Laboratory Results - last 24 hr 05/20/24 16:54: POC Glucose 203 H 05/20/24 21:20: POC Glucose 185 H 05/21/24 04:12: POC Glucose 187 H 05/21/24 05:15: WBC 9.7, RBC 3.24 L, Hgb 10.6 L, Hct 31.5 L, MCV 97.2 H, MCH 32.7 H, MCHC 33.7, RDW Std Deviation 51.1 H, RDW Coeff of Zaheer 14.5, Plt Count 138 L, MPV 10.7, Immature Gran % (Auto) 0.300, Neut % (Auto) 76.5 H, Lymph % (Auto) 11.9 L, [place] % (Auto) 11.1 H, Eos % (Auto) 0.0, Baso % (Auto) 0.2, Absolute Neuts (auto) 7.4, Absolute Lymphs (auto) 1.15, Nucleated RBC % 0, Sodium 141, Potassium 4.0, Chloride 112 H, Carbon Dioxide 22.0, Anion Gap 7, BUN 38 H, Creatinine 1.65 H, Estim Creat Clear Calc 40.82, Est GFR (MDRD) Af Amer 52 L, Est GFR (MDRD) Non-Af 43 L, BUN/Creatinine Ratio 23.0 H, Glucose 195 H, Calcium 8.6, Total Bilirubin 0.90, AST 26, ALT 23, Alkaline Phosphatase 199 H, T otal Protein 6.1 L, Albumin 3.1 L, Globulin 3.0, Albumin/Globulin Ratio 1.0 05/21/24 11:16: POC Glucose 184 H Radiography Diagnostic Testing: Radiology Impression KUB X-Ray 05/21/24 06:30 IMPRESSION: 1. NG tube tip and sidehole are inside the right side of the abdomen. 2. Mild gaseous distention of small bowel loops. 3. No significant interval change when compared to 05/20/2024. Electronically Signed: Jeremiah Maki MD at 9:50 EDT , Physical Exam Const alert, oriented x3 and no apparent distress General Appearance: cooperative, well kempt and well developed Orientation / Consciousness: awake, oriented to person, oriented to place and oriented to time HEENT normocephalic, head/scalp atraumatic and moist oral mucous membranes Eyes PERRL, EOMs intact bilaterally and conjunctivae normal Neck supple, no JVD, thyroid normal and no carotid bruits General: trachea midline Resp normal respiratory effort, no retractions, no use of accessory muscles and clear to auscultation bilaterally Auscultation: Negative for rales, rhonchi or wheezes Cardio no rub and no gallops Cardio Narrative: Heart rate and rhythm was irregular, there is a 2/6 systolic murmur at the apex and left sternal border GI GI Narrative: Patient's abdomen is distended, no bowel sounds were auscultated, mild abdominal tenderness was noted on palpation Extremity no clubbing, cyanosis or edema Skin no rashes or lesions noted General Skin Exam: no breakdown Neuro oriented x3, CN's II-XII intact bilaterally, moves all extremities, no focal motor deficits and no sensory deficits noted Sensorium / Orientation: awake and alert Speech: speech normal Psych affect normal Assessment & Plan Assessment/Plan (1) SBO (small bowel obstruction): PLAN: Plan 1. Small bowel obstruction-etiology unclear, possibly secondary to adhesions- patient will most likely go to surgery today, a small bowel follow-through is in progress currently #2 chronic atrial fibrillation-patient's last echocardiogram showed a normal EF- this was done earlier this year #3 valvular heart disease-patient has a bioprosthetic aortic valve, he has minimal aortic valve insufficiency #4 essential hypertension-due to his n.p.o. status, patient is receiving IV hydralazine as needed #5 type 2 diabetes-patient is on sliding scale insulin with fingerstick blood sugars every 6 hours Patient appears stable for surgery at this time Total clinical time spent by myself addressing the patient's medical issues, reviewing all of his data, and collaborating with patient's care team: 35 minutes Charges/Coding Visit Charges Inpatient E&M: 16422 Subs Hosp L2
[2024-05-21] MEDS: Lactated Ringers 1,000 ML 125 ML IV ×2 (12:45→18:52)
--- NOTE | 2024-05-21 13:32 | CASEMGMT ---
Addendum entered by Tila French 05/24/24 09:24: Updates sent to [facility]. Tila French DC Planning Asst. Original Note: Discharge Planning Updates sent to [place] via [facility]. Tila French DC Planning Asst.
--- NOTE | 2024-05-21 14:01 | PRE.ANES_ITS ---
ASA Classification* ASA Classification ASA Classification: 3 and E Assessment & Plan Anesthesia* Anesthesia Assessment Anesthesia Assessment: Discussed sedation and/or anesthesia options, risks, benefits, and alternatives with patient/parents/legal guardian/POA. Questions invited. The patient/parents/legal guardian/POA seems to understand and agrees to proceed with anesthesia plan. Reviewed the physical assessment, medical history, allergy history and patient home medications list prior to surgery/procedure/anesthetic and documented any changes. Performed airway and anesthesia risk assessments. Anesthesia Type Anesthesia Type: General History Source History Obtained from:: Patient and Chart Anesthesia Focused Assessment* Temperature: 97.7 F Pulse Rate: 119 Blood Pressure: 161/111 Respiratory Rate: 18 Pulse Ox: 96 Oxygen Delivery Method: Room Air Airway Assessment Mouth opens: >3 cm Mallampati Score: I Teeth Condition: Missing (Several missing.) and Partial (Patient has upper and lower partials which are out.) Neck Range of motion (ROM): Limited ROM (Patient has an NG tube in his right nostril in place.) Pertinent Findings ECHO Pertinent Findings:: 11/11/2023. EF=70%. Bioprosthetic aortic valve is functioning normally. Focused Labs Anesthesia Preop lab: CBC WBC 9.7 K/mm3 (4.4-11.0) 05/21/24 05:15 RBC 3.24 M/mm3 (4.6-6.2) L 05/21/24 05:15 Hgb 10.6 g/dL (13.0-16.5) L 05/21/24 05:15 Hct 31.5 % (40-54) L 05/21/24 05:15 Plt Count 138 K/mm3 (150-450) L 05/21/24 05:15 CHEMISTRY Potassium 4.0 mmol/L (3.5-5.1) 05/21/24 05:15 Sodium 141 mmol/L (136-145) 05/21/24 05:15 Magnesium 1.8 mg/dL (1.6-2.6) 11/11/23 06:15 Phosphorus 2.8 mg/dL (2.5-4.9) 11/11/23 06:15 BUN 38 mg/dL (7-18) H 05/21/24 05:15 Creatinine 1.65 mg/dL (0.70-1.30) H 05/21/24 05:15 Glucose 195 mg/dL (74-106) H 05/21/24 05:15 POC Glucose 184 mg/dL (74-106) H 05/21/24 11:16 TSH 1.57 uIU/mL (0.358-3.74) 11/11/23 06:15 COAG PT 18.5 SECONDS (11.7-14.9) H 11/13/23 06:30 Pre-Assessment Diagnosis/Proposed Procedure Planned Operative Procedure(s): Exploratory laparotomy Anesthesia History Anesthesia History - mapping specialist: Anesthesia History - mapping specialist Hx Hospitalization Any Problems With Anesthesia Cholinesterase deficiency You/Your Family Experience fever (hyperthermia) with Relationship Recent Exposure to Contagious Disease Does patient have nerve stimulator Patient instructed to have device shut off --Does patient have Pacemaker or ICD? When Was Last Pacemaker Check QUESTION #4 FULL TEXT: You/Your Family Experience fever (hyperthermia) with Anesthesia Last Oral Intake Last Oral intake: Last Oral Intake NPO since Meds taken in AM with sips of water? Meds patient instructed to take am of surgery Any additional information?: Yes NPO since: 00:00 PONV PONV - mapping specialist: PONV - mapping specialist Female HX of Motion Sickness HX of N/V After Surgery Non-Smoker Duration of Surgery greater than 60 minutes Number of Risk Factors PONV Score Height & Weight Height & Weight: Anesthesia: Height & Weight Height 6 ft 2 in 05/21/24 11:07 Weight: 87.8 kg 05/21/24 11:07 Body Mass Index (BMI) 24.8 05/21/24 05:38 Respiratory Assessment Respiratory Assessment - mapping specialist: Respiratory Tract Infection Hx - mapping specialist Hx Respiratory Tract Infection Any additional information?: Yes Hx Respiratory Tract Infection: No STOP Sleep Apnea STOP Sleep Apnea - mapping specialist: STOP Sleep Apnea - mapping specialist Hx Hypertension Yes 05/21/24 12:35 Hx Sleep Apnea Yes 05/20/24 04:39 CPAP No 05/20/24 04:39 BIPAP No 05/20/24 04:39 Do you snore loudly (louder than talking or can be heard Do you often feel tired/ fatigued/ sleepy during daytime? Has anyone observed you stop breathing during sleep? STOP Results Positive 05/20/24 04:39 QUESTION #5 FULL TEXT : Do you snore loudly (louder than talking or can be heard through closed doors)? Tobacco Use History Tobacco Use History - mapping specialist: Tobacco Use History - mapping specialist Tobacco Use Smoking Status Never smoker 05/20/24 04:39 Hx Tobacco Use No 05/20/24 04:39 Years Smoking Packs Smoked per Day Smoking Cessation Date was within the last 15 years Hx Smoking Cessation Date Hx Smoking Cessation Counseling Hematologic Medial History Hematologic Hx - mapping specialist: Hematologic Medical Hx - toe puncher Hx of Blood Transfusion No 05/20/24 04:39 Hx of Transfusion in last 3 No 05/20/24 04:39 Months Date of Last Transfusion (if within last 3 months) Ever experience any problems No 05/20/24 04:39 with transfusion(s)? Specify any problems Hx of Preganancy in last 3 N/A 05/20/24 04:39 Months Nurse Filling Out Transfusion [id number] 05/20/24 04:39 & Questions: Date: 05/20/24 05/20/24 04:39 Time: 04:44 05/20/24 04:39 Patient unable to answer at this time (ie. confused, unrespo /Reproduction History /Reproductive History - mapping specialist: /Reproductive Hx- mapping specialist Hx Now Gestational Age (in weeks): EDC: Hx Hx Para Hx Section SAB Active Medications Active Medications: Current Medications Generic Name Dose Route Start Last Admin Trade Name Freq PRN Reason Stop Dose Admin Acetaminophen 650 mg 05/20/24 04:38 Acetaminophen 650 Mg Suppository RC Q4H PRN PRN Fever, pain 1-10 Albuterol Sulfate 2.5 mg 05/20/24 04:38 Albuterol 2.5 Mg/3 Ml Vial.Neb. INHALATION Q2H PRN PRN Dyspnea, wheezing Glucagon 1 mg 05/20/24 04:38 Glucagon 1 Mg/Ml Syringe IM X1 PRN HYPOGLYCEMIA Protocol Hydralazine HCl 10 mg 05/20/24 04:38 05/20/24 11:59 Hydralazine 20 Mg/Ml Vial IV 10 mg Q4H PRN PRN Administration SBP > 160 Protocol Pantoprazole Sodium 40 mg/ 110 mls @ 330 mls/hr 05/20/24 06:00 05/21/24 11:36 Sodium Chloride IV Infused Q12 LAMBERT Infusion Dextrose 250 mls @ 0 mls/hr 05/20/24 04:38 Dextrose 10%-Water IV .Q0M PRN HYPOGLYCEMIA Protocol As Directed Sodium Chloride 100 mls @ 15 mls/hr 05/20/24 04:45 IV .Q6H40M PRN Saline Flush Sodium Chloride 100 mls @ 15 mls/hr 05/20/24 04:45 IV .Q6H40M PRN Additional IVPB Infusion Lactated Ringer's 1,000 mls @ 125 mls/hr 05/21/24 12:15 05/21/24 12:45 IV 05/22/24 04:14 125 mls/hr .Q8H LAMBERT Administration Protocol Cefotetan Disodium 1 gm/ 50 mls @ 100 mls/hr 05/21/24 13:42 Sodium Chloride IV 05/21/24 14:11 PREOP ONE Insulin Human Lispro 0 unit 05/20/24 04:38 05/21/24 12:27 Insulin Lispro 100 Unit/Ml Insuln.Pen SC Not Given Q6H LAMBERT Protocol Morphine Sulfate 2 mg 05/20/24 04:38 Morphine 2 Mg/Ml Syringe IV Q3H PRN PRN Pain Score 4-10 Ondansetron HCl 4 mg 05/20/24 04:38 05/21/24 04:25 Ondansetron 4 Mg/2 Ml Vial IV 4 mg Q8H PRN PRN Administration NAUSEA/VOMITING Prochlorperazine Edisylate 5 mg 05/20/24 04:38 Prochlorperazine 10 Mg/2 Ml Vial IV Q4H PRN PRN Breakthrough nausea/vomiting Sodium Chloride 10 - 40 ml 05/20/24 04:45 05/21/24 04:26 0.9% Saline Lock 10 Ml Syringe IV 10 ml UD PRN Administration SALINE FLUSH PFSH Medical History CKD (chronic kidney disease), stage III Persistent atrial fibrillation Diabetes Chronic pain Hypertension Stroke/cerebrovascular accident Anemia Thrombocytopenia Chronic back pain Mild vascular dementia DJD (degenerative joint disease) Gout Mild mitral regurgitation Mild aortic insufficiency Hyperlipemia CAD (coronary artery disease) Sciatica Home Medications ?Medication ?Instructions ?Recorded ?Last Taken ?Type allopurinol 300 mg tablet 300 mg PO DAILY gout 07/07/21 11/10/23 History furosemide 20 mg tablet (Lasix) 20 mg PO DAILY diuretic 07/07/21 11/10/23 History acetaminophen 500 mg capsule 500 mg PO Q6H PRN pain 05/28/23 Unknown History cholecalciferol (vitamin D3) 50 50 mcg PO DAILY supplement 05/28/23 11/10/23 History mcg (2,000 unit) capsule metformin 500 mg tablet 500 mg PO BID Diabetes 05/28/23 Unknown History terazosin 5 mg capsule 5 mg PO DAILY BPH 05/28/23 11/09/23 History eplerenone 50 mg tablet 50 mg PO DAILY HTN 11/11/23 Unknown History atorvastatin 80 mg tablet 80 mg PO QHS #0 tabs 11/14/23 Unknown Rx lisinopril 20 mg tablet 20 mg PO DAILY #1 TAB 11/14/23 Unknown Rx metoprolol succinate 25 mg 25 mg PO DAILY #1 TAB 11/14/23 Unknown Rx tablet,extended release 24 hr apixaban 2.5 mg tablet (Eliquis) 2.5 mg PO BID 05/20/24 Unknown History triamcinolone acetonide 0.5 % 1 applic topical QHS PRN PRN rash 05/20/24 Unknown History topical ointment Allergy/AdvReac Type Severity Reaction Status Date / Time No Known Allergies Allergy Verified 05/21/24 14:06 Family History Mother No problems noted. Father Heart disease Myocardial infarction CVA (cerebral vascular accident) Surgical History Heart valve replaced History of hernia repair H/O bilateral cataract extraction History of quadruple bypass History of back surgery History of tonsillectomy History of total left knee replacement Social History household members: none housing: other details: Dependent Smoking Status: Never smoker alcohol intake: never substance use type: does not use what type of physical activity do you participate in: walking Review of Systems (Anesthesia) ROS Narrative System reviewed and no additional complaints, except as documented.
[2024-05-21 15:13] LABS: Troponin-I HS 273 pg/mL (3.0-78.0)
[2024-05-21] MEDS: Cefotetan 1 GM in 0.9% Normal Saline (50mL MB+) 50 ML IV (15:35)
[2024-05-21] MEDS: Bupivacaine 0.25% 30 ML Vial (16:00)
--- NOTE | 2024-05-21 16:03 | CASEMGMT ---
Social Work- Pt confirms he has completed a living will and health care POA naming coby Weir, as primary agent.? Pt notified that documents are not on file at [facility] and SW requested they be brought in for scanning into the EMR.? YOLANDA Burris
--- NOTE | 2024-05-21 16:33 | OP.PCM_ITS ---
Report of Operation Date of Procedure: 05/21/24 Pre-Operative Diagnosis: Small bowel obstruction Post-Operative Diagnosis: Small bowel obstruction caused ventral hernia Surgery/Procedure Performed:: Diagnostic laparoscopy converted to laparotomy, release of internal hernia Surgeon: Nataly Chapman linseed cake trimmer: Zunilda Velazquez Type of Anesthesia: General/Supplemental Anesthesiologist: Khadar Cedillo Special Medications: Cefotan 2 g IV x 1 Specimen's removed: None Drains: Suctioned about 680 cc of blood-tinged ascites Estimated Blood Loss (mL): < 10 cc Description of Procedure: Patient brought to operating placed spinal operating table. Timeout was completed verifying correct procedure, site, positioning, special equipment prior to beginning procedure. General anesthesia was induced. Patient's arms were tucked with appropriate padding. 12 [place] Jason catheter was placed. Patient abdomen was prepped and draped in usual sterile fashion. Incision was made in the supraumbilical midline with a 15 blade scalpel. The fascia was elevated and incised under direct visualization. Patient did have some serosanguineous ascites-approximately 680 cc were suctioned throughout the procedure. Abdomen was insufflated with ~15 mmHg. Patient tolerated insufflation well. Laparoscope was inserted and showed no injury upon entry into the abdomen. There is noted to be diffuse small bowel distention. Did place additional 5 mm trocars 1 in the left lower quadrant and 1 inferior midline. Attempted to visualize the area of transition however due to the distended heavy bowel unable to do so laparoscopically. Did convert to an open procedure?trocars removed under direct visualization. 10 blade scalpel was used for midline incision. Electrocautery used down to the fascia. Wound protector was placed. The small bowel was delivered out of the abdomen noted to be congested along with the mesentery but still viable. There is found to be a small internal hernia which was able to be removed with just gentle traction. The entirety of the small bowel was ran from cecum to ligament of Treitz. The fluid content was also able to be milked into the nondistended small bowel. Abdomen is irrigated. Incision was closed with 1 PDS running suture. Skin was closed with skin reyna and Monocryl at the 5 mm trocar sites. Patient tolerated procedure well was taken to the postanesthesia care in stable condition. Complications none
--- NOTE | 2024-05-21 16:59 | PCM.POST.ANE ---
Anesthesia: Postop Eval I Current Vital Signs Temperature: 98.8 F Pulse Rate: 107 Blood Pressure: 140/76 Respiratory Rate: 16 Pulse Ox: 95 Oxygen Delivery Method: Room Air Assessment Airway patent: Yes Spontaneous unlabored respirations: Yes Mental status: Awake nausea: No Vomiting: No Anesthesia Complication: No Fluid Hydration Crystalloid volume administer (ml): 500 Total IV fluid infused: 500 Progress Note Anesthesia document: Postop Eval 1 completed: Yes
--- NOTE | 2024-05-21 17:29 | SUR.PHASEI ---
DR. SEGAL CALLED DR. CLARKE TO CONSULT HIS AFIB WITH HEART RATE IN THE 130'S. DR. SEGAL WILL GIVE THE PATIENT METOPROLOL 5MG IV X1 AND WILL MANAGE UP TO 15MG TO TRY AND REGULATE HEART RATE.
--- NOTE | 2024-05-21 17:32 | SUR.PHASEI ---
DR. SEGAL GIVING ANOTER METORPROLOL 5MG IV. HEART RATE LOW 100'S.
--- NOTE | 2024-05-21 17:43 | SUR.PHASEI ---
DR. SEGAL IS NOW GIVING THE 3RD DOSE OF METOPROLOL 5MG IV. HEART RATE IS LOW 100'S. HE IS STILL AFIB RVR. BP 141/92. MAP OF 103.
[2024-05-21] MEDS: Nitroglycerin Oint 1 INCH PACKET TD (17:51)
[2024-05-21 17:52] LABS: Troponin-I HS 271 pg/mL (3.0-78.0)
--- NOTE | 2024-05-21 18:11 | PCM.POSTANE2 ---
Anesthesia Postop Eval I Sum Postop Eval Completion status Anesthesia document: Postop Eval 1 completed: Yes Anesthesia Postop Eval I Summary Anesthesia Postop Eval I Summary: Anesthesia Postop Eval I: Assessment Summary Airway patent Yes 05/21/24 17:00 [email or web address] Spontaneous unlabored Yes 05/21/24 17:00 [email or web address] respirations Mental status Awake 05/21/24 17:00 [email or web address] nausea No 05/21/24 17:00 [email or web address] Vomiting No 05/21/24 17:00 [email or web address] Anesthesia Postop Eval I: Fluid Summary Crystalloid volume administer 500 05/21/24 17:00 [email or web address] (ml) Colloids volume administered ( ml) Blood Product volume administered (ml) Total IV fluid infused 500 05/21/24 17:00 [email or web address] Anesthesia Postop Eval I: Summary Notes Anesthesia Complication No 05/21/24 17:00 [email or web address] Anesthesia Complication Comment: Post-operative progress note Anesthesia: Postop Eval II Evaluation Mental status: Asleep Pain Level: 0 nausea: No Vomiting: No Progress Note Post-operative progress note: Patient in RVR, discussed with Dr Singh regarding best option for treatment plan. Initiated metoprolol 5mg IV up to 15 mg as a loading dose and placed Q6 with parameters as per Dr Gaviria. Pt tolerated 3 doses well, hemodynamically stable . Complications Anesthesia Complication: No
[2024-05-21] MEDS: Metoprolol Tartrate 5 MG/5 ML Vial IV (18:49)
[2024-05-21 19:04] LABS: Bedside Glucose 202 mg/dL (74-106)
[2024-05-21 22:37] LABS: Bedside Glucose 195 mg/dL (74-106)
[2024-05-22] VITALS (13 sets, daily range): BP systolic 127–158; BP diastolic 68–94; PULSE 85–98; RESP 16–19; TEMP 36.4–37.1; O2SAT 97–98; BMI 24.9
[2024-05-22] MEDS: Metoprolol Tartrate 5 MG/5 ML Vial IV ×4 (00:23→17:03)
[2024-05-22] MEDS: 0.9% Saline Lock 10 ML Syringe IV ×2 (00:24→06:40)
[2024-05-22] MEDS: 0.9% Normal Saline (1000mL) 1,000 ML 100 ML IV ×3 (02:33→22:32)
[2024-05-22 04:23] LABS: Bedside Glucose 196 mg/dL (74-106)
[2024-05-22 06:51] LABS: Absolute Lymphocyte Count 1.28 X10^3/uL (0.83-4.51); Absolute Neutrophil Count 4.7 X10^3/uL (2.0-7.7); Basophil# 0.02 X10^3/uL; Basophil% 0.3 % (0-1); Hematocrit 31.4 % (40-54); Hemoglobin 10.5 g/dL (13.0-16.5); Lymphocyte # 1.28 X10^3/ul (0.83-4.51); Lymphocyte % 17.2 % (19-41); Mean Corp Hgb Conc 33.4 g/dL (32-36); Mean Corpuscular Hgb 33.1 pg (27.0-32.0); Mean Corpuscular Volume 99.1 fL (80-94); Mean Platelet Vol. 9.8 fl (6.2-12.0); Monocyte# 1.42 X10^3/uL; Monocyte% 19.1 % (0-10); NRBC Flagged by Analyzer 0 % (0-5); Neutrophil # 4.71 X10^3/uL (2.7-7.7); Neutrophil % 63.1 % (47-70); Platelet Count 118 K/mm3 (150-450); RBC Distribution Width CV 14.6 % (11.6-14.6); Red Blood Count 3.17 M/mm3 (4.6-6.2); White Blood Count 7.5 K/mm3 (4.4-11.0)
[2024-05-22] MEDS: Morphine 2 MG/ML Syringe IV ×3 (06:52→19:45)
[2024-05-22 07:19] LABS: Anion Gap 6 (5-15); BUN 53 mg/dL (7-18); BUN/Creat Ratio 23.1 RATIO (10-20); Calcium,Total 8.4 mg/dL (8.5-10.1); Chloride 114 mmol/L (98-107); Creatinine, Serum 2.29 mg/dL (0.70-1.30); EST Glomerular Filtration Rate 29 mL/min (>60); Est Glom Filt Rate - Afr Amer 35 mL/min (>60); Estimated Creatinine Clearance 29.41 ml/min; Glucose 182 mg/dL (74-106); Magnesium 1.9 mg/dL (1.6-2.6); Phosphorus 3.9 mg/dL (2.5-4.9); Potassium 4.1 mmol/L (3.5-5.1); Sodium Level 144 mmol/L (136-145)
--- NOTE | 2024-05-22 08:13 | PCM.PN.SRG ---
Subjective Subjective Patient states his abdomen is feeling better and only incisional pain. Denies any flatus. NG in place with bilious drainage. Objective Data Objective Data Vital Signs: Vital Signs Temp Pulse Resp BP Pulse Ox O2 Del Method O2 Flow Rate 98.0 F 88 18 138/71 H 97 Nasal Cannula 2 05/22/24 06:10 05/22/24 06:39 05/22/24 06:10 05/22/24 06:39 05/22/24 06:10 05/22/24 06:10 05/22/24 06:10 Oxygen Flow Rate (L/min) 2 Oxygen Delivery Method Nasal Cannula Weight: 193 lb 9.054 oz Body Mass Index (BMI) 24.8 Intake & Output: Intake and Output for Last 24 Hours 05/20/24 05/21/24 05/22/24 23:59 23:59 23:59 Intake Total 3220.00 / 3220.00 1800 / 1800 977.92 / 977.92 Output Total 600 / 600 1530 / 1530 250 / 250 Balance 2620.00 / 2620.00 270 / 270 727.92 / 727.92 Lab / Micro Data 05/22/24 06:45 05/22/24 06:45 Labs: Laboratory Results - last 24 hr 05/21/24 11:16: POC Glucose 184 H 05/21/24 14:38: Troponin I High Sens 273 H* 05/21/24 16:32: Troponin I High Sens 271 H* 05/21/24 18:37: POC Glucose 202 H 05/21/24 22:20: POC Glucose 195 H 05/22/24 03:55: POC Glucose 196 H 05/22/24 06:45: WBC 7.5, RBC 3.17 L, Hgb 10.5 L, Hct 31.4 L, MCV 99.1 H, MCH 33.1 H, MCHC 33.4, RDW Std Deviation 53.0 H, RDW Coeff of Zaheer 14.6, Plt Count 118 L, MPV 9.8, Immature Gran % (Auto) 0.300, Neut % (Auto) 63.1, Lymph % (Auto) 17.2 L, [place] % (Auto) 19.1 H, Eos % (Auto) 0.0, Baso % (Auto) 0.3, Absolute Neuts (auto) 4.7, Absolute Lymphs (auto) 1.28, Nucleated RBC % 0, Sodium 144, Potassium 4.1, Chloride 114 H, Carbon Dioxide 23.0, Anion Gap 6, BUN 53 H, Creatinine 2.29 H, Estim Creat Clear Calc 29.41, Est GFR (MDRD) Af Amer 35 L, Est GFR (MDRD) Non-Af 29 L, BUN/Creatinine Ratio 23.1 H, Glucose 182 H, Calcium 8.4 L, Phosphorus 3.9, Magnesium 1.9 Radiography Diagnostic Testing: Radiology Impression KUB X-Ray 05/21/24 06:30 IMPRESSION: 1. NG tube tip and sidehole are inside the right side of the abdomen. 2. Mild gaseous distention of small bowel loops. 3. No significant interval change when compared to 05/20/2024. Electronically Signed: Jeremiah Maki MD at 9:50 EDT Reading Location ID and State: [facility] / [place] , Service support , Physical Exam Const oriented x3 and no apparent distress Resp normal respiratory effort GI GI Narrative: Soft, tender near incision dressed clean dry and intact, no peritoneal signs, mild distention Assessment & Plan Assessment/Plan (1) SBO (small bowel obstruction): PLAN: Plan s/p diagnostic laparotomy release of internal hernia postop day 1 Continue NG/IV fluids until bowel function. Jason for I's and O's okay to remove for good urine output Continue pain control Lovenox this morning Nataly Chapman M.D. Pager: [phone] [facility] [address] [place] [address], [facility], [address] [place] [address] Office: [phone]
[2024-05-22] MEDS: Pantoprazole Sodium 40 MG in 0.9% Normal Saline (100mL MB+) 100 ML 330 MG IV ×2 (09:42→22:32)
[2024-05-22] MEDS: Enoxaparin 30 MG/0.3 ML Syringe SC (09:42)
[2024-05-22 12:06] LABS: Bedside Glucose 136 mg/dL (74-106)
--- NOTE | 2024-05-22 13:51 | CASEMGMT ---
Social Work- SW attempted to meet with pt to discuss therapy recommendations. Pt was difficult to rouse and groggy. SW will try when pt is able to engage more in conversation. SW will remain available to follow. YOLANDA Burris
[2024-05-22 16:02] LABS: Bedside Glucose 135 mg/dL (74-106)
--- NOTE | 2024-05-22 16:11 | PCM.PN.HOSP ---
Reason for Visit Reason for Visit: Diagnoses Unspecified intestinal obstruction, unspecified as to partial versus complete obstruction (05/20/24) Subjective Subjective Patient was seen and examined today, he states he is more comfortable with less abdominal pain today. Patient is on low-flow oxygen currently, his atrial fib appears to be controlled at this time. Patient has had some runs of an arrhythmia that looks to be accelerated idioventricular rhythm, I had cardiology look at the strips briefly and that is what Dr. Beckwith feels that it is. Patient is asymptomatic with this rhythm. Objective Data Objective Data Vital Signs: Vital Signs Temp Pulse Resp BP Pulse Ox O2 Del Method O2 Flow Rate 98.0 F 91 16 158/84 H 98 Nasal Cannula 1 05/22/24 15:00 05/22/24 15:00 05/22/24 15:00 05/22/24 15:00 05/22/24 15:00 05/22/24 15:29 05/22/24 15:29 Oxygen Flow Rate (L/min) 1 Oxygen Delivery Method Nasal Cannula Weight: 87.8 kg Body Mass Index (BMI) 24.8 Intake & Output: Intake and Output for Last 24 Hours 05/20/24 05/21/24 05/22/24 23:59 23:59 23:59 Intake Total 3220.00 / 3220.00 1800 / 1800 2147.92 / 2147.92 Output Total 600 / 600 1530 / 1530 675 / 675 Balance 2620.00 / 2620.00 270 / 270 1472.92 / 1472.92 Lab / Micro Data 05/22/24 06:45 05/22/24 06:45 Labs: Laboratory Results - last 24 hr 05/21/24 16:32: Troponin I High Sens 271 H* 05/21/24 18:37: POC Glucose 202 H 05/21/24 22:20: POC Glucose 195 H 05/22/24 03:55: POC Glucose 196 H 05/22/24 06:45: WBC 7.5, RBC 3.17 L, Hgb 10.5 L, Hct 31.4 L, MCV 99.1 H, MCH 33.1 H, MCHC 33.4, RDW Std Deviation 53.0 H, RDW Coeff of Zaheer 14.6, Plt Count 118 L, MPV 9.8, Immature Gran % (Auto) 0.300, Neut % (Auto) 63.1, Lymph % (Auto) 17.2 L, [place] % (Auto) 19.1 H, Eos % (Auto) 0.0, Baso % (Auto) 0.3, Absolute Neuts (auto) 4.7, Absolute Lymphs (auto) 1.28, Nucleated RBC % 0, Sodium 144, Potassium 4.1, Chloride 114 H, Carbon Dioxide 23.0, Anion Gap 6, BUN 53 H, Creatinine 2.29 H, Estim Creat Clear Calc 29.41, Est GFR (MDRD) Af Amer 35 L, Est GFR (MDRD) Non-Af 29 L, BUN/Creatinine Ratio 23.1 H, Glucose 182 H, Calcium 8.4 L, Phosphorus 3.9, Magnesium 1.9 05/22/24 11:34: POC Glucose 136 H 05/22/24 15:43: POC Glucose 135 H Radiography Diagnostic Testing: Radiology Impression Small Bowel X-Ray 05/21/24 08:45 IMPRESSION: Findings consistent with persistent small bowel obstruction. Electronically Signed: Ferdinand Mckeon MD at 15:59 EDT , Physical Exam Narrative Physical Examination: General: Awake, alert, oriented to self, place, year but cannot give month and does take time to give these answers, does have underlying dementia and suspect this is his baseline, seated upright in the ED bed, reporting his abdominal discomfort 3 out of 10, pending NG tube placement. Skin: Normal color, normal turgor, no icterus, no cyanosis except for occasional staged ecchymoses, abrasion. HEENT: AT/NC, EOMI, PERRLA, mildly dry MM, no carotid bruits or JVD noted. Lungs: Mildly diminished, greater bases, appropriate effort, no rales, ronchi or wheezing. Heart: Mildly tachycardic, regular; no gallop, rub audible, + SM. Abdomen: Soft, mild generalized discomfort but no rebound or guarding and no focal region of pain upon palpation, despite findings on CT not markedly distended, significantly hypoactive bowel sounds diffusely, no appreciated HSM. Extremities: No cyanosis, no clubbing, bilateral lower extremity distal edema, more so left lower extremity suspected from harvesting for bypass surgery, mildly pitting ankle to distal jarrett. Neurological: Patient awake, alert, oriented as noted cognitive function decreased baseline with underlying dementia, suspect currently based intact; pupils equally reactive to light and accommodation, cranial nerves gross normal, moving all 4 extremities, no focal deficits, strength moderately to severely global decrease secondary to acute presentation complaints compounded by advanced age and underlying morbidities Psychiatric: Affect appears fatigued otherwise normal, no acute evidence of depressive or anxiety feelings. Const alert, oriented x3, no apparent distress, average body habitus and healthy appearing General Appearance: cooperative, well kempt and well developed Orientation / Consciousness: awake, oriented to person, oriented to place and oriented to time HEENT normocephalic, head/scalp atraumatic and moist oral mucous membranes Eyes PERRL, EOMs intact bilaterally and conjunctivae normal Neck supple, no JVD, thyroid normal and no carotid bruits General: trachea midline Resp normal respiratory effort, no retractions, no use of accessory muscles and clear to auscultation bilaterally Auscultation: Negative for rales, rhonchi or wheezes Cardio S1 normal heart sound, S2 normal heart sound, no murmurs, no rub and no gallops Cardio Narrative: Heart rate and rhythm is irregular with ectopic beats noted GI soft to palpation and non-distended GI Narrative: Patient's abdomen is distended, no bowel sounds were auscultated, mild abdominal tenderness was noted on palpation Auscultation: hypoactive bowel sounds Extremity no clubbing, cyanosis or edema Skin no rashes or lesions noted General Skin Exam: no breakdown Neuro oriented x3, CN's II-XII intact bilaterally, moves all extremities, no focal motor deficits and no sensory deficits noted Sensorium / Orientation: awake and alert Speech: speech normal Psych affect normal Assessment & Plan Assessment/Plan (1) SBO (small bowel obstruction): PLAN: Plan 1. Small bowel obstruction-secondary to internal hernia, postop day 1, patient appears comfortable at this time #2 chronic atrial fibrillation-patient's last echocardiogram showed a normal EF-this was done earlier this year, patient is on IV metoprolol for rate control #3 valvular heart disease-patient has a bioprosthetic aortic valve, he has minimal aortic valve insufficiency #4 essential hypertension-due to his n.p.o. status, patient is receiving IV hydralazine as needed #5 type 2 diabetes-patient is on sliding scale insulin with fingerstick blood sugars every 6 hours #6 accelerated idioventricular rhythm-there is no treatment for this rhythm necessary. Patient appears stable for surgery at this time Total clinical time spent by myself addressing the patient's medical issues, reviewing all of his data, and collaborating with patient's care team: 35 minutes Charges/Coding Visit Charges Inpatient E&M: 53634 Subs Hosp L2
[2024-05-22] MEDS: Phenol/Sodium Phenolate 180ML 3 SPRAY MUCOUS MEM ×2 (17:02→19:49)
[2024-05-22 23:17] LABS: Bedside Glucose 132 mg/dL (74-106)
[2024-05-23] VITALS (12 sets, daily range): BP systolic 144–190; BP diastolic 73–87; PULSE 72–110; RESP 18–19; TEMP 36.4–37.2; O2SAT 92–96; BMI 24.7
[2024-05-23] MEDS: Metoprolol Tartrate 5 MG/5 ML Vial IV ×5 (00:01→23:34)
[2024-05-23] MEDS: Phenol/Sodium Phenolate 180ML 3 SPRAY MUCOUS MEM ×3 (00:08→14:58)
[2024-05-23 07:03] LABS: Bedside Glucose 103 mg/dL (74-106)
[2024-05-23] MEDS: BENZOCAINE/MENTHOL 1 LOZENGE 2 LOZENGE MUCOUS MEM ×2 (09:31→11:34)
[2024-05-23] MEDS: Pantoprazole Sodium 40 MG in 0.9% Normal Saline (100mL MB+) 100 ML 330 MG IV ×2 (09:31→20:49)
--- NOTE | 2024-05-23 09:32 | PCM.PN.SRG ---
Subjective Subjective Patient is only complaining of some incisional pain. Still denies any flatus. Patient is having much less out of the NG only about 100 in the canister. Objective Data Objective Data Vital Signs: Vital Signs Temp Pulse Resp BP Pulse Ox O2 Del Method O2 Flow Rate 97.6 F L 101 H 18 144/84 H 94 Room Air 1 05/23/24 09:25 05/23/24 09:25 05/23/24 09:25 05/23/24 09:25 05/23/24 09:25 05/23/24 09:25 05/22/24 23:58 Oxygen Flow Rate (L/min) 1 Oxygen Delivery Method Room Air Weight: 192 lb 3.889 oz Body Mass Index (BMI) 24.7 Intake & Output: Intake and Output for Last 24 Hours 05/21/24 05/22/24 05/23/24 23:59 23:59 23:59 Intake Total 1800 / 1800 3317.92 / 3347.92 1060 / 1060 Output Total 1530 / 1530 925 / 1125 500 / 500 Balance 270 / 270 2392.92 / 2222.92 560 / 560 Lab / Micro Data 05/22/24 06:45 05/22/24 06:45 Labs: Laboratory Results - last 24 hr 05/22/24 11:34: POC Glucose 136 H 05/22/24 15:43: POC Glucose 135 H 05/22/24 22:30: POC Glucose 132 H 05/23/24 06:19: POC Glucose 103 Radiography Diagnostic Testing: Radiology Impression Small Bowel X-Ray 05/21/24 08:45 IMPRESSION: Findings consistent with persistent small bowel obstruction. Electronically Signed: Ferdinand Mckeon MD at 15:59 EDT , Physical Exam Const oriented x3 and no apparent distress Resp normal respiratory effort GI GI Narrative: Soft, tender near incision dressed clean dry and intact, no peritoneal signs, nondistended Assessment & Plan Assessment/Plan (1) SBO (small bowel obstruction): PLAN: Plan s/p diagnostic laparotomy release of internal hernia postop day 2 Continue NG/IV fluids until bowel function. Okay for sips and chips just tracked by mouth as will come back out of the NG. Will also add Cepacol lozengerardo Jason for I's and O's continue to monitor. Will restart patient on LR at 100 cc an hour Continue pain control Continue Lovenox Nataly Chapman M.D. Pager: [phone] [facility] [address] [place] [address], [facility], [address] [place] [address] Office: [phone]
[2024-05-23] MEDS: Lactated Ringers 1,000 ML 100 ML IV (09:33)
[2024-05-23] MEDS: Enoxaparin 30 MG/0.3 ML Syringe SC (09:35)
[2024-05-23] MEDS: Morphine 2 MG/ML Syringe IV ×3 (09:41→22:55)
[2024-05-23 11:48] LABS: Bedside Glucose 92 mg/dL (74-106)
[2024-05-23 14:18] LABS: Anion Gap 5 (5-15); BUN 52 mg/dL (7-18); BUN/Creat Ratio 29.2 RATIO (10-20); Calcium,Total 8.4 mg/dL (8.5-10.1); Chloride 120 mmol/L (98-107); Creatinine, Serum 1.78 mg/dL (0.70-1.30); EST Glomerular Filtration Rate 39 mL/min (>60); Est Glom Filt Rate - Afr Amer 47 mL/min (>60); Estimated Creatinine Clearance 37.84 ml/min; Glucose 92 mg/dL (74-106); Potassium 3.8 mmol/L (3.5-5.1); Sodium Level 147 mmol/L (136-145)
[2024-05-23 17:19] LABS: Bedside Glucose 83 mg/dL (74-106)
[2024-05-23] MEDS: Dextrose 10%-Water 250 ML 999 ML IV (20:38)
[2024-05-23 21:45] LABS: Bedside Glucose 67 mg/dL (74-106)
[2024-05-23 21:45] LABS: Bedside Glucose 111 mg/dL (74-106)
[2024-05-23] MEDS: 0.9% Saline Lock 10 ML Syringe IV ×2 (22:55→23:34)
[2024-05-24] VITALS (17 sets, daily range): BP systolic 140–194; BP diastolic 68–100; PULSE 68–105; RESP 16–18; TEMP 36.4–36.6; O2SAT 96–99
[2024-05-24] MEDS: 0.9% Saline Lock 10 ML Syringe IV ×5 (00:33→21:19)
[2024-05-24] MEDS: hydrALAZINE 20 MG/ML Vial 10 MG IV ×3 (00:33→17:18)
[2024-05-24] MEDS: Phenol/Sodium Phenolate 180ML 3 SPRAY MUCOUS MEM (05:48)
[2024-05-24] MEDS: Metoprolol Tartrate 5 MG/5 ML Vial IV ×4 (05:48→23:49)
[2024-05-24] MEDS: Morphine 2 MG/ML Syringe IV ×2 (06:08→10:54)
--- NOTE | 2024-05-24 06:36 | PN.SURG_ITS ---
Subjective Subjective Minimal amount of NG, patient denies flatus still. Objective Data Objective Data Vital Signs: Vital Signs Temp Pulse Resp BP Pulse Ox O2 Del Method O2 Flow Rate 97.8 F 105 H 18 174/90 H 99 Nasal Cannula 2 05/24/24 05:46 05/24/24 05:48 05/24/24 05:46 05/24/24 05:46 05/24/24 05:46 05/24/24 05:46 05/24/24 05:46 FiO2 91 05/23/24 20:30 Oxygen Flow Rate (L/min) 2 Oxygen Delivery Method Nasal Cannula Weight: 192 lb 3.889 oz Body Mass Index (BMI) 24.7 Intake & Output: Intake and Output for Last 24 Hours 05/22/24 05/23/24 05/24/24 23:59 23:59 23:59 Intake Total 3317.92 / 3347.92 2936.5 / 2936.5 30 / 30 Output Total 925 / 1125 1325 / 1325 675 / 675 Balance 2392.92 / 2222.92 1611.5 / 1611.5 -645 / -645 Lab / Micro Data 05/22/24 06:45 05/23/24 13:35 Labs: Laboratory Results - last 24 hr 05/23/24 06:19: POC Glucose 103 05/23/24 11:27: POC Glucose 92 05/23/24 13:35: Sodium 147 H, Potassium 3.8, Chloride 120 H, Carbon Dioxide 22.0, Anion Gap 5, BUN 52 H, Creatinine 1.78 H, Estim Creat Clear Calc 37.84, E st GFR (MDRD) Af Amer 47 L, Est GFR (MDRD) Non-Af 39 L, BUN/Creatinine Ratio 29.2 H, Glucose 92, Calcium 8.4 L 05/23/24 16:57: POC Glucose 83 05/23/24 20:21: POC Glucose 67 L 05/23/24 21:27: POC Glucose 111 H Physical Exam Const oriented x3 and no apparent distress Resp normal respiratory effort GI GI Narrative: Soft, tender near incision dressed clean dry and intact, no peritoneal signs, mild distention Assessment & Plan Assessment/Plan (1) SBO (small bowel obstruction): PLAN: Plan s/p diagnostic laparotomy release of internal hernia postop day 3 Continue NG/IV fluids until bowel function. Okay for sips and chips just tracked by mouth as will come back out of the NG. Will check KUB?possible postop ileus Jason for I's and O's continue to monitor?okay to DC for good urine output. Continue pain control Continue Lovenox Nataly Chapman M.D. Pager: [phone] [facility] [address] [place] [address], [facility], [address] [place] [address] Office: [phone]
[2024-05-24 06:39] LABS: Bedside Glucose 93 mg/dL (74-106)
[2024-05-24 06:59] LABS: Bedside Glucose 83 mg/dL (74-106)
--- NOTE | 2024-05-24 07:25 | RAD_ITS ---
INDICATION: ileus -- portable EXAMINATION/TECHNIQUE: X-RAY - XR Abdomen 1 View COMPARISON: Small bowel series of 05/21/2024 FINDINGS: BOWEL GAS PATTERN: Nasogastric tube coiled in the gastric fundus with the tip in the region of the duodenum. Somewhat dilated gaseous small bowel loops and colon. Contrast reached the ascending colon. FREE AIR: Not assessed on a single supine view. ORGANOMEGALY: Not seen. CALCIFICATIONS: No abnormal calcifications observed. LOWER CHEST: No acute pathology. BONES AND SOFT TISSUES: Metallic densities in the pelvic region and surgical clips in the left groin. Degenerative changes of the spine. RAD/Abdomen Single View (Portable) IMPRESSION: Nonspecific mildly dilated gaseous small bowel loops and colon with contrast reached the colon could be due to partial small bowel obstruction or ileus. Electronically Signed: Alen Shafer MD at 12:22 EDT ,
--- NOTE | 2024-05-24 10:19 | CASEMGMT ---
Discharge Planning Msg sent to [facility] regarding pts need for skilled stay. They currently have bed availability on snf side. SW updated. Tila French DC Planning Asst.
--- NOTE | 2024-05-24 10:32 | CASEMGMT ---
Social Work Pt is admitted from [facility]. At this time pt will need additional care and SNF is recommended. SW spoke with pt who is understanding and agreeable to SNF and prefers to stay at the [facility]. MIRANDA left with pt dgt Carmella to confirm dc plan. DC marketing administrative assistant updated and sent referral to [facility]. [facility] is able to accept into skilled side. Plan: [facility], when medically ready YOLANDA Escalona
[2024-05-24] MEDS: Pantoprazole Sodium 40 MG in 0.9% Normal Saline (100mL MB+) 100 ML 330 MG IV ×2 (10:50→21:19)
[2024-05-24] MEDS: Enoxaparin 40 MG/0.4 ML Syringe SC (11:02)
--- NOTE | 2024-05-24 11:11 | PN.HOSP_ITS ---
Reason for Visit Reason for Visit: Diagnoses Unspecified intestinal obstruction, unspecified as to partial versus complete obstruction (05/20/24) Subjective Subjective No flatus. Objective Data Objective Data Vital Signs: Vital Signs Temp Pulse Resp BP Pulse Ox O2 Del Method O2 Flow Rate 36.6 C 77 18 166/68 H 96 Nasal Cannula 2 05/24/24 05:46 05/24/24 10:53 05/24/24 05:46 05/24/24 10:53 05/24/24 09:25 05/24/24 08:15 05/24/24 09:25 FiO2 91 05/23/24 20:30 Oxygen Flow Rate (L/min) 2 Oxygen Delivery Method Nasal Cannula Weight: 87.2 kg Body Mass Index (BMI) 24.7 Intake & Output: Intake and Output for Last 24 Hours 05/22/24 05/23/24 05/24/24 23:59 23:59 23:59 Intake Total 3317.92 / 3347.92 2936.5 / 2936.5 30 / 30 Output Total 925 / 1125 1325 / 1325 675 / 675 Balance 2392.92 / 2222.92 1611.5 / 1611.5 -645 / -645 Lab / Micro Data 05/22/24 06:45 05/23/24 13:35 Labs: Laboratory Results - last 24 hr 05/23/24 11:27: POC Glucose 92 05/23/24 13:35: Sodium 147 H, Potassium 3.8, Chloride 120 H, Carbon Dioxide 22.0, Anion Gap 5, BUN 52 H, Creatinine 1.78 H, Estim Creat Clear Calc 37.84, E st GFR (MDRD) Af Amer 47 L, Est GFR (MDRD) Non-Af 39 L, BUN/Creatinine Ratio 29.2 H, Glucose 92, Calcium 8.4 L 05/23/24 16:57: POC Glucose 83 05/23/24 20:21: POC Glucose 67 L 05/23/24 21:27: POC Glucose 111 H 05/24/24 00:38: POC Glucose 93 05/24/24 04:30: POC Glucose 83 Physical Exam Const alert HEENT head/scalp atraumatic and moist oral mucous membranes Resp normal respiratory effort, no retractions, no use of accessory muscles and clear to auscultation bilaterally Cardio regular rate, regular rhythm, S1 normal heart sound and S2 normal heart sound GI normal to inspection, nondistended, normoactive bowel sounds, soft to palpation, non-tender and non-distended Neuro Sensorium / Orientation: awake and alert Assessment & Plan Assessment/Plan (1) SBO (small bowel obstruction): PLAN: Plan SBO * 05/21: s/p laparotomy with release of internal hernia * Mgmt per general surgery. Chronic conditions: * chronic atrial fibrillation-patient's last echocardiogram showed a normal EF- this was done earlier this year, patient is on IV metoprolol for rate control * valvular heart disease-patient has a bioprosthetic aortic valve, he has minimal aortic valve insufficiency * essential hypertension-due to his n.p.o. status, patient is receiving IV hydralazine as needed * type 2 diabetes-patient is on sliding scale insulin with fingerstick blood sugars every 6 hours VTE prophylaxis: enoxaparin Charges/Coding Visit Charges Inpatient E&M: 87886 Subs Hosp L2
[2024-05-24 11:17] LABS: Bedside Glucose 81 mg/dL (74-106)
[2024-05-24] MEDS: Tamsulosin HCl 0.4 MG Capsule PO (14:20)
[2024-05-24 17:42] LABS: Bedside Glucose 83 mg/dL (74-106)
[2024-05-25] VITALS (8 sets, daily range): BP systolic 148–155; BP diastolic 63–94; PULSE 73–110; RESP 18; TEMP 36.6–36.7; O2SAT 92–96; BMI 24.3
[2024-05-25 00:59] LABS: Bedside Glucose 139 mg/dL (74-106)
[2024-05-25] MEDS: Metoprolol Tartrate 5 MG/5 ML Vial IV ×3 (05:52→17:00)
[2024-05-25] MEDS: 0.9% Saline Lock 10 ML Syringe IV ×3 (05:52→22:30)
[2024-05-25 05:56] LABS: Absolute Lymphocyte Count 1.07 X10^3/uL (0.83-4.51); Absolute Neutrophil Count 4.7 X10^3/uL (2.0-7.7); Basophil# 0.02 X10^3/uL; Basophil% 0.3 % (0-1); Eosinophil# 0.07 X10^3/uL; Eosinophils% 1.1 % (0-5); Hematocrit 31.1 % (40-54); Lymphocyte # 1.07 X10^3/ul (0.83-4.51); Lymphocyte % 16.2 % (19-41); Mean Corp Hgb Conc 32.2 g/dL (32-36); Mean Corpuscular Hgb 32.1 pg (27.0-32.0); Mean Corpuscular Volume 99.7 fL (80-94); Mean Platelet Vol. 10.4 fl (6.2-12.0); Monocyte# 0.69 X10^3/uL; Monocyte% 10.5 % (0-10); NRBC Flagged by Analyzer 0 % (0-5); Neutrophil # 4.71 X10^3/uL (2.7-7.7); Neutrophil % 71.3 % (47-70); Platelet Count 128 K/mm3 (150-450); RBC Distribution Width CV 14.4 % (11.6-14.6); RBC Distribution Width SD 52.5 fl (35.1-43.9); Red Blood Count 3.12 M/mm3 (4.6-6.2); White Blood Count 6.6 K/mm3 (4.4-11.0)
[2024-05-25 06:13] LABS: Bedside Glucose 153 mg/dL (74-106)
[2024-05-25 06:41] LABS: Anion Gap 4 (5-15); BUN 44 mg/dL (7-18); BUN/Creat Ratio 28.9 RATIO (10-20); Calcium,Total 8.7 mg/dL (8.5-10.1); Chloride 120 mmol/L (98-107); Creatinine, Serum 1.52 mg/dL (0.70-1.30); EST Glomerular Filtration Rate 47 mL/min (>60); Est Glom Filt Rate - Afr Amer 57 mL/min (>60); Estimated Creatinine Clearance 44.31 ml/min; Glucose 158 mg/dL (74-106); Potassium 3.6 mmol/L (3.5-5.1); Sodium Level 146 mmol/L (136-145)
--- NOTE | 2024-05-25 07:13 | PN.SURG_ITS ---
Subjective Subjective Patient evaluated resting comfortably in bed. He notes having abdominal pain near the incision sites and right lower quadrant. He denies any nausea, vomiting since the NG tube has been removed. He is tolerating sips and ice chips. He states he urinated this morning after the panchal was removed yesterday. Objective Data Objective Data Vital Signs: Vital Signs Temp Pulse Resp BP Pulse Ox O2 Del Method O2 Flow Rate 97.9 F 89 18 155/87 H 96 Room Air 2 05/25/24 05:50 05/25/24 05:52 05/25/24 05:50 05/25/24 05:52 05/25/24 05:50 05/25/24 05:50 05/24/24 17:15 FiO2 91 05/23/24 20:30 Oxygen Flow Rate (L/min) 2 Oxygen Delivery Method Room Air Weight: 189 lb 2.506 oz Body Mass Index (BMI) 24.3 Intake & Output: Intake and Output for Last 24 Hours 05/23/24 05/24/24 05/25/24 23:59 23:59 23:59 Intake Total 2936.5 / 2936.5 340 / 340 Output Total 1325 / 1325 925 / 925 275 / 275 Balance 1611.5 / 1611.5 -585 / -585 -275 / -275 Lab / Micro Data 05/25/24 05:26 05/25/24 05:26 Labs: Laboratory Results - last 24 hr 05/24/24 10:57: POC Glucose 81 05/24/24 17:10: POC Glucose 83 05/24/24 21:08: POC Glucose 139 H 05/25/24 05:26: WBC 6.6, RBC 3.12 L, Hgb 10.0 L, Hct 31.1 L, MCV 99.7 H, MCH 32.1 H, MCHC 32.2, RDW Std Deviation 52.5 H, RDW Coeff of Zaheer 14.4, Plt Count 128 L, MPV 10.4, Immature Gran % (Auto) 0.600, Neut % (Auto) 71.3 H, Lymph % (Auto) 16.2 L, [place] % (Auto) 10.5 H, Eos % (Auto) 1.1, Baso % (Auto) 0.3, Absolute Neuts (auto) 4.7, Absolute Lymphs (auto) 1.07, Nucleated RBC % 0, S odium 146 H, Potassium 3.6, Chloride 120 H, Carbon Dioxide 22.0, Anion Gap 4 L, BUN 44 H, Creatinine 1.52 H, Estim Creat Clear Calc 44.31, Est GFR (MDRD) Af Amer 57 L, Est GFR (MDRD) Non-Af 47 L, BUN/Creatinine Ratio 28.9 H, Glucose 158 H, Calcium 8.7 05/25/24 05:50: POC Glucose 153 H Radiography Diagnostic Testing: Radiology Impression KUB X-Ray 05/24/24 07:25 IMPRESSION: Nonspecific mildly dilated gaseous small bowel loops and colon with contrast reached the colon could be due to partial small bowel obstruction or ileus. Electronically Signed: Alen Shafer MD at 12:22 EDT , Physical Exam GI GI Narrative: Abdomen- soft, tenderness to palpation at the incision site and right lower quadrant. Hypoactive bowel sounds. Incisions c/d/i. No erythema or infection noted. Assessment & Plan Assessment/Plan (1) SBO (small bowel obstruction): PLAN: I am following this patient in conjunction with Dr. Chapman. She will independently evaluate this patient. Labs reviewed Plan to order a KUB this morning Continue Flomax daily Plan to give 1 liter of LR at 100ml/hr today Encourage patient to be sitting in the chair and ambulating three times per day Continue with sips and chips Await bowel function prior to advancing diet We will continue to monitor this patient Charges/Coding Visit Charges Inpatient E&M: 96668 Subs Hosp L1 (no charge; post-op)
[2024-05-25] MEDS: Lactated Ringers 1,000 ML 100 ML IV (08:13)
[2024-05-25] MEDS: Enoxaparin 40 MG/0.4 ML Syringe SC (08:14)
--- NOTE | 2024-05-25 09:07 | PCM.PN.HOSP ---
Reason for Visit Reason for Visit: Diagnoses Unspecified intestinal obstruction, unspecified as to partial versus complete obstruction (05/20/24) Subjective Subjective NGT removed. + flatus. Objective Data Objective Data Vital Signs: Vital Signs Temp Pulse Resp BP Pulse Ox O2 Del Method O2 Flow Rate 36.6 C 89 18 155/87 H 92 Room Air 2 05/25/24 05:50 05/25/24 05:52 05/25/24 05:50 05/25/24 05:52 05/25/24 08:18 05/25/24 08:18 05/24/24 17:15 FiO2 91 05/23/24 20:30 Oxygen Flow Rate (L/min) 2 Oxygen Delivery Method Room Air Weight: 85.8 kg Body Mass Index (BMI) 24.3 Intake & Output: Intake and Output for Last 24 Hours 05/23/24 05/24/24 05/25/24 23:59 23:59 23:59 Intake Total 2936.5 / 2936.5 340 / 340 Output Total 1325 / 1325 925 / 925 275 / 275 Balance 1611.5 / 1611.5 -585 / -585 -275 / -275 Lab / Micro Data 05/25/24 05:26 05/25/24 05:26 Labs: Laboratory Results - last 24 hr 05/24/24 10:57: POC Glucose 81 05/24/24 17:10: POC Glucose 83 05/24/24 21:08: POC Glucose 139 H 05/25/24 05:26: WBC 6.6, RBC 3.12 L, Hgb 10.0 L, Hct 31.1 L, MCV 99.7 H, MCH 32.1 H, MCHC 32.2, RDW Std Deviation 52.5 H, RDW Coeff of Zaheer 14.4, Plt Count 128 L, MPV 10.4, Immature Gran % (Auto) 0.600, Neut % (Auto) 71.3 H, Lymph % (Auto) 16.2 L, [place] % (Auto) 10.5 H, Eos % (Auto) 1.1, Baso % (Auto) 0.3, Absolute Neuts (auto) 4.7, Absolute Lymphs (auto) 1.07, Nucleated RBC % 0, Sodium 146 H, Potassium 3.6, Chloride 120 H, Carbon Dioxide 22.0, Anion Gap 4 L, BUN 44 H, Creatinine 1.52 H, Estim Creat Clear Calc 44.31, Est GFR (MDRD) Af Amer 57 L, Est GFR (MDRD) Non-Af 47 L, BUN/Creatinine Ratio 28.9 H, Glucose 158 H, Calcium 8.7 05/25/24 05:50: POC Glucose 153 H Radiography Diagnostic Testing: Radiology Impression KUB X-Ray 05/24/24 07:25 IMPRESSION: Nonspecific mildly dilated gaseous small bowel loops and colon with contrast reached the colon could be due to partial small bowel obstruction or ileus. Electronically Signed: Alen Shafer MD at 12:22 EDT , Physical Exam Const alert and no apparent distress Resp normal respiratory effort, no retractions, no use of accessory muscles and clear to auscultation bilaterally Cardio regular rate, regular rhythm, S1 normal heart sound and S2 normal heart sound GI normal to inspection, nondistended, normoactive bowel sounds, soft to palpation and non-tender GI Narrative: hypoactive BS. Assessment & Plan Assessment/Plan (1) SBO (small bowel obstruction): PLAN: Plan SBO 05/21: s/p laparotomy with release of internal hernia Mgmt per general surgery. NGT removed. Advanced to clears on 05/24. Chronic conditions: chronic atrial fibrillation-patient's last echocardiogram showed a normal EF-this was done earlier this year, patient is on IV metoprolol for rate control valvular heart disease-patient has a bioprosthetic aortic valve, he has minimal aortic valve insufficiency essential hypertension-due to his n.p.o. status, patient is receiving IV hydralazine as needed type 2 diabetes-patient is on sliding scale insulin with fingerstick blood sugars every 6 hours VTE prophylaxis: enoxaparin Charges/Coding Visit Charges Inpatient E&M: 40217 Subs Hosp L2
--- NOTE | 2024-05-25 09:10 | RAD_ITS ---
STUDY: X-RAY - ABDOMEN/PELVIS REASON FOR EXAM: Male, 83 years old. ileus -- portable TECHNIQUE: Frontal views COMPARISON: None. FINDINGS: Normal visualized lung bases. Increasing dilatation of the small bowel loops diffusely. This may be related to an ileus. Partial or developing obstruction cannot be excluded. Follow-up is needed. Midline skin reyna are present. Surgical clips in the right upper quadrant. Normal soft tissue structures. Degenerative vertebral changes. RAD/Abdomen Single View (Portable) IMPRESSION: Increasing dilatation of the small bowel loops diffusely. This may be related to an ileus. Partial or developing obstruction cannot be excluded. Follow-up is needed. Electronically Signed: Dwain Prado DO at 16:41 EDT ,
[2024-05-25] MEDS: Pantoprazole Sodium 40 MG in 0.9% Normal Saline (100mL MB+) 100 ML 330 MG IV ×2 (09:58→22:29)
[2024-05-25] MEDS: Insulin Lispro 100 UNIT/ML INSULN.PEN SC ×3 (11:26→22:15)
[2024-05-25 11:58] LABS: Bedside Glucose 151 mg/dL (74-106)
[2024-05-25] MEDS: Bisacodyl 10 MG Suppository RC (14:25)
[2024-05-25] MEDS: Tamsulosin HCl 0.4 MG Capsule PO (16:57)
[2024-05-25 17:21] LABS: Bedside Glucose 179 mg/dL (74-106)
[2024-05-25 23:52] LABS: Bedside Glucose 226 mg/dL (74-106)
[2024-05-26] VITALS (15 sets, daily range): BP systolic 99–171; BP diastolic 58–109; PULSE 78–119; RESP 16–18; TEMP 36.6–36.8; O2SAT 93–99; BMI 24.6
[2024-05-26] MEDS: Metoprolol Tartrate 5 MG/5 ML Vial IV ×4 (00:13→16:43)
[2024-05-26] MEDS: 0.9% Saline Lock 10 ML Syringe IV ×5 (00:14→14:07)
[2024-05-26] MEDS: Insulin Lispro 100 UNIT/ML INSULN.PEN SC ×4 (04:13→21:13)
[2024-05-26 04:34] LABS: Bedside Glucose 153 mg/dL (74-106)
--- NOTE | 2024-05-26 07:11 | PCM.PN.SRG ---
Subjective Subjective Patient did have some flatus as well as having some small amount of stool with suppository yesterday. Patient denies nausea but still distended Objective Data Objective Data Vital Signs: Vital Signs Temp Pulse Resp BP Pulse Ox O2 Del Method O2 Flow Rate 98.2 F 88 18 171/88 H 98 Room Air 2 05/26/24 04:30 05/26/24 06:35 05/26/24 04:30 05/26/24 06:35 05/26/24 04:30 05/26/24 04:30 05/24/24 17:15 FiO2 91 05/23/24 20:30 Oxygen Flow Rate (L/min) 2 Oxygen Delivery Method Room Air Weight: 191 lb 12.835 oz Body Mass Index (BMI) 24.6 Intake & Output: Intake and Output for Last 24 Hours 05/24/24 05/25/24 05/26/24 23:59 23:59 23:59 Intake Total 340 / 340 1220 / 1240 Output Total 925 / 925 475 / 475 Balance -585 / -585 745 / 765 Lab / Micro Data 05/25/24 05:26 05/25/24 05:26 Labs: Laboratory Results - last 24 hr 05/25/24 11:24: POC Glucose 151 H 05/25/24 16:39: POC Glucose 179 H 05/25/24 22:13: POC Glucose 226 H 05/26/24 04:11: POC Glucose 153 H Radiography Diagnostic Testing: Radiology Impression KUB X-Ray 05/25/24 09:10 IMPRESSION: Increasing dilatation of the small bowel loops diffusely. This may be related to an ileus. Partial or developing obstruction cannot be excluded. Follow-up is needed. Electronically Signed: Dwain Prado DO at 16:41 EDT , Physical Exam Resp normal respiratory effort Cardio regular rate GI GI Narrative: Abdomen: Soft, distended, tender near incision's dressed clean dry and intact, no peritoneal signs Assessment & Plan Assessment/Plan (1) SBO (small bowel obstruction): PLAN: Plan s/p diagnostic laparotomy release of internal hernia postop day 5 Continue sips and chips only patient still distended likely postop ileus, will give additional Dulcolax suppositories Will check KUB? Continue pain control Continue Loganx Nataly Chapman M.D. Pager: [phone] [facility] [address] [place] [address], [facility], [address] [place] [address] Office: [phone]
[2024-05-26 08:11] LABS: Absolute Lymphocyte Count 1.46 X10^3/uL (0.83-4.51); Basophil# 0.01 X10^3/uL; Basophil% 0.1 % (0-1); Eosinophil# 0.05 X10^3/uL; Eosinophils% 0.5 % (0-5); Hematocrit 32.6 % (40-54); Hemoglobin 10.7 g/dL (13.0-16.5); Lymphocyte # 1.46 X10^3/ul (0.83-4.51); Lymphocyte % 15.5 % (19-41); Mean Corp Hgb Conc 32.8 g/dL (32-36); Mean Corpuscular Hgb 32.7 pg (27.0-32.0); Mean Corpuscular Volume 99.7 fL (80-94); Mean Platelet Vol. 9.8 fl (6.2-12.0); Monocyte% 8.5 % (0-10); NRBC Flagged by Analyzer 0 % (0-5); Neutrophil # 7.03 X10^3/uL (2.7-7.7); Neutrophil % 74.6 % (47-70); Platelet Count 125 K/mm3 (150-450); RBC Distribution Width CV 14.3 % (11.6-14.6); RBC Distribution Width SD 52.5 fl (35.1-43.9); Red Blood Count 3.27 M/mm3 (4.6-6.2); White Blood Count 9.4 K/mm3 (4.4-11.0)
[2024-05-26 08:49] LABS: Anion Gap 3 (5-15); BUN 34 mg/dL (7-18); BUN/Creat Ratio 23.4 RATIO (10-20); Calcium,Total 8.4 mg/dL (8.5-10.1); Chloride 122 mmol/L (98-107); Creatinine, Serum 1.45 mg/dL (0.70-1.30); EST Glomerular Filtration Rate 50 mL/min (>60); Est Glom Filt Rate - Afr Amer 60 mL/min (>60); Estimated Creatinine Clearance 46.45 ml/min; Glucose 145 mg/dL (74-106); Magnesium 2.2 mg/dL (1.6-2.6); Phosphorus 2.5 mg/dL (2.5-4.9); Potassium 3.7 mmol/L (3.5-5.1); Sodium Level 148 mmol/L (136-145)
--- NOTE | 2024-05-26 08:50 | RAD_ITS ---
INDICATION: ileus -- portable EXAMINATION/TECHNIQUE: X-RAY - XR Abdomen 1 View COMPARISON: Prior study dated: 05/25/2024 FINDINGS: BOWEL GAS PATTERN: Persistent dilated small bowel loops essentially unchanged since prior exam. Residual contrast in the colon. FREE AIR: Not assessed on a single supine view. ORGANOMEGALY: Not seen. CALCIFICATIONS: No abnormal calcifications observed. LOWER CHEST: Not included on this examination. BONES AND SOFT TISSUES: Surgical reyna in the lower abdomen are again seen. Stable osseous structures. RAD/Abdomen Single View (Portable) IMPRESSION: No significant change. Electronically Signed: Alen Shafer MD at 9:01 EDT ,
[2024-05-26] MEDS: Bisacodyl 10 MG Suppository RC ×3 (08:54→22:54)
[2024-05-26] MEDS: Enoxaparin 40 MG/0.4 ML Syringe SC (09:29)
[2024-05-26] MEDS: Pantoprazole Sodium 40 MG in 0.9% Normal Saline (100mL MB+) 100 ML 330 MG IV ×2 (09:29→21:07)
[2024-05-26 11:50] LABS: Bedside Glucose 156 mg/dL (74-106)
[2024-05-26] MEDS: Ondansetron 4 MG/2 ML Vial IV (12:04)
--- NOTE | 2024-05-26 13:49 | PN.HOSP_ITS ---
Reason for Visit Reason for Visit: Diagnoses Unspecified intestinal obstruction, unspecified as to partial versus complete obstruction (05/20/24) Subjective Subjective Had BM today. Objective Data Objective Data Vital Signs: Vital Signs Temp Pulse Resp BP Pulse Ox O2 Del Method O2 Flow Rate 36.6 C 104 H 18 129/75 H 99 Room Air 2 05/26/24 11:46 05/26/24 12:04 05/26/24 11:46 05/26/24 12:04 05/26/24 11:46 05/26/24 11:46 05/26/24 06:00 FiO2 91 05/23/24 20:30 Oxygen Flow Rate (L/min) 2 Oxygen Delivery Method Room Air Weight: 87 kg Body Mass Index (BMI) 24.6 Intake & Output: Intake and Output for Last 24 Hours 05/24/24 05/25/24 05/26/24 23:59 23:59 23:59 Intake Total 340 / 340 1220 / 1240 270 / 270 Output Total 925 / 925 475 / 475 0 / 0 Balance -585 / -585 745 / 765 270 / 270 Lab / Micro Data 05/26/24 08:03 05/26/24 08:03 Labs: Laboratory Results - last 24 hr 05/25/24 16:39: POC Glucose 179 H 05/25/24 22:13: POC Glucose 226 H 05/26/24 04:11: POC Glucose 153 H 05/26/24 08:03: WBC 9.4, RBC 3.27 L, Hgb 10.7 L, Hct 32.6 L, MCV 99.7 H, MCH 32.7 H, MCHC 32.8, RDW Std Deviation 52.5 H, RDW Coeff of Zaheer 14.3, Plt Count 125 L, MPV 9.8, Immature Gran % (Auto) 0.800, Neut % (Auto) 74.6 H, Lymph % (Auto) 15.5 L, [place] % (Auto) 8.5, Eos % (Auto) 0.5, Baso % (Auto) 0.1, Absolute Neuts (auto) 7.0, Absolute Lymphs (auto) 1.46, Nucleated RBC % 0, Sodium 148 H, Potassium 3.7, Chloride 122 H, Carbon Dioxide 23.0, Anion Gap 3 L, BUN 34 H, C reatinine 1.45 H, Estim Creat Clear Calc 46.45, Est GFR (MDRD) Af Amer 60, Est GFR (MDRD) Non-Af 50 L, BUN/Creatinine Ratio 23.4 H, Glucose 145 H, Calcium 8.4 L, Phosphorus 2.5, Magnesium 2.2 05/26/24 11:19: POC Glucose 156 H Radiography Diagnostic Testing: Radiology Impression KUB X-Ray 05/25/24 09:10 IMPRESSION: Increasing dilatation of the small bowel loops diffusely. This may be related to an ileus. Partial or developing obstruction cannot be excluded. Follow-up is needed. Electronically Signed: Dwain Prado DO at 16:41 EDT , KUB X-Ray 05/26/24 08:50 IMPRESSION: No significant change. Electronically Signed: Alen Shafer MD at 9:01 EDT , Physical Exam Const alert and no apparent distress Resp normal respiratory effort, no retractions, no use of accessory muscles and clear to auscultation bilaterally Cardio regular rate, regular rhythm, S1 normal heart sound and S2 normal heart sound GI GI Narrative: distended. non-tender. hypoactive BS. Extremity normal to inspection and no clubbing, cyanosis or edema Assessment & Plan Assessment/Plan (1) SBO (small bowel obstruction): PLAN: Plan SBO * 05/21: s/p laparotomy with release of internal hernia * Mgmt per general surgery. NGT removed. Sips and chips. Chronic conditions: * chronic atrial fibrillation-patient's last echocardiogram showed a normal EF- this was done earlier this year, patient is on IV metoprolol for rate control * valvular heart disease-patient has a bioprosthetic aortic valve, he has minimal aortic valve insufficiency * essential hypertension-due to his n.p.o. status, patient is receiving IV hydralazine as needed * type 2 diabetes-patient is on sliding scale insulin with fingerstick blood sugars every 6 hours VTE prophylaxis: enoxaparin Charges/Coding Visit Charges Inpatient E&M: 59617 Subs Hosp L2
[2024-05-26] MEDS: 0.9% Normal Saline (1000mL) 1,000 ML 75 ML IV (14:43)
[2024-05-26 17:29] LABS: Bedside Glucose 206 mg/dL (74-106)
[2024-05-26] MEDS: Phenol/Sodium Phenolate 180ML 3 SPRAY MUCOUS MEM (17:39)
[2024-05-26] MEDS: Tamsulosin HCl 0.4 MG Capsule PO (17:44)
[2024-05-26] MEDS: Fleet Enema 133 ML RC (20:31)
[2024-05-26 22:43] LABS: Bedside Glucose 152 mg/dL (74-106)
[2024-05-27] VITALS (10 sets, daily range): BP systolic 142–148; BP diastolic 71–96; PULSE 75–108; RESP 16–18; TEMP 36.4–36.7; O2SAT 94–98; BMI 24.4
[2024-05-27] MEDS: Metoprolol Tartrate 5 MG/5 ML Vial IV ×5 (00:07→23:23)
[2024-05-27] MEDS: 0.9% Saline Lock 10 ML Syringe IV ×6 (05:17→22:58)
[2024-05-27 05:42] LABS: Bedside Glucose 119 mg/dL (74-106)
--- NOTE | 2024-05-27 06:39 | NURSING ---
patient bladder scanned at 424.
--- NOTE | 2024-05-27 06:55 | RAD_ITS ---
STUDY: X-RAY - ABDOMEN/PELVIS REASON FOR EXAM: Male, 83 years old. Ileus TECHNIQUE: Frontal views COMPARISON: None. FINDINGS: Normal visualized lung bases. Dilated small bowel loops are noted suggesting a diffuse ileus. No significant changes since the previous study. Previously noted contrast within the proximal colon has progressed level of splenic flexure. There is no demonstrated free abdominal air. There are midline skin reyna. Degenerative vertebral changes. RAD/Abdomen Single View (Portable) IMPRESSION: Probable diffuse ileus with little change since the previous study. Follow up is needed. Electronically Signed: Dwain Prado DO at 16:04 EDT ,
--- NOTE | 2024-05-27 07:47 | PCM.PN.SRG ---
Subjective Subjective Patient evaluated resting comfortably in bed. He notes passing flatus this morning during his x-ray. He also urinated during his x-ray. He denies any nausea, vomiting. He notes his abdominal pain is less. He denies feeling hungry. He notes more thirsty for water if anything. No BM overnight. He denies any difficulty with bowel movements on a daily basis. He denies having to ever take anything for constipation. Objective Data Objective Data Vital Signs: Vital Signs Temp Pulse Resp BP Pulse Ox O2 Del Method O2 Flow Rate 97.6 F L 99 18 148/71 H 96 Room Air 2 05/27/24 03:06 05/27/24 05:12 05/27/24 03:06 05/27/24 03:06 05/27/24 03:06 05/27/24 03:06 05/26/24 06:00 FiO2 91 05/23/24 20:30 Oxygen Flow Rate (L/min) 2 Oxygen Delivery Method Room Air Weight: 190 lb 0.615 oz Body Mass Index (BMI) 24.4 Intake & Output: Intake and Output for Last 24 Hours 05/25/24 05/26/24 05/27/24 23:59 23:59 23:59 Intake Total 1220 / 1240 740 / 740 1000 / 1000 Output Total 475 / 475 0 / 0 Balance 745 / 765 740 / 740 1000 / 1000 Lab / Micro Data 05/26/24 08:03 05/26/24 08:03 Labs: Laboratory Results - last 24 hr 05/26/24 08:03: WBC 9.4, RBC 3.27 L, Hgb 10.7 L, Hct 32.6 L, MCV 99.7 H, MCH 32.7 H, MCHC 32.8, RDW Std Deviation 52.5 H, RDW Coeff of Zaheer 14.3, Plt Count 125 L, MPV 9.8, Immature Gran % (Auto) 0.800, Neut % (Auto) 74.6 H, Lymph % (Auto) 15.5 L, [place] % (Auto) 8.5, Eos % (Auto) 0.5, Baso % (Auto) 0.1, Absolute Neuts (auto) 7.0, Absolute Lymphs (auto) 1.46, Nucleated RBC % 0, Sodium 148 H, Potassium 3.7, Chloride 122 H, Carbon Dioxide 23.0, Anion Gap 3 L, BUN 34 H, Creatinine 1.45 H, Estim Creat Clear Calc 46.45, Est GFR (MDRD) Af Amer 60, Est GFR (MDRD) Non-Af 50 L, BUN/Creatinine Ratio 23.4 H, Glucose 145 H, Calcium 8.4 L, Phosphorus 2.5, Magnesium 2.2 05/26/24 11:19: POC Glucose 156 H 05/26/24 16:54: POC Glucose 206 H 05/26/24 21:11: POC Glucose 152 H 05/27/24 05:11: POC Glucose 119 H Radiography Diagnostic Testing: Radiology Impression KUB X-Ray 05/26/24 08:50 IMPRESSION: No significant change. Electronically Signed: Alen Shafer MD at 9:01 EDT , Physical Exam GI GI Narrative: Abdomen- slightly distended. Bowel sounds present. Incisions c/d/i. No erythema or infection noted. Slight amount of ecchymosis surrounding the midline incision. Generalized tenderness, however improved from previous exams early this week. Assessment & Plan Assessment/Plan (1) SBO (small bowel obstruction): (2) Internal hernia: PLAN: Plan I am following this patient in conjunction with Dr. Dubose. She will independently evaluate this patient. KUB this morning appears to show more contrast progressing towards the splenic flexure Plan to give soap suds enema now and check to see progress from the enema Dulcolax suppository approx 4 hours later pending enema progress Continue sips and chips until more bowel function is achieved We will continue to monitor this patient Charges/Coding Visit Charges Inpatient E&M: 91555 Subs Hosp L1 (No charge; post-op)
--- NOTE | 2024-05-27 08:32 | PN.HOSP_ITS ---
Reason for Visit Reason for Visit: Diagnoses Unspecified intestinal obstruction, unspecified as to partial versus complete obstruction (05/20/24) Subjective Subjective +flatus. Objective Data Objective Data Vital Signs: Vital Signs Temp Pulse Resp BP Pulse Ox O2 Del Method O2 Flow Rate 36.4 C L 99 18 148/71 H 96 Room Air 2 05/27/24 03:06 05/27/24 05:12 05/27/24 03:06 05/27/24 03:06 05/27/24 03:06 05/27/24 03:06 05/26/24 06:00 FiO2 91 05/23/24 20:30 Oxygen Flow Rate (L/min) 2 Oxygen Delivery Method Room Air Weight: 86.2 kg Body Mass Index (BMI) 24.4 Intake & Output: Intake and Output for Last 24 Hours 05/25/24 05/26/24 05/27/24 23:59 23:59 23:59 Intake Total 1220 / 1240 740 / 740 1000 / 1000 Output Total 475 / 475 0 / 0 Balance 745 / 765 740 / 740 1000 / 1000 Lab / Micro Data 05/26/24 08:03 05/26/24 08:03 Labs: Laboratory Results - last 24 hr 05/26/24 08:03: Sodium 148 H, Potassium 3.7, Chloride 122 H, Carbon Dioxide 23.0, Anion Gap 3 L, BUN 34 H, Creatinine 1.45 H, Estim Creat Clear Calc 46.45, Est GFR (MDRD) Af Amer 60, Est GFR (MDRD) Non-Af 50 L, BUN/Creatinine Ratio 23.4 H, Glucose 145 H, Calcium 8.4 L, Phosphorus 2.5, Magnesium 2.2 05/26/24 11:19: POC Glucose 156 H 05/26/24 16:54: POC Glucose 206 H 05/26/24 21:11: POC Glucose 152 H 05/27/24 05:11: POC Glucose 119 H Radiography Diagnostic Testing: Radiology Impression KUB X-Ray 05/26/24 08:50 IMPRESSION: No significant change. Electronically Signed: Alen Shafer MD at 9:01 EDT , Physical Exam Const alert and no apparent distress HEENT head/scalp atraumatic and moist oral mucous membranes Resp normal respiratory effort, no retractions, no use of accessory muscles and clear to auscultation bilaterally Cardio regular rate, regular rhythm, S1 normal heart sound and S2 normal heart sound GI normal to inspection, nondistended, normoactive bowel sounds, soft to palpation, non-tender and non-distended Neuro Sensorium / Orientation: awake and alert Assessment & Plan Assessment/Plan (1) SBO (small bowel obstruction): PLAN: Plan SBO * 05/21: s/p laparotomy with release of internal hernia * Mgmt per general surgery. NGT removed. Sips and chips. * now dealing with post-op ileus. * consider TPN if persistently NPO. Chronic conditions: * chronic atrial fibrillation-patient's last echocardiogram showed a normal EF- this was done earlier this year, patient is on IV metoprolol for rate control * valvular heart disease-patient has a bioprosthetic aortic valve, he has minimal aortic valve insufficiency * essential hypertension-due to his n.p.o. status, patient is receiving IV hydralazine as needed * type 2 diabetes-patient is on sliding scale insulin with fingerstick blood sugars every 6 hours VTE prophylaxis: enoxaparin Charges/Coding Visit Charges Inpatient E&M: 20765 Subs Hosp L2
[2024-05-27] MEDS: Enoxaparin 40 MG/0.4 ML Syringe SC (09:18)
[2024-05-27] MEDS: Bisacodyl 10 MG Suppository RC ×2 (10:33→12:52)
[2024-05-27] MEDS: Pantoprazole Sodium 40 MG in 0.9% Normal Saline (100mL MB+) 100 ML 330 MG IV ×2 (10:37→21:53)
[2024-05-27] MEDS: Insulin Lispro 100 UNIT/ML INSULN.PEN SC ×2 (11:30→17:20)
[2024-05-27 12:00] LABS: Bedside Glucose 159 mg/dL (74-106)
[2024-05-27] MEDS: Polyethylene Glycol 3350 17 GM PACKET PO (15:46)
[2024-05-27 17:12] LABS: Bedside Glucose 174 mg/dL (74-106)
[2024-05-27] MEDS: Tamsulosin HCl 0.4 MG Capsule PO (17:21)
[2024-05-27] MEDS: Ondansetron 4 MG/2 ML Vial IV (19:14)
[2024-05-27] MEDS: proMETHazine 25 MG/ML Syringe IM (22:56)
[2024-05-27 23:51] LABS: Bedside Glucose 143 mg/dL (74-106)
[2024-05-28] VITALS (10 sets, daily range): BP systolic 106–155; BP diastolic 64–102; PULSE 83–114; RESP 16–20; TEMP 36.2–36.4; O2SAT 93–98
[2024-05-28] MEDS: Metoprolol Tartrate 5 MG/5 ML Vial IV ×3 (05:28→18:49)
[2024-05-28] MEDS: Ondansetron 4 MG/2 ML Vial IV (05:39)
[2024-05-28 05:50] LABS: Absolute Lymphocyte Count 1.16 X10^3/uL (0.83-4.51); Absolute Neutrophil Count 8.1 X10^3/uL (2.0-7.7); Basophil# 0.02 X10^3/uL; Basophil% 0.2 % (0-1); Eosinophil# 0.01 X10^3/uL; Eosinophils% 0.1 % (0-5); Hematocrit 33.8 % (40-54); Hemoglobin 10.9 g/dL (13.0-16.5); Lymphocyte # 1.16 X10^3/ul (0.83-4.51); Lymphocyte % 11.4 % (19-41); Mean Corp Hgb Conc 32.2 g/dL (32-36); Mean Corpuscular Hgb 32.2 pg (27.0-32.0); Mean Platelet Vol. 10.5 fl (6.2-12.0); Monocyte# 0.76 X10^3/uL; Monocyte% 7.5 % (0-10); NRBC Flagged by Analyzer 0 % (0-5); Neutrophil # 8.12 X10^3/uL (2.7-7.7); Platelet Count 149 K/mm3 (150-450); RBC Distribution Width CV 14.5 % (11.6-14.6); RBC Distribution Width SD 53.3 fl (35.1-43.9); Red Blood Count 3.38 M/mm3 (4.6-6.2); White Blood Count 10.2 K/mm3 (4.4-11.0)
[2024-05-28 06:03] LABS: Bedside Glucose 142 mg/dL (74-106)
--- NOTE | 2024-05-28 06:20 | RAD_ITS ---
INDICATION: ileus EXAMINATION/TECHNIQUE: X-RAY - XR Abdomen 1 View portable. 6:13 AM COMPARISON: Prior study dated: 05/27/2024 FINDINGS: Supine view. Residual contrast in colon mainly ascending through transverse colon from prior study, similar to prior. Moderately dilated small bowel diffusely and is increased compared to the prior. Marked gastric distention is increased. Sensitivity for free air limited on supine view. Lung bases are not well assessed. Surgical clips and skin reyna noted. RAD/Abdomen Single View (Portable) IMPRESSION: Dilated small bowel increase compared to the prior. Findings suspicious for intermittent or recurrent distal small bowel obstruction. Residual contrast within nondilated colon from prior study. Electronically Signed: Camille Lizama MD at 8:08 EDT ,
[2024-05-28 06:53] LABS: Anion Gap 6 (5-15); BUN 33 mg/dL (7-18); BUN/Creat Ratio 17.8 RATIO (10-20); Calcium,Total 8.5 mg/dL (8.5-10.1); Chloride 120 mmol/L (98-107); Creatinine, Serum 1.85 mg/dL (0.70-1.30); EST Glomerular Filtration Rate 37 mL/min (>60); Est Glom Filt Rate - Afr Amer 45 mL/min (>60); Estimated Creatinine Clearance 36.41 ml/min; Glucose 149 mg/dL (74-106); Potassium 3.7 mmol/L (3.5-5.1); Sodium Level 147 mmol/L (136-145)
--- NOTE | 2024-05-28 08:44 | PN.HOSP_ITS ---
Reason for Visit Reason for Visit: Diagnoses Other specified abdominal hernia without obstruction or gangrene (05/20/24) Unspecified intestinal obstruction, unspecified as to partial versus complete obstruction (05/20/24) Subjective Subjective NGT replaced. Objective Data Objective Data Vital Signs: Vital Signs Temp Pulse Resp BP Pulse Ox O2 Del Method O2 Flow Rate 36.2 C L 90 18 155/102 H 97 Room Air 2 05/28/24 03:17 05/28/24 05:28 05/28/24 03:17 05/28/24 03:17 05/28/24 03:17 05/28/24 03:17 05/26/24 06:00 FiO2 91 05/23/24 20:30 Oxygen Flow Rate (L/min) 2 Oxygen Delivery Method Room Air Weight: 86.2 kg Body Mass Index (BMI) 24.4 Intake & Output: Intake and Output for Last 24 Hours 05/26/24 05/27/24 05/28/24 23:59 23:59 23:59 Intake Total 740 / 740 1220 / 1220 Output Total 0 / 0 100 / 100 Balance 740 / 740 1120 / 1120 Lab / Micro Data 05/28/24 04:20 05/28/24 04:20 Labs: Laboratory Results - last 24 hr 05/27/24 11:27: POC Glucose 159 H 05/27/24 16:53: POC Glucose 174 H 05/27/24 23:26: POC Glucose 143 H 05/28/24 04:20: WBC 10.2, RBC 3.38 L, Hgb 10.9 L, Hct 33.8 L, MCV 100.0 H, MCH 32.2 H, MCHC 32.2, RDW Std Deviation 53.3 H, RDW Coeff of Zaheer 14.5, Plt Count 149 L, MPV 10.5, Immature Gran % (Auto) 0.800, Neut % (Auto) 80.0 H, Lymph % (Auto) 11.4 L, [place] % (Auto) 7.5, Eos % (Auto) 0.1, Baso % (Auto) 0.2, Absolute Neuts (auto) 8.1 H, Absolute Lymphs (auto) 1.16, Nucleated RBC % 0, Sodium 147 H , Potassium 3.7, Chloride 120 H, Carbon Dioxide 21.0, Anion Gap 6, BUN 33 H, C reatinine 1.85 H, Estim Creat Clear Calc 36.41, Est GFR (MDRD) Af Amer 45 L, Est GFR (MDRD) Non-Af 37 L, BUN/Creatinine Ratio 17.8, Glucose 149 H, Calcium 8.5 05/28/24 05:42: POC Glucose 142 H Radiography Diagnostic Testing: Radiology Impression KUB X-Ray 05/27/24 06:55 IMPRESSION: Probable diffuse ileus with little change since the previous study. Follow up is needed. Electronically Signed: Dwain Prado DO at 16:04 EDT , Physical Exam Const alert and no apparent distress HEENT HEENT Narrative: NGT in place. Resp normal respiratory effort, no retractions, no use of accessory muscles and clear to auscultation bilaterally Cardio regular rate, regular rhythm, S1 normal heart sound and S2 normal heart sound GI GI Narrative: distended. abdomen distended. Neuro oriented x3 and CN's II-XII intact bilaterally Assessment & Plan Assessment/Plan (1) SBO (small bowel obstruction): PLAN: Plan SBO * 05/21: s/p laparotomy with release of internal hernia * Mgmt per general surgery. NGT removed. Sips and chips. * now dealing with post-op ileus. * NGT replaced 05/28. * Start PPN/TPN. DW nutrition. Chronic conditions: * chronic atrial fibrillation-patient's last echocardiogram showed a normal EF- this was done earlier this year, patient is on IV metoprolol for rate control * valvular heart disease-patient has a bioprosthetic aortic valve, he has minimal aortic valve insufficiency * essential hypertension-due to his n.p.o. status, patient is receiving IV hydralazine as needed * type 2 diabetes-patient is on sliding scale insulin with fingerstick blood sugars every 6 hours VTE prophylaxis: enoxaparin Charges/Coding Visit Charges Inpatient E&M: 18513 Subs Hosp L2
[2024-05-28] MEDS: Oxymetazoline 0.05% 1 SPRAY SPRAY.BTL 2 SPRAY NASAL (09:27)
--- NOTE | 2024-05-28 09:30 | RAD_ITS ---
STUDY: X-RAY - ABDOMEN/PELVIS REASON FOR EXAM: Male, 83 years old. Ng -- KUB with both diaphragms for NG/OG Verification TECHNIQUE: Single AP view of the abdomen / pelvis. COMPARISON: Comparison is made with prior study May 28, 2004 at 6:13 AM. FINDINGS: The tip of the nasogastric tube is seen within the distal portion of the stomach. Oral contrast is seen within the right hemicolon. Slight improvement in the small bowel dilatation. RAD/Abdomen Single View (Portable) IMPRESSION: The tip of the nasogastric tube is in the body of the stomach. Contrast is seen within the right hemicolon. Less gaseous distention of the colon at this time. Electronically Signed: Davin Felix MD at 10:10 EDT ,
[2024-05-28] MEDS: Enoxaparin 40 MG/0.4 ML Syringe SC (09:35)
[2024-05-28] MEDS: Pantoprazole Sodium 40 MG in 0.9% Normal Saline (100mL MB+) 100 ML 330 MG IV ×2 (09:38→20:43)
[2024-05-28] MEDS: 0.9% Saline Lock 10 ML Syringe IV ×4 (09:45→20:41)
--- NOTE | 2024-05-28 10:23 | CASEMGMT ---
Discharge Planning [facility] notified that pt may discharge over the weekend. Phone/fax for report obtained and green sheet placed on chart. Tila French DC Planning Asst.
--- NOTE | 2024-05-28 12:01 | PCM.PN.SRG ---
Subjective Subjective Patient seen and examined during AM rounds. Dr. Chapman identified that patient had significant gastric distention upon his KUB completion this morning and requested NG tube placement. Nursing had placed the tube but had not connected to suction until it could be verified. They shared they just received this verification from Dr. Chapman. Additionally, they shared that he had witnessed the patient have multiple bouts of emesis and hiccup. Mr. Mancera denies an appetite but does complain of some thirst. He otherwise denies significant abdominal pain. He shares that he has had some flatus. Objective Data Objective Data Vital Signs: Vital Signs Temp Pulse Resp BP Pulse Ox O2 Del Method O2 Flow Rate 97.6 F L 114 H 18 150/85 H 93 Room Air 2 05/28/24 09:08 05/28/24 09:08 05/28/24 09:08 05/28/24 09:08 05/28/24 09:08 05/28/24 09:51 05/26/24 06:00 FiO2 91 05/23/24 20:30 Oxygen Flow Rate (L/min) 2 Oxygen Delivery Method Room Air Weight: 190 lb 0.615 oz Body Mass Index (BMI) 24.4 Intake & Output: Intake and Output for Last 24 Hours 05/26/24 05/27/24 05/28/24 23:59 23:59 23:59 Intake Total 740 / 740 1220 / 1220 Output Total 0 / 0 100 / 100 Balance 740 / 740 1120 / 1120 Lab / Micro Data 05/28/24 04:20 05/28/24 04:20 Labs: Laboratory Results - last 24 hr 05/27/24 16:53: POC Glucose 174 H 05/27/24 23:26: POC Glucose 143 H 05/28/24 04:20: WBC 10.2, RBC 3.38 L, Hgb 10.9 L, Hct 33.8 L, MCV 100.0 H, MCH 32.2 H, MCHC 32.2, RDW Std Deviation 53.3 H, RDW Coeff of Zaheer 14.5, Plt Count 149 L, MPV 10.5, Immature Gran % (Auto) 0.800, Neut % (Auto) 80.0 H, Lymph % (Auto) 11.4 L, Todd % (Auto) 7.5, Eos % (Auto) 0.1, Baso % (Auto) 0.2, Absolute Neuts (auto) 8.1 H, Absolute Lymphs (auto) 1.16, Nucleated RBC % 0, Sodium 147 H, Potassium 3.7, Chloride 120 H, Carbon Dioxide 21.0, Anion Gap 6, BUN 33 H, Creatinine 1.85 H, Estim Creat Clear Calc 36.41, Est GFR (MDRD) Af Amer 45 L, Est GFR (MDRD) Non-Af 37 L, BUN/Creatinine Ratio 17.8, Glucose 149 H, Calcium 8.5 05/28/24 05:42: POC Glucose 142 H Radiography Diagnostic Testing: Radiology Impression KUB X-Ray 05/27/24 06:55 IMPRESSION: Probable diffuse ileus with little change since the previous study. Follow up is needed. Electronically Signed: Dwain Prado DO at 16:04 EDT , KUB X-Ray 05/28/24 09:30 IMPRESSION: The tip of the nasogastric tube is in the body of the stomach. Contrast is seen within the right hemicolon. Less gaseous distention of the colon at this time. Electronically Signed: Davin Felix MD at 10:10 EDT , Physical Exam Const oriented x3 and no apparent distress Resp normal respiratory effort GI GI Narrative: Operative dressings were initially intact but all of these are taken down and there is some crusted blood around the incisions, but otherwise they are well-approximated with skin reyna and there is no active drainage. Patient's abdomen is mildly distended but nontender to palpation. Nasogastric tube, once connected, intermittently drains thick green bilious fluid Assessment & Plan Assessment/Plan (1) SBO (small bowel obstruction): PLAN: Plan s/p diagnostic laparotomy release of internal hernia postop day 7. Evidence of ongoing postoperative ileus. There has been some progression of enteral contrast and reports of flatus, but patient with increased gastric distention and emesis this morning. Denies pain. Hemodynamically stable. NG tube reinserted and positioning is confirmed with KUB Continue sips and chips?1 cup per shift. TPN. Patient refusing Dulcolax suppository at this time. I have asked him to be out of bed in a chair. If he is still not less distended upon our revisitation then I will push again for trying another suppository. (Patient has unfortunately not done well with enemas) Will check KUB tomorrow a.m. Continue pain control?trying to minimize narcotic Continue Lovenox Benny Clayton MD General Surgery Endocrine Surgery Pager: [facility] [address] [place] [address], [facility], [address] [place] [address] Office: [phone] Charges/Coding Visit Charges Inpatient E&M: 18701 Subs Hosp L2
[2024-05-28 12:47] LABS: Bedside Glucose 147 mg/dL (74-106)
[2024-05-28 17:17] LABS: Bedside Glucose 125 mg/dL (74-106)
[2024-05-29] VITALS (12 sets, daily range): BP systolic 117–158; BP diastolic 50–86; PULSE 65–98; RESP 18–20; TEMP 36.3–36.8; O2SAT 93–100; BMI 24.3
[2024-05-29] MEDS: Metoprolol Tartrate 5 MG/5 ML Vial IV ×5 (00:13→23:15)
[2024-05-29 00:39] LABS: Bedside Glucose 129 mg/dL (74-106)
[2024-05-29] MEDS: Phenol/Sodium Phenolate 180ML 3 SPRAY MUCOUS MEM (05:05)
--- NOTE | 2024-05-29 07:26 | PN.HOSP_ITS ---
Reason for Visit Reason for Visit: Diagnoses Other specified abdominal hernia without obstruction or gangrene (05/20/24) Unspecified intestinal obstruction, unspecified as to partial versus complete obstruction (05/20/24) Subjective Subjective Had a very large BM on 05/28. Objective Data Objective Data Vital Signs: Vital Signs Temp Pulse Resp BP Pulse Ox O2 Del Method O2 Flow Rate 36.7 C 93 20 H 136/86 H 96 Room Air 2 05/29/24 06:07 05/29/24 06:10 05/29/24 06:07 05/29/24 06:10 05/29/24 06:07 05/29/24 06:07 05/26/24 06:00 FiO2 91 05/23/24 20:30 Oxygen Flow Rate (L/min) 2 Oxygen Delivery Method Room Air Weight: 86.1 kg Body Mass Index (BMI) 24.3 Intake & Output: Intake and Output for Last 24 Hours 05/27/24 05/28/24 05/29/24 23:59 23:59 23:59 Intake Total 1220 / 1220 310 / 370 60 / 60 Output Total 100 / 100 350 / 450 200 / 200 Balance 1120 / 1120 -40 / -80 -140 / -140 Lab / Micro Data 05/28/24 04:20 05/28/24 04:20 Labs: Laboratory Results - last 24 hr 05/28/24 12:10: POC Glucose 147 H 05/28/24 16:59: POC Glucose 125 H 05/29/24 00:11: POC Glucose 129 H Radiography Diagnostic Testing: Radiology Impression KUB X-Ray 05/28/24 09:30 IMPRESSION: The tip of the nasogastric tube is in the body of the stomach. Contrast is seen within the right hemicolon. Less gaseous distention of the colon at this time. Electronically Signed: Davin Felix MD at 10:10 EDT , Physical Exam Const alert and no apparent distress HEENT head/scalp atraumatic and moist oral mucous membranes Resp normal respiratory effort, no retractions, no use of accessory muscles and clear to auscultation bilaterally Cardio regular rate, regular rhythm, S1 normal heart sound and S2 normal heart sound GI normal to inspection, nondistended, normoactive bowel sounds, soft to palpation and non-tender Auscultation: hypoactive bowel sounds Assessment & Plan Assessment/Plan (1) SBO (small bowel obstruction): PLAN: Plan SBO * 05/21: s/p laparotomy with release of internal hernia * Mgmt per general surgery. NGT removed. Sips and chips. * now dealing with post-op ileus. * NGT replaced 05/28. Large BM later that day. * SBFT ordered. If ongoing SBO/ileus, will order PICC and TPN. Chronic conditions: * chronic atrial fibrillation-patient's last echocardiogram showed a normal EF- this was done earlier this year, patient is on IV metoprolol for rate control * valvular heart disease-patient has a bioprosthetic aortic valve, he has minimal aortic valve insufficiency * essential hypertension-due to his n.p.o. status, patient is receiving IV hydralazine as needed * type 2 diabetes-patient is on sliding scale insulin with fingerstick blood sugars every 6 hours VTE prophylaxis: enoxaparin Charges/Coding Visit Charges Inpatient E&M: 83314 Subs Hosp L2
[2024-05-29 08:03] LABS: Bedside Glucose 125 mg/dL (74-106)
[2024-05-29 08:15] LABS: Bedside Glucose 119 mg/dL (74-106)
--- NOTE | 2024-05-29 08:55 | RAD_ITS ---
INDICATION: f/u postop ileus EXAMINATION/TECHNIQUE: X-RAY - XR Abdomen 1 View portable. 8:57 AM COMPARISON: Prior study dated: 05/28/2024 FINDINGS: Supine view. Tip of the nasogastric tube is in the distal stomach. Moderately dilated small bowel slightly decreased compared to the prior. Sensitivity for free air is limited on supine view. Surgical clips in the abdomen. Sternal wires, aortic valve prosthesis noted. Lung bases are not assessed. RAD/Abdomen Single View (Portable) IMPRESSION: Dilated small bowel slightly decreased compared to the prior. Likely ileus. Electronically Signed: Camille Lizama MD at 0:49 EDT ,
--- NOTE | 2024-05-29 09:22 | RAD_ITS ---
INDICATION: f/u ileus vs partial SBO -- Films: Immediately post GG, 6 h, 12 h, and 24h EXAMINATION/TECHNIQUE: oral contrast was administered orally via an indwelling nasogastric tube to the patient. COMPARISON: FINDINGS: There is no small bowel obstruction. On the 6 hour film, there is opacification of the colon. Degenerative vertebral changes. RAD/Small Bowel Series Only IMPRESSION: No sign of small bowel obstruction. Electronically Signed: Dwain Prado DO at 17:49 EDT ,
--- NOTE | 2024-05-29 09:24 | PN.SURG_ITS ---
Subjective Subjective Patient seen and examined during AM rounds. Is found resting in bed. He reports that yesterday he developed a large amount of gas, although some of that was not gas and he had an extra large bowel movement according to nursing. He denies much abdominal pain this morning. He also denies any appetite. Objective Data Objective Data Vital Signs: Vital Signs Temp Pulse Resp BP Pulse Ox O2 Del Method O2 Flow Rate 98.1 F 93 20 H 136/86 H 96 Room Air 2 05/29/24 06:07 05/29/24 06:10 05/29/24 06:07 05/29/24 06:10 05/29/24 06:07 05/29/24 08:59 05/26/24 06:00 FiO2 91 05/23/24 20:30 Oxygen Flow Rate (L/min) 2 Oxygen Delivery Method Room Air Weight: 189 lb 13.088 oz Body Mass Index (BMI) 24.3 Intake & Output: Intake and Output for Last 24 Hours 05/27/24 05/28/24 05/29/24 23:59 23:59 23:59 Intake Total 1220 / 1220 310 / 370 90 / 90 Output Total 100 / 100 350 / 450 200 / 200 Balance 1120 / 1120 -40 / -80 -110 / -110 Lab / Micro Data 05/28/24 04:20 05/28/24 04:20 Labs: Laboratory Results - last 24 hr 05/28/24 12:10: POC Glucose 147 H 05/28/24 16:59: POC Glucose 125 H 05/29/24 00:11: POC Glucose 129 H 05/29/24 06:06: POC Glucose 125 H 05/29/24 07:57: POC Glucose 119 H Radiography Diagnostic Testing: Radiology Impression KUB X-Ray 05/28/24 09:30 IMPRESSION: The tip of the nasogastric tube is in the body of the stomach. Contrast is seen within the right hemicolon. Less gaseous distention of the colon at this time. Electronically Signed: Davin Felix MD at 10:10 EDT , Physical Exam Const oriented x3 and no apparent distress Resp normal respiratory effort GI GI Narrative: Nasogastric tube intact to right nare. It is draining bilious output with 700 mL noted in the collection canister. Patient's abdomen is less distended, soft, and tender to palpation localized right about his incision. Incision is examined and remains well-approximated with skin reyna and some crusted drainage. Notably, there is no active drainage or erythema. Assessment & Plan Assessment/Plan (1) SBO (small bowel obstruction): PLAN: Plan s/p diagnostic laparotomy release of internal hernia postop day 8. Evidence of ongoing postoperative ileus. Patient required NG tube reinsertion yesterday due to generalized abdominal and, specifically, gastric distention. Then late afternoon/evening he did have a large volume BM. While his exam is improved this morning he continues to have moderately dilated loops of small bowel on his KUB. In order to confirm that no persistent small bowel obstruction exists?him to potentially hasten complete return of bowel function we will order a small bowel follow-through today. This should be completed with patient sitting out of bed in a chair to minimize his aspiration risk. Continue NG tube to low intermittent wall suction until small bowel follow- through is initiated Hold any per oral input while patient is participating in small bowel follow- through. TPN. Patient refusing Dulcolax suppository at this time. I have asked him to be out of bed in a chair. (Patient has unfortunately not done well with enemas). Hopefully enteral contrast will assist. Follow-up above small bowel follow-through Continue pain control?trying to minimize narcotic Continue Lovenox Benny Clayton MD General Surgery Endocrine Surgery Pager: [facility] [address] [place] [address], [address] [place] [address] Office: [phone] Charges/Coding Visit Charges Inpatient E&M: 79681 Subs Hosp L2
--- NOTE | 2024-05-29 09:29 | NURSING ---
Received call from [employer] noting small bowel series ordered and suction to be turned off. will push gatrografin through NG soon.
[2024-05-29] MEDS: Enoxaparin 40 MG/0.4 ML Syringe SC (10:54)
[2024-05-29] MEDS: Pantoprazole Sodium 40 MG in 0.9% Normal Saline (100mL MB+) 100 ML 330 MG IV ×2 (11:08→21:25)
[2024-05-29] MEDS: 0.9% Saline Lock 10 ML Syringe IV ×4 (11:08→23:15)
[2024-05-29 12:05] LABS: Bedside Glucose 115 mg/dL (74-106)
--- NOTE | 2024-05-29 14:34 | NURSING ---
Per order 16 fr panchal catheter placed without difficulty. pt tolerated well. 550 mL warren urine initial output
[2024-05-29 18:48] LABS: Bedside Glucose 114 mg/dL (74-106)
[2024-05-29] MEDS: Menthol/Lanolin/Calamine/Znox 113 GM Tube 1 APPLIC TOPICAL (21:33)
[2024-05-29 23:39] LABS: Bedside Glucose 108 mg/dL (74-106)
[2024-05-30] VITALS (10 sets, daily range): BP systolic 139–155; BP diastolic 67–78; PULSE 92–99; RESP 18; TEMP 36.4–36.8; O2SAT 97–99; BMI 24.4
[2024-05-30] MEDS: Metoprolol Tartrate 5 MG/5 ML Vial IV ×4 (05:30→23:27)
[2024-05-30 06:47] LABS: Absolute Lymphocyte Count 1.15 X10^3/uL (0.83-4.51); Absolute Neutrophil Count 8.8 X10^3/uL (2.0-7.7); Basophil# 0.03 X10^3/uL; Basophil% 0.3 % (0-1); Eosinophil# 0.07 X10^3/uL; Eosinophils% 0.6 % (0-5); Hematocrit 30.1 % (40-54); Hemoglobin 9.9 g/dL (13.0-16.5); Lymphocyte # 1.15 X10^3/ul (0.83-4.51); Lymphocyte % 10.5 % (19-41); Mean Corp Hgb Conc 32.9 g/dL (32-36); Mean Corpuscular Hgb 32.9 pg (27.0-32.0); Mean Platelet Vol. 10.8 fl (6.2-12.0); Monocyte# 0.82 X10^3/uL; Monocyte% 7.5 % (0-10); NRBC Flagged by Analyzer 0 % (0-5); Neutrophil # 8.75 X10^3/uL (2.7-7.7); Neutrophil % 80.1 % (47-70); Platelet Count 125 K/mm3 (150-450); RBC Distribution Width CV 14.5 % (11.6-14.6); RBC Distribution Width SD 52.9 fl (35.1-43.9); Red Blood Count 3.01 M/mm3 (4.6-6.2); White Blood Count 10.9 K/mm3 (4.4-11.0)
[2024-05-30 06:51] LABS: Bedside Glucose 100 mg/dL (74-106)
[2024-05-30 07:47] LABS: Anion Gap 5 (5-15); BUN 46 mg/dL (7-18); BUN/Creat Ratio 23.1 RATIO (10-20); Calcium,Total 8.5 mg/dL (8.5-10.1); Chloride 129 mmol/L (98-107); Creatinine, Serum 1.99 mg/dL (0.70-1.30); EST Glomerular Filtration Rate 34 mL/min (>60); Est Glom Filt Rate - Afr Amer 42 mL/min (>60); Estimated Creatinine Clearance 33.85 ml/min; Glucose 101 mg/dL (74-106); Magnesium 2.3 mg/dL (1.6-2.6); Potassium 3.1 mmol/L (3.5-5.1); Sodium Level 154 mmol/L (136-145)
--- NOTE | 2024-05-30 08:04 | PN.HOSP_ITS ---
Reason for Visit Reason for Visit: Diagnoses Other specified abdominal hernia without obstruction or gangrene (05/20/24) Unspecified intestinal obstruction, unspecified as to partial versus complete obstruction (05/20/24) Subjective Subjective NGT removed. Tolerating clear diet. Objective Data Objective Data Vital Signs: Vital Signs Temp Pulse Resp BP Pulse Ox O2 Del Method O2 Flow Rate 36.8 C 92 18 139/70 H 97 Room Air 2 05/30/24 05:25 05/30/24 05:30 05/30/24 05:25 05/30/24 05:30 05/30/24 05:25 05/30/24 05:25 05/26/24 06:00 FiO2 91 05/23/24 20:30 Oxygen Flow Rate (L/min) 2 Oxygen Delivery Method Room Air Weight: 86.3 kg Body Mass Index (BMI) 24.4 Intake & Output: Intake and Output for Last 24 Hours 05/28/24 05/29/24 05/30/24 23:59 23:59 23:59 Intake Total 310 / 370 365 / 365 Output Total 350 / 450 950 / 950 125 / 125 Balance -40 / -80 -585 / -585 -125 / -125 Lab / Micro Data 05/30/24 05:07 05/30/24 05:07 Labs: Laboratory Results - last 24 hr 05/29/24 06:06: POC Glucose 125 H 05/29/24 07:57: POC Glucose 119 H 05/29/24 11:48: POC Glucose 115 H 05/29/24 18:22: POC Glucose 114 H 05/29/24 23:13: POC Glucose 108 H 05/30/24 05:07: WBC 10.9, RBC 3.01 L, Hgb 9.9 L, Hct 30.1 L, MCV 100.0 H, MCH 32.9 H, MCHC 32.9, RDW Std Deviation 52.9 H, RDW Coeff of Zaheer 14.5, Plt Count 125 L, MPV 10.8, Immature Gran % (Auto) 1.000 H, Neut % (Auto) 80.1 H, Lymph % (Auto) 10.5 L, [place] % (Auto) 7.5, Eos % (Auto) 0.6, Baso % (Auto) 0.3, Absolute Neuts (auto) 8.8 H, Absolute Lymphs (auto) 1.15, Nucleated RBC % 0, Sodium 154 H , Potassium 3.1 L, Chloride 129 H*, Carbon Dioxide 20.0 L, Anion Gap 5, BUN 46 H , Creatinine 1.99 H, Estim Creat Clear Calc 33.85, Est GFR (MDRD) Af Amer 42 L, Est GFR (MDRD) Non-Af 34 L, BUN/Creatinine Ratio 23.1 H, Glucose 101, Calcium 8.5, Magnesium 2.3 05/30/24 05:28: POC Glucose 100 Radiography Diagnostic Testing: Radiology Impression KUB X-Ray 05/29/24 08:55 IMPRESSION: Dilated small bowel slightly decreased compared to the prior. Likely ileus. Electronically Signed: Camille Lizama MD at 0:49 EDT , Small Bowel X-Ray 05/29/24 09:22 IMPRESSION: No sign of small bowel obstruction. Electronically Signed: Dwain Prado DO at 17:49 EDT , Physical Exam Const alert and no apparent distress Constitutional Narrative: slow, measured speech. HEENT head/scalp atraumatic and moist oral mucous membranes Resp normal respiratory effort, no retractions and no use of accessory muscles Cardio regular rate, regular rhythm, S1 normal heart sound and S2 normal heart sound GI normal to inspection, nondistended, normoactive bowel sounds and soft to palpation GI Narrative: distended. hypoactive BS. Extremity normal to inspection Assessment & Plan Assessment/Plan (1) SBO (small bowel obstruction): PLAN: Plan SBO * 05/21: s/p laparotomy with release of internal hernia * Mgmt per general surgery. NGT removed. Sips and chips. * now dealing with post-op ileus. * NGT replaced 05/28, subsequently discontinued again. On clears. * SBFT negative for SBO. * Surgical note inaccurate: pt was not on TPN Chronic conditions: * chronic atrial fibrillation-patient's last echocardiogram showed a normal EF- this was done earlier this year, patient is on IV metoprolol for rate control * valvular heart disease-patient has a bioprosthetic aortic valve, he has minimal aortic valve insufficiency * essential hypertension-due to his n.p.o. status, patient is receiving IV hydralazine as needed * type 2 diabetes-patient is on sliding scale insulin with fingerstick blood sugars every 6 hours VTE prophylaxis: enoxaparin Charges/Coding Visit Charges Inpatient E&M: 21328 Subs Hosp L2
--- NOTE | 2024-05-30 08:58 | NURSING ---
0759 Dr Friedman texted about am labs Xiao Alvarez RN
--- NOTE | 2024-05-30 09:05 | PCM.PN.SRG ---
Subjective Subjective Patient seen and examined during AM rounds. He is found resting in bed. He complains that he has run out of ice chips and is thirsty. He denies much hunger. He states he did have some bowel movements earlier but does not feel much of anything now. He denies any nausea. He remarks of some minimal tenderness Objective Data Objective Data Vital Signs: Vital Signs Temp Pulse Resp BP Pulse Ox O2 Del Method O2 Flow Rate 98.2 F 92 18 139/70 H 97 Room Air 2 05/30/24 05:25 05/30/24 05:30 05/30/24 05:25 05/30/24 05:30 05/30/24 05:25 05/30/24 05:25 05/26/24 06:00 FiO2 91 05/23/24 20:30 Oxygen Flow Rate (L/min) 2 Oxygen Delivery Method Room Air Weight: 190 lb 4.143 oz Body Mass Index (BMI) 24.4 Intake & Output: Intake and Output for Last 24 Hours 05/28/24 05/29/24 05/30/24 23:59 23:59 23:59 Intake Total 310 / 370 365 / 365 Output Total 350 / 450 950 / 950 275 / 275 Balance -40 / -80 -585 / -585 -275 / -275 Lab / Micro Data 05/30/24 05:07 05/30/24 05:07 Labs: Laboratory Results - last 24 hr 05/29/24 11:48: POC Glucose 115 H 05/29/24 18:22: POC Glucose 114 H 05/29/24 23:13: POC Glucose 108 H 05/30/24 05:07: WBC 10.9, RBC 3.01 L, Hgb 9.9 L, Hct 30.1 L, MCV 100.0 H, MCH 32.9 H, MCHC 32.9, RDW Std Deviation 52.9 H, RDW Coeff of Zaheer 14.5, Plt Count 125 L, MPV 10.8, Immature Gran % (Auto) 1.000 H, Neut % (Auto) 80.1 H, Lymph % (Auto) 10.5 L, [place] % (Auto) 7.5, Eos % (Auto) 0.6, Baso % (Auto) 0.3, Absolute Neuts (auto) 8.8 H, Absolute Lymphs (auto) 1.15, Nucleated RBC % 0, Sodium 154 H, Potassium 3.1 L, Chloride 129 H*, Carbon Dioxide 20.0 L, Anion Gap 5, BUN 46 H, Creatinine 1.99 H, Estim Creat Clear Calc 33.85, Est GFR (MDRD) Af Amer 42 L, Est GFR (MDRD) Non-Af 34 L, BUN/Creatinine Ratio 23.1 H, Glucose 101, Calcium 8.5, Magnesium 2.3 05/30/24 05:28: POC Glucose 100 Radiography Diagnostic Testing: Radiology Impression KUB X-Ray 05/28/24 06:20 IMPRESSION: Dilated small bowel increase compared to the prior. Findings suspicious for intermittent or recurrent distal small bowel obstruction. Residual contrast within nondilated colon from prior study. Electronically Signed: Camille Lizama MD at 8:08 EDT , KUB X-Ray 05/29/24 08:55 IMPRESSION: Dilated small bowel slightly decreased compared to the prior. Likely ileus. Electronically Signed: Camille Lizama MD at 0:49 EDT , Small Bowel X-Ray 05/29/24 09:22 IMPRESSION: No sign of small bowel obstruction. Electronically Signed: Dwain Prado DO at 17:49 EDT , Physical Exam Const oriented x3 and no apparent distress Resp normal respiratory effort GI GI Narrative: Incision remains well-approximated with skin reyna. There is some adherent crusted blood. Abdomen is nondistended, soft, and nontender to palpation x 4 quadrants Assessment & Plan Assessment/Plan (1) SBO (small bowel obstruction): PLAN: Plan s/p diagnostic laparotomy release of internal hernia postop day 9. Patient underwent small bowel follow-through yesterday which resulted in multiple large-volume bowel movements and transit of contrast to the colon within the first 6 hours. Therefore, I is with radiology did not find evidence of small bowel obstruction. I have cautioned against resuming a diet without concern for overdoing it and Mr. Mancera states that he will go slow as we resume a clear liquid diet this morning. This would appear to have a favorable impact on patient's electrolytes which show significant hyponatremia and hyperchloremia?signifying a deficit of free water. NG tube discontinued by me 05/29/2024. Patient with ongoing bowel function. Resume diet with clear liquid status. Have asked patient to be out of bed in a chair to take this diet. Would continue TPN today for at least 1 overlap. Continue pain control?trying to minimize narcotic Continue Lovenox. Mobilize patient as able (he would be okay for a shower if this could be safely negotiated) Benny Clayton MD General Surgery Endocrine Surgery Pager: [facility] [address] [place] [address], [facility], [address] [place] [address] Office: [phone] Charges/Coding Visit Charges Inpatient E&M: 12164 Subs Hosp L2
[2024-05-30] MEDS: KCL 20MEQ in 0.45%NS 20 MEQ/1,000 ML IV.SOLN. 100 MEQ IV (09:22)
[2024-05-30] MEDS: Potassium Chloride 10mEq/100mL 10 MEQ/100 ML IV.SOLN. 100 MEQ IV BOLUS ×2 (09:22→11:19)
[2024-05-30] MEDS: 0.9% Saline Lock 10 ML Syringe IV ×5 (09:22→23:28)
[2024-05-30] MEDS: Enoxaparin 40 MG/0.4 ML Syringe SC (10:47)
[2024-05-30] MEDS: Pantoprazole Sodium 40 MG in 0.9% Normal Saline (100mL MB+) 100 ML 330 MG IV ×2 (10:49→21:13)
[2024-05-30] MEDS: Menthol/Lanolin/Calamine/Znox 113 GM Tube 1 APPLIC TOPICAL ×2 (11:17→21:14)
[2024-05-30 13:54] LABS: Bedside Glucose 128 mg/dL (74-106)
[2024-05-30] MEDS: Tamsulosin HCl 0.4 MG Capsule PO (17:26)
[2024-05-30] MEDS: Ensure Clear 120 ML Liquid PO ×2 (17:27→21:14)
[2024-05-30 17:42] LABS: Bedside Glucose 140 mg/dL (74-106)
[2024-05-30 21:55] LABS: Bedside Glucose 121 mg/dL (74-106)
[2024-05-31 05:44] LABS: Absolute Lymphocyte Count 1.53 X10^3/uL (0.83-4.51); Absolute Neutrophil Count 8.5 X10^3/uL (2.0-7.7); Basophil# 0.03 X10^3/uL; Basophil% 0.3 % (0-1); Eosinophil# 0.14 X10^3/uL; Eosinophils% 1.3 % (0-5); Hematocrit 27.7 % (40-54); Hemoglobin 9.3 g/dL (13.0-16.5); Lymphocyte # 1.53 X10^3/ul (0.83-4.51); Lymphocyte % 13.7 % (19-41); Mean Corp Hgb Conc 33.6 g/dL (32-36); Mean Corpuscular Hgb 33.5 pg (27.0-32.0); Mean Corpuscular Volume 99.6 fL (80-94); Mean Platelet Vol. 10.7 fl (6.2-12.0); Monocyte% 7.2 % (0-10); NRBC Flagged by Analyzer 0 % (0-5); Neutrophil # 8.54 X10^3/uL (2.7-7.7); Neutrophil % 76.2 % (47-70); Platelet Count 122 K/mm3 (150-450); RBC Distribution Width CV 14.7 % (11.6-14.6); RBC Distribution Width SD 53.4 fl (35.1-43.9); Red Blood Count 2.78 M/mm3 (4.6-6.2); White Blood Count 11.2 K/mm3 (4.4-11.0)
[2024-05-31 06:00] VITALS: BMI 23.8
[2024-05-31 06:20] VITALS: BP 157/83; PULSE 83; RESP 18; TEMP 36.3; O2SAT 96
[2024-05-31 06:24] VITALS: BP 157/83; PULSE 83
[2024-05-31] MEDS: Metoprolol Tartrate 5 MG/5 ML Vial IV (06:24)
[2024-05-31] MEDS: 0.9% Saline Lock 10 ML Syringe IV ×2 (06:24→17:03)
[2024-05-31 06:45] LABS: Bedside Glucose 136 mg/dL (74-106)
[2024-05-31 07:37] LABS: Anion Gap 3 (5-15); BUN 38 mg/dL (7-18); BUN/Creat Ratio 20.5 RATIO (10-20); Calcium,Total 7.9 mg/dL (8.5-10.1); Chloride 129 mmol/L (98-107); Creatinine, Serum 1.85 mg/dL (0.70-1.30); EST Glomerular Filtration Rate 37 mL/min (>60); Est Glom Filt Rate - Afr Amer 45 mL/min (>60); Estimated Creatinine Clearance 36.41 ml/min; Glucose 154 mg/dL (74-106); Potassium 3.4 mmol/L (3.5-5.1); Sodium Level 153 mmol/L (136-145)
--- NOTE | 2024-05-31 08:30 | PN.SURG_ITS ---
Subjective Subjective Patient evaluate dressing comfortably in bed. He denies any nausea, vomiting. He notes feeling thirsty this morning. He states he had a bowel movement yesterday. He notes pain at the incision site. he states he is passing flatus. He notes ambulating and sitting in the chair yesterday. Objective Data Objective Data Vital Signs: Vital Signs Temp Pulse Resp BP Pulse Ox O2 Del Method O2 Flow Rate 97.4 F L 83 18 157/83 H 96 Room Air 2 05/31/24 06:20 05/31/24 06:24 05/31/24 06:20 05/31/24 06:24 05/31/24 06:20 05/31/24 06:20 05/26/24 06:00 FiO2 91 05/23/24 20:30 Oxygen Flow Rate (L/min) 2 Oxygen Delivery Method Room Air Weight: 185 lb 10.067 oz Body Mass Index (BMI) 23.8 Intake & Output: Intake and Output for Last 24 Hours 05/29/24 05/30/24 05/31/24 23:59 23:59 23:59 Intake Total 365 / 365 2320 / 2320 360 / 360 Output Total 950 / 950 625 / 625 250 / 250 Balance -585 / -585 1695 / 1695 110 / 110 Lab / Micro Data 05/31/24 05:11 05/31/24 05:11 Labs: Laboratory Results - last 24 hr 05/30/24 13:35: POC Glucose 128 H 05/30/24 17:23: POC Glucose 140 H 05/30/24 21:08: POC Glucose 121 H 05/31/24 05:11: WBC 11.2 H, RBC 2.78 L, Hgb 9.3 L, Hct 27.7 L, MCV 99.6 H, MCH 33.5 H, MCHC 33.6, RDW Std Deviation 53.4 H, RDW Coeff of Zaheer 14.7 H, Plt Count 122 L, MPV 10.7, Immature Gran % (Auto) 1.300 H, Neut % (Auto) 76.2 H, Lymph % (Auto) 13.7 L, [place] % (Auto) 7.2, Eos % (Auto) 1.3, Baso % (Auto) 0.3, Absolute Neuts (auto) 8.5 H, Absolute Lymphs (auto) 1.53, Nucleated RBC % 0, Sodium 153 H , Potassium 3.4 L, Chloride 129 H*, Carbon Dioxide 21.0, Anion Gap 3 L, BUN 38 H , Creatinine 1.85 H, Estim Creat Clear Calc 36.41, Est GFR (MDRD) Af Amer 45 L, Est GFR (MDRD) Non-Af 37 L, BUN/Creatinine Ratio 20.5 H, Glucose 154 H, Calcium 7.9 L, Magnesium 2.0 05/31/24 06:23: POC Glucose 136 H Physical Exam GI GI Narrative: Abdomen- soft, tender at the midline incision. Non-distended. Incisions c/d/i. No erythema or infection noted. Assessment & Plan Assessment/Plan (1) Internal hernia: (2) SBO (small bowel obstruction): PLAN: Plan I am following this patient in conjunction with Dr. Chapman. She will independently evaluated this patient. Labs reviewed. Potassium being replaced Continue with full liquids possible increase to transitional later today/tomorrow Continue to encourage ambulation and sitting in the chair Patient from assisted living at the [facility] We will continue to monitor this patient Charges/Coding Visit Charges Inpatient E&M: 81173 Subs Hosp L1 (No charge; post-op)
--- NOTE | 2024-05-31 08:58 | CASEMGMT ---
Discharge Planning Updates sent via [facility] to [place]. YAEL Carreon.
[2024-05-31] MEDS: Pantoprazole Sodium 40 MG in 0.9% Normal Saline (100mL MB+) 100 ML 330 MG IV ×2 (09:40→22:13)
[2024-05-31] MEDS: Enoxaparin 40 MG/0.4 ML Syringe SC (09:42)
[2024-05-31] MEDS: Menthol/Lanolin/Calamine/Znox 113 GM Tube 1 APPLIC TOPICAL ×2 (09:43→22:12)
[2024-05-31] MEDS: Ensure Clear 120 ML Liquid PO (09:47)
[2024-05-31] MEDS: Potassium Chloride Oral Tablet 20 MEQ 40 MEQ PO (09:51)
[2024-05-31 10:00] VITALS: BP 138/83; PULSE 99; RESP 18; TEMP 36.7; O2SAT 96
[2024-05-31] MEDS: Dextrose 5%-Water (1000mL Bag) 1,000 ML 75 ML IV (10:04)
[2024-05-31 11:40] LABS: Bedside Glucose 212 mg/dL (74-106)
[2024-05-31] MEDS: Insulin Lispro 100 UNIT/ML INSULN.PEN SC ×3 (12:21→22:13)
--- NOTE | 2024-05-31 12:25 | PN_ITS ---
Subjective Subjective Patient seen and examined. He was comfortably eating breakfast. He had no active complaints. Review of systems otherwise negative. His sodium is elevated at 153 today. It was 154 yesterday. Objective Data Objective Data Vital Signs: Vital Signs Temp Pulse Resp BP Pulse Ox O2 Del Method O2 Flow Rate 97.4 F L 83 18 157/83 H 96 Room Air 2 05/31/24 06:20 05/31/24 06:24 05/31/24 06:20 05/31/24 06:24 05/31/24 06:20 05/31/24 06:20 05/26/24 06:00 FiO2 91 05/23/24 20:30 Oxygen Flow Rate (L/min) 2 Oxygen Delivery Method Room Air Weight: 185 lb 10.067 oz Body Mass Index (BMI) 23.8 Intake & Output: Intake and Output for Last 24 Hours 05/29/24 05/30/24 05/31/24 23:59 23:59 23:59 Intake Total 365 / 365 2320 / 2320 470 / 470 Output Total 950 / 950 625 / 625 250 / 250 Balance -585 / -585 1695 / 1695 220 / 220 Lab / Micro Data 05/31/24 05:11 05/31/24 05:11 Labs: Laboratory Results - last 24 hr 05/30/24 13:35: POC Glucose 128 H 05/30/24 17:23: POC Glucose 140 H 05/30/24 21:08: POC Glucose 121 H 05/31/24 05:11: WBC 11.2 H, RBC 2.78 L, Hgb 9.3 L, Hct 27.7 L, MCV 99.6 H, MCH 33.5 H, MCHC 33.6, RDW Std Deviation 53.4 H, RDW Coeff of Zaheer 14.7 H, Plt Count 122 L, MPV 10.7, Immature Gran % (Auto) 1.300 H, Neut % (Auto) 76.2 H, Lymph % (Auto) 13.7 L, [place] % (Auto) 7.2, Eos % (Auto) 1.3, Baso % (Auto) 0.3, Absolute Neuts (auto) 8.5 H, Absolute Lymphs (auto) 1.53, Nucleated RBC % 0, Sodium 153 H , Potassium 3.4 L, Chloride 129 H*, Carbon Dioxide 21.0, Anion Gap 3 L, BUN 38 H , Creatinine 1.85 H, Estim Creat Clear Calc 36.41, Est GFR (MDRD) Af Amer 45 L, Est GFR (MDRD) Non-Af 37 L, BUN/Creatinine Ratio 20.5 H, Glucose 154 H, Calcium 7.9 L, Magnesium 2.0 05/31/24 06:23: POC Glucose 136 H 05/31/24 11:21: POC Glucose 212 H Physical Exam Const alert, oriented x3 and no apparent distress General Appearance: cooperative and well developed HEENT normocephalic and head/scalp atraumatic Mouth: dry mucous membranes Eyes PERRL and EOMs intact bilaterally Neck no lymphadenopathy, supple and no JVD Lymph Lymphatic: no lymphadenopathy noted and no lymphedema noted Resp normal respiratory effort, normal air movement and clear to auscultation bilaterally Cardio regular rate, regular rhythm, S1 normal heart sound, S2 normal heart sound and no murmurs GI normal to inspection, nondistended, normoactive bowel sounds, soft to palpation and non-tender GI Narrative: intact reyna over laparotomy site Extremity normal capillary refill, no clubbing, cyanosis or edema and no calf tenderness General Extremity: no tenderness to palpation of joints or extremities Skin General Skin Exam: no breakdown Neuro CN's II-XII intact bilaterally, no focal motor deficits, no sensory deficits noted and deep tendon reflexes 2+ bilaterally Motor Exam: strength 5/5 throughout and general weakness Psych thought process normal and cooperative Appearance: appropriate Assessment & Plan Assessment/Plan (1) SBO (small bowel obstruction): PLAN: Plan #Small bowel obstruction * S/p laparotomy on 05/21/2024, with release of internal hernia. * General surgery on board. Had initial NG tube inserted after she had postop ileus. NG tube subsequently removed on 05/29/2024. * Currently tolerating oral diet. Started on a clear liquid diet yesterday; was having cream of wheat this morning. To advance as per general surgery * #Hypernatremia * sodium is 153 today. Sodium was 154 yesterday, and has been elevated since 05/23, when it was 147. * patient started on D5W infusion today. WIll trend sodium levels. Will hold off on nephrology consult for now, as I anticipate it will come down with the D5W. * #Valvular heart diseawe * s/p bioprosthetic aortic valve replacement. Stable * #Benign essential hypertension: * on IV hydralazine prn. * Resume oral meds since he is now on a diet-on metoprolol 25mg daily. Will resume lisinopril also as well as eplerenone. Hold off on lasix for now due to hypernatremia #Type 2 diabetes mellitus: On insulin sliding scale. Accu-Cheks ACHS now but he is back on a diet. Will resume his metformin also. #Hyperlipidemia: On statin #BPH: on flomax. DVT prophylaxis: resume elqiuis as he is now on an oral diet. YAEL garcia * Charges/Coding Visit Charges Inpatient E&M: 84531 Subs Hosp L3
[2024-05-31] MEDS: Ensure Plus High Protein 120 ML LIQUID PO (12:28)
[2024-05-31 12:49] LABS: Squamous Epithelial Cells - UA 0 SEEN /hpf (0-5)
[2024-05-31 13:40] LABS: Color, Urine Yellow (Yellow); Glucose, Dipstick 50 mg/dl (Normal); Ketone-Dipstick Negative (Negative); Leukocyte Esterase-Dipstick 500 /ul (Negative); Nitrite-Dipstick Positive (Negative); Occult Blood-Urine 250 /ul (Negative); Protein-Dipstick 100 mg/dl (Negative); Urine Bilirubin Dipstick Negative (Negative); Urine Clarity Cloudy (Clear); Urine Urobilinogen Normal (Normal)
[2024-05-31 13:48] LABS: Bacteria 3+ /hpf (None Seen)
[2024-05-31 13:49] LABS: Red Blood Cells-Urine 10-25 SEEN /hpf (0-5); White Blood Cells >100 SEEN /hpf (0-5)
[2024-05-31 13:52] LABS: Hyaline Cast 0-5 SEEN /lpf (0-5); Mucous, Urine 1+ /hpf (<or=2+)
[2024-05-31 15:00] VITALS: BP 124/81; PULSE 91; RESP 17; TEMP 36.6; O2SAT 99
[2024-05-31] MEDS: Acetaminophen 325 MG Tablet 650 MG PO ×2 (15:20→22:14)
[2024-05-31] MEDS: metFORMIN HCl 500 MG Tablet PO (17:03)
[2024-05-31] MEDS: Ceftriaxone 1 GM/50 ML BAG IV (17:03)
[2024-05-31] MEDS: Glucerna Shake 120 ML LIQUID PO ×2 (17:03→22:13)
[2024-05-31] MEDS: Tamsulosin HCl 0.4 MG Capsule PO (17:03)
[2024-05-31 17:31] LABS: Bedside Glucose 277 mg/dL (74-106)
[2024-05-31 22:00] VITALS: BP 138/77; PULSE 84; RESP 16; TEMP 36.6; O2SAT 98
[2024-05-31] MEDS: APIXABAN 2.5 MG TABLET (WCH) PO (22:13)
[2024-05-31] MEDS: Atorvastatin Calcium 80 MG Tablet PO (22:13)
[2024-05-31 22:31] LABS: Bedside Glucose 227 mg/dL (74-106)
[2024-06-01] MEDS: Dextrose 5%-Water (1000mL Bag) 1,000 ML 75 ML IV (01:02)
[2024-06-01 03:58] VITALS: BMI 24.3
[2024-06-01 04:00] VITALS: BP 136/70; PULSE 95; RESP 16; TEMP 36.4; O2SAT 97
[2024-06-01] MEDS: Insulin Lispro 100 UNIT/ML INSULN.PEN SC ×3 (06:29→16:27)
[2024-06-01 06:55] LABS: Bedside Glucose 169 mg/dL (74-106)
--- NOTE | 2024-06-01 08:31 | PCM.PN.SRG ---
Subjective Subjective Patient evaluated resting comfortably in bed. He notes hypersensitivity at the midline incision. He denies pain anywhere else in his abdomen. He denies any nausea, vomiting. He continues to have a panchal catheter. He continues to tolerate a full liquid diet. He is passing flatus and having liquidy bowel movements. Patient was found to have a UTI after UA was obtained yesterday. Objective Data Objective Data Vital Signs: Vital Signs Temp Pulse Resp BP Pulse Ox O2 Del Method O2 Flow Rate 97.5 F L 95 16 136/70 H 97 Room Air 2 06/01/24 04:00 06/01/24 04:00 06/01/24 04:00 06/01/24 04:00 06/01/24 04:00 06/01/24 04:00 05/26/24 06:00 FiO2 91 05/23/24 20:30 Oxygen Flow Rate (L/min) 2 Oxygen Delivery Method Room Air Weight: 189 lb 9.561 oz Body Mass Index (BMI) 24.3 Intake & Output: Intake and Output for Last 24 Hours 05/30/24 05/31/24 06/01/24 23:59 23:59 23:59 Intake Total 2320 / 2320 1783.75 / 2660.00 996.25 / 996.25 Output Total 625 / 625 650 / 850 500 / 500 Balance 1695 / 1695 1133.75 / 1810.00 496.25 / 496.25 Lab / Micro Data 06/01/24 08:40 06/01/24 08:40 Labs: Laboratory Results - last 24 hr 05/31/24 11:21: POC Glucose 212 H 05/31/24 12:30: Urine Color Yellow, Urine Clarity Cloudy, Urine pH 5.0, Ur Specific [place] 1.020, Urine Protein 100 H, Urine Glucose (UA) 50 H, Urine Ketones Negative, Urine Occult Blood 250 H, Urine Nitrite Positive H, Urine Bilirubin Negative, Urine Urobilinogen Normal, Ur Leukocyte Esterase 500 H, Urine RBC 10-25 SEEN, Urine WBC >100 SEEN, Ur Squamous Epith Cells 0 SEEN, Urine Bacteria 3+, Hyaline Casts 0-5 SEEN, Urine Mucus 1+ 05/31/24 17:06: POC Glucose 277 H 05/31/24 22:11: POC Glucose 227 H 06/01/24 06:28: POC Glucose 169 H Physical Exam GI GI Narrative: Abdomen- Soft, non-distended. Incisions c/d/i. No erythema or infection noted. Hypersensitive to palpation and light touch of the midline incision. Positive bowel sounds. Assessment & Plan Assessment/Plan (1) Internal hernia: (2) SBO (small bowel obstruction): PLAN: Plan I am seeing this patient in conjunction with Dr. Chapman. She will independently evaluate this patient. Labs reviewed. Potassium is being replaced Continue IV fluids Continue Ceftriaxone total of 3 days Urine culture growing GNR lactose records management analyst Increase diet to regular diet Continue [place] to monitor patient output We will continue to monitor this patient Charges/Coding Visit Charges Inpatient E&M: 68684 Subs Hosp L1 (no charge; post-op)
--- NOTE | 2024-06-01 08:34 | PCM.PN.SRG ---
Objective Data Objective Data Vital Signs: Vital Signs Temp Pulse Resp BP Pulse Ox O2 Del Method O2 Flow Rate 97.5 F L 95 16 136/70 H 97 Room Air 2 06/01/24 04:00 06/01/24 04:00 06/01/24 04:00 06/01/24 04:00 06/01/24 04:00 06/01/24 04:00 05/26/24 06:00 FiO2 91 05/23/24 20:30 Oxygen Flow Rate (L/min) 2 Oxygen Delivery Method Room Air Weight: 189 lb 9.561 oz Body Mass Index (BMI) 24.3 Intake & Output: Intake and Output for Last 24 Hours 05/30/24 05/31/24 06/01/24 23:59 23:59 23:59 Intake Total 2320 / 2320 1783.75 / 2660.00 996.25 / 996.25 Output Total 625 / 625 650 / 850 500 / 500 Balance 1695 / 1695 1133.75 / 1810.00 496.25 / 496.25 Lab / Micro Data 05/31/24 05:11 05/31/24 05:11 Labs: Laboratory Results - last 24 hr 05/31/24 11:21: POC Glucose 212 H 05/31/24 12:30: Urine Color Yellow, Urine Clarity Cloudy, Urine pH 5.0, Ur Specific [place] 1.020, Urine Protein 100 H, Urine Glucose (UA) 50 H, Urine Ketones Negative, Urine Occult Blood 250 H, Urine Nitrite Positive H, Urine Bilirubin Negative, Urine Urobilinogen Normal, Ur Leukocyte Esterase 500 H, Urine RBC 10-25 SEEN, Urine WBC >100 SEEN, Ur Squamous Epith Cells 0 SEEN, Urine Bacteria 3+, Hyaline Casts 0-5 SEEN, Urine Mucus 1+ 05/31/24 17:06: POC Glucose 277 H 05/31/24 22:11: POC Glucose 227 H 06/01/24 06:28: POC Glucose 169 H
[2024-06-01 08:38] VITALS: BMI 24.5
[2024-06-01 08:47] LABS: Absolute Lymphocyte Count 1.88 X10^3/uL (0.83-4.51); Absolute Neutrophil Count 8.3 X10^3/uL (2.0-7.7); Basophil# 0.03 X10^3/uL; Basophil% 0.3 % (0-1); Eosinophil# 0.15 X10^3/uL; Eosinophils% 1.4 % (0-5); Hematocrit 28.7 % (40-54); Hemoglobin 9.4 g/dL (13.0-16.5); Lymphocyte # 1.88 X10^3/ul (0.83-4.51); Lymphocyte % 17.1 % (19-41); Mean Corp Hgb Conc 32.8 g/dL (32-36); Mean Corpuscular Hgb 32.3 pg (27.0-32.0); Mean Corpuscular Volume 98.6 fL (80-94); Mean Platelet Vol. 10.6 fl (6.2-12.0); Monocyte# 0.58 X10^3/uL; Monocyte% 5.3 % (0-10); NRBC Flagged by Analyzer 0 % (0-5); Neutrophil # 8.29 X10^3/uL (2.7-7.7); Neutrophil % 75.1 % (47-70); Platelet Count 112 K/mm3 (150-450); RBC Distribution Width CV 14.9 % (11.6-14.6); RBC Distribution Width SD 53.9 fl (35.1-43.9); Red Blood Count 2.91 M/mm3 (4.6-6.2)
[2024-06-01] MEDS: Menthol/Lanolin/Calamine/Znox 113 GM Tube 1 APPLIC TOPICAL ×2 (08:54→21:05)
[2024-06-01] MEDS: metFORMIN HCl 500 MG Tablet PO ×2 (08:54→16:27)
[2024-06-01 09:19] LABS: Anion Gap 4 (5-15); BUN 29 mg/dL (7-18); BUN/Creat Ratio 17.1 RATIO (10-20); Calcium,Total 7.8 mg/dL (8.5-10.1); Chloride 122 mmol/L (98-107); EST Glomerular Filtration Rate 41 mL/min (>60); Est Glom Filt Rate - Afr Amer 50 mL/min (>60); Estimated Creatinine Clearance 39.62 ml/min; Glucose 167 mg/dL (74-106); Potassium 3.3 mmol/L (3.5-5.1); Sodium Level 146 mmol/L (136-145)
[2024-06-01 09:34] VITALS: PULSE 105
[2024-06-01] MEDS: Ceftriaxone 1 GM/50 ML BAG IV (09:34)
[2024-06-01] MEDS: Eplerenone 25 MG Tablet 50 MG PO (09:34)
[2024-06-01] MEDS: APIXABAN 2.5 MG TABLET (WCH) PO ×2 (09:34→21:11)
[2024-06-01] MEDS: Metoprolol Tartrate 25 MG Tablet PO (09:34)
[2024-06-01] MEDS: Glucerna Shake 120 ML LIQUID PO ×3 (09:36→21:05)
[2024-06-01 09:40] VITALS: BP 144/75; PULSE 105; RESP 18; TEMP 36.6; O2SAT 98
[2024-06-01] MEDS: Pantoprazole Sodium 40 MG in 0.9% Normal Saline (100mL MB+) 100 ML 330 MG IV ×2 (10:15→21:12)
[2024-06-01] MEDS: Potassium Chloride 10mEq/100mL 10 MEQ/100 ML IV.SOLN. 100 MEQ IV BOLUS ×4 (10:19→13:50)
[2024-06-01] MEDS: Potassium Chloride Oral Tablet 20 MEQ PO (11:21)
[2024-06-01] MEDS: Ondansetron 4 MG/2 ML Vial IV (12:20)
[2024-06-01] MEDS: 0.9% Saline Lock 10 ML Syringe IV (12:20)
[2024-06-01 12:24] LABS: Bedside Glucose 211 mg/dL (74-106)
--- NOTE | 2024-06-01 13:31 | PN_ITS ---
Subjective Subjective Patient seen and examined. He feels well and has no complaints. He is tolerating his full liquid diet. Review of systems otherwise negative. He did have a urinalysis done yesterday which showed evidence of UTI. Objective Data Objective Data Vital Signs: Vital Signs Temp Pulse Resp BP Pulse Ox O2 Del Method O2 Flow Rate 97.9 F 105 H 18 144/75 H 98 Room Air 2 06/01/24 09:40 06/01/24 09:40 06/01/24 09:40 06/01/24 09:40 06/01/24 09:40 06/01/24 09:40 05/26/24 06:00 FiO2 91 05/23/24 20:30 Oxygen Flow Rate (L/min) 2 Oxygen Delivery Method Room Air Weight: 190 lb 11.198 oz Body Mass Index (BMI) 24.5 Intake & Output: Intake and Output for Last 24 Hours 05/30/24 05/31/24 06/01/24 23:59 23:59 23:59 Intake Total 2320 / 2320 1783.75 / 2660.00 2026.25 / 2026.25 Output Total 625 / 625 650 / 850 500 / 500 Balance 1695 / 1695 1133.75 / 1810.00 1526.25 / 1526.25 Lab / Micro Data 06/01/24 08:40 06/01/24 08:40 Labs: Laboratory Results - last 24 hr 05/31/24 12:30: Urine Color Yellow, Urine Clarity Cloudy, Urine pH 5.0, Ur Specific [place] 1.020, Urine Protein 100 H, Urine Glucose (UA) 50 H, Urine Ketones Negative, Urine Occult Blood 250 H, Urine Nitrite Positive H, Urine Bilirubin Negative, Urine Urobilinogen Normal, Ur Leukocyte Esterase 500 H, Urine RBC 10-25 SEEN, Urine WBC >100 SEEN, Ur Squamous Epith Cells 0 SEEN, Urine Bacteria 3+, Hyaline Casts 0-5 SEEN, Urine Mucus 1+ 05/31/24 17:06: POC Glucose 277 H 05/31/24 22:11: POC Glucose 227 H 06/01/24 06:28: POC Glucose 169 H 06/01/24 08:40: WBC 11.0, RBC 2.91 L, Hgb 9.4 L, Hct 28.7 L, MCV 98.6 H, MCH 32.3 H, MCHC 32.8, RDW Std Deviation 53.9 H, RDW Coeff of Zaheer 14.9 H, Plt Count 112 L, MPV 10.6, Immature Gran % (Auto) 0.800, Neut % (Auto) 75.1 H, Lymph % (Auto) 17.1 L, [place] % (Auto) 5.3, Eos % (Auto) 1.4, Baso % (Auto) 0.3, Absolute Neuts (auto) 8.3 H, Absolute Lymphs (auto) 1.88, Nucleated RBC % 0, Sodium 146 H , Potassium 3.3 L, Chloride 122 H, Carbon Dioxide 20.0 L, Anion Gap 4 L, BUN 29 H, Creatinine 1.70 H, Estim Creat Clear Calc 39.62, Est GFR (MDRD) Af Amer 50 L, Est GFR (MDRD) Non-Af 41 L, BUN/Creatinine Ratio 17.1, Glucose 167 H, Calcium 7.8 L 06/01/24 11:20: POC Glucose 211 H Micro: Microbiology 05/31/24 12:30 Urine Catheter - Jason Urine Culture - Preliminary GNR lactose oral health therapist Physical Exam Const alert, oriented x3, no apparent distress and average body habitus General Appearance: cooperative and well kempt Orientation / Consciousness: awake HEENT normocephalic, head/scalp atraumatic and moist oral mucous membranes Eyes PERRL, EOMs intact bilaterally and conjunctivae normal Neck no lymphadenopathy, supple, no JVD, thyroid normal and no carotid bruits General: trachea midline Lymph Lymphatic: no lymphadenopathy noted and no lymphedema noted Resp normal respiratory effort, normal air movement, no retractions, no use of accessory muscles and clear to auscultation bilaterally Cardio regular rate, regular rhythm, S1 normal heart sound, S2 normal heart sound and no murmurs GI normal to inspection, nondistended, normoactive bowel sounds, soft to palpation and non-tender GI Narrative: intact reyna over laparotomy site Extremity normal to inspection, normal capillary refill, no clubbing, cyanosis or edema and no calf tenderness General Extremity: no tenderness to palpation of joints or extremities Skin no rashes or lesions noted General Skin Exam: no breakdown Neuro oriented x3, CN's II-XII intact bilaterally, moves all extremities, no focal motor deficits, no sensory deficits noted and deep tendon reflexes 2+ bilaterally Sensorium / Orientation: awake and alert Speech: speech normal Motor Exam: strength 5/5 throughout and general weakness Psych thought process normal, cooperative and affect normal Appearance: appropriate Assessment & Plan Assessment/Plan (1) SBO (small bowel obstruction): PLAN: Plan #Small bowel obstruction * S/p laparotomy on 05/21/2024, with release of internal hernia. * General surgery on board. Had initial NG tube inserted after she had postop ileus. NG tube subsequently removed on 05/29/2024. * Currently tolerating oral diet. * advance diet as per general surgery * #UTI: * Urinalysis done yesterday showed evidence of UTI. * Urine cultures now growing gram-negative rene lactose oral health therapist. Speciation is pending. * On IV ceftriaxone. Will continue and adjust antibiotics based on speciation. * #Hypernatremia * sodium was 153 yesterday. Down to 146 today after starting on D5 water infusion * Will continue to trend sodium * #Hypokalemia: Potassium was 3.4 today. Will replace and trend. * #Valvular heart disease * s/p bioprosthetic aortic valve replacement. Stable * #Benign essential hypertension: * on IV hydralazine prn. * On metoprolol and lisinopril as well as eplerenone. Will resume Lasix also * #CKD stage IIIb: Creatinine is 1.7 which is around his baseline. Will monitor. #Type 2 diabetes mellitus: On insulin sliding scale. Accu-Cheks ACHS now but he is back on a diet. Also on metformin. #Hyperlipidemia: On statin #BPH: on flomax. DVT prophylaxis: on eliquis * Charges/Coding Visit Charges Inpatient E&M: 82800 Subs Hosp L2
[2024-06-01 15:21] LABS: Potassium 3.9 mmol/L (3.5-5.1)
[2024-06-01 15:30] VITALS: BP 124/71; PULSE 75; RESP 18; TEMP 36.9; O2SAT 98
[2024-06-01] MEDS: Tamsulosin HCl 0.4 MG Capsule PO (16:27)
[2024-06-01 16:59] LABS: Bedside Glucose 179 mg/dL (74-106)
[2024-06-01 21:01] VITALS: BP 144/74; PULSE 73; RESP 18; TEMP 36.8; O2SAT 98
[2024-06-01] MEDS: Atorvastatin Calcium 80 MG Tablet PO (21:12)
[2024-06-01 21:38] LABS: Bedside Glucose 100 mg/dL (74-106)
[2024-06-02 03:35] VITALS: BP 131/66; PULSE 87; RESP 18; TEMP 36.9; O2SAT 97
[2024-06-02 03:47] VITALS: BMI 24.3
[2024-06-02 06:04] LABS: Absolute Lymphocyte Count 1.92 X10^3/uL (0.83-4.51); Absolute Neutrophil Count 7.4 X10^3/uL (2.0-7.7); Basophil# 0.02 X10^3/uL; Basophil% 0.2 % (0-1); Eosinophil# 0.14 X10^3/uL; Eosinophils% 1.4 % (0-5); Hematocrit 28.9 % (40-54); Hemoglobin 9.4 g/dL (13.0-16.5); Lymphocyte # 1.92 X10^3/ul (0.83-4.51); Lymphocyte % 19.1 % (19-41); Mean Corp Hgb Conc 32.5 g/dL (32-36); Mean Corpuscular Hgb 32.4 pg (27.0-32.0); Mean Corpuscular Volume 99.7 fL (80-94); Mean Platelet Vol. 10.8 fl (6.2-12.0); Monocyte# 0.53 X10^3/uL; Monocyte% 5.3 % (0-10); NRBC Flagged by Analyzer 0 % (0-5); Neutrophil # 7.37 X10^3/uL (2.7-7.7); Neutrophil % 73.3 % (47-70); Platelet Count 118 K/mm3 (150-450); RBC Distribution Width CV 14.7 % (11.6-14.6); White Blood Count 10.1 K/mm3 (4.4-11.0)
[2024-06-02 06:19] LABS: Anion Gap 3 (5-15); BUN 25 mg/dL (7-18); BUN/Creat Ratio 15.3 RATIO (10-20); Chloride 118 mmol/L (98-107); Creatinine, Serum 1.63 mg/dL (0.70-1.30); EST Glomerular Filtration Rate 43 mL/min (>60); Est Glom Filt Rate - Afr Amer 52 mL/min (>60); Estimated Creatinine Clearance 41.32 ml/min; Glucose 121 mg/dL (74-106); Potassium 4.2 mmol/L (3.5-5.1); Sodium Level 144 mmol/L (136-145)
[2024-06-02 06:42] LABS: Bedside Glucose 109 mg/dL (74-106)
--- NOTE | 2024-06-02 07:58 | PN.SURG_ITS ---
Subjective Subjective Patient evaluated resting comfortably in bed. His main compliant is he has no energy. He notes feeling fatigued. He states the midline incision is ammonia distiller to light touch. He denies any nausea, vomiting. He is not consuming much food. He is on a regular diet at this time. He states he does not feel hungry. He notes passing flatus, however very little bowel movement yesterday. He notes he is sleeping well. Per nursing, patient was dizzy yesterday during PT when he was transitioning from the the bed to the chair. Patient continues to have a panchal. Objective Data Objective Data Vital Signs: Vital Signs Temp Pulse Resp BP Pulse Ox O2 Del Method O2 Flow Rate 98.4 F 87 18 131/66 H 97 Room Air 2 06/02/24 03:35 06/02/24 03:35 06/02/24 03:35 06/02/24 03:35 06/02/24 03:35 06/02/24 03:35 05/26/24 06:00 FiO2 91 05/23/24 20:30 Oxygen Flow Rate (L/min) 2 Oxygen Delivery Method Room Air Weight: 189 lb 9.561 oz Body Mass Index (BMI) 24.3 Intake & Output: Intake and Output for Last 24 Hours 05/31/24 06/01/24 06/02/24 23:59 23:59 23:59 Intake Total 1783.75 / 2660.00 2696.25 / 2696.25 Output Total 650 / 850 1000 / 1000 200 / 200 Balance 1133.75 / 1810.00 1696.25 / 1696.25 -200 / -200 Lab / Micro Data 06/02/24 05:29 06/02/24 05:29 Labs: Laboratory Results - last 24 hr 06/01/24 08:40: WBC 11.0, RBC 2.91 L, Hgb 9.4 L, Hct 28.7 L, MCV 98.6 H, MCH 32.3 H, MCHC 32.8, RDW Std Deviation 53.9 H, RDW Coeff of Zaheer 14.9 H, Plt Count 112 L, MPV 10.6, Immature Gran % (Auto) 0.800, Neut % (Auto) 75.1 H, Lymph % (Auto) 17.1 L, [place] % (Auto) 5.3, Eos % (Auto) 1.4, Baso % (Auto) 0.3, Absolute Neuts (auto) 8.3 H, Absolute Lymphs (auto) 1.88, Nucleated RBC % 0, Sodium 146 H , Potassium 3.3 L, Chloride 122 H, Carbon Dioxide 20.0 L, Anion Gap 4 L, BUN 29 H, Creatinine 1.70 H, Estim Creat Clear Calc 39.62, Est GFR (MDRD) Af Amer 50 L, Est GFR (MDRD) Non-Af 41 L, BUN/Creatinine Ratio 17.1, Glucose 167 H, Calcium 7.8 L 06/01/24 11:20: POC Glucose 211 H 06/01/24 15:03: Potassium 3.9 06/01/24 16:25: POC Glucose 179 H 06/01/24 21:18: POC Glucose 100 06/02/24 05:29: WBC 10.1, RBC 2.90 L, Hgb 9.4 L, Hct 28.9 L, MCV 99.7 H, MCH 32.4 H, MCHC 32.5, RDW Std Deviation 54.0 H, RDW Coeff of Zaheer 14.7 H, Plt Count 118 L, MPV 10.8, Immature Gran % (Auto) 0.700, Neut % (Auto) 73.3 H, Lymph % (Auto) 19.1, [place] % (Auto) 5.3, Eos % (Auto) 1.4, Baso % (Auto) 0.2, Absolute Neuts (auto) 7.4, Absolute Lymphs (auto) 1.92, Nucleated RBC % 0, Sodium 144, Potassium 4.2, Chloride 118 H, Carbon Dioxide 23.0, Anion Gap 3 L, BUN 25 H, C reatinine 1.63 H, Estim Creat Clear Calc 41.32, Est GFR (MDRD) Af Amer 52 L, Est GFR (MDRD) Non-Af 43 L, BUN/Creatinine Ratio 15.3, Glucose 121 H, Calcium 8.0 L 06/02/24 06:23: POC Glucose 109 H Micro: Microbiology 05/31/24 12:30 Urine Catheter - Panchal Urine Culture - Preliminary GNR lactose storm chaser Physical Exam GI GI Narrative: Abdomen- soft, hypersensitivity to light touch at the midline incision. Remaining abdomen is nontender. POsitive bowel sounds. Incisions c/d/i. No erythema or infection noted. Assessment & Plan Assessment/Plan (1) Internal hernia: PLAN: I am following this patient in conjunction with Dr. hCapman. She will independently evaluate this patient. Labs reviewed and are improved. Urine culture returned as ESBL Klebsiella pneumoniae Plan to switch antibiotics to Nitrofurantoin for 5 days Encourage ambulation and sitting in the chair today Encourage eating regular diet Plan to remove midline incision reyna today Plan to continue to use ice intermittently We will continue to monitor this patient Hopeful discharge soon Charges/Coding Visit Charges Inpatient E&M: 51454 Subs Hosp L1 (post-op; no charge)
[2024-06-02 10:00] VITALS: BP 121/91; PULSE 71; RESP 16; TEMP 36.9; O2SAT 97
[2024-06-02] MEDS: metFORMIN HCl 500 MG Tablet PO (10:12)
[2024-06-02] MEDS: Eplerenone 25 MG Tablet 50 MG PO (10:13)
[2024-06-02] MEDS: APIXABAN 2.5 MG TABLET (WCH) PO (10:13)
[2024-06-02] MEDS: Menthol/Lanolin/Calamine/Znox 113 GM Tube 1 APPLIC TOPICAL (10:13)
[2024-06-02 10:14] VITALS: PULSE 92
[2024-06-02] MEDS: Metoprolol Tartrate 25 MG Tablet PO (10:14)
[2024-06-02] MEDS: Pantoprazole Sodium 40 MG in 0.9% Normal Saline (100mL MB+) 100 ML 330 MG IV (10:15)
[2024-06-02] MEDS: Ceftriaxone 1 GM/50 ML BAG IV (10:16)
[2024-06-02] MEDS: 0.9% Saline Lock 10 ML Syringe IV ×2 (10:17→16:07)
--- NOTE | 2024-06-02 11:52 | PN_ITS ---
Subjective Subjective Patient seen and examined. He complained of some mild pain at site of the reyna. he is tolerating an oral diet. Review of systems is otherwise negative. Objective Data Objective Data Vital Signs: Vital Signs Temp Pulse Resp BP Pulse Ox O2 Del Method O2 Flow Rate 98.4 F 92 16 121/91 H 97 Room Air 2 06/02/24 10:00 06/02/24 10:14 06/02/24 10:00 06/02/24 10:00 06/02/24 10:00 06/02/24 10:00 05/26/24 06:00 FiO2 91 05/23/24 20:30 Oxygen Flow Rate (L/min) 2 Oxygen Delivery Method Room Air Weight: 189 lb 9.561 oz Body Mass Index (BMI) 24.3 Intake & Output: Intake and Output for Last 24 Hours 05/31/24 06/01/24 06/02/24 23:59 23:59 23:59 Intake Total 1783.75 / 2660.00 2696.25 / 2696.25 160 / 160 Output Total 650 / 850 1000 / 1000 200 / 200 Balance 1133.75 / 1810.00 1696.25 / 1696.25 -40 / -40 Lab / Micro Data 06/02/24 05:29 06/02/24 05:29 Labs: Laboratory Results - last 24 hr 06/01/24 11:20: POC Glucose 211 H 06/01/24 15:03: Potassium 3.9 06/01/24 16:25: POC Glucose 179 H 06/01/24 21:18: POC Glucose 100 06/02/24 05:29: WBC 10.1, RBC 2.90 L, Hgb 9.4 L, Hct 28.9 L, MCV 99.7 H, MCH 32.4 H, MCHC 32.5, RDW Std Deviation 54.0 H, RDW Coeff of Zaheer 14.7 H, Plt Count 118 L, MPV 10.8, Immature Gran % (Auto) 0.700, Neut % (Auto) 73.3 H, Lymph % (Auto) 19.1, [place] % (Auto) 5.3, Eos % (Auto) 1.4, Baso % (Auto) 0.2, Absolute Neuts (auto) 7.4, Absolute Lymphs (auto) 1.92, Nucleated RBC % 0, Sodium 144, Potassium 4.2, Chloride 118 H, Carbon Dioxide 23.0, Anion Gap 3 L, BUN 25 H, C reatinine 1.63 H, Estim Creat Clear Calc 41.32, Est GFR (MDRD) Af Amer 52 L, Est GFR (MDRD) Non-Af 43 L, BUN/Creatinine Ratio 15.3, Glucose 121 H, Calcium 8.0 L 06/02/24 06:23: POC Glucose 109 H Micro: Microbiology 05/31/24 12:30 Urine Catheter - Jason Urine Culture - Preliminary ESBL Klebsiella pneumoniae pne Physical Exam Const alert, oriented x3, no apparent distress, average body habitus and healthy appearing Constitutional Narrative: slow, measured speech. General Appearance: cooperative, well kempt and well developed Orientation / Consciousness: awake, oriented to person, oriented to place and oriented to time HEENT normocephalic, head/scalp atraumatic and moist oral mucous membranes Eyes PERRL, EOMs intact bilaterally and conjunctivae normal Neck no lymphadenopathy, supple, no JVD, thyroid normal and no carotid bruits General: trachea midline Lymph Lymphatic: no lymphadenopathy noted and no lymphedema noted Resp normal respiratory effort, normal air movement, no retractions, no use of accessory muscles and clear to auscultation bilaterally Auscultation: Negative for rales, rhonchi or wheezes Cardio regular rate, regular rhythm, S1 normal heart sound, S2 normal heart sound, no murmurs, no rub and no gallops GI normal to inspection, nondistended, normoactive bowel sounds, soft to palpation and non-distended GI Narrative: intact reyna over laparotomy site, minimal tenderness at site of the reyna. Extremity normal to inspection, normal capillary refill, no clubbing, cyanosis or edema and no calf tenderness General Extremity: no tenderness to palpation of joints or extremities Skin no rashes or lesions noted General Skin Exam: no breakdown Neuro oriented x3, CN's II-XII intact bilaterally, moves all extremities, no focal motor deficits, no sensory deficits noted and deep tendon reflexes 2+ bilaterally Sensorium / Orientation: awake and alert Speech: speech normal Motor Exam: strength 5/5 throughout and general weakness Psych thought process normal, cooperative and affect normal Appearance: appropriate Assessment & Plan Assessment/Plan (1) SBO (small bowel obstruction): PLAN: Plan #Small bowel obstruction * S/p laparotomy on 05/21/2024, with release of internal hernia. * General surgery on board. Had initial NG tube inserted after she had postop ileus. NG tube subsequently removed on 05/29/2024. * Currently tolerating oral diet. * advance diet as per general surgery * per general surgery, for removal of midline stitches today * #UTI: * Urinalysis done yesterday showed evidence of UTI. * Urine cultures grew ESBL Klebsiella * Patient switched to PO nitrofurantoin per general surgery. * #Hypernatremia * resolved. Na is down to 144. * * #Hypokalemia: Resolved. K is 4.2 today * #Valvular heart disease * s/p bioprosthetic aortic valve replacement. Stable * #Benign essential hypertension: * on IV hydralazine prn. * On metoprolol and lisinopril as well as eplerenone. Will resume Lasix also * #CKD stage IIIb: Creatinine is 1.63 which is around his baseline. Will monitor. #Type 2 diabetes mellitus: On insulin sliding scale. Accu-Cheks ACHS. Also on metformin. #Hyperlipidemia: On statin #BPH: on flomax. DVT prophylaxis: on eliquis * Charges/Coding Visit Charges Inpatient E&M: 02449 Subs Hosp L2
--- NOTE | 2024-06-02 13:01 | DCINST_ITS ---
Discharge Instructions Diet Discharge Diet: No restrictions Activity Lifting Restrictions: no lifting >30 lbs for 2 weeks Dressing / Incision Call your doctor if your incision/area has: Continuous Slow Oozing, Sudden Increased Bleeding, Increased Pain/ Swelling, Increased Redness, Foul Smelling Discharge and Swelling at the incision site Call your doctor if you observe: Fever of 101 or Higher Cleanse incision/area with: Soap & Water (don't scrub on incision but ok for water to run over) Additional Dressing/Incision Instructions:: steri strips placed 06/02 can be removed 06/12 if don't fall off on their own Follow Up Care Please Follow Up With: Nataly Chapman MD When: call office for f/u appt in 2 weeks. Test Results: Test results from this visit will be discussed in further detail at your follow- up appointment, if applicable. Discharge Plan Admission Admit Date/Time: 05/20/24 03:16 Attending Provider: Amber Saravia Primary Care Provider: Justen Sarabia Consulting Providers: Chato Turner; Angelina Winslow; Rafita Garcia; Armen Friedman Discharge Orders/Prescriptions Prescriptions: No Action acetaminophen 500 mg capsule 500 mg PO Q6H PRN (Reason: pain) metformin 500 mg tablet 500 mg PO BID terazosin 5 mg capsule 5 mg PO DAILY cholecalciferol (vitamin D3) 50 mcg (2,000 unit) capsule 50 mcg PO DAILY furosemide [Lasix] 20 mg Tablet 20 mg PO DAILY allopurinol 300 mg Tablet 300 mg PO DAILY eplerenone 50 mg tablet 50 mg PO DAILY metoprolol succinate 25 mg Tablet Extended Release 24 Hr 25 mg PO DAILY Qty: 1 0RF atorvastatin 80 mg Tablet 80 mg PO QHS Qty: 0 0RF lisinopril 20 mg tablet 20 mg PO DAILY Qty: 1 0RF Eliquis 2.5 mg tablet 2.5 mg PO BID triamcinolone acetonide 0.5 % ointment 1 applic topical QHS PRN PRN (Reason: rash) Referrals / Follow Up: Justen Sarabia MD [Primary Care Provider] -
[2024-06-02] MEDS: Nitrofurantoin Macrocrystals 100 MG Capsule PO (13:43)
[2024-06-02] MEDS: Glucerna Shake 120 ML LIQUID PO (13:52)
[2024-06-02 14:06] LABS: Bedside Glucose 140 mg/dL (74-106)
--- NOTE | 2024-06-02 15:16 | TREXTCAR_ITS ---
Diet Diet Order/Speech Therapy: 06/01/24 08:30 Diet: Regular - General Diet Comments: no carbonation Routine Orders/Code Status Enema Type: Fleetz Enema Frequency: Daily PRN Suppository Type: Dulcolax 10mg Suppository Frequency: Daily PRN O2 Frequency: PRN Keep PO Greater than or Equal to (%): 90 Wound(s) ABDOMEN: Wound Type: Surgical Incision Therapies Weight Bearing: Weight bearing as tolerated Physical Therapy: Eval and Treat Occupational Therapy: Eval and Treat Problem/Diagnosis (1) SBO (small bowel obstruction): Status: Acute Code(s): K56.609 - Unspecified intestinal obstruction, unspecified as to partial versus complete obstruction Plan #Small bowel obstruction * S/p laparotomy on 05/21/2024, with release of internal hernia. * General surgery on board. Had initial NG tube inserted after she had postop ileus. NG tube subsequently removed on 05/29/2024. * Currently tolerating oral diet. * advance diet as per general surgery * per general surgery, for removal of midline stitches today * #UTI: * Urinalysis done yesterday showed evidence of UTI. * Urine cultures grew ESBL Klebsiella * Patient switched to PO nitrofurantoin per general surgery. * #Hypernatremia * resolved. Na is down to 144. * * #Hypokalemia: Resolved. K is 4.2 today * #Valvular heart disease * s/p bioprosthetic aortic valve replacement. Stable * #Benign essential hypertension: * on IV hydralazine prn. * On metoprolol and lisinopril as well as eplerenone. Will resume Lasix also * #CKD stage IIIb: Creatinine is 1.63 which is around his baseline. Will monitor. #Type 2 diabetes mellitus: On insulin sliding scale. Accu-Cheks ACHS. Also on metformin. #Hyperlipidemia: On statin #BPH: on flomax. DVT prophylaxis: on eliquis * Allergies/Procedures Done in Hospital Allergies No Known Allergies Allergy (Verified 05/21/24 14:06) Procedures: None Type of Care/Length of Stay Estimated LOS: Convalescent Care Less Than 30 days Type of Care Needed: Skilled Rehab Potential: Fair Prognosis: Fair Additional Orders/Day of Discharge Day of Discharge: 06/02/24 Dietary and Speech Recommendations Dietitian Recommendations/Changes: Recommend ADAT to Low fiber/transitional when medically able to manage medical conditions. Will d/c 120ml ensure clear and 120ml ensure plus high protein d/t DM. Will order 120ml strawberry glucerna 4x daily with medpass. Will monitor weight as available. Reviewed and approved by Jeane Abbasi RD, LD. Follow Up Care Please Follow Up With: Nataly Chapman MD Discharge Plan Admission Admit Date/Time: 05/20/24 03:16 Primary Reason for Your Visit: small bowel obstruction Attending Provider: Amber Saravia Primary Care Provider: Justen Sarabia Consulting Providers: Chato Turner; Angelina Winslow; Rafita Garcia; Armen Friedman Instructions Patient Instructions: Small Bowel Obstruction Discharge Orders/Prescriptions Prescriptions: New tamsulosin 0.4 mg Capsule 0.4 mg PO DAILY@1730 Qty: 30 1RF nitrofurantoin monohyd/m-cryst 100 mg Capsule 100 mg PO BID Qty: 10 0RF Continued acetaminophen 500 mg capsule 500 mg PO Q6H PRN (Reason: pain) metformin 500 mg tablet 500 mg PO BID terazosin 5 mg capsule 5 mg PO DAILY cholecalciferol (vitamin D3) 50 mcg (2,000 unit) capsule 50 mcg PO DAILY furosemide [Lasix] 20 mg Tablet 20 mg PO DAILY allopurinol 300 mg Tablet 300 mg PO DAILY eplerenone 50 mg tablet 50 mg PO DAILY metoprolol succinate 25 mg Tablet Extended Release 24 Hr 25 mg PO DAILY Qty: 1 0RF atorvastatin 80 mg Tablet 80 mg PO QHS Qty: 0 0RF lisinopril 20 mg tablet 20 mg PO DAILY Qty: 1 0RF Eliquis 2.5 mg tablet 2.5 mg PO BID triamcinolone acetonide 0.5 % ointment 1 applic topical QHS PRN PRN (Reason: rash) Referrals / Follow Up: Justen Sarabia MD [Primary Care Provider] - Within 1 Week Nataly Chapman MD [Med Staff - Active Staff] - Within 2 Weeks Disposition Disposition (needs filled in before D/C Order can be placed): Alf Facility
--- NOTE | 2024-06-02 15:17 | DS.PCM_ITS ---
Providers Date of Admission: 05/20/24 Date of Discharge: 06/02/24 Primary Care Physician: Dr. Justen Sarabia MD Consultations 05/20/24 04:38 Consult: General Surgery Routine Consulting Provider: Chato Turner Reason for Consult: SBO EMERGENT Consult: No MD Notified: Yes Date Notified: 05/20/24 Time Notified: 03:17 Method of Notification: ED Physician Initiated Reason For Visit: SBO Diagnosis Discharge Diagnosis (1) SBO (small bowel obstruction): Status: Acute Code(s): K56.609 - Unspecified intestinal obstruction, unspecified as to partial versus complete obstruction Plan #Small bowel obstruction * S/p laparotomy on 05/21/2024, with release of internal hernia. * General surgery on board. Had initial NG tube inserted after she had postop ileus. NG tube subsequently removed on 05/29/2024. * Currently tolerating oral diet. * advance diet as per general surgery * per general surgery, for removal of midline stitches today * #UTI: * Urinalysis done yesterday showed evidence of UTI. * Urine cultures grew ESBL Klebsiella * Patient switched to PO nitrofurantoin per general surgery. * #Hypernatremia * resolved. Na is down to 144. * * #Hypokalemia: Resolved. K is 4.2 today * #Valvular heart disease * s/p bioprosthetic aortic valve replacement. Stable * #Benign essential hypertension: * on IV hydralazine prn. * On metoprolol and lisinopril as well as eplerenone. Will resume Lasix also * #CKD stage IIIb: Creatinine is 1.63 which is around his baseline. Will monitor. #Type 2 diabetes mellitus: On insulin sliding scale. Accu-Cheks ACHS. Also on metformin. #Hyperlipidemia: On statin #BPH: on flomax. DVT prophylaxis: on eliquis * Medications at Discharge Home Medications allopurinol 300 mg tablet 300 mg PO DAILY gout 07/07/21 furosemide 20 mg tablet (Lasix) 20 mg PO DAILY diuretic 07/07/21 acetaminophen 500 mg capsule 500 mg PO Q6H PRN pain 05/28/23 cholecalciferol (vitamin D3) 50 mcg (2,000 unit) capsule 50 mcg PO DAILY supplement 05/28/23 metformin 500 mg tablet 500 mg PO BID Diabetes 05/28/23 terazosin 5 mg capsule 5 mg PO DAILY BPH 05/28/23 eplerenone 50 mg tablet 50 mg PO DAILY HTN 11/11/23 atorvastatin 80 mg tablet 80 mg PO QHS #0 tabs 11/14/23 lisinopril 20 mg tablet 20 mg PO DAILY #1 TAB 11/14/23 metoprolol succinate 25 mg tablet,extended release 24 hr 25 mg PO DAILY #1 TAB 11/14/23 apixaban 2.5 mg tablet (Eliquis) 2.5 mg PO BID 05/20/24 triamcinolone acetonide 0.5 % topical ointment 1 applic topical QHS PRN PRN rash 05/20/24 nitrofurantoin monohydrate/macrocrystals 100 mg capsule 100 mg PO BID #10 caps 06/02/24 tamsulosin 0.4 mg capsule 0.4 mg PO DAILY@1730 #30 caps 06/02/24 Hospital Course Operations - (laparotomy with release of internal hernia) Procedures None Summary of Care Provided Minutes Spent on Discharge: 55 Hospital Course: Patient is an 83-year-old male with past medical history as outlined who was admitted through the ED with a complaint of abdominal discomfort which worsened to abdominal pain with nausea but no vomiting. His symptoms worsened he could not have a bowel movement so he came into the ED. CT of the abdomen and pelvis showed a high-grade small bowel obstruction with a transition point. He was admitted and general surgery was consulted. He had an NG tube inserted. Patient eventually had a diagnostic laparotomy with release of internal hernia on 05/21/2024. His NG tube was eventually removed but hospital course was complicated by postop ileus so he had NG tube placed again. NG tube was subsequently removed and patient was able to pass gas. He was started on clear liquids which was gradually advanced as per general surgery. He had a midline stitches removed on 06/02/2024. Patient remained stable and [facility]. He is to follow-up with his primary care doctor and with general surgery within 1 to 2 weeks. Patient was seen and examined prior to discharge. He had no active complaints. Review of systems otherwise negative. Labs and vitals reviewed. Home medication reviewed and reconciled. Physical Exam Const alert, oriented x3, no apparent distress, average body habitus and healthy appearing General Appearance: cooperative and comfortable Orientation / Consciousness: awake, oriented to person, oriented to place and oriented to time HEENT normocephalic, head/scalp atraumatic, hearing grossly normal bilaterally and moist oral mucous membranes Mouth: oral and palatal mucosa normal Eyes PERRL, EOMs intact bilaterally and conjunctivae normal Neck no lymphadenopathy, supple, no JVD, thyroid normal and no carotid bruits General: trachea midline Lymph Lymphatic: no lymphadenopathy noted and no lymphedema noted Resp normal respiratory effort, normal air movement, no retractions, no use of accessory muscles and clear to auscultation bilaterally Auscultation: Negative for rales, rhonchi or wheezes Cardio regular rate, regular rhythm, S1 normal heart sound, S2 normal heart sound, no murmurs, no rub and no gallops GI normal to inspection, nondistended, normoactive bowel sounds, soft to palpation, non-tender and non-distended GI Narrative: intact edson over laparotomy site, minimal tenderness at site of the edson. Edson removed before discharge Auscultation: hypoactive bowel sounds Extremity normal to inspection, full ROM, normal capillary refill, no clubbing, cyanosis or edema and no calf tenderness General Extremity: no tenderness to palpation of joints or extremities Skin no rashes or lesions noted General Skin Exam: no breakdown Neuro oriented x3, CN's II-XII intact bilaterally, moves all extremities, no focal motor deficits, no sensory deficits noted and deep tendon reflexes 2+ bilaterally Sensorium / Orientation: awake and alert Speech: speech normal Motor Exam: strength 5/5 throughout and general weakness Psych thought process normal, cooperative and affect normal Appearance: appropriate Weight / BMI Weight Weight: 189 lb 9.561 oz Body Mass Index (BMI) 24.3 ABG / Lab / Microbiology Data 06/02/24 05:29 06/02/24 05:29 Laboratory: Laboratory Results - last 24 hr 06/01/24 15:03: Potassium 3.9 06/01/24 16:25: POC Glucose 179 H 06/01/24 21:18: POC Glucose 100 06/02/24 05:29: WBC 10.1, RBC 2.90 L, Hgb 9.4 L, Hct 28.9 L, MCV 99.7 H, MCH 32.4 H, MCHC 32.5, RDW Std Deviation 54.0 H, RDW Coeff of Zaheer 14.7 H, Plt Count 118 L, MPV 10.8, Immature Gran % (Auto) 0.700, Neut % (Auto) 73.3 H, Lymph % (Auto) 19.1, [place] % (Auto) 5.3, Eos % (Auto) 1.4, Baso % (Auto) 0.2, Absolute Neuts (auto) 7.4, Absolute Lymphs (auto) 1.92, Nucleated RBC % 0, Sodium 144, Potassium 4.2, Chloride 118 H, Carbon Dioxide 23.0, Anion Gap 3 L, BUN 25 H, C reatinine 1.63 H, Estim Creat Clear Calc 41.32, Est GFR (MDRD) Af Amer 52 L, Est GFR (MDRD) Non-Af 43 L, BUN/Creatinine Ratio 15.3, Glucose 121 H, Calcium 8.0 L 06/02/24 06:23: POC Glucose 109 H 06/02/24 13:49: POC Glucose 140 H Microbiology: Microbiology 05/31/24 12:30 Urine Catheter - Jason Urine Culture - Preliminary ESBL Klebsiella pneumoniae pne D/C Instructions Discharge Diet: No restrictions Discharge Activity: Return to Normal Activity Weight Bearing Status: Weight bearing as tolerated Call your doctor if your incision/area has: Continuous Slow Oozing, Sudden Increased Bleeding, Increased Pain/ Swelling, Increased Redness, Foul Smelling Discharge and Swelling at the incision site Call your doctor if you observe: Fever of 101 or Higher Cleanse incision/area with: Soap & Water (don't scrub on incision but ok for water to run over) Additional Dressing/Incision Instructions: steri strips placed 06/02 can be removed 06/12 if don't fall off on their own Please Follow Up With: Nataly Chapman MD When: call office for f/u appt in 2 weeks. Meaningful Use Info Meaningful Use Meaningful Use Diagnoses (Choose all that apply): None applicable Ischemic Stroke Statin Dosing Therapy Reference: STATIN DOSE THERAPY REFERENCE: * Patients > 75 years receive moderate or high dose statin therapy. * Patients 75 years or YOUNGER should receive HIGH intensity statin dose unless contraindicated. You will be required to document reason for non-treatment if statin daily dose does not meet guidelines. HIGH DOSE STATIN THERAPY DAILY Atorvastatin > than or = to 40 mg Rosuvastatin > than or = to 20 mg Amlodipine + Atorvastatin > than or = to 2.5/40 mg Ezetimibe + Simvastatin 10/80 mg Simvastatin 80mg Discharge Plan Admission Admit Date/Time: 05/20/24 03:16 Primary Reason for Your Visit: small bowel obstruction Attending Provider: Amber Saravia Primary Care Provider: Justen Sarabia Consulting Providers: Chato Turner; Angelina Winslow; Rafita Garcia; Armen Friedman Instructions Patient Instructions: Small Bowel Obstruction Discharge Orders/Prescriptions Prescriptions: New tamsulosin 0.4 mg Capsule 0.4 mg PO DAILY@1730 Qty: 30 1RF nitrofurantoin monohyd/m-cryst 100 mg Capsule 100 mg PO BID Qty: 10 0RF Continued acetaminophen 500 mg capsule 500 mg PO Q6H PRN (Reason: pain) metformin 500 mg tablet 500 mg PO BID terazosin 5 mg capsule 5 mg PO DAILY cholecalciferol (vitamin D3) 50 mcg (2,000 unit) capsule 50 mcg PO DAILY furosemide [Lasix] 20 mg Tablet 20 mg PO DAILY allopurinol 300 mg Tablet 300 mg PO DAILY eplerenone 50 mg tablet 50 mg PO DAILY metoprolol succinate 25 mg Tablet Extended Release 24 Hr 25 mg PO DAILY Qty: 1 0RF atorvastatin 80 mg Tablet 80 mg PO QHS Qty: 0 0RF lisinopril 20 mg tablet 20 mg PO DAILY Qty: 1 0RF Eliquis 2.5 mg tablet 2.5 mg PO BID triamcinolone acetonide 0.5 % ointment 1 applic topical QHS PRN PRN (Reason: rash) Referrals / Follow Up: Justen Sarabia MD [Primary Care Provider] - Within 1 Week Nataly Chapman MD [Med Staff - Active Staff] - Within 2 Weeks Disposition Disposition (needs filled in before D/C Order can be placed): [facility] Facility Charges/Coding Visit Charges Inpatient E&M: 32786 Disch Hosp >30min
--- NOTE | 2024-06-02 15:23 | CASEMGMT ---
Patient is ready for discharge to [facility]. SW had completed a PASRR in [employer] system. Physicians will transport patient via wheelchair van. Plan: d/c to [facility] under skilled level of care on a PASRR. Janae QUEVEDO
[2024-06-02 16:00] VITALS: BP 128/78; PULSE 80; RESP 16; TEMP 36.8; O2SAT 98
[2024-06-02] MEDS: Ondansetron 4 MG/2 ML Vial IV (16:07)
--- NOTE | 2024-06-02 16:13 | CASEMGMT ---
Discharge Planning Discharge orders, signed med list, and transport time sent to [facility] via [facility]. Physicians will transport patient by wheelchair at 6p. Nursing, SW, and patient updated. VM left for pts daughter (Carmella). Tila French DC Planning Asst.
[2024-06-02 16:30] LABS: Bedside Glucose 114 mg/dL (74-106)
== END 2024-06-02 18:40 | disposition skilled nursing facility (03) | DRG 357 ==
LOC: ED 03:14 → PCU 04:02
PROVIDERS: Anesthesiology; Internal Medicine; Physician Assistant; Surgery; Admitting Provider Family Medicine; Emergency Provider Emergency Medicine; PCP Family Medicine; Visit Provider Student in an Organized Health Care Education/Training Program
PROC: 0WBF0ZZ Excision of Abdominal Wall, Open Approach (ICD-10-PCS; CPT 44202; principal; 2024-05-21 16:45)
DX: K46.0 Unspecified abdominal hernia with obstruction, without gangrene (principal); I24.89 Other forms of acute ischemic heart disease; K56.7 Ileus, unspecified; I48.19 Other persistent atrial fibrillation; K91.89 Other postprocedural complications and disorders of digestive system; D63.1 Anemia in chronic kidney disease; B96.1 Klebsiella pneumoniae [K. pneumoniae] as the cause of diseases classified elsewhere; Z66 Do not resuscitate; E11.22 Type 2 diabetes mellitus with diabetic chronic kidney disease; N18.32 Chronic kidney disease, stage 3b; F01.A0 Vascular dementia, mild, without behavioral disturbance, psychotic disturbance, mood disturbance, and anxiety; I12.9 Hypertensive chronic kidney disease with stage 1 through stage 4 chronic kidney disease, or unspecified chronic kidney disease; Z95.2 Presence of prosthetic heart valve; T83.511A Infection and inflammatory reaction due to indwelling urethral catheter, initial encounter; E11.65 Type 2 diabetes mellitus with hyperglycemia; E78.5 Hyperlipidemia, unspecified; I25.10 Atherosclerotic heart disease of native coronary artery without angina pectoris; Z79.4 Long term (current) use of insulin; E87.6 Hypokalemia; X58.XXXA Exposure to other specified factors, initial encounter; N39.0 Urinary tract infection, site not specified; N40.0 Benign prostatic hyperplasia without lower urinary tract symptoms; Z53.31 Laparoscopic surgical procedure converted to open procedure; Z95.1 Presence of aortocoronary bypass graft; Z90.49 Acquired absence of other specified parts of digestive tract; Z79.01 Long term (current) use of anticoagulants; Z79.1 Long term (current) use of non-steroidal anti-inflammatories (NSAID); Z79.84 Long term (current) use of oral hypoglycemic drugs; Z53.39 Other specified procedure converted to open procedure; Z79.899 Other long term (current) drug therapy; Z86.73 Personal history of transient ischemic attack (TIA), and cerebral infarction without residual deficits
CPT/HCPCS: 36415; 74018; 74177; 74250; 80048; 80053; 80076; 81001; 82962; 83036; 83605; 83690; 83735; 84100; 84132; 84484; 85025; 87077; 87086; 87088; 87186; 93005; 97110; 97116; 97162; 97165; 97530; 97535; 97802; 99285; J7030; J7040; J7050; J7120; Q9967; A4216; J2405

== ENCOUNTER → 2024-07-07 | Outpatient (CLI) | payer MEDICARE, OTHER, SELFPAY ==
[2024-07-07 19:16] LABS: Squamous Epithelial Cells - UA 0 SEEN /hpf (0-5)
[2024-07-07 19:48] LABS: Color, Urine Yellow (Yellow); Glucose, Dipstick Normal (Normal); Ketone-Dipstick Negative (Negative); Leukocyte Esterase-Dipstick 500 /ul (Negative); Nitrite-Dipstick Negative (Negative); Occult Blood-Urine 150 /ul (Negative); Protein-Dipstick 100 mg/dl (Negative); Specific Gravity, Urine 1.015 (1.002-1.030); Urine Bilirubin Dipstick Negative (Negative); Urine Clarity Cloudy (Clear); Urine Urobilinogen Normal (Normal)
[2024-07-07 20:29] LABS: Bacteria 2+ /hpf (None Seen); Mucous, Urine 2+ /hpf (<or=2+); Red Blood Cells-Urine 10-25 SEEN /hpf (0-5); White Blood Cells >100 SEEN /hpf (0-5)
== END | disposition home or self-care (01) ==
LOC: LABSPEC 19:14
PROVIDERS: PCP Family Medicine; Visit Provider Physician Assistant
DX: N18.9 Chronic kidney disease, unspecified (principal); N39.0 Urinary tract infection, site not specified; B69.89 Cysticercosis of other sites; R32 Unspecified urinary incontinence
CPT/HCPCS: 81001; 87077; 87086; 87088; 87186